=== PATIENT | male | born 1960 | race Caucasian/White ===

== ENCOUNTER 2020-09-28 06:06 | Outpatient (REF) | payer BC, SELFPAY ==
[2020-09-28 07:26] LABS: INTERNATIONAL NORM RATIO 2.1 (0.9-1.1); Prothrombin Time 25.7 SEC (10.8-13.0)
== END 2020-09-28 06:07 | disposition home or self-care (01) ==
LOC: HO.LAB 06:06
PROVIDERS: Visit Provider Internal Medicine
DX: I48.91 Unspecified atrial fibrillation (principal); Z79.01 Long term (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 of 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
CPT/HCPCS: 36415; 85610

== ENCOUNTER 2020-10-12 06:18 | Outpatient (REF) | payer BC, SELFPAY ==
[2020-10-12 07:25] LABS: INTERNATIONAL NORM RATIO 2.6 (0.9-1.1); Prothrombin Time 31.5 SEC (10.8-13.0)
== END 2020-10-12 06:19 | disposition home or self-care (01) ==
LOC: HO.LABR 06:18
PROVIDERS: Visit Provider Internal Medicine
DX: Z79.01 Long term (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 of 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 (principal); I48.91 Unspecified atrial fibrillation
CPT/HCPCS: 36415; 85610

== ENCOUNTER 2020-10-26 06:23 | Outpatient (REF) | payer BC, SELFPAY ==
[2020-10-26 07:25] LABS: INTERNATIONAL NORM RATIO 1.1 (0.9-1.1); Prothrombin Time 12.7 SEC (10.8-13.0)
== END 2020-10-26 06:24 | disposition home or self-care (01) ==
LOC: HO.LABR 06:23
PROVIDERS: Visit Provider Internal Medicine
DX: I48.91 Unspecified atrial fibrillation (principal); Z79.01 Long term (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 of 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
CPT/HCPCS: 36415; 85610

== ENCOUNTER 2020-11-09 06:22 | Outpatient (REF) | payer BC, SELFPAY ==
[2020-11-09 07:26] LABS: INTERNATIONAL NORM RATIO 1.7 (0.9-1.1); Prothrombin Time 20.7 SEC (10.8-13.0)
== END 2020-11-09 06:23 | disposition home or self-care (01) ==
LOC: HO.LABR 06:22
PROVIDERS: Visit Provider Internal Medicine
DX: I48.91 Unspecified atrial fibrillation (principal); Z79.01 Long term (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 of 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
CPT/HCPCS: 36415; 85610

== ENCOUNTER 2020-11-16 06:06 | Outpatient (REF) | payer BC, SELFPAY ==
[2020-11-16 07:27] LABS: MANUAL DIFF FLAG NO
[2020-11-16 07:34] LABS: Basophils Percent Auto 0.3 % (0-2); Eosinophils Absolute Auto 0.1 X10*3/uL (0.0-0.4); Eosinophils Percent Auto 1.5 % (0-4); Hematocrit 41.7 % (42-52); Imm Gran Abs Auto 0.01 X10*3/uL (0.00-0.03); Imm Gran Pct Auto 0.2 % (0.0-0.4); Lymphocytes Absolute Auto 1.5 X10*3/uL (1.2-4.9); Lymphocytes Percent Auto 24.6 % (20-40); Mean Corpuscular HGB Conc 33.6 g/dl (31.0-36.0); Mean Corpuscular Hemoglobin 29.8 pg (27.0-33.0); Mean Corpuscular Volume 88.7 fL (80-98); Mean Platelet Volume 9.7 fL (9.4-12.4); Monocytes Absolute Auto 0.5 X10*3/uL (0.1-1.2); Monocytes Percent Auto 7.7 % (2-11); Neutrophils Percent Auto 65.7 % (45-73); Platelet Count 235 X10*3/uL (160-400); Red Cell Distribution Width 13.5 % (11.0-16.0); White Blood Count 6.1 X10*3/uL (4.8-10.8)
[2020-11-16 07:46] LABS: Alanine Aminotransferase 25 U/L (0-40); Albumin Level 4.3 g/dL (3.5-5.0); Alkaline Phosphatase 75 U/L (39-117); Anion Gap 14 (12-20); Aspartate Amino Transferase 24 U/L (5-37); Bilirubin Total 1.5 mg/dL (0.0-1.0); Blood Urea Nitrogen 14 mg/dL (9-16); Calcium 8.8 mg/dL (8.4-10.2); Carbon Dioxide 27 mmol/L (22-29); Chloride 101 mmol/L (96-108); Cholesterol 149 mg/dL; Estimated Glomerular Filt Rate > 60; Glucose Fasting 134 mg/dL (60-99); HDL Cholesterol 47 mg/dL; LDL Cholesterol Calculated 70 mg/dl; Potassium 4.1 mmol/L (3.3-5.1); Sodium 138 mmol/L (135-145); Triglycerides 162 mg/dL
[2020-11-16 07:56] LABS: Glucose Urine UA NEG (NEG); Leukocyte Esterase Urine NEG (NEG); Nitrite Urine NEG (NEG); Specific Gravity - Urine 1.015 (1.005-1.025); Urine Blood NEG (NEG); Urine Ketones NEG (NEG); Urine Protein NEG (NEG-TRACE)
[2020-11-16 08:00] LABS: Appearance Urine CLEAR; Color Urine YELLOW
[2020-11-16 08:01] LABS: Creatinine Urine 103.39 mg/dL; Microalbum/Creatinine Ratio Ur 9.6 ug/mg cr
[2020-11-16 08:14] LABS: Reflex LDLD? No
[2020-11-16 09:11] LABS: Estimated Average Glucose 137 mg/dL; Hemoglobin A1c % 6.4 %
== END 2020-11-16 06:07 | disposition home or self-care (01) ==
LOC: HO.LAB 06:06
PROVIDERS: PCP Internal Medicine; Visit Provider Internal Medicine
DX: Z00.00 Encounter for general adult medical examination without abnormal findings (principal); E11.9 Type 2 diabetes mellitus without complications; E78.00 Pure hypercholesterolemia, unspecified; I10 Essential (primary) hypertension
CPT/HCPCS: 36415; 80053; 80061; 81003; 82043; 83036; 85025

== ENCOUNTER 2020-11-30 10:11 | Outpatient (REF) | payer BC, SELFPAY ==
[2020-11-30 10:52] LABS: INTERNATIONAL NORM RATIO 1.9 (0.9-1.1); Prothrombin Time 22.6 SEC (10.8-13.0)
[2020-11-30 11:30] LABS: Prostate Specific Antigen Scr 0.45 ng/mL (<0.05-4.0)
== END 2020-11-30 10:12 | disposition home or self-care (01) ==
LOC: HO.LNP 10:11
PROVIDERS: PCP Internal Medicine; Visit Provider Internal Medicine
DX: Z00.00 Encounter for general adult medical examination without abnormal findings (principal); Z12.5 Encounter for screening for malignant neoplasm of prostate; I48.91 Unspecified atrial fibrillation; Z79.01 Long term (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 of 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
CPT/HCPCS: 84153; 85610

== ENCOUNTER 2020-12-14 10:10 | Outpatient (REF) | payer BC, SELFPAY ==
[2020-12-14 10:36] LABS: INTERNATIONAL NORM RATIO 2.3 (0.9-1.1)
== END 2020-12-14 10:11 | disposition home or self-care (01) ==
LOC: HO.LNP 10:10
PROVIDERS: PCP Internal Medicine; Visit Provider Internal Medicine
DX: I48.91 Unspecified atrial fibrillation (principal); Z79.01 Long term (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 of 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
CPT/HCPCS: 85610

== ENCOUNTER 2020-12-28 10:26 | Outpatient (REF) | payer BC, SELFPAY ==
[2020-12-28 11:23] LABS: INTERNATIONAL NORM RATIO 2.2 (0.9-1.1); Prothrombin Time 25.8 SEC (10.8-13.0)
== END 2020-12-28 10:27 | disposition home or self-care (01) ==
LOC: HO.LNP 10:26
PROVIDERS: Visit Provider Internal Medicine
DX: I48.91 Unspecified atrial fibrillation (principal); Z79.01 Long term (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 of 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
CPT/HCPCS: 85610

== ENCOUNTER 2021-01-11 10:26 | Outpatient (REF) | payer BC, SELFPAY ==
[2021-01-11 10:42] LABS: INTERNATIONAL NORM RATIO 2.4 (0.9-1.1); Prothrombin Time 28.2 SEC (10.8-13.0)
== END 2021-01-11 10:27 | disposition home or self-care (01) ==
LOC: HO.LNP 10:26
PROVIDERS: Visit Provider Internal Medicine
DX: I48.91 Unspecified atrial fibrillation (principal); E11.9 Type 2 diabetes mellitus without complications; Z79.01 Long term (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 of 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
CPT/HCPCS: 85610

== ENCOUNTER 2021-01-25 11:09 | Outpatient (REF) | payer BC, SELFPAY ==
[2021-01-25 11:40] LABS: INTERNATIONAL NORM RATIO 2.8 (0.9-1.1); Prothrombin Time 33.5 SEC (10.8-13.0)
== END 2021-01-25 11:10 | disposition home or self-care (01) ==
LOC: HO.LNP 11:09
PROVIDERS: PCP Internal Medicine; Visit Provider Internal Medicine
DX: I48.91 Unspecified atrial fibrillation (principal); Z79.01 Long term (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 of 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
CPT/HCPCS: 85610

== ENCOUNTER 2021-02-08 11:08 | Outpatient (REF) | payer BC, SELFPAY ==
[2021-02-08 11:26] LABS: INTERNATIONAL NORM RATIO 2.7 (0.9-1.1); Prothrombin Time 32.4 SEC (10.8-13.0)
== END 2021-02-08 11:09 | disposition home or self-care (01) ==
LOC: HO.LNP 11:08
PROVIDERS: Visit Provider Internal Medicine
DX: Z79.01 Long term (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 of 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 (principal)
CPT/HCPCS: 85610

== ENCOUNTER 2021-02-22 10:23 | Outpatient (REF) | payer BC, SELFPAY ==
[2021-02-22 10:55] LABS: INTERNATIONAL NORM RATIO 3.5 (0.9-1.1); Prothrombin Time 42.7 SEC (10.8-13.0)
== END 2021-02-22 10:24 | disposition home or self-care (01) ==
LOC: HO.LNP 10:23
PROVIDERS: Visit Provider Internal Medicine
DX: I48.91 Unspecified atrial fibrillation (principal)
CPT/HCPCS: 85610

== ENCOUNTER 2021-02-25 10:11 | Outpatient (REF) | payer BC, SELFPAY ==
[2021-02-25 10:24] LABS: INTERNATIONAL NORM RATIO 1.3 (0.9-1.1); Prothrombin Time 15.8 SEC (10.8-13.0)
== END 2021-02-25 10:12 | disposition home or self-care (01) ==
LOC: HO.LNP 10:11
PROVIDERS: Visit Provider Internal Medicine
DX: I48.91 Unspecified atrial fibrillation (principal); Z79.01 Long term (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 of 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
CPT/HCPCS: 85610

== ENCOUNTER 2021-02-28 10:27 | Outpatient (REF) | payer BC, SELFPAY ==
[2021-02-28 10:45] LABS: INTERNATIONAL NORM RATIO 2.3 (0.9-1.1); Prothrombin Time 27.8 SEC (10.8-13.0)
== END 2021-02-28 10:28 | disposition home or self-care (01) ==
LOC: HO.LNP 10:27
PROVIDERS: Visit Provider Internal Medicine
DX: I48.91 Unspecified atrial fibrillation (principal); Z79.01 Long term (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 of 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
CPT/HCPCS: 85610

== ENCOUNTER 2021-03-08 10:26 | Outpatient (REF) | payer BC, SELFPAY ==
[2021-03-08 10:56] LABS: INTERNATIONAL NORM RATIO 3.5 (0.9-1.1); Prothrombin Time 42.3 SEC (10.8-13.0)
[2021-03-08 11:07] LABS: Estimated Average Glucose 131 mg/dL; Hemoglobin A1C 150.4593 umol/L; Hemoglobin A1c % 6.2 %
[2021-03-08 11:50] LABS: Glucose Fasting 154 mg/dL (60-99)
== END 2021-03-08 10:27 | disposition home or self-care (01) ==
LOC: HO.LNP 10:26
PROVIDERS: Visit Provider Internal Medicine
DX: E11.9 Type 2 diabetes mellitus without complications (principal); Z79.01 Long term (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 of 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
CPT/HCPCS: 82947; 83036; 85610

== ENCOUNTER 2021-03-15 10:16 | Outpatient (REF) | payer BC, SELFPAY ==
[2021-03-15 10:31] LABS: INTERNATIONAL NORM RATIO 2.4 (0.9-1.1); Prothrombin Time 28.6 SEC (10.8-13.0)
== END 2021-03-15 10:17 | disposition home or self-care (01) ==
LOC: HO.LNP 10:16
PROVIDERS: Visit Provider Internal Medicine
DX: I48.91 Unspecified atrial fibrillation (principal); Z79.01 Long term (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 of 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
CPT/HCPCS: 85610

== ENCOUNTER 2021-03-22 10:35 | Outpatient (REF) | payer BC, SELFPAY ==
[2021-03-22 11:08] LABS: Prothrombin Time 24.4 SEC (10.8-13.0)
== END 2021-03-22 10:36 | disposition home or self-care (01) ==
LOC: HO.LNP 10:35
PROVIDERS: Visit Provider Internal Medicine
DX: I48.91 Unspecified atrial fibrillation (principal); Z79.01 Long term (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 of 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
CPT/HCPCS: 85610

== ENCOUNTER 2021-04-05 10:01 | Outpatient (REF) | payer BC, SELFPAY ==
[2021-04-05 10:18] LABS: Prothrombin Time 23.7 SEC (10.8-13.0)
== END 2021-04-05 10:02 | disposition home or self-care (01) ==
LOC: HO.LNP 10:01
PROVIDERS: Visit Provider Internal Medicine
DX: I48.91 Unspecified atrial fibrillation (principal); Z79.01 Long term (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 of 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
CPT/HCPCS: 85610

== ENCOUNTER 2021-04-19 10:00 | Outpatient (REF) | payer BC, SELFPAY ==
[2021-04-19 10:53] LABS: Prothrombin Time 66.9 SEC (9.9-13.0)
[2021-04-19 10:58] LABS: INTERNATIONAL NORM RATIO 5.7 (0.9-1.1)
== END 2021-04-19 10:01 | disposition home or self-care (01) ==
LOC: HO.LNP 10:00
PROVIDERS: Visit Provider Internal Medicine
DX: I48.91 Unspecified atrial fibrillation (principal); Z79.01 Long term (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 of 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
CPT/HCPCS: 85610

== ENCOUNTER 2021-04-26 10:05 | Outpatient (REF) | payer BC, SELFPAY ==
[2021-04-26 10:29] LABS: INTERNATIONAL NORM RATIO 1.8 (0.9-1.1); Prothrombin Time 20.8 SEC (9.9-13.0)
== END 2021-04-26 10:06 | disposition home or self-care (01) ==
LOC: HO.LNP 10:05
PROVIDERS: Visit Provider Internal Medicine
DX: I48.91 Unspecified atrial fibrillation (principal); Z79.01 Long term (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 of 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
CPT/HCPCS: 85610

== ENCOUNTER 2021-04-29 10:08 | Outpatient (REF) | payer BC, SELFPAY ==
[2021-04-29 10:28] LABS: INTERNATIONAL NORM RATIO 2.3 (0.9-1.1); Prothrombin Time 26.3 SEC (9.9-13.0)
== END 2021-04-29 10:09 | disposition home or self-care (01) ==
LOC: HO.LNP 10:08
PROVIDERS: Visit Provider Internal Medicine
DX: I48.91 Unspecified atrial fibrillation (principal); Z79.01 Long term (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 of 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
CPT/HCPCS: 85610

== ENCOUNTER 2021-05-03 10:10 | Outpatient (REF) | payer BC, SELFPAY ==
[2021-05-03 11:22] LABS: INTERNATIONAL NORM RATIO 2.1 (0.9-1.1); Prothrombin Time 23.8 SEC (9.9-13.0)
== END 2021-05-03 10:11 | disposition home or self-care (01) ==
LOC: HO.LNP 10:10
PROVIDERS: Visit Provider Internal Medicine
DX: I48.91 Unspecified atrial fibrillation (principal); Z79.01 Long term (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 of 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
CPT/HCPCS: 85610

== ENCOUNTER 2021-05-10 10:27 | Outpatient (REF) | payer BC, SELFPAY ==
[2021-05-10 10:49] LABS: INTERNATIONAL NORM RATIO 2.8 (0.9-1.1); Prothrombin Time 32.4 SEC (9.9-13.0)
== END 2021-05-10 10:28 | disposition home or self-care (01) ==
LOC: HO.LNP 10:27
PROVIDERS: Visit Provider Internal Medicine
DX: I48.91 Unspecified atrial fibrillation (principal); Z79.01 Long term (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 of 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
CPT/HCPCS: 85610

== ENCOUNTER 2021-05-24 10:24 | Outpatient (REF) | payer BC, SELFPAY ==
[2021-05-24 10:36] LABS: INTERNATIONAL NORM RATIO 2.3 (0.9-1.1); Prothrombin Time 26.8 SEC (9.9-13.0)
[2021-05-24 10:42] LABS: Estimated Average Glucose 123 mg/dL; Hemoglobin A1c % 5.9 %
[2021-05-24 12:03] LABS: Alanine Aminotransferase 23 U/L (0-40); Albumin Level 4.2 g/dL (3.5-5.0); Alkaline Phosphatase 64 U/L (39-117); Aspartate Amino Transferase 21 U/L (5-37); Bilirubin Direct 0.5 mg/dL (0.0-0.5); Bilirubin Total 1.3 mg/dL (0.0-1.0); Cholesterol 139 mg/dL; Glucose Fasting 131 mg/dL (60-99); HDL Cholesterol 43 mg/dL; LDL Cholesterol Calculated 77 mg/dl; Total Protein 6.7 g/dL (6.5-8.0); Triglycerides 96 mg/dL
[2021-05-24 12:41] LABS: Reflex LDLD? No
== END 2021-05-24 10:25 | disposition home or self-care (01) ==
LOC: HO.LNP 10:24
PROVIDERS: Visit Provider Internal Medicine
DX: I48.91 Unspecified atrial fibrillation (principal); E11.9 Type 2 diabetes mellitus without complications; E78.00 Pure hypercholesterolemia, unspecified; Z79.01 Long term (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 of 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
CPT/HCPCS: 80061; 80076; 82947; 83036; 85610

== ENCOUNTER 2021-06-07 10:12 | Outpatient (REF) | payer BC, SELFPAY ==
[2021-06-07 10:33] LABS: INTERNATIONAL NORM RATIO 2.5 (0.9-1.1); Prothrombin Time 29.1 SEC (9.9-13.0)
== END 2021-06-07 10:13 | disposition home or self-care (01) ==
LOC: HO.LNP 10:12
PROVIDERS: Visit Provider Internal Medicine
DX: I48.91 Unspecified atrial fibrillation (principal); Z79.01 Long term (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 of 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
CPT/HCPCS: 85610

== ENCOUNTER 2021-06-21 10:10 | Outpatient (REF) | payer BC, SELFPAY ==
[2021-06-21 10:24] LABS: INTERNATIONAL NORM RATIO 3.1 (0.9-1.1); Prothrombin Time 36.5 SEC (9.9-13.0)
== END 2021-06-21 10:11 | disposition home or self-care (01) ==
LOC: HO.LNP 10:10
PROVIDERS: Visit Provider Internal Medicine
DX: I48.91 Unspecified atrial fibrillation (principal); Z79.01 Long term (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 of 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
CPT/HCPCS: 85610

== ENCOUNTER 2021-07-05 10:05 | Outpatient (REF) | payer BC, SELFPAY ==
[2021-07-05 10:17] LABS: INTERNATIONAL NORM RATIO 2.7 (0.9-1.1); Prothrombin Time 31.3 SEC (9.9-13.0)
== END 2021-07-05 10:06 | disposition home or self-care (01) ==
LOC: HO.LNP 10:05
PROVIDERS: Visit Provider Internal Medicine
DX: I48.91 Unspecified atrial fibrillation (principal); Z79.01 Long term (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 of 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
CPT/HCPCS: 85610

== ENCOUNTER 2021-07-19 10:09 | Outpatient (REF) | payer BC, SELFPAY ==
[2021-07-19 10:27] LABS: INTERNATIONAL NORM RATIO 2.6 (0.9-1.1); Prothrombin Time 30.4 SEC (9.9-13.0)
== END 2021-07-19 10:10 | disposition home or self-care (01) ==
LOC: HO.LNP 10:09
PROVIDERS: Visit Provider Internal Medicine
DX: I48.91 Unspecified atrial fibrillation (principal); Z79.01 Long term (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 of 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
CPT/HCPCS: 85610

== ENCOUNTER 2021-08-02 10:22 | Outpatient (REF) | payer BC, SELFPAY ==
[2021-08-02 10:41] LABS: INTERNATIONAL NORM RATIO 2.6 (0.9-1.1); Prothrombin Time 30.1 SEC (9.9-13.0)
== END 2021-08-02 10:23 | disposition home or self-care (01) ==
LOC: HO.LNP 10:22
PROVIDERS: Visit Provider Internal Medicine
DX: I48.91 Unspecified atrial fibrillation (principal); Z79.01 Long term (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 of 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
CPT/HCPCS: 85610

== ENCOUNTER 2021-08-16 10:16 | Outpatient (REF) | payer BC, SELFPAY ==
[2021-08-16 10:32] LABS: INTERNATIONAL NORM RATIO 2.9 (0.9-1.1); Prothrombin Time 33.7 SEC (9.9-13.0)
== END 2021-08-16 10:17 | disposition home or self-care (01) ==
LOC: HO.LNP 10:16
PROVIDERS: Visit Provider Internal Medicine
DX: I48.91 Unspecified atrial fibrillation (principal); Z79.01 Long term (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 of 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
CPT/HCPCS: 85610

== ENCOUNTER 2021-08-18 06:26 | Outpatient (REF) | payer BC, SELFPAY ==
[2021-08-18 06:35] LABS: MANUAL DIFF FLAG NO
[2021-08-18 07:20] LABS: Basophils Percent Auto 0.1 % (0-2); Eosinophils Absolute Auto 0.1 X10*3/uL (0.0-0.4); Eosinophils Percent Auto 2.1 % (0-4); Hematocrit 39.5 % (42.0-52.0); Hemoglobin 13.1 g/dl (14.0-18.0); Imm Gran Abs Auto 0.02 X10*3/uL (0.00-0.03); Imm Gran Pct Auto 0.3 % (0.0-0.4); Lymphocytes Absolute Auto 1.5 X10*3/uL (1.2-4.9); Mean Corpuscular HGB Conc 33.2 g/dl (31.0-36.0); Mean Corpuscular Hemoglobin 29.3 pg (27.0-33.0); Mean Corpuscular Volume 88.4 fL (80.0-98.0); Mean Platelet Volume 9.5 fL (9.4-12.4); Monocytes Absolute Auto 0.6 X10*3/uL (0.1-1.2); Monocytes Percent Auto 8.1 % (2-11); Neutrophils Absolute Auto 4.59 x10*3/uL (2.0-8.3); Neutrophils Percent Auto 67.4 % (45-73); Platelet Count 211 X10*3/uL (160-400); Red Blood Count 4.47 X10*6/uL (4.60-5.80); White Blood Count 6.8 X10*3/uL (4.8-10.8)
[2021-08-18 07:48] LABS: Alanine Aminotransferase 24 U/L (0-40); Albumin Level 4.1 g/dL (3.5-5.0); Alkaline Phosphatase 67 U/L (39-117); Anion Gap 11 (12-20); Aspartate Amino Transferase 24 U/L (5-37); Bilirubin Total 0.9 mg/dL (0.0-1.0); Blood Urea Nitrogen 15 mg/dL (9-16); Calcium 8.8 mg/dL (8.4-10.2); Carbon Dioxide 28 mmol/L (22-29); Chloride 104 mmol/L (96-108); Cholesterol 139 mg/dL; Estimated Glomerular Filt Rate > 60; Glucose Random 158 mg/dL (60-115); HDL Cholesterol 45 mg/dL; LDL Cholesterol Calculated 79 mg/dl; Magnesium 1.8 mg/dL (1.6-2.6); Potassium 4.2 mmol/L (3.3-5.1); Sodium 139 mmol/L (135-145); Total Protein 6.7 g/dL (6.5-8.0); Triglycerides 76 mg/dL
== END 2021-08-18 06:27 | disposition home or self-care (01) ==
LOC: HO.LAB 06:26
PROVIDERS: Physician Assistant Medical; PCP Internal Medicine; Visit Provider Nurse Practitioner
DX: E78.2 Mixed hyperlipidemia (principal); I48.0 Paroxysmal atrial fibrillation
CPT/HCPCS: 36415; 80053; 80061; 83735; 85025

== ENCOUNTER 2021-08-30 10:44 | Outpatient (REF) | payer BC, SELFPAY ==
[2021-08-30 10:57] LABS: Prothrombin Time 23.1 SEC (9.9-13.0)
== END 2021-08-30 10:45 | disposition home or self-care (01) ==
LOC: HO.LNP 10:44
PROVIDERS: PCP Internal Medicine; Visit Provider Internal Medicine
DX: I48.91 Unspecified atrial fibrillation (principal); Z79.01 Long term (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 of 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
CPT/HCPCS: 85610

== ENCOUNTER 2021-09-13 10:11 | Outpatient (REF) | payer BC, SELFPAY ==
[2021-09-13 10:49] LABS: INTERNATIONAL NORM RATIO 3.1 (0.9-1.1); Prothrombin Time 36.6 SEC (9.9-13.0)
== END 2021-09-13 10:12 | disposition home or self-care (01) ==
LOC: HO.LNP 10:11
PROVIDERS: PCP Internal Medicine; Visit Provider Internal Medicine
DX: I48.91 Unspecified atrial fibrillation (principal); Z79.01 Long term (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 of 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
CPT/HCPCS: 85610

== ENCOUNTER 2021-09-27 10:24 | Outpatient (REF) | payer BC, SELFPAY ==
[2021-09-27 10:51] LABS: INTERNATIONAL NORM RATIO 1.5 (0.9-1.1); Prothrombin Time 16.7 SEC (9.9-13.0)
== END 2021-09-27 10:25 | disposition home or self-care (01) ==
LOC: HO.LNP 10:24
PROVIDERS: Visit Provider Internal Medicine
DX: I48.91 Unspecified atrial fibrillation (principal); Z79.01 Long term (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 of 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
CPT/HCPCS: 85610

== ENCOUNTER 2021-10-04 10:07 | Outpatient (REF) | payer BC, SELFPAY ==
[2021-10-04 10:26] LABS: INTERNATIONAL NORM RATIO 2.1 (0.9-1.1); Prothrombin Time 23.9 SEC (9.9-13.0)
== END 2021-10-04 10:08 | disposition home or self-care (01) ==
LOC: HO.LNP 10:07
PROVIDERS: Visit Provider Internal Medicine
DX: I48.91 Unspecified atrial fibrillation (principal); Z79.01 Long term (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 of 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
CPT/HCPCS: 85610

== ENCOUNTER 2021-10-11 10:05 | Outpatient (REF) | payer BC, SELFPAY ==
[2021-10-11 10:16] LABS: Glucose Fasting 140 mg/dL (60-99)
[2021-10-11 10:18] LABS: INTERNATIONAL NORM RATIO 3.4 (0.9-1.1); Prothrombin Time 40.1 SEC (9.9-13.0)
== END 2021-10-11 10:06 | disposition home or self-care (01) ==
LOC: HO.LNP 10:05
PROVIDERS: Visit Provider Internal Medicine
DX: E11.9 Type 2 diabetes mellitus without complications (principal); Z79.01 Long term (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 of 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
CPT/HCPCS: 82947; 85610

== ENCOUNTER 2021-10-18 06:24 | Outpatient (REF) | payer BC, SELFPAY ==
[2021-10-18 06:38] LABS: MANUAL DIFF FLAG NO
[2021-10-18 07:37] LABS: Basophils Percent Auto 0.5 % (0-2); Eosinophils Absolute Auto 0.3 X10*3/uL (0.0-0.4); Eosinophils Percent Auto 4.6 % (0-4); Hematocrit 41.5 % (42.0-52.0); Hemoglobin 13.4 g/dl (14.0-18.0); Imm Gran Abs Auto 0.01 X10*3/uL (0.00-0.03); Imm Gran Pct Auto 0.2 % (0.0-0.4); Lymphocytes Absolute Auto 1.5 X10*3/uL (1.2-4.9); Lymphocytes Percent Auto 24.1 % (20-40); Mean Corpuscular HGB Conc 32.3 g/dl (31.0-36.0); Mean Corpuscular Hemoglobin 28.9 pg (27.0-33.0); Mean Corpuscular Volume 89.4 fL (80.0-98.0); Mean Platelet Volume 9.3 fL (9.4-12.4); Monocytes Absolute Auto 0.7 X10*3/uL (0.1-1.2); Monocytes Percent Auto 10.3 % (2-11); Neutrophils Absolute Auto 3.8 x10*3/uL (2.0-8.3); Neutrophils Percent Auto 60.3 % (45-73); Platelet Count 240 X10*3/uL (160-400); Red Blood Count 4.64 X10*6/uL (4.60-5.80); Red Cell Distribution Width 14.3 % (11.0-16.0); White Blood Count 6.3 X10*3/uL (4.8-10.8)
[2021-10-18 07:46] LABS: INTERNATIONAL NORM RATIO 2.8 (0.9-1.1)
[2021-10-18 08:00] LABS: Anion Gap 10 (12-20); Blood Urea Nitrogen 10 mg/dL (9-16); Calcium 9.2 mg/dL (8.4-10.2); Carbon Dioxide 30 mmol/L (22-29); Chloride 103 mmol/L (96-108); Estimated Glomerular Filt Rate > 60; Glucose Random 141 mg/dL (60-115); Sodium 139 mmol/L (135-145)
== END 2021-10-18 06:25 | disposition home or self-care (01) ==
LOC: HO.LAB 06:24
PROVIDERS: PCP Internal Medicine; Visit Provider Internal Medicine Cardiovascular Disease
DX: I48.91 Unspecified atrial fibrillation (principal)
CPT/HCPCS: 36415; 80048; 85025; 85610

== ENCOUNTER 2021-10-24 10:35 | Outpatient (REF) | payer BC, SELFPAY ==
[2021-10-24 10:47] LABS: INTERNATIONAL NORM RATIO 2.1 (0.9-1.1); Prothrombin Time 23.8 SEC (9.9-13.0)
== END 2021-10-24 10:36 | disposition home or self-care (01) ==
LOC: HO.LNP 10:35
PROVIDERS: Visit Provider Internal Medicine
DX: I48.91 Unspecified atrial fibrillation (principal); Z79.01 Long term (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 of 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
CPT/HCPCS: 85610

== ENCOUNTER 2021-11-01 10:05 | Outpatient (REF) | payer BC, SELFPAY ==
[2021-11-01 10:23] LABS: INTERNATIONAL NORM RATIO 1.8 (0.9-1.1); Prothrombin Time 20.2 SEC (9.9-13.0)
== END 2021-11-01 10:06 | disposition home or self-care (01) ==
LOC: HO.LNP 10:05
PROVIDERS: Visit Provider Internal Medicine
DX: I48.91 Unspecified atrial fibrillation (principal); Z79.01 Long term (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 of 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
CPT/HCPCS: 85610

== ENCOUNTER 2021-11-08 10:13 | Outpatient (REF) | payer BC, SELFPAY ==
[2021-11-08 10:37] LABS: INTERNATIONAL NORM RATIO 2.2 (0.9-1.1); Prothrombin Time 25.4 SEC (9.9-13.0)
== END 2021-11-08 10:14 | disposition home or self-care (01) ==
LOC: HO.LNP 10:13
PROVIDERS: Visit Provider Internal Medicine
DX: I48.91 Unspecified atrial fibrillation (principal); Z79.01 Long term (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 of 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
CPT/HCPCS: 85610

== ENCOUNTER 2021-11-15 10:23 | Outpatient (REF) | payer BC, SELFPAY ==
[2021-11-15 10:34] LABS: Prothrombin Time 35.1 SEC (9.9-13.0)
== END 2021-11-15 10:24 | disposition home or self-care (01) ==
LOC: HO.LNP 10:23
PROVIDERS: PCP Internal Medicine; Visit Provider Internal Medicine
DX: I48.91 Unspecified atrial fibrillation (principal); Z79.01 Long term (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 of 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
CPT/HCPCS: 85610

== ENCOUNTER 2021-11-29 10:54 | Outpatient (REF) | payer BC, SELFPAY ==
[2021-11-29 10:57] LABS: MANUAL DIFF FLAG NO
[2021-11-29 11:28] LABS: Appearance Urine CLEAR; Color Urine YELLOW; Glucose Urine UA NEG (NEG); Leukocyte Esterase Urine NEG (NEG); Nitrite Urine NEG (NEG); PH 6.5 (5.0-8.0); Urine Blood NEG (NEG); Urine Ketones NEG (NEG); Urine Protein NEG (NEG-TRACE)
[2021-11-29 11:30] LABS: Basophils Percent Auto 0.3 % (0-2); Eosinophils Absolute Auto 0.2 X10*3/uL (0.0-0.4); Eosinophils Percent Auto 2.4 % (0-4); Hematocrit 41.5 % (42.0-52.0); Hemoglobin 13.3 g/dl (14.0-18.0); Imm Gran Abs Auto 0.02 X10*3/uL (0.00-0.03); Imm Gran Pct Auto 0.3 % (0.0-0.4); Lymphocytes Percent Auto 25.4 % (20-40); Mean Corpuscular Hemoglobin 28.7 pg (27.0-33.0); Mean Corpuscular Volume 89.6 fL (80.0-98.0); Mean Platelet Volume 9.8 fL (9.4-12.4); Monocytes Absolute Auto 0.5 X10*3/uL (0.1-1.2); Monocytes Percent Auto 6.7 % (2-11); Neutrophils Absolute Auto 5.1 x10*3/uL (2.0-8.3); Neutrophils Percent Auto 64.9 % (45-73); Platelet Count 235 X10*3/uL (160-400); Red Blood Count 4.63 X10*6/uL (4.60-5.80); Red Cell Distribution Width 13.5 % (11.0-16.0); White Blood Count 7.9 X10*3/uL (4.8-10.8)
[2021-11-29 11:31] LABS: INTERNATIONAL NORM RATIO 2.5 (0.9-1.1); Prothrombin Time 28.6 SEC (9.9-13.0)
[2021-11-29 12:10] LABS: Alanine Aminotransferase 23 U/L (0-40); Alkaline Phosphatase 73 U/L (39-117); Anion Gap 14 (12-20); Aspartate Amino Transferase 20 U/L (5-37); Bilirubin Total 0.9 mg/dL (0.0-1.0); Blood Urea Nitrogen 12 mg/dL (9-16); Carbon Dioxide 26 mmol/L (22-29); Chloride 102 mmol/L (96-108); Cholesterol 163 mg/dL; Estimated Glomerular Filt Rate > 60; Glucose Fasting 148 mg/dL (60-99); HDL Cholesterol 44 mg/dL; LDL Cholesterol Calculated 95 mg/dl; Sodium 138 mmol/L (135-145); Total Protein 6.9 g/dL (6.5-8.0); Triglycerides 121 mg/dL
[2021-11-29 12:15] LABS: PSA,Total (Free>4and<10) 0.47 ng/mL (0.00-4.00)
[2021-11-29 12:28] LABS: Creatinine Urine 61.62 mg/dL; Microalbum/Creatinine Ratio Ur 11.3 ug/mg cr
[2021-11-29 12:36] LABS: Estimated Average Glucose 134 mg/dL; Hemoglobin A1c % 6.3 %
== END 2021-11-29 10:55 | disposition home or self-care (01) ==
LOC: HO.LNP 10:54
PROVIDERS: PCP Internal Medicine; Visit Provider Internal Medicine
DX: Z00.00 Encounter for general adult medical examination without abnormal findings (principal); Z12.5 Encounter for screening for malignant neoplasm of prostate; I10 Essential (primary) hypertension; E78.00 Pure hypercholesterolemia, unspecified; I48.91 Unspecified atrial fibrillation
CPT/HCPCS: 80053; 80061; 81003; 82043; 83036; 84153; 85025; 85610

== ENCOUNTER 2021-12-20 10:34 | Outpatient (REF) | payer BC, SELFPAY ==
[2021-12-20 11:06] LABS: INTERNATIONAL NORM RATIO 2.8 (0.9-1.1); Prothrombin Time 32.5 SEC (9.9-13.0)
== END 2021-12-20 10:35 | disposition home or self-care (01) ==
LOC: HO.LNP 10:34
PROVIDERS: Visit Provider Internal Medicine
DX: I48.91 Unspecified atrial fibrillation (principal); Z79.01 Long term (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 of 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
CPT/HCPCS: 85610

== ENCOUNTER 2022-01-03 10:28 | Outpatient (REF) | payer BC, SELFPAY ==
[2022-01-03 10:48] LABS: INTERNATIONAL NORM RATIO 2.3 (0.9-1.1); Prothrombin Time 26.1 SEC (9.9-13.0)
== END 2022-01-03 10:29 | disposition home or self-care (01) ==
LOC: HO.LNP 10:28
PROVIDERS: Visit Provider Internal Medicine
DX: I48.91 Unspecified atrial fibrillation (principal); Z79.01 Long term (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 of 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
CPT/HCPCS: 85610

== ENCOUNTER 2022-01-17 10:58 | Outpatient (REF) | payer BC, SELFPAY ==
[2022-01-17 11:33] LABS: INTERNATIONAL NORM RATIO 3.5 (0.9-1.1); Prothrombin Time 41.4 SEC (9.9-13.0)
== END 2022-01-17 10:59 | disposition home or self-care (01) ==
LOC: HO.LNP 10:58
PROVIDERS: Visit Provider Internal Medicine
DX: I48.91 Unspecified atrial fibrillation (principal); Z79.01 Long term (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 of 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
CPT/HCPCS: 85610

== ENCOUNTER 2022-01-24 10:47 | Outpatient (REF) | payer BC, SELFPAY ==
[2022-01-24 10:57] LABS: INTERNATIONAL NORM RATIO 2.7 (0.9-1.1)
== END 2022-01-24 10:48 | disposition home or self-care (01) ==
LOC: HO.LNP 10:47
PROVIDERS: Visit Provider Internal Medicine
DX: I48.91 Unspecified atrial fibrillation (principal); Z79.01 Long term (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 of 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
CPT/HCPCS: 85610

== ENCOUNTER 2022-01-31 10:28 | Outpatient (REF) | payer BC, SELFPAY ==
[2022-01-31 10:45] LABS: INTERNATIONAL NORM RATIO 2.9 (0.9-1.1); Prothrombin Time 33.3 SEC (9.9-13.0)
== END 2022-01-31 10:29 | disposition home or self-care (01) ==
LOC: HO.LNP 10:28
PROVIDERS: Visit Provider Internal Medicine
DX: I48.91 Unspecified atrial fibrillation (principal); Z79.01 Long term (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 of 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
CPT/HCPCS: 85610

== ENCOUNTER 2022-02-14 10:15 | Outpatient (REF) | payer BC, SELFPAY ==
[2022-02-14 10:43] LABS: INTERNATIONAL NORM RATIO 4.5 (0.9-1.1)
== END 2022-02-14 10:16 | disposition home or self-care (01) ==
LOC: HO.LNP 10:15
PROVIDERS: PCP Internal Medicine; Visit Provider Internal Medicine
DX: I48.91 Unspecified atrial fibrillation (principal); Z79.01 Long term (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 of 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
CPT/HCPCS: 85610

== ENCOUNTER 2022-02-16 10:55 | Outpatient (REF) | payer BC, SELFPAY ==
[2022-02-16 12:16] LABS: INTERNATIONAL NORM RATIO 2.2 (0.9-1.1)
== END 2022-02-16 10:56 | disposition home or self-care (01) ==
LOC: HO.LNP 10:55
PROVIDERS: PCP Internal Medicine; Visit Provider Internal Medicine
DX: I48.91 Unspecified atrial fibrillation (principal); Z79.01 Long term (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 of 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
CPT/HCPCS: 85610

== ENCOUNTER 2022-02-21 10:37 | Outpatient (REF) | payer BC, SELFPAY ==
[2022-02-21 11:03] LABS: INTERNATIONAL NORM RATIO 1.9 (0.9-1.1); Prothrombin Time 21.3 SEC (9.9-13.0)
== END 2022-02-21 10:38 | disposition home or self-care (01) ==
LOC: HO.LNP 10:37
PROVIDERS: Visit Provider Internal Medicine
DX: I48.91 Unspecified atrial fibrillation (principal); Z79.01 Long term (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 of 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
CPT/HCPCS: 85610

== ENCOUNTER 2022-02-28 11:02 | Outpatient (REF) | payer BC, SELFPAY ==
[2022-02-28 11:24] LABS: INTERNATIONAL NORM RATIO 2.3 (0.9-1.1); Prothrombin Time 27.2 SEC (9.9-13.0)
== END 2022-02-28 11:03 | disposition home or self-care (01) ==
LOC: HO.LNP 11:02
PROVIDERS: Visit Provider Internal Medicine
DX: I48.91 Unspecified atrial fibrillation (principal); Z79.01 Long term (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 of 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
CPT/HCPCS: 85610

== ENCOUNTER 2022-03-07 11:07 | Outpatient (REF) | payer BC, SELFPAY ==
[2022-03-07 11:43] LABS: INTERNATIONAL NORM RATIO 2.9 (0.9-1.1); Prothrombin Time 34.3 SEC (9.9-13.0)
== END 2022-03-07 11:08 | disposition home or self-care (01) ==
LOC: HO.LNP 11:07
PROVIDERS: Visit Provider Internal Medicine
DX: I48.91 Unspecified atrial fibrillation (principal); Z79.01 Long term (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 of 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
CPT/HCPCS: 85610

== ENCOUNTER 2022-03-21 10:46 | Outpatient (REF) | payer BC, SELFPAY ==
[2022-03-21 11:05] LABS: INTERNATIONAL NORM RATIO 4.1 (0.9-1.1); Prothrombin Time 48.1 SEC (9.9-13.0)
== END 2022-03-21 10:47 | disposition home or self-care (01) ==
LOC: HO.LNP 10:46
PROVIDERS: Visit Provider Internal Medicine
DX: I48.91 Unspecified atrial fibrillation (principal); Z79.01 Long term (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 of 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
CPT/HCPCS: 85610

== ENCOUNTER 2022-03-28 10:36 | Outpatient (REF) | payer BC, SELFPAY ==
[2022-03-28 10:48] LABS: INTERNATIONAL NORM RATIO 2.6 (0.9-1.1); Prothrombin Time 30.4 SEC (9.9-13.0)
== END 2022-03-28 10:37 | disposition home or self-care (01) ==
LOC: HO.LNP 10:36
PROVIDERS: Visit Provider Internal Medicine
DX: I48.91 Unspecified atrial fibrillation (principal); Z79.01 Long term (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 of 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
CPT/HCPCS: 85610

== ENCOUNTER 2022-04-11 11:07 | Outpatient (REF) | payer BC, SELFPAY ==
[2022-04-11 11:21] LABS: INTERNATIONAL NORM RATIO 2.8 (0.9-1.1); Prothrombin Time 32.5 SEC (9.9-13.0)
== END 2022-04-11 11:08 | disposition home or self-care (01) ==
LOC: HO.LNP 11:07
PROVIDERS: Visit Provider Internal Medicine
DX: I48.91 Unspecified atrial fibrillation (principal); Z79.01 Long term (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 of 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
CPT/HCPCS: 85610

== ENCOUNTER 2022-04-25 10:47 | Outpatient (REF) | payer BC, SELFPAY ==
[2022-04-25 11:19] LABS: INTERNATIONAL NORM RATIO 4.4 (0.9-1.1); Prothrombin Time 54.3 SEC (10.0-13.1)
== END 2022-04-25 10:48 | disposition home or self-care (01) ==
LOC: HO.LNP 10:47
PROVIDERS: Visit Provider Internal Medicine
DX: I48.91 Unspecified atrial fibrillation (principal); Z79.01 Long term (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 of 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
CPT/HCPCS: 85610

== ENCOUNTER 2022-05-02 10:47 | Outpatient (REF) | payer BC, SELFPAY ==
[2022-05-02 11:24] LABS: INTERNATIONAL NORM RATIO 2.2 (0.9-1.1); Prothrombin Time 25.9 SEC (10.0-13.1)
== END 2022-05-02 10:48 | disposition home or self-care (01) ==
LOC: HO.LNP 10:47
PROVIDERS: Visit Provider Internal Medicine
DX: I48.91 Unspecified atrial fibrillation (principal); Z79.01 Long term (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 of 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
CPT/HCPCS: 85610

== ENCOUNTER 2022-05-16 10:44 | Outpatient (REF) | payer BC, SELFPAY ==
[2022-05-16 11:11] LABS: INTERNATIONAL NORM RATIO 2.5 (0.9-1.1); Prothrombin Time 29.4 SEC (10.0-13.1)
== END 2022-05-16 10:45 | disposition home or self-care (01) ==
LOC: HO.LNP 10:44
PROVIDERS: Visit Provider Internal Medicine
DX: I48.91 Unspecified atrial fibrillation (principal); Z79.01 Long term (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 of 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
CPT/HCPCS: 85610

== ENCOUNTER 2022-05-30 10:33 | Outpatient (REF) | payer BC, SELFPAY ==
[2022-05-30 11:08] LABS: INTERNATIONAL NORM RATIO 2.5 (0.9-1.1); Prothrombin Time 30.2 SEC (10.0-13.1)
== END 2022-05-30 10:34 | disposition home or self-care (01) ==
LOC: HO.LNP 10:33
PROVIDERS: Visit Provider Internal Medicine
DX: I48.91 Unspecified atrial fibrillation (principal); Z79.01 Long term (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 of 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
CPT/HCPCS: 85610

== ENCOUNTER 2022-06-13 10:27 | Outpatient (REF) | payer BC, SELFPAY ==
[2022-06-13 10:52] LABS: INTERNATIONAL NORM RATIO 2.6 (0.9-1.1); Prothrombin Time 30.9 SEC (10.0-13.1)
== END 2022-06-13 10:28 | disposition home or self-care (01) ==
LOC: HO.LNP 10:27
PROVIDERS: Visit Provider Internal Medicine
DX: I48.91 Unspecified atrial fibrillation (principal); Z79.01 Long term (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 of 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
CPT/HCPCS: 85610

== ENCOUNTER 2022-06-27 10:36 | Outpatient (REF) | payer BC, SELFPAY ==
[2022-06-27 11:01] LABS: INTERNATIONAL NORM RATIO 2.4 (0.9-1.1); Prothrombin Time 28.7 SEC (10.0-13.1)
== END 2022-06-27 10:37 | disposition home or self-care (01) ==
LOC: HO.LNP 10:36
PROVIDERS: Visit Provider Internal Medicine
DX: I48.91 Unspecified atrial fibrillation (principal); Z79.01 Long term (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 of 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
CPT/HCPCS: 85610

== ENCOUNTER 2022-07-11 10:55 | Outpatient (REF) | payer BC, SELFPAY ==
[2022-07-11 11:08] LABS: INTERNATIONAL NORM RATIO 3.2 (0.9-1.1); Prothrombin Time 38.7 SEC (10.0-13.1)
== END 2022-07-11 10:56 | disposition home or self-care (01) ==
LOC: HO.LNP 10:55
PROVIDERS: Visit Provider Internal Medicine
DX: I48.91 Unspecified atrial fibrillation (principal); Z79.01 Long term (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 of 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
CPT/HCPCS: 85610

== ENCOUNTER 2022-07-25 10:32 | Outpatient (REF) | payer BC, SELFPAY ==
[2022-07-25 11:50] LABS: Prothrombin Time 36.5 SEC (10.0-13.1)
== END 2022-07-25 10:33 | disposition home or self-care (01) ==
LOC: HO.LNP 10:32
PROVIDERS: Visit Provider Internal Medicine
DX: Z79.01 Long term (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 of 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 (principal)
CPT/HCPCS: 85610

== ENCOUNTER 2022-08-08 10:32 | Outpatient (REF) | payer BC, SELFPAY ==
[2022-08-08 10:55] LABS: INTERNATIONAL NORM RATIO 3.2 (0.9-1.1); Prothrombin Time 38.8 SEC (10.0-13.1)
== END 2022-08-08 10:33 | disposition home or self-care (01) ==
LOC: HO.LNP 10:32
PROVIDERS: Visit Provider Internal Medicine
DX: I48.91 Unspecified atrial fibrillation (principal); Z79.01 Long term (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 of 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
CPT/HCPCS: 85610

== ENCOUNTER 2022-08-15 10:29 | Outpatient (REF) | payer BC, SELFPAY ==
[2022-08-15 11:02] LABS: INTERNATIONAL NORM RATIO 2.9 (0.9-1.1); Prothrombin Time 35.4 SEC (10.0-13.1)
== END 2022-08-15 10:30 | disposition home or self-care (01) ==
LOC: HO.LNP 10:29
PROVIDERS: Visit Provider Internal Medicine
DX: I48.91 Unspecified atrial fibrillation (principal); Z79.01 Long term (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 of 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
CPT/HCPCS: 85610

== ENCOUNTER 2022-08-29 10:48 | Outpatient (REF) | payer BC, SELFPAY ==
[2022-08-29 11:11] LABS: INTERNATIONAL NORM RATIO 3.5 (0.9-1.1); Prothrombin Time 42.5 SEC (10.0-13.1)
== END 2022-08-29 10:49 | disposition home or self-care (01) ==
LOC: HO.LNP 10:48
PROVIDERS: Visit Provider Internal Medicine
DX: I48.91 Unspecified atrial fibrillation (principal); Z79.01 Long term (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 of 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
CPT/HCPCS: 85610

== ENCOUNTER 2022-09-05 11:03 | Outpatient (REF) | payer BC, SELFPAY ==
[2022-09-05 11:23] LABS: INTERNATIONAL NORM RATIO 2.4 (0.9-1.1); Prothrombin Time 28.3 SEC (10.0-13.1)
== END 2022-09-05 11:04 | disposition home or self-care (01) ==
LOC: HO.LNP 11:03
PROVIDERS: Visit Provider Internal Medicine
DX: I48.91 Unspecified atrial fibrillation (principal); Z79.01 Long term (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 of 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
CPT/HCPCS: 85610

== ENCOUNTER 2022-09-12 10:54 | Outpatient (REF) | payer BC, SELFPAY ==
[2022-09-12 11:13] LABS: INTERNATIONAL NORM RATIO 2.5 (0.9-1.1); Prothrombin Time 29.6 SEC (10.0-13.1)
== END 2022-09-12 10:55 | disposition home or self-care (01) ==
LOC: HO.LNP 10:54
PROVIDERS: Visit Provider Internal Medicine
DX: I48.91 Unspecified atrial fibrillation (principal)
CPT/HCPCS: 85610

== ENCOUNTER 2022-09-26 10:51 | Outpatient (REF) | payer BC, SELFPAY ==
[2022-09-26 11:09] LABS: INTERNATIONAL NORM RATIO 2.5 (0.9-1.1); Prothrombin Time 29.2 SEC (10.0-13.1)
== END 2022-09-26 10:52 | disposition home or self-care (01) ==
LOC: HO.LNP 10:51
PROVIDERS: Visit Provider Internal Medicine
DX: I48.91 Unspecified atrial fibrillation (principal); Z79.01 Long term (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 of 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
CPT/HCPCS: 85610

== ENCOUNTER 2022-10-10 10:29 | Outpatient (REF) | payer BC, SELFPAY ==
[2022-10-10 10:49] LABS: Prothrombin Time 65.1 SEC (10.0-13.1)
[2022-10-10 10:54] LABS: INTERNATIONAL NORM RATIO 5.3 (0.9-1.1)
== END 2022-10-10 10:30 | disposition home or self-care (01) ==
LOC: HO.LNP 10:29
PROVIDERS: Visit Provider Internal Medicine
DX: I48.91 Unspecified atrial fibrillation (principal); Z79.01 Long term (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 of 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
CPT/HCPCS: 85610

== ENCOUNTER 2022-10-12 10:17 | Outpatient (REF) | payer BC, SELFPAY ==
[2022-10-12 10:34] LABS: INTERNATIONAL NORM RATIO 2.5 (0.9-1.1); Prothrombin Time 29.4 SEC (10.0-13.1)
== END 2022-10-12 10:18 | disposition home or self-care (01) ==
LOC: HO.LNP 10:17
PROVIDERS: Visit Provider Internal Medicine
DX: I48.91 Unspecified atrial fibrillation (principal); Z79.01 Long term (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 of 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
CPT/HCPCS: 85610

== ENCOUNTER 2022-10-17 10:34 | Outpatient (REF) | payer BC, SELFPAY ==
[2022-10-17 10:53] LABS: INTERNATIONAL NORM RATIO 1.4 (0.9-1.1); Prothrombin Time 16.8 SEC (10.0-13.1)
== END 2022-10-17 10:35 | disposition home or self-care (01) ==
LOC: HO.LNP 10:34
PROVIDERS: Visit Provider Internal Medicine
DX: I48.91 Unspecified atrial fibrillation (principal); Z79.01 Long term (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 of 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
CPT/HCPCS: 85610

== ENCOUNTER 2022-10-24 10:46 | Outpatient (REF) | payer BC, SELFPAY ==
[2022-10-24 11:05] LABS: INTERNATIONAL NORM RATIO 1.6 (0.9-1.1); Prothrombin Time 18.4 SEC (10.0-13.1)
== END 2022-10-24 10:47 | disposition home or self-care (01) ==
LOC: HO.LNP 10:46
PROVIDERS: Visit Provider Internal Medicine
DX: I48.91 Unspecified atrial fibrillation (principal); Z79.01 Long term (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 of 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
CPT/HCPCS: 85610

== ENCOUNTER 2022-10-31 10:31 | Outpatient (REF) | payer BC, SELFPAY ==
[2022-10-31 10:47] LABS: INTERNATIONAL NORM RATIO 2.9 (0.9-1.1); Prothrombin Time 34.7 SEC (10.0-13.1)
== END 2022-10-31 10:32 | disposition home or self-care (01) ==
LOC: HO.LNP 10:31
PROVIDERS: Visit Provider Internal Medicine
DX: I48.91 Unspecified atrial fibrillation (principal); Z79.01 Long term (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 of 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
CPT/HCPCS: 85610

== ENCOUNTER 2022-11-14 10:37 | Outpatient (REF) | payer BC, SELFPAY ==
[2022-11-14 11:02] LABS: INTERNATIONAL NORM RATIO 3.2 (0.9-1.1); Prothrombin Time 38.8 SEC (10.0-13.1)
== END 2022-11-14 10:38 | disposition home or self-care (01) ==
LOC: HO.LNP 10:37
PROVIDERS: Visit Provider Internal Medicine
DX: I48.91 Unspecified atrial fibrillation (principal); Z79.01 Long term (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 of 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
CPT/HCPCS: 85610

== ENCOUNTER 2022-11-28 10:56 | Outpatient (REF) | payer BC, SELFPAY ==
[2022-11-28 11:09] LABS: INTERNATIONAL NORM RATIO 2.5 (0.9-1.1); Prothrombin Time 29.8 SEC (10.0-13.1)
== END 2022-11-28 10:57 | disposition home or self-care (01) ==
LOC: HO.LNP 10:56
PROVIDERS: Visit Provider Internal Medicine
DX: I48.91 Unspecified atrial fibrillation (principal); Z79.01 Long term (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 of 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
CPT/HCPCS: 85610

== ENCOUNTER 2022-12-19 11:23 | Outpatient (REF) | payer BC, SELFPAY ==
[2022-12-19 11:59] LABS: INTERNATIONAL NORM RATIO 2.7 (0.9-1.1); Prothrombin Time 32.4 SEC (10.0-13.1)
== END 2022-12-19 11:24 | disposition home or self-care (01) ==
LOC: HO.LNP 11:23
PROVIDERS: Visit Provider Internal Medicine
DX: I48.91 Unspecified atrial fibrillation (principal); Z79.01 Long term (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 of 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
CPT/HCPCS: 85610

== ENCOUNTER 2023-01-02 11:09 | Outpatient (REF) | payer BC, SELFPAY ==
[2023-01-02 11:21] LABS: INTERNATIONAL NORM RATIO 2.6 (0.9-1.1); Prothrombin Time 30.5 SEC (10.0-13.1)
== END 2023-01-02 11:10 | disposition home or self-care (01) ==
LOC: HO.LNP 11:09
PROVIDERS: Visit Provider Internal Medicine
DX: I48.91 Unspecified atrial fibrillation (principal); Z79.01 Long term (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 of 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
CPT/HCPCS: 85610

== ENCOUNTER 2023-01-16 10:43 | Outpatient (REF) | payer BC, SELFPAY ==
[2023-01-16 11:09] LABS: Prothrombin Time 23.2 SEC (10.0-13.1)
== END 2023-01-16 10:44 | disposition home or self-care (01) ==
LOC: HO.LNP 10:43
PROVIDERS: Visit Provider Internal Medicine
DX: I48.91 Unspecified atrial fibrillation (principal); Z79.01 Long term (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 of 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
CPT/HCPCS: 85610

== ENCOUNTER 2023-01-30 11:45 | Outpatient (REF) | payer BC, SELFPAY ==
[2023-01-30 11:48] LABS: MANUAL DIFF FLAG NO
[2023-01-30 12:04] LABS: Prothrombin Time 23.3 SEC (10.0-13.1)
[2023-01-30 12:19] LABS: Appearance Urine Clear; Color Urine Yellow; Glucose Urine UA 500 mg/dL (Negative); Leukocyte Esterase Urine Negative (Negative); Nitrite Urine Negative (Negative); Urine Blood Negative (Negative); Urine Ketones Negative (Negative); Urine Protein Trace mg/dL (Neg-Trace)
[2023-01-30 12:25] LABS: Bacteria Urine None Seen (None Seen); Hyaline Casts Urine 0-2 /LPF (0-2); RBC Urine 0-2 /HPF (0-2); Squamous Epithelial Cell Urine 0-2 /HPF (0-2); WBC Urine 0-5 /HPF (0-5)
[2023-01-30 12:32] LABS: Basophils Percent Auto 0.5 % (0-2); Eosinophils Absolute Auto 0.1 X10*3/uL (0.0-0.4); Eosinophils Percent Auto 1.7 % (0-4); Hematocrit 42.8 % (42.0-52.0); Hemoglobin 13.6 g/dl (14.0-18.0); Imm Gran Abs Auto 0.02 X10*3/uL (0.00-0.03); Imm Gran Pct Auto 0.3 % (0.0-0.4); Lymphocytes Absolute Auto 1.6 X10*3/uL (1.2-4.9); Lymphocytes Percent Auto 25.5 % (20-40); Mean Corpuscular HGB Conc 31.8 g/dl (31.0-36.0); Mean Corpuscular Hemoglobin 28.5 pg (27.0-33.0); Mean Corpuscular Volume 89.7 fL (80.0-98.0); Mean Platelet Volume 9.7 fL (9.4-12.4); Monocytes Absolute Auto 0.5 X10*3/uL (0.1-1.2); Monocytes Percent Auto 7.5 % (2-11); Neutrophils Absolute Auto 4.2 x10*3/uL (2.0-8.3); Neutrophils Percent Auto 64.5 % (45-73); Platelet Count 228 X10*3/uL (160-400); Red Blood Count 4.77 X10*6/uL (4.60-5.80); Red Cell Distribution Width 13.9 % (11.0-16.0); White Blood Count 6.4 X10*3/uL (4.8-10.8)
[2023-01-30 13:24] LABS: Estimated Average Glucose 166 mg/dL; Hemoglobin A1c % 7.4 %
[2023-01-30 13:47] LABS: Creatinine Urine 152.04 mg/dL; Microalbum/Creatinine Ratio Ur 19.7 ug/mg cr
[2023-01-30 13:51] LABS: Alanine Aminotransferase 31 U/L (0-40); Alkaline Phosphatase 72 U/L (39-117); Anion Gap 13 (12-20); Aspartate Amino Transferase 20 U/L (5-37); Bilirubin Total 1.8 mg/dL (0.0-1.0); Blood Urea Nitrogen 14 mg/dL (9-16); Calcium 8.6 mg/dL (8.4-10.2); Carbon Dioxide 27 mmol/L (22-29); Chloride 103 mmol/L (96-108); Cholesterol 155 mg/dL; Estimated Glomerular Filt Rate > 60; Glucose Fasting 172 mg/dL (60-99); HDL Cholesterol 40 mg/dL; LDL Cholesterol Calculated 89 mg/dl; Potassium 4.4 mmol/L (3.3-5.1); Sodium 139 mmol/L (135-145); Total Protein 6.5 g/dL (6.5-8.0); Triglycerides 134 mg/dL
[2023-01-30 14:07] LABS: PSA,Total (Free>4and<10) 0.49 ng/mL (0.00-4.00)
== END 2023-01-30 11:46 | disposition home or self-care (01) ==
LOC: HO.LNP 11:45
PROVIDERS: Visit Provider Internal Medicine
DX: Z00.00 Encounter for general adult medical examination without abnormal findings (principal); Z12.5 Encounter for screening for malignant neoplasm of prostate; I10 Essential (primary) hypertension; E11.9 Type 2 diabetes mellitus without complications; E78.00 Pure hypercholesterolemia, unspecified; I48.91 Unspecified atrial fibrillation; Z79.01 Long term (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 of 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
CPT/HCPCS: 80053; 80061; 81001; 82043; 83036; 84153; 85025; 85610

== ENCOUNTER 2023-02-06 10:43 | Outpatient (REF) | payer BC, SELFPAY ==
[2023-02-06 11:05] LABS: INTERNATIONAL NORM RATIO 2.4 (0.9-1.1)
== END 2023-02-06 10:44 | disposition home or self-care (01) ==
LOC: HO.LNP 10:43
PROVIDERS: Visit Provider Internal Medicine
DX: I48.91 Unspecified atrial fibrillation (principal); Z79.01 Long term (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 of 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
CPT/HCPCS: 85610

== ENCOUNTER 2023-02-20 10:36 | Outpatient (REF) | payer BC, SELFPAY ==
[2023-02-20 10:57] LABS: INTERNATIONAL NORM RATIO 1.8 (0.9-1.1); Prothrombin Time 21.2 SEC (10.0-13.1)
== END 2023-02-20 10:37 | disposition home or self-care (01) ==
LOC: HO.LNP 10:36
PROVIDERS: Visit Provider Internal Medicine
DX: I48.91 Unspecified atrial fibrillation (principal); Z79.01 Long term (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 of 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
CPT/HCPCS: 85610

== ENCOUNTER 2023-02-27 10:34 | Outpatient (REF) | payer BC, SELFPAY ==
[2023-02-27 11:06] LABS: INTERNATIONAL NORM RATIO 2.7 (0.9-1.1); Prothrombin Time 32.6 SEC (10.0-13.1)
== END 2023-02-27 10:35 | disposition home or self-care (01) ==
LOC: HO.LNP 10:34
PROVIDERS: PCP Internal Medicine; Visit Provider Internal Medicine
DX: I48.91 Unspecified atrial fibrillation (principal); Z79.01 Long term (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 of 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
CPT/HCPCS: 85610

== ENCOUNTER 2023-03-13 10:40 | Outpatient (REF) | payer BC, SELFPAY ==
[2023-03-13 10:56] LABS: INTERNATIONAL NORM RATIO 2.1 (0.9-1.1); Prothrombin Time 24.5 SEC (10.0-13.1)
== END 2023-03-13 10:41 | disposition home or self-care (01) ==
LOC: HO.LNP 10:40
PROVIDERS: Visit Provider Internal Medicine
DX: I48.91 Unspecified atrial fibrillation (principal); Z79.01 Long term (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 of 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
CPT/HCPCS: 85610

== ENCOUNTER 2023-03-27 11:10 | Outpatient (REF) | payer BC, SELFPAY ==
[2023-03-27 11:25] LABS: INTERNATIONAL NORM RATIO 1.9 (0.9-1.1)
== END 2023-03-27 11:11 | disposition home or self-care (01) ==
LOC: HO.LNP 11:10
PROVIDERS: Visit Provider Internal Medicine
DX: I48.91 Unspecified atrial fibrillation (principal); Z79.01 Long term (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 of 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
CPT/HCPCS: 85610

== ENCOUNTER 2023-04-10 10:29 | Outpatient (REF) | payer BC, SELFPAY ==
[2023-04-10 11:18] LABS: INTERNATIONAL NORM RATIO 3.2 (0.9-1.1)
== END 2023-04-10 10:30 | disposition home or self-care (01) ==
LOC: HO.LNP 10:29
PROVIDERS: PCP Internal Medicine; Visit Provider Internal Medicine
DX: I48.91 Unspecified atrial fibrillation (principal); Z79.01 Long term (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 of 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
CPT/HCPCS: 85610

== ENCOUNTER 2023-04-24 10:17 | Outpatient (REF) | payer BC, SELFPAY ==
[2023-04-24 10:35] LABS: INTERNATIONAL NORM RATIO 2.6 (0.9-1.1); Prothrombin Time 31.3 SEC (10.0-13.1)
== END 2023-04-24 10:18 | disposition home or self-care (01) ==
LOC: HO.LNP 10:17
PROVIDERS: PCP Internal Medicine; Visit Provider Internal Medicine
DX: I48.91 Unspecified atrial fibrillation (principal); Z79.01 Long term (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 of 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
CPT/HCPCS: 85610

== ENCOUNTER 2023-05-08 10:33 | Outpatient (REF) | payer BC, SELFPAY ==
[2023-05-08 10:50] LABS: INTERNATIONAL NORM RATIO 2.9 (0.9-1.1); Prothrombin Time 33.2 SEC (11.1-13.3)
== END 2023-05-08 10:34 | disposition home or self-care (01) ==
LOC: HO.LNP 10:33
PROVIDERS: Visit Provider Internal Medicine
DX: I48.91 Unspecified atrial fibrillation (principal); Z79.01 Long term (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 of 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
CPT/HCPCS: 85610

== ENCOUNTER 2023-05-22 10:49 | Outpatient (REF) | payer BC, SELFPAY ==
[2023-05-22 11:06] LABS: INTERNATIONAL NORM RATIO 2.4 (0.9-1.1); Prothrombin Time 29.8 SEC (11.1-13.3)
== END 2023-05-22 10:50 | disposition home or self-care (01) ==
LOC: HO.LNP 10:49
PROVIDERS: Visit Provider Internal Medicine
DX: I48.91 Unspecified atrial fibrillation (principal); Z79.01 Long term (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 of 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
CPT/HCPCS: 85610

== ENCOUNTER 2023-06-05 10:52 | Outpatient (REF) | payer BC, SELFPAY ==
[2023-06-05 11:07] LABS: INTERNATIONAL NORM RATIO 2.6 (0.9-1.1); Prothrombin Time 32.2 SEC (11.1-13.3)
== END 2023-06-05 10:53 | disposition home or self-care (01) ==
LOC: HO.LNP 10:52
PROVIDERS: Visit Provider Internal Medicine
DX: I48.91 Unspecified atrial fibrillation (principal); Z79.01 Long term (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 of 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
CPT/HCPCS: 85610

== ENCOUNTER 2023-06-19 11:00 | Outpatient (REF) | payer BC, SELFPAY ==
[2023-06-19 11:15] LABS: INTERNATIONAL NORM RATIO 2.6 (0.9-1.1); Prothrombin Time 31.6 SEC (11.1-13.3)
== END 2023-06-19 11:01 | disposition home or self-care (01) ==
LOC: HO.LNP 11:00
PROVIDERS: Visit Provider Internal Medicine
DX: I48.91 Unspecified atrial fibrillation (principal); Z79.01 Long term (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 of 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
CPT/HCPCS: 85610

== ENCOUNTER 2023-07-03 10:53 | Outpatient (REF) | payer BC, SELFPAY ==
[2023-07-03 11:13] LABS: INTERNATIONAL NORM RATIO 2.8 (0.9-1.1); Prothrombin Time 34.6 SEC (11.1-13.3)
== END 2023-07-03 10:54 | disposition home or self-care (01) ==
LOC: HO.LNP 10:53
PROVIDERS: Visit Provider Internal Medicine
DX: I48.91 Unspecified atrial fibrillation (principal); Z79.01 Long term (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 of 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
CPT/HCPCS: 85610

== ENCOUNTER 2023-07-17 10:47 | Outpatient (REF) | payer BC, SELFPAY ==
[2023-07-17 11:10] LABS: INTERNATIONAL NORM RATIO 2.8 (0.9-1.1); Prothrombin Time 34.1 SEC (11.1-13.3)
== END 2023-07-17 10:48 | disposition home or self-care (01) ==
LOC: HO.LNP 10:47
PROVIDERS: Visit Provider Internal Medicine
DX: I48.91 Unspecified atrial fibrillation (principal); Z79.01 Long term (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 of 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
CPT/HCPCS: 85610

== ENCOUNTER 2023-07-31 10:59 | Outpatient (REF) | payer BC, SELFPAY ==
[2023-07-31 11:12] LABS: Estimated Average Glucose 151 mg/dL; Hemoglobin A1c % 6.9 % (<6.0)
[2023-07-31 11:14] LABS: Cholesterol 158 mg/dL (<200); HDL Cholesterol 43 mg/dL (>40); LDL Cholesterol Calculated 89 mg/dL (<100); Triglycerides 130 mg/dL (<150)
[2023-07-31 11:15] LABS: INTERNATIONAL NORM RATIO 2.7 (0.9-1.1); Prothrombin Time 33.3 SEC (11.1-13.3)
[2023-07-31 11:16] LABS: Alanine Aminotransferase 39 U/L (0-40); Alkaline Phosphatase 71 U/L (39-117); Aspartate Amino Transferase 28 U/L (5-37); Bilirubin Direct 0.4 mg/dL (0.0-0.5); Glucose Fasting 165 mg/dL (60-99); Total Protein 7.3 g/dL (6.5-8.0)
[2023-07-31 11:19] LABS: Reflex LDLD? No
== END 2023-07-31 11:00 | disposition home or self-care (01) ==
LOC: HO.LNP 10:59
PROVIDERS: Visit Provider Internal Medicine
DX: I48.91 Unspecified atrial fibrillation (principal); E78.00 Pure hypercholesterolemia, unspecified; E11.9 Type 2 diabetes mellitus without complications; Z79.01 Long term (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 of 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
CPT/HCPCS: 80061; 80076; 82947; 83036; 85610

== ENCOUNTER 2023-08-14 15:28 | Outpatient (REF) | payer BC, SELFPAY ==
[2023-08-14 15:40] LABS: INTERNATIONAL NORM RATIO 2.8 (0.9-1.1); Prothrombin Time 34.6 SEC (11.1-13.3)
== END 2023-08-14 15:29 | disposition home or self-care (01) ==
LOC: HO.LNP 15:28
PROVIDERS: Visit Provider Internal Medicine
DX: I48.91 Unspecified atrial fibrillation (principal); Z79.01 Long term (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 of 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
CPT/HCPCS: 85610

== ENCOUNTER 2023-08-28 10:19 | Outpatient (REF) | payer BC, SELFPAY ==
[2023-08-28 10:39] LABS: INTERNATIONAL NORM RATIO 2.7 (0.9-1.1); Prothrombin Time 32.8 SEC (11.1-13.3)
== END 2023-08-28 10:20 | disposition home or self-care (01) ==
LOC: HO.LNP 10:19
PROVIDERS: Visit Provider Internal Medicine
DX: I48.91 Unspecified atrial fibrillation (principal); Z79.01 Long term (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 of 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
CPT/HCPCS: 85610

== ENCOUNTER 2023-09-11 10:23 | Outpatient (REF) | payer BC, SELFPAY ==
[2023-09-11 10:59] LABS: INTERNATIONAL NORM RATIO 3.7 (0.9-1.1); Prothrombin Time 45.3 SEC (11.1-13.3)
== END 2023-09-11 10:24 | disposition home or self-care (01) ==
LOC: HO.LNP 10:23
PROVIDERS: Visit Provider Internal Medicine
DX: I48.91 Unspecified atrial fibrillation (principal); Z79.01 Long term (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 of 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
CPT/HCPCS: 85610

== ENCOUNTER 2023-09-18 10:41 | Outpatient (REF) | payer BC, SELFPAY ==
[2023-09-18 11:47] LABS: INTERNATIONAL NORM RATIO 1.7 (0.9-1.1); Prothrombin Time 20.6 SEC (11.1-13.3)
== END 2023-09-18 10:42 | disposition home or self-care (01) ==
LOC: HO.LNP 10:41
PROVIDERS: Visit Provider Internal Medicine
DX: I48.91 Unspecified atrial fibrillation (principal); Z79.01 Long term (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 of 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
CPT/HCPCS: 85610

== ENCOUNTER 2023-10-02 10:43 | Outpatient (REF) | payer BC, SELFPAY ==
[2023-10-02 11:06] LABS: Prothrombin Time 24.4 SEC (11.1-13.3)
== END 2023-10-02 10:44 | disposition home or self-care (01) ==
LOC: HO.LNP 10:43
PROVIDERS: Visit Provider Internal Medicine
DX: I48.91 Unspecified atrial fibrillation (principal); Z79.01 Long term (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 of 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
CPT/HCPCS: 85610

== ENCOUNTER 2023-10-16 11:25 | Outpatient (REF) | payer BC, SELFPAY ==
[2023-10-16 11:36] LABS: INTERNATIONAL NORM RATIO 3.3 (0.9-1.1); Prothrombin Time 40.3 SEC (11.1-13.3)
== END 2023-10-16 11:26 | disposition home or self-care (01) ==
LOC: HO.LNP 11:25
PROVIDERS: Visit Provider Internal Medicine
DX: I48.91 Unspecified atrial fibrillation (principal); Z79.01 Long term (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 of 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
CPT/HCPCS: 85610

== ENCOUNTER 2023-10-23 10:27 | Outpatient (REF) | payer BC, SELFPAY ==
[2023-10-23 10:40] LABS: Prothrombin Time 23.8 SEC (11.1-13.3)
== END 2023-10-23 10:28 | disposition home or self-care (01) ==
LOC: HO.LNP 10:27
PROVIDERS: Visit Provider Internal Medicine
DX: I48.91 Unspecified atrial fibrillation (principal); Z79.01 Long term (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 of 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
CPT/HCPCS: 85610

== ENCOUNTER 2023-11-06 11:11 | Outpatient (REF) | payer BC, SELFPAY ==
[2023-11-06 11:25] LABS: INTERNATIONAL NORM RATIO 2.2 (0.9-1.1); Prothrombin Time 26.5 SEC (11.1-13.3)
== END 2023-11-06 11:12 | disposition home or self-care (01) ==
LOC: HO.LNP 11:11
PROVIDERS: Visit Provider Internal Medicine
DX: I48.91 Unspecified atrial fibrillation (principal); Z79.01 Long term (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 of 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
CPT/HCPCS: 85610

== ENCOUNTER 2023-11-20 10:47 | Outpatient (REF) | payer BC, SELFPAY ==
[2023-11-20 11:01] LABS: INTERNATIONAL NORM RATIO 1.8 (0.9-1.1); Prothrombin Time 22.1 SEC (11.1-13.3)
== END 2023-11-20 10:48 | disposition home or self-care (01) ==
LOC: HO.LNP 10:47
PROVIDERS: Visit Provider Internal Medicine
DX: I48.91 Unspecified atrial fibrillation (principal); Z79.01 Long term (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 of 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
CPT/HCPCS: 85610

== ENCOUNTER 2023-12-11 10:15 | Outpatient (REF) | payer BC, SELFPAY ==
[2023-12-11 11:03] LABS: INTERNATIONAL NORM RATIO 3.4 (0.9-1.1)
== END 2023-12-11 10:16 | disposition home or self-care (01) ==
LOC: HO.LNP 10:15
PROVIDERS: Visit Provider Internal Medicine
DX: I48.91 Unspecified atrial fibrillation (principal); Z79.01 Long term (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 of 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
CPT/HCPCS: 85610

== ENCOUNTER 2023-12-18 10:55 | Outpatient (REF) | payer BC, SELFPAY ==
[2023-12-18 12:01] LABS: INTERNATIONAL NORM RATIO 2.4 (0.9-1.1); Prothrombin Time 29.2 SEC (11.1-13.3)
== END 2023-12-18 10:56 | disposition home or self-care (01) ==
LOC: HO.LNP 10:55
PROVIDERS: Visit Provider Internal Medicine
DX: I48.91 Unspecified atrial fibrillation (principal); Z79.01 Long term (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 of 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
CPT/HCPCS: 85610

== ENCOUNTER 2024-01-01 10:50 | Outpatient (REF) | payer BC, SELFPAY ==
[2024-01-01 11:24] LABS: INTERNATIONAL NORM RATIO 3.1 (0.9-1.1); Prothrombin Time 37.9 SEC (11.1-13.3)
== END 2024-01-01 10:51 | disposition home or self-care (01) ==
LOC: HO.LNP 10:50
PROVIDERS: Visit Provider Internal Medicine
DX: I48.91 Unspecified atrial fibrillation (principal); Z79.01 Long term (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 of 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
CPT/HCPCS: 85610

== ENCOUNTER 2024-01-15 10:46 | Outpatient (REF) | payer BC, SELFPAY ==
[2024-01-15 11:11] LABS: INTERNATIONAL NORM RATIO 2.6 (0.9-1.1); Prothrombin Time 31.6 SEC (11.1-13.3)
== END 2024-01-15 10:47 | disposition home or self-care (01) ==
LOC: HO.LNP 10:46
PROVIDERS: Visit Provider Internal Medicine
DX: I48.91 Unspecified atrial fibrillation (principal); Z79.01 Long term (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 of 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
CPT/HCPCS: 85610

== ENCOUNTER 2024-01-29 11:08 | Outpatient (REF) | payer BC, SELFPAY ==
[2024-01-29 11:13] LABS: MANUAL DIFF FLAG NO
[2024-01-29 11:56] LABS: Basophils Percent Auto 0.3 % (0-2); Eosinophils Absolute Auto 0.1 X10*3/uL (0.0-0.4); Eosinophils Percent Auto 1.4 % (0-4); Hematocrit 40.8 % (42.0-52.0); Hemoglobin 13.3 g/dl (14.0-18.0); Imm Gran Abs Auto 0.03 X10*3/uL (0.00-0.03); Imm Gran Pct Auto 0.4 % (0.0-0.4); Lymphocytes Absolute Auto 1.9 X10*3/uL (1.2-4.9); Mean Corpuscular HGB Conc 32.6 g/dl (31.0-36.0); Mean Corpuscular Hemoglobin 29.1 pg (27.0-33.0); Mean Corpuscular Volume 89.3 fL (80.0-98.0); Monocytes Absolute Auto 0.6 X10*3/uL (0.1-1.2); Monocytes Percent Auto 7.9 % (2-11); Neutrophils Absolute Auto 4.5 x10*3/uL (2.0-8.3); Platelet Count 249 X10*3/uL (160-400); Red Blood Count 4.57 X10*6/uL (4.60-5.80); Red Cell Distribution Width 13.9 % (11.0-16.0); White Blood Count 7.1 X10*3/uL (4.8-10.8)
[2024-01-29 11:57] LABS: Appearance Urine Clear; Color Urine Yellow; Glucose Urine UA 250 mg/dL (Negative); Leukocyte Esterase Urine Negative (Negative); Nitrite Urine Negative (Negative); Urine Blood Negative (Negative); Urine Ketones Negative (Negative); Urine Protein Negative (Neg-Trace)
[2024-01-29 12:00] LABS: INTERNATIONAL NORM RATIO 1.8 (0.9-1.1); Prothrombin Time 21.9 SEC (11.1-13.3)
[2024-01-29 12:04] LABS: Bacteria Urine None Seen (None Seen); Hyaline Casts Urine 0-2 /LPF (0-2); RBC Urine 0-2 /HPF (0-2); Squamous Epithelial Cell Urine 0-2 /HPF (0-2); WBC Urine 0-5 /HPF (0-5)
[2024-01-29 12:46] LABS: Microalbum/Creatinine Ratio Ur 22.5 ug/mg cr (<30)
[2024-01-29 13:05] LABS: PSA,Total (Free>4and<10) 0.43 ng/mL (0.00-4.00)
[2024-01-29 13:27] LABS: Estimated Average Glucose 186 mg/dL; Hemoglobin A1c % 8.1 % (<6.0)
[2024-01-29 14:19] LABS: Alanine Aminotransferase 32 U/L (0-40); Albumin Level 3.8 g/dL (3.5-5.0); Alkaline Phosphatase 63 U/L (39-117); Anion Gap 12 (12-20); Aspartate Amino Transferase 24 U/L (5-37); Bilirubin Direct 0.5 mg/dL (0.0-0.5); Bilirubin Total 1.4 mg/dL (0.0-1.0); Blood Urea Nitrogen 17 mg/dL (9-16); Calcium 8.9 mg/dL (8.4-10.2); Carbon Dioxide 28 mmol/L (22-29); Chloride 101 mmol/L (96-108); Cholesterol 143 mg/dL (<200); Estimated Glomerular Filt Rate > 60; Glucose Fasting 185 mg/dL (60-99); HDL Cholesterol 45 mg/dL (>40); LDL Cholesterol Calculated 70 mg/dL (<100); Potassium 3.8 mmol/L (3.3-5.1); Sodium 137 mmol/L (135-145); Total Protein 6.8 g/dL (6.5-8.0); Triglycerides 140 mg/dL (<150)
[2024-01-29 16:32] LABS: Reflex LDLD? No
== END 2024-01-29 11:09 | disposition home or self-care (01) ==
LOC: HO.LNP 11:08
PROVIDERS: Visit Provider Internal Medicine
DX: Z00.00 Encounter for general adult medical examination without abnormal findings (principal); Z12.5 Encounter for screening for malignant neoplasm of prostate; I48.91 Unspecified atrial fibrillation; E78.00 Pure hypercholesterolemia, unspecified; E11.9 Type 2 diabetes mellitus without complications; I10 Essential (primary) hypertension; Z79.01 Long term (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 of 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
CPT/HCPCS: 80053; 80061; 80076; 81001; 82043; 82248; 82570; 83036; 84153; 85025; 85610

== ENCOUNTER 2024-02-12 10:47 | Outpatient (REF) | payer BC, SELFPAY ==
[2024-02-12 11:01] LABS: INTERNATIONAL NORM RATIO 2.4 (0.9-1.1); Prothrombin Time 28.7 SEC (11.1-13.3)
== END 2024-02-12 10:48 | disposition home or self-care (01) ==
LOC: HO.LNP 10:47
PROVIDERS: Visit Provider Internal Medicine
DX: I48.91 Unspecified atrial fibrillation (principal); Z79.01 Long term (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 of 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
CPT/HCPCS: 85610

== ENCOUNTER 2024-02-26 11:10 | Outpatient (REF) | payer BC, SELFPAY ==
[2024-02-26 11:52] LABS: INTERNATIONAL NORM RATIO 1.8 (0.9-1.1); Prothrombin Time 21.3 SEC (11.1-13.3)
== END 2024-02-26 11:11 | disposition home or self-care (01) ==
LOC: HO.LNP 11:10
PROVIDERS: Visit Provider Internal Medicine
DX: Z79.01 Long term (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 of 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 (principal)
CPT/HCPCS: 85610

== ENCOUNTER 2024-03-11 10:31 | Outpatient (REF) | payer BC, SELFPAY ==
[2024-03-11 11:35] LABS: INTERNATIONAL NORM RATIO 2.9 (0.9-1.1); Prothrombin Time 35.6 SEC (11.1-13.3)
== END 2024-03-11 10:32 | disposition home or self-care (01) ==
LOC: HO.LNP 10:31
PROVIDERS: Visit Provider Internal Medicine
DX: I48.91 Unspecified atrial fibrillation (principal); Z79.01 Long term (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 of 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
CPT/HCPCS: 85610

== ENCOUNTER 2024-03-25 11:02 | Outpatient (REF) | payer BC, SELFPAY ==
[2024-03-25 11:15] LABS: INTERNATIONAL NORM RATIO 1.8 (0.9-1.1); Prothrombin Time 21.3 SEC (11.1-13.3)
== END 2024-03-25 11:03 | disposition home or self-care (01) ==
LOC: HO.LNP 11:02
PROVIDERS: Visit Provider Internal Medicine
DX: I48.91 Unspecified atrial fibrillation (principal); Z79.01 Long term (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 of 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
CPT/HCPCS: 85610

== ENCOUNTER 2024-04-08 10:52 | Outpatient (REF) | payer BC, SELFPAY ==
[2024-04-08 11:07] LABS: INTERNATIONAL NORM RATIO 2.3 (0.9-1.1); Prothrombin Time 27.5 SEC (11.1-13.3)
== END 2024-04-08 10:53 | disposition home or self-care (01) ==
LOC: HO.LNP 10:52
PROVIDERS: Visit Provider Internal Medicine
DX: Z79.01 Long term (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 of 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 (principal); I48.91 Unspecified atrial fibrillation
CPT/HCPCS: 85610

== ENCOUNTER 2024-04-22 10:48 | Outpatient (REF) | payer BC, SELFPAY ==
[2024-04-22 11:35] LABS: INTERNATIONAL NORM RATIO 1.3 (0.9-1.1); Prothrombin Time 15.7 SEC (11.1-13.3)
== END 2024-04-22 10:49 | disposition home or self-care (01) ==
LOC: HO.LNP 10:48
PROVIDERS: Visit Provider Internal Medicine
DX: I48.91 Unspecified atrial fibrillation (principal)
CPT/HCPCS: 85610

== ENCOUNTER 2024-05-06 10:30 | Outpatient (REF) | payer BC, SELFPAY ==
[2024-05-06 10:55] LABS: Prothrombin Time 24.1 SEC (11.1-13.3)
== END 2024-05-06 10:31 | disposition home or self-care (01) ==
LOC: HO.LNP 10:30
PROVIDERS: Visit Provider Internal Medicine
DX: Z79.01 Long term (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 of 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 (principal)
CPT/HCPCS: 85610

== ENCOUNTER 2024-05-20 11:19 | Outpatient (REF) | payer BC, SELFPAY ==
[2024-05-20 12:09] LABS: INTERNATIONAL NORM RATIO 3.2 (0.9-1.1); Prothrombin Time 39.2 SEC (11.1-13.3)
== END 2024-05-20 11:20 | disposition home or self-care (01) ==
LOC: HO.LNP 11:19
PROVIDERS: Visit Provider Internal Medicine
DX: Z79.01 Long term (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 of 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 (principal); I48.91 Unspecified atrial fibrillation
CPT/HCPCS: 85610

== ENCOUNTER 2024-05-27 10:57 | Outpatient (REF) | payer BC, SELFPAY ==
[2024-05-27 11:16] LABS: INTERNATIONAL NORM RATIO 1.7 (0.9-1.1); Prothrombin Time 20.7 SEC (11.1-13.3)
== END 2024-05-27 10:58 | disposition home or self-care (01) ==
LOC: HO.LNP 10:57
PROVIDERS: Visit Provider Internal Medicine
DX: I48.91 Unspecified atrial fibrillation (principal); Z79.01 Long term (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 of 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
CPT/HCPCS: 85610

== ENCOUNTER 2024-06-03 10:23 | Outpatient (REF) | payer BC, SELFPAY ==
[2024-06-03 10:42] LABS: Prothrombin Time 24.1 SEC (11.1-13.3)
== END 2024-06-03 10:24 | disposition home or self-care (01) ==
LOC: HO.LNP 10:23
PROVIDERS: Visit Provider Internal Medicine
DX: I48.91 Unspecified atrial fibrillation (principal); Z79.01 Long term (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 of 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
CPT/HCPCS: 85610

== ENCOUNTER 2024-06-17 11:17 | Outpatient (REF) | payer BC, SELFPAY ==
[2024-06-17 11:34] LABS: INTERNATIONAL NORM RATIO 2.8 (0.9-1.1); Prothrombin Time 34.4 SEC (11.1-13.3)
== END 2024-06-17 11:18 | disposition home or self-care (01) ==
LOC: HO.LNP 11:17
PROVIDERS: Visit Provider Internal Medicine
DX: I48.91 Unspecified atrial fibrillation (principal); Z79.01 Long term (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 of 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
CPT/HCPCS: 85610

== ENCOUNTER 2024-07-01 11:00 | Outpatient (REF) | payer BC, SELFPAY ==
[2024-07-01 11:30] LABS: INTERNATIONAL NORM RATIO 2.5 (0.9-1.1); Prothrombin Time 30.4 SEC (11.1-13.3)
== END 2024-07-01 11:01 | disposition home or self-care (01) ==
LOC: HO.LNP 11:00
PROVIDERS: Visit Provider Internal Medicine
DX: Z79.01 Long term (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 of 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 (principal); I48.91 Unspecified atrial fibrillation
CPT/HCPCS: 85610

== ENCOUNTER 2024-07-15 11:09 | Outpatient (REF) | payer BC, SELFPAY ==
[2024-07-15 11:30] LABS: INTERNATIONAL NORM RATIO 1.6 (0.9-1.1); Prothrombin Time 18.4 SEC (10.9-12.4)
== END 2024-07-15 11:10 | disposition home or self-care (01) ==
LOC: HO.LNP 11:09
PROVIDERS: Visit Provider Internal Medicine
DX: Z51.81 Encounter for therapeutic drug level monitoring (principal); Z79.01 Long term (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 of 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
CPT/HCPCS: 85610

== ENCOUNTER 2024-07-29 10:50 | Outpatient (REF) | payer BC, SELFPAY ==
[2024-07-29 11:15] LABS: INTERNATIONAL NORM RATIO 2.7 (0.9-1.1); Prothrombin Time 31.5 SEC (10.9-12.4)
== END 2024-07-29 10:51 | disposition home or self-care (01) ==
LOC: HO.LNP 10:50
PROVIDERS: Visit Provider Internal Medicine
DX: I48.91 Unspecified atrial fibrillation (principal); Z79.01 Long term (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 of 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
CPT/HCPCS: 85610

== ENCOUNTER 2024-08-05 12:29 | Outpatient (REF) | payer BC, SELFPAY ==
[2024-08-05 12:48] LABS: Estimated Average Glucose 157 mg/dL; Hemoglobin A1C 178.3842 umol/L; Hemoglobin A1c % 7.1 % (<6.0); INTERNATIONAL NORM RATIO 2.3 (0.9-1.1); Prothrombin Time 26.4 SEC (10.9-12.4); Total Hemoglobin (HGBA1C) 3327.0849 umol/L
[2024-08-05 13:07] LABS: Alanine Aminotransferase 39 U/L (0-40); Albumin Level 4.3 g/dL (3.5-5.0); Alkaline Phosphatase 62 U/L (39-117); Aspartate Amino Transferase 31 U/L (5-37); Bilirubin Direct 0.4 mg/dL (0.0-0.5); Bilirubin Total 1.3 mg/dL (0.0-1.0); Glucose Fasting 166 mg/dL (60-99); Lipase 46 U/L (8-78); Total Protein 7.4 g/dL (6.5-8.0)
== END 2024-08-05 12:30 | disposition home or self-care (01) ==
LOC: HO.LNP 12:29
PROVIDERS: Visit Provider Internal Medicine
DX: I48.91 Unspecified atrial fibrillation (principal); E11.9 Type 2 diabetes mellitus without complications; E78.00 Pure hypercholesterolemia, unspecified; Z79.01 Long term (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 of 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
CPT/HCPCS: 80076; 82947; 83036; 83690; 85610

== ENCOUNTER 2024-08-12 11:06 | Outpatient (REF) | payer BC, SELFPAY ==
[2024-08-12 11:59] LABS: INTERNATIONAL NORM RATIO 2.2 (0.9-1.1); Prothrombin Time 26.1 SEC (10.9-12.4)
== END 2024-08-12 11:07 | disposition home or self-care (01) ==
LOC: HO.LNP 11:06
PROVIDERS: Visit Provider Internal Medicine
DX: Z79.01 Long term (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 of 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 (principal)
CPT/HCPCS: 85610

== ENCOUNTER 2024-08-26 10:54 | Outpatient (REF) | payer BC, SELFPAY ==
[2024-08-26 12:39] LABS: Prothrombin Time 35.5 SEC (10.9-12.4)
[2024-08-26 12:55] LABS: Triglycerides 177 mg/dL (<150)
[2024-08-26 12:56] LABS: Cholesterol 143 mg/dL (<200); HDL Cholesterol 44 mg/dL (>40); LDL Cholesterol Calculated 64 mg/dL (<100)
== END 2024-08-26 10:55 | disposition home or self-care (01) ==
LOC: HO.LNP 10:54
PROVIDERS: Visit Provider Internal Medicine
DX: E78.00 Pure hypercholesterolemia, unspecified (principal); I48.91 Unspecified atrial fibrillation
CPT/HCPCS: 80061; 85610

== ENCOUNTER 2024-09-16 11:54 | Outpatient (REF) | payer BC, SELFPAY ==
[2024-09-16 12:06] LABS: INTERNATIONAL NORM RATIO 2.6 (0.9-1.1); Prothrombin Time 30.5 SEC (10.9-12.4)
== END 2024-09-16 11:55 | disposition home or self-care (01) ==
LOC: HO.LNP 11:54
PROVIDERS: Visit Provider Internal Medicine
DX: Z79.01 Long term (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 of 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 (principal); I48.91 Unspecified atrial fibrillation
CPT/HCPCS: 85610

== ENCOUNTER 2024-09-19 14:57 | Outpatient (REF) | payer BC, SELFPAY ==
[2024-09-19 15:19] LABS: Blood Urea Nitrogen 15 mg/dL (9-16); Estimated Glomerular Filt Rate > 60
[2024-09-19 15:36] LABS: TSH reflex Free T4 0.38 uIU/mL (0.32-4.0)
[2024-09-19 15:50] LABS: Folate 16.6 ng/mL (> or = 4.0); Vitamin B12 377 pg/mL (200-900)
== END 2024-09-19 14:58 | disposition home or self-care (01) ==
LOC: HO.LNP 14:57
PROVIDERS: Visit Provider Internal Medicine
DX: Z01.812 Encounter for preprocedural laboratory examination (principal); Z85.820 Personal history of malignant melanoma of skin
CPT/HCPCS: 82565; 82607; 82746; 84443; 84520

== ENCOUNTER 2024-09-30 11:12 | Outpatient (REF) | payer BC, SELFPAY ==
[2024-09-30 11:40] LABS: INTERNATIONAL NORM RATIO 2.5 (0.9-1.1); Prothrombin Time 28.9 SEC (10.9-12.4)
== END 2024-09-30 11:13 | disposition home or self-care (01) ==
LOC: HO.LNP 11:12
PROVIDERS: Visit Provider Internal Medicine
DX: I48.91 Unspecified atrial fibrillation (principal); Z79.01 Long term (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 of 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
CPT/HCPCS: 85610

== ENCOUNTER 2024-10-16 15:38 | Outpatient (REF) | payer BC, SELFPAY ==
[2024-10-16 15:50] LABS: INTERNATIONAL NORM RATIO 2.4 (0.9-1.1); Prothrombin Time 28.4 SEC (10.9-12.4)
== END 2024-10-16 15:39 | disposition home or self-care (01) ==
LOC: HO.LNP 15:38
PROVIDERS: Visit Provider Internal Medicine
DX: Z79.01 Long term (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 of 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 (principal); I48.91 Unspecified atrial fibrillation
CPT/HCPCS: 85610

== ENCOUNTER 2024-10-28 10:45 | Outpatient (REF) | payer BC, SELFPAY ==
[2024-10-28 11:00] LABS: INTERNATIONAL NORM RATIO 2.3 (0.9-1.1); Prothrombin Time 27.4 SEC (10.9-12.4)
== END 2024-10-28 10:46 | disposition home or self-care (01) ==
LOC: HO.LNP 10:45
PROVIDERS: Visit Provider Internal Medicine
DX: I48.91 Unspecified atrial fibrillation (principal); Z79.01 Long term (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 of 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
CPT/HCPCS: 85610

== ENCOUNTER 2024-11-11 10:17 | Outpatient (REF) | payer BC, SELFPAY ==
[2024-11-11 10:35] LABS: INTERNATIONAL NORM RATIO 2.7 (0.9-1.1); Prothrombin Time 31.9 SEC (10.9-12.4)
--- OUTSIDE RECORDS SUMMARY | 2024-11-11 11:11 | XMS_ITS ---
Author Organization Liu Harris MD Address [address] [place] [phone] Care Team Providers Care Hydraulic Rockbreaker Operator Name Role Phone Liu Harris Primary Care Provider Results Component Value Reference Range Notes Prothrombin Time INR Reviewed date:10/28/2024 05:01:12 PM Interpretation: Performing Lab:[facility], [address] [place] [phone] Notes/Report: Prothrombin Time 27.4 10.9-12.4 SEC INTERNATIONAL NORM RATIO 2.3 0.9-1.1 INTERNATIONAL NORMALIZED RATIO (INR) REFERENCE RANGES Reference Range For patients not on anticoagulant therapy: 0.9 - 1.1 INR ranges for oral anticoagulant therapy: For prevention and treatment of venous thrombosis and pulmonary embolism: 2.0 - 3.0 For acute myocardial infarction with aspirin therapy: 2.0 - 3.0 For acute myocardial infarction without aspirin therapy: 3.0 - 4.0 For patients with mechanical prosthetic heart valves: 2.5 - 3.5 REASON FOR VISIT INR Encounters Encounter Location Date Provider Diagnosis Liu Harris MD [address] [place] [address] [place] [phone] 10/28/2024 Liu Harris shelter (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 of 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 Z79.01 and Atrial fibrillation I48.91 Assessments Encounter Date Diagnosis (ICD Code) Assessment Notes Treatment Notes Treatment Clinical Notes Section Notes 10/28/2024 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 (ICD-10 - Z79.01) 10/28/2024 Atrial fibrillation (ICD-10 - I48.91) Plan Of Treatment Next Appt Details Provider Name:Liu hyde, 02/05/2025 07:45:00 AM, [address] [place] [address], [address] [place] [address], [phone], Provider Name:Liu hyde, 02/12/2025 08:00:00 AM, [address] [place] [address], Suite [facility], [place], [place], [phone], Progress Notes * Remington ERIC RDOB:1960 (64 yo M)Acc No.[id number]:10/28/2024 Progress Note Patient:?Carlitos ERICy R Provider:?Liu Harris MD :1960???Age:64 Y???Sex:Male Manohar e:10/28/2024 Address:[address] [place], [place] [phone] Subjective: * Chief Complaints: * ???1. INR. * Medical History:? Objective: * Vitals:? Assessment: * Assessment: 1.?shelter (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 o f 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 - Z79.01 (Primary)???2.?Atrial fibrillation - I48.91??? Plan: * Treatment: 2.?Atrial fibrillation?LAB: Prothrombin Time INR (Collection Date & Time - 10/28/2024 08:30 AM) * Procedure Codes:?15632 VENIP UNCT, ROUTINE* * * The named appointment provid er may or may not be the originator of this progress note, and it is not deemed complete until electronically signed by the appointment provider. Sign off status: Pending * Provider:?Liu Harris MD Date:?0 10/28/2024 Generated for Josue mejia/Oxana/Bintaitting on:?11/11/2024 11:11 AM EST
--- OUTSIDE RECORDS SUMMARY | 2024-11-11 11:11 | XMS_ITS ---
Author Organization Liu Harris MD Address [address] [place] [phone] Care Team Providers Care Turbine Subassembler Name Role Phone Liu Harris Primary Care Provider Allergies No Known Allergies Results Component Value Reference Range Notes Prothrombin Time INR Reviewed date:10/16/2024 06:51:10 PM Interpretation: Performing Lab:[facility], [address] [place] [phone] Notes/Report: Prothrombin Time 28.4 10.9-12.4 SEC INTERNATIONAL NORM RATIO 2.4 0.9-1.1 INTERNATIONAL NORMALIZED RATIO (INR) REFERENCE RANGES [...] valves: 2.5 - 3.5 REASON FOR VISIT F/U MRI from 10-10-24, INR Medications Medication SIG (Take, Route, Frequency, Duration) Notes Start Date End Date Status hydroCHLOROthiazide 12.5 MG TAKE 1 CAPSU LE DAILY for Active Aspirin 81 MG 1 tablet Orally Once a day Active Metamucil Smooth Texture 58. 6 % as directed Orally Active Magnesium 500 MG 1 tablet with a meal Orally twice a day Active metFORMIN HCl 500 MG TAKE 2 TABLETS TWICE A DAY for 90 Active ProAir RespiClick 108 (90 Base) MCG/ACT 2 puffs as needed Inhalation every 6 hrs for 30 days 02/25/2019 Not-Taking Minocycline HCl 100 MG 1 tablet Orally Twice a day Not-Taking Propafenone HCl 300 MG 1 tablet if Afib Orally Not-Taking KlonoPIN 0.5 MG 1 tablet Orally Twice a day Not-Taking Pravastatin Sodium 10 MG TAKE 1 TABLET O NCE DAILY for 90 Active Metoprolol Succinate ER 25 MG 1 tablet O rally Once a day 08/24/2015 Active amLODIPine Besylate 5 MG 1 tablet Orally Once a day Active Isosorbide Mononitrate 10 MG 1 tablet Or ally Once a day Active Azelaic Acid 15 % APPLY TO AFFECTED AREA OF SKIN EVERY DAY for 30 Active Jantoven 5 MG TAKE 2 TABLETS ONCE DAILY for 90 Not-Taking Vital Signs Blood pressure systolic 158 mm Hg 10/16/19 25 Blood pressure diastolic 60 mm Hg 025 Height 72 in 10/16/2024 Weight 262 lbs 10/16/2024 BMI 35.53 kg/m2 10/16/2024 weight is up 2 pounds since 09-19-24 Encounters Encounter Location Date Provider Diagnosis Liu Harris MD [address] [place] [address] [address] [place], [place] [phone] 10/16/2024 Liu Harris detention (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 of 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 Z79.01 ; Atrial fibrillation I48.91 and Unsteady gait R26.81 Assessments Encounter Date Diagnosis (ICD Code) Assessment Notes Treatment Notes Treatment Clinical Notes Section Notes 10/16/2024 detention (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 of 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 (ICD-10 - Z79.01) is doing well with no problems 10/16/2024 Atrial fibrillation (ICD-10 - I48.91) when he gets into afib gets a diureses which is related to a naturtic hormone. 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 has been doing well now Unsteady gait discussed findings o f MRI with patient, is going to see seafood fisherman for cataract surgery/ feels as though it is related to his vision as a problem Next Appt Details Provider Name:Liu Shafer ier, 02/05/2025 07:45:00 AM, [address] [place] [address], [address], [place], [phone], Provider Name:Liu Shafer ier, 02/12/2025 08:00:00 AM, [address] [place] [address], [address], [place], [place], [phone], Progress Notes * Remington ERIC RDOB:1960 (64 yo M)Acc No.[id number]:10/16/2024 Progress Notes Patient:?Remington ERIC R Provider:?Liu Harris MD :1960???Age:64 Y???Sex:Male Manohar e:10/16/2024 Address:[address] [place], [place] [phone] Subjective: * Chief Complaints: * ???1. F/U MRI from 10-10-24. 2. INR. * HPI: ???Symptom(s):? patient is a 64 yo male is here for follow up recent MRI, is better than one month ago. is good for a couple hours in the morning.still with trouble with vision. went into afib again. sep 17. he still feels that his cataracts are the problem. bowels have been different since almost a year ago. called to get a colonoscopy and they said he didn't need it. * ROS:?General/Constitutional:?Denies?Chills.?Denies?Fatigue.?Denies?Fever.?Denies?Headache.?ENT:?Patient denies?decreased sense of smell , any loss of taste , sore throat.?Denies?Sore throat.?Respiratory:?Denies?Cough.?Denies?Shortness of breath at rest.?Denies?Shortness of breath with exertion.?Cardiovascular:?Denies?Chest pain at rest.?Denies?Chest pain with exertion.?Admits?Dizziness.?Admits?Palpitations.?Denies?Shortness of breath.?Gastrointestinal:?Denies?Diarrhea.?Denies?Nausea.?Musculoskeletal:?Patient denies?muscle aches.?Peripheral Vascular:?Patient denies?red and blue toes.? * Medical History:?Atrial fibr illation, Diabetes mellitus, colonoscopy - 02/26/2013; colonoscopy 03/18/[address] Gifford - repeat 5 years. * Medications:?Taking Metamuci l Smooth Texture 58.6 % Powder as directed Orally , Taking Aspirin 81 MG Tablet Chewable 1 tablet Orally Once a day , Taking Magnesium 500 MG Tablet 1 tablet with a meal Orally twice a day , Taking Azelaic Acid 15 % Gel APPLY TO AFFECTED AREA OF SKIN EVERY DAY , Taking Isosorbide Mononitrate 10 MG Tablet 1 tablet Orally Once a day , Taking amLODIPine Besylate 5 MG Tablet 1 tablet Orally Once a day , Taking Metoprolol Succinate ER 25 MG Tablet Extended Release 24 Hour 1 tablet Orally Once a day , Taking Pravastatin Sodium 10 MG Tablet TAKE 1 TABLET ONCE DAILY , Taking metFORMIN HCl 500 MG Tablet TAKE 2 TABLETS TWICE A DAY , Taking hydroCHLOROthiazide 12.5 MG Capsule TAKE 1 CAPSULE DAILY , Not-Taking/PRN Jantoven 5 MG Tablet TAKE 2 TABLETS ONCE DAILY , Not-Taking/PRN Propafenone HCl 300 MG Tablet 1 tablet if Afib Orally , Not-Taking/PRN Minocycline HCl 100 MG Tablet 1 tablet Orally Twice a day , Not-Taking/PRN ProAir RespiClick 108 (90 Base) MCG/ACT Aerosol Powder Breath Activated 2 puffs as needed Inhalation every 6 hrs , Not-Taking/PRN KlonoPIN 0.5 MG Tablet 1 tablet Orally Twice a day * Allergies:?N.K.D.A. Objective: * Vitals:?Ht: 72, Wt:262, BMI: 35.53, BP:158/60, Repeat BP:120/70. weight is up 2 pounds since 09-19-24. * Examination: ???General Examination: ?GENERAL APPEARANCE:?alert, well hydrated, in no distress.?HEAD:?normocephalic.?SKIN:?good turgor.?HEART:?regular rate and rhythm , no murmurs, rubs, gallops.?LUNGS:?good air movement , no wheezes, rales, rhonchi , clear to auscultation bilaterally.? Assessment: * Assessment: 1.?detention (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 o f 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 - Z79.01 (Primary)???2.?Atrial fibrillation - I48.91???3.?Unsteady gait - R26.81??? Plan: * Treatment: 2.?Atrial fibrillation?LAB: Prothrombin Time INR (Collection Date & Time - 10/16/2024 10:30 AM) Notes: when he gets into afib gets a diureses which is related to a naturtic hormone. has been doing well now?? 3.?Unsteady gait? Notes: discussed findings of MRI with patient, is going to see seafood fisherman for cataract surgery/ feels as though it is related to his vision as a problem?? * Procedure Codes:?46425 VENIP UNCT, ROUTINE* * * The named appointment provid er may or may not be the originator of this progress note, and it is not deemed complete until electronically signed by the appointment provider. Sign off status: Pending * Provider:?Liu Harris MD Date:?0 10/16/2024 Generated for Josue mejia/Oxana/Bintaitting on:?11/11/2024 11:11 AM EST History and Physical Notes * HPI (History of Present Illness) Category Sub-Category Detail Notes Category Not es Symptom(s) patient is a 64 yo male is here for follow up recent MRI, is better than one month ago. is good for a couple hours in the morning.still with trouble with vision. went into afib again. sep 17. he still feels that his cataracts are the problem. bowels have been different since almost a year ago. called to get a colonoscopy and they said he didn't need it. Examination Category Sub-Category Detail Notes Category Not es General Examination GENERAL APPEARANCE: alert, w ell hydrated, in no distress HEAD: normocephalic HEART: regular rate and rhy thm , no murmurs, rubs, gallops LUNGS: good air movement , no wheezes, rales, rhonchi , clear to auscultation bilaterally SKIN: good turgor
--- OUTSIDE RECORDS SUMMARY | 2024-11-11 11:12 | XMS_ITS ---
Author Organization Liu Harris MD Address [address] [place] [phone] Care Team Providers Care Developer Prover Upholstering Name Role Phone Liu Harris Primary Care Provider Results Component Value Reference Range Notes Prothrombin Time INR (Not ye t reviewed by provider) Interpretation: Performing Lab:[facility], [address] [place] [phone] Notes/Report: Prothrombin Time 31.9 10.9-12.4 SEC INTERNATIONAL NORM RATIO 2.7 0.9-1.1 INTERNATIONAL NORMALIZED RATIO (INR) REFERENCE RANGES [...] Location Date Provider Diagnosis Liu Harris MD [address] [place] [address] [place] [phone] 11/11/2024 Liu Harris halfway (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 of 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 Z79.01 and Atrial fibrillation I48.91 Assessments Encounter Date Diagnosis (ICD Code) Assessment Notes Treatment Notes Treatment Clinical Notes Section Notes 11/11/2024 halfway (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 of 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 (ICD-10 - Z79.01) 11/11/2024 Atrial fibrillation (ICD-10 - I48.91) Plan Of Treatment Pending Test Test Name Order Date Prothrombin Time INR 11/11/2024 Next Appt Details Provider Name:Liu hyde, 02/05/2025 07:45:00 AM, [address] [place] [address], [address], [phone], Provider Name:Liu hyde, 02/12/2025 08:00:00 AM, [address] [place] [address], [place] [address], [place], [place], [phone], Progress Notes * Remington ERIC RDOB:1960 (64 yo M)Acc No.[id number]:11/11/2024 Progress Note Patient:Remington CORNEJO R Provider:?Liu Harris MD :1960???Age:64 Y???Sex:Male Manohar e:11/11/2024 Address:[address] [place], [place] [phone] Subjective: * Chief Complaints: * ???1. INR. * Medical History:? Objective: * Vitals:? 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 Plan: * Treatment: 2.?Atrial fibrillation?LAB: Prothrombin Time INR (Collection Date & Time - 11/11/2024 08:45 AM) * Procedure Codes:?38181 VENIP UNCT, ROUTINE* * * The named appointment provid er may or may not be the originator of this progress note, and it is not deemed complete until electronically signed by the appointment provider. Sign off status: Pending * Provider:?Liu Harris MD Date:?0 11/11/2024 Generated for Josue mejia/Oxana/Bintaitting on:?11/11/2024 11:11 AM EST
== END 2024-11-11 10:18 | disposition home or self-care (01) ==
LOC: HO.LNP 10:17
PROVIDERS: Visit Provider Internal Medicine
DX: Z79.01 Long term (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 of 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 (principal); I48.91 Unspecified atrial fibrillation
CPT/HCPCS: 85610

== ENCOUNTER 2024-11-25 10:42 | Outpatient (REF) | payer BC, SELFPAY ==
--- OUTSIDE RECORDS SUMMARY | 2024-11-25 11:56 | XMS_ITS ---
Author Organization Liu Harris MD Address [address] [place] [phone] Care Team Providers Care Nibbler Operator Name Role Phone Liu Harris Primary Care Provider Results Component Value Reference Range Notes Prothrombin Time INR Reviewed date:10/28/2024 05:01:12 PM Interpretation: Performing Lab:[facility], [address] [place] [phone] Notes/Report: Prothrombin Time 27.4 10.9-12.4 SEC INTERNATIONAL [...] Location Date Provider Diagnosis Liu Harris MD [address] [place] [address] [place] [phone] 10/28/2024 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 Z79.01 and Atrial fibrillation I48.91 Assessments Encounter Date Diagnosis (ICD Code) Assessment Notes Treatment Notes Treatment Clinical Notes Section Notes 10/28/2024 [facility] (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 of 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 (ICD-10 - Z79.01) 10/28/2024 Atrial fibrillation (ICD-10 - I48.91) Plan Of Treatment Next Appt Details Provider Name:Liu hyde, 02/05/2025 07:45:00 AM, [address] [place] [address], [address] [place] [address], [phone], Provider Name:Liu hyde, 02/12/2025 08:00:00 AM, [address] [place] [address], Suite [facility], [place], [place], [phone], Progress Notes * Remington ERIC RDOB:1960 (64 yo M)Acc No.[id number]:10/28/2024 Progress Note Patient:?Carlitos ERICy R Provider:?Liu Harris MD :1960???Age:64 Y???Sex:Male Manohar e:10/28/2024 Address:[address] [place], [place] [phone] Subjective: * Chief Complaints: * ???1. INR. * Medical History:? Objective: * Vitals:? 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 Plan: * Treatment: 2.?Atrial fibrillation?LAB: Prothrombin Time INR (Collection Date & Time - 10/28/2024 08:30 AM) * Procedure Codes:?55493 VENIP UNCT, ROUTINE* * * The named appointment provid er may or may not be the originator of this progress note, and it is not deemed complete until electronically signed by the appointment provider. Sign off status: Pending * Provider:?Liu Harris MD Date:?0 10/28/2024 Generated for Josue mejia/Oxana/Bintaitting on:?11/25/2024 11:55 AM EST
--- OUTSIDE RECORDS SUMMARY | 2024-11-25 11:56 | XMS_ITS ---
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 (ICD-10 - Z79.01) 11/25/2024 Atrial fibrillation (ICD-10 - I48.91) Plan Of Treatment Pending Test Test Name Order Date Prothrombin Time INR 11/25/2024 Next Appt Details Provider Name:Liu Shafer ier, 02/05/2025 07:45:00 AM, [address], [address], [place], [phone], Provider Name:Liu Shafer ier, 02/12/2025 08:00:00 AM, [address], [address], [place], [place], [phone], Progress Notes * YOHANARemington FOWLER RDOB:1960 (64 yo M)Acc No.[id number]:11/25/2024 Progress Note Patient:?Remington ERIC Provider:?Liu Harris MD :1960???Age:64 Y???Sex:Male Manohar e:11/25/2024 Address:[address] [place], [place] [phone] Subjective: * Chief Complaints: * ???1. PT/INR. * Medical History:? Objective: * Vitals:? 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 Plan: * Treatment: 2.?Atrial fibrillation?LAB: Prothrombin Time INR * Procedure Codes:?34756 VENIP UNCT, ROUTINE* * * The named appointment provid er may or may not be the originator of this progress note, and it is not deemed complete until electronically signed by the appointment provider. Sign off status: Pending * Provider:?Liu Harris MD Date:?0 11/25/2024 Generated for Josue mejia/Oxana/Annitasmitting on:?11/25/2024 11:56 AM EST
--- OUTSIDE RECORDS SUMMARY | 2024-11-25 11:56 | XMS_ITS ---
Author Organization Liu Harris MD Address [address] [place] [phone] Care Team Providers Care Roll Off Driver Name Role Phone Liu Harris Primary Care Provider Results Component Value Reference Range Notes Prothrombin Time INR Reviewed date:11/11/2024 11:57:26 AM Interpretation: Performing Lab:[facility], [address] [place] [phone] Notes/Report: Prothrombin Time 31.9 10.9-12.4 SEC INTERNATIONAL [...] Location Date Provider Diagnosis Liu Harris MD [address] [place] [address] [place] [phone] 11/11/2024 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 Harris 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 Z79.01 and Atrial fibrillation I48.91 Assessments Encounter Date Diagnosis (ICD Code) Assessment Notes Treatment Notes Treatment Clinical Notes Section Notes 11/11/2024 detention (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 of 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 (ICD-10 - Z79.01) 11/11/2024 Atrial fibrillation (ICD-10 - I48.91) Plan Of Treatment Next Appt Details Provider Name:Liu hyde, 02/05/2025 07:45:00 AM, [address] [place] [address], [address] [place] [address], [phone], Provider Name:Liu hyde, 02/12/2025 08:00:00 AM, [address] [place] [address], Suite [facility], [place], [place], [phone], Progress Notes * Remington ERIC RDOB:1960 (64 yo M)Acc No.[id number]:11/11/2024 Progress Note Patient:?Carlitos ERICy R Provider:?Liu Harris MD :1960???Age:64 Y???Sex:Male Manohar e:11/11/2024 Address:[address] [place], [place] [phone] Subjective: * Chief Complaints: * ???1. INR. * Medical History:? Objective: * Vitals:? 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 Plan: * Treatment: 2.?Atrial fibrillation?LAB: Prothrombin Time INR (Collection Date & Time - 11/11/2024 08:45 AM) * Procedure Codes:?01950 VENIP UNCT, ROUTINE* * * The named appointment provid er may or may not be the originator of this progress note, and it is not deemed complete until electronically signed by the appointment provider. Sign off status: Pending * Provider:?Liu Harris MD Date:?0 11/11/2024 Generated for Josue mejia/Oxana/Bintaitting on:?11/25/2024 11:56 AM EST
[2024-11-25 12:14] LABS: INTERNATIONAL NORM RATIO 2.4 (0.9-1.1); Prothrombin Time 28.5 SEC (10.9-12.4)
== END 2024-11-25 10:43 | disposition home or self-care (01) ==
LOC: HO.LNP 10:42
PROVIDERS: Visit Provider Internal Medicine
DX: I48.91 Unspecified atrial fibrillation (principal); Z79.01 Long term (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 of 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
CPT/HCPCS: 85610

== ENCOUNTER 2024-12-09 10:48 | Outpatient (REF) | payer BC, SELFPAY ==
[2024-12-09 11:05] LABS: INTERNATIONAL NORM RATIO 2.8 (0.9-1.1); Prothrombin Time 32.4 SEC (10.9-12.4)
--- OUTSIDE RECORDS SUMMARY | 2024-12-09 13:02 | XMS_ITS ---
Author Organization Liu Harris MD Address [address] [place] [phone] Care Team Providers Care Radiologist Physician Name Role Phone Liu Harris Primary Care Provider [phone] Results Component Value Reference Range Notes Prothrombin Time INR Reviewed date:11/11/2024 11:57:26 AM Interpretation: Performing Lab:[facility], [address] [place] [phone] Notes/Report: Prothrombin Time 31.9 10.9-12.4 SEC INTERNATIONAL [...] Location Date Provider Diagnosis Liu Harris MD [address] [place] [address] [place] [phone] 11/11/2024 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 Z79.01 and Atrial fibrillation I48.91 Assessments Encounter Date Diagnosis (ICD Code) Assessment Notes Treatment Notes Treatment Clinical Notes Section Notes 11/11/2024 residential (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 of 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 (ICD-10 - Z79.01) 11/11/2024 Atrial fibrillation (ICD-10 - I48.91) Plan Of Treatment Next Appt Details Provider Name:Liu hyde, 01/13/2025 08:30:00 AM, [address] [place] [address], [address] [place] [address], [phone], Provider Name:Liu hyde, 02/05/2025 07:45:00 AM, [address] [place] [address], [place] [address], [place], [place], [phone], Provider Name:Liu hyde, 02/12/2025 08:00:00 AM, [address] [place] [address], [address], [phone], Progress Notes * Remington ERIC RDOB:1960 (64 yo M)Acc No.[id number]:11/11/2024 Progress Note Patient:?Carlitos ERICmarcus Howell Provider:?Liu Harris MD :1960???Age:64 Y???Sex:Male Manohar e:11/11/2024 Address:[address] [place], [place] [phone] Subjective: * Chief Complaints: * ???1. INR. * Medical History:? Objective: * Vitals:? Assessment: * Assessment: 1.?residential (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 o f 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 - Z79.01 (Primary)???2.?Atrial fibrillation - I48.91??? Plan: * Treatment: 2.?Atrial fibrillation?LAB: Prothrombin Time INR (Collection Date & Time - 11/11/2024 08:45 AM) * Procedure Codes:?85317 VENIP UNCT, ROUTINE* * * The named appointment provid er may or may not be the originator of this progress note, and it is not deemed complete until electronically signed by the appointment provider. Sign off status: Pending * Provider:?Liu Harris MD Date:?0 11/11/2024 Generated for Josue mejia/Oxana/Bintaitting on:?12/09/2024 01:02 PM EST
--- OUTSIDE RECORDS SUMMARY | 2024-12-09 13:03 | XMS_ITS ---
Author Organization Liu Harris MD Address [address] [place] [phone] Care Team Providers Care Water Manager Name Role Phone Liu Harris Primary Care Provider Results Component Value Reference Range Notes Prothrombin Time INR Reviewed date:12/09/2024 12:27:16 PM Interpretation: Performing Lab:[facility], [address] [place] [phone] Notes/Report: Prothrombin Time 32.4 10.9-12.4 SEC INTERNATIONAL NORM RATIO 2.8 0.9-1.1 INTERNATIONAL NORMALIZED RATIO (INR) REFERENCE RANGES [...] Location Date Provider Diagnosis Liu Harris MD [address] [place] [address] [place] [phone] 12/09/2024 Liu Harris Atrial fibrillation I48.91 and alf (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 of 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 Z79.01 Assessments Encounter Date Diagnosis (ICD Code) Assessment Notes Treatment Notes Treatment Clinical Notes Section Notes 12/09/2024 Atrial fibrillation (ICD-10 - I48.91) 12/09/2024 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 (ICD-10 - Z79.01) Plan Of Treatment Next Appt Details Provider Name:Liu hyde, 01/13/2025 08:30:00 AM, [address] [place] [address], [address] [place] [address], [phone], Provider Name:Liu hyde, 02/05/2025 07:45:00 AM, [address] [place] [address], [place] [address], [place], [place], [phone], Provider Name:Liu hyde, 02/12/2025 08:00:00 AM, [address] [place] [address], [address], [phone], Progress Notes * Remington ERIC RDOB:1960 (64 yo M)Acc No.[id number]:12/09/2024 Progress Note Patient:?Carlitos ERICmarcus Howell Provider:?Liu Harris MD :1960???Age:64 Y???Sex:Male Manohar e:12/09/2024 Address:[address] [place], [place] [phone] Subjective: * Chief Complaints: * ???1. INR. * Medical History:? Objective: * Vitals:? Assessment: * Assessment: 1.?Atrial fibrillation - I48 .91 (Primary)???2.?alf (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 of 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 - Z79.01??? 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 Sign off status: Pending * Provider:?Liu Harris MD Date:?0 12/09/2024 Generated for Josue mejia/Oxana/Bintaitting on:?12/09/2024 01:02 PM EST
--- OUTSIDE RECORDS SUMMARY | 2024-12-09 13:03 | XMS_ITS ---
Author Organization Liu Harris MD Address [address] [place] [phone] Care Team Providers Care Programs Assistant Name Role Phone Liu Harris Primary Care Provider Results Component Value Reference Range Notes Prothrombin Time INR Reviewed date:11/25/2024 12:38:44 PM Interpretation: Performing Lab:[facility], [address] [place] [phone] Notes/Report: Prothrombin Time 28.5 10.9-12.4 SEC INTERNATIONAL NORM RATIO 2.4 0.9-1.1 [...] valves: 2.5 - 3.5 REASON FOR VISIT PT/INR Encounters Encounter Location Date Provider Diagnosis Liu Harris MD [address] [place] [address] [place] [phone] 11/25/2024 Liu Harris 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 Z79.01 and Atrial fibrillation I48.91 Assessments Encounter Date Diagnosis (ICD Code) Assessment Notes Treatment Notes Treatment Clinical Notes Section Notes 11/25/2024 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 (ICD-10 - Z79.01) 11/25/2024 Atrial fibrillation (ICD-10 - I48.91) Plan Of Treatment Next Appt Details Provider Name:Liu hyde, 01/13/2025 08:30:00 AM, [address] [place] [address], [address], [phone], Provider Name:Liu hyde, 02/05/2025 07:45:00 AM, [address] [place] [address], [address], [phone], Provider Name:Liu hyde, 02/12/2025 08:00:00 AM, [address] [place] [address], [address], [phone], Progress Notes * Remington ERIC RDOB:1960 (64 yo M)Acc No.[id number]:11/25/2024 Progress Note Patient:?Carlitos ERICy R Provider:?Liu Harris MD :1960???Age:64 Y???Sex:Male Manohar e:11/25/2024 Address:[address] [place], [place] [phone] Subjective: * Chief Complaints: * ???1. PT/INR. * Medical History:? Objective: * Vitals:? 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 Plan: * Treatment: 2.?Atrial fibrillation?LAB: Prothrombin Time INR (Collection Date & Time - 11/25/2024 10:18 AM) * Procedure Codes:?76206 VENIP UNCT, ROUTINE* * * The named appointment provid er may or may not be the originator of this progress note, and it is not deemed complete until electronically signed by the appointment provider. Sign off status: Pending * Provider:?Liu Harris MD Date:?0 11/25/2024 Generated for Josue mejia/Oxana/Bintaitting on:?12/09/2024 01:02 PM EST
--- OUTSIDE RECORDS SUMMARY | 2024-12-09 13:03 | XMS_ITS | Clinical Summary ---
Author Organization [facility] ity Address [address] [place] [address] Care Team Providers Care Rn Clinical Quality Name Role Phone Liu Harris MD Primary Care Provider Allergies Active Allergy Reactions Criticality Noted Date Comments Other 05/25/2022 Other (no Interaction Warnings) Medications amLODIPine (NORVASC) 10 mg tabletIndications :Paroxysmal atrial fibrillation (CMS/HCC) TAKE 1 TABLET BY MOUTH EVERY DAY 90 tablet 3 11/06/2024 Active magnesium oxide 500 mg magnesium tablet Take by mouth 2 times daily. Active aspirin 81 mg EC tablet Take 81 mg by mouth daily. Active clonazePAM (KlonoPIN) 0.5 mg tablet Take 0.5 mg by mouth 2 times daily as needed. Active hydroCHLOROthiazi de 12.5 mg tablet Take 12.5 mg by mouth every other day. Active isosorbide mononitrate (IMDUR) 30 mg 24 hr tablet Take 1 Tablet by mouth daily. 01/17/2024 Active metFORMIN (GLUCOPHAGE) 500 mg tablet Take 500 mg by mouth 4 times daily. Active metoprolol succinate (TOPROL-XL) 25 mg 24 hr tablet Take 1 Tablet by mouth daily. 01/17/2024 Active pravastatin (PRAVACHOL) 10 mg tablet Take 10 mg by mouth daily. Active warfarin (COUMADIN) 7.5 mg tablet Take 7.5 mg by mouth daily. Active Active Problems Problem Noted Date Diagnosed Date Atrial fibrillation 08/11/2021 Overview (12/03/2024): Last Assessment & Plan: Patient remained in sinus rhythm with left anticoagulated due to very high CHADS2 score due to history of CVA. Since his second ablation he is only had 1 episode of persistent A-fib occasional episode of palpitations. No other complaints. Patient remains in sinus rhythm following last ablation procedure. Remains anticoagulated due to very high risk of stroke should he have silent or unrecognized periods of A-fib. No change medical management at this time. Mild lower extremity edema most likely secondary to amlodipine patient has been told to call us if he develops issues we can switch him off the amlodipine. Diabetes 08/11/2021 Hyperlipidemia 08/11/2021 Overview (12/03/2024): Last Assessment & Plan: Patient's last LDL cholesterol was 79. Given his history of diabetes his LDL cholesterol goal is less than 100. He should continue with pravastatin 10 mg once a day. Patient encouraged to follow a low-fat diet. Hypertension 08/11/2021 Overview (12/03/2024): Last Assessment & Plan: Blood pressure is fairly well-controlled amlodipine may be causing some localized swelling we can switch this to other therapy if the edema becomes more of an issue Medical History Medical History Date Comments Diabetes mellitus type 2, co ntrolled, with complications (CMS/HCC) DX:Diabetes mellitus type 2, controlled, with complications (HCC) Hyperlipidemia DX:Hyperlipidemi a Essential hypertension DX:Essent ial hypertension Family History Medical History Relation Name Comments Angioplasty Brother 1 Coronary artery disease Brother 1 Coronary artery disease Brother 2 CABG Father Coronary artery disease Father Other: cardiac arrhythmia Father Alzheimer's disease Mother Angioplasty Mother Coronary artery disease Mother Relation Name Status Comments Brother 1 Alive Brother 2 Alive Father Mother Social History Tobacco Use Types Packs/Day Years Used Date Smoking Tobacco: Never Smokeless Tobacco: Never Alcohol Use Standard Drinks/Week Comments Not Currently 0 (1 standard drink = 0.6 oz pur e alcohol) Sex and Gender Information Value Date Recorded Sex Assigned at Not on file Legal Sex Male 9:49 PM EST Gender Identity Not on file Sexual Orientation Not on file Obstetrics History Last Filed Vital Signs Vital Sign Reading Time Taken Comments Blood Pressure 122/62 05/25/2022 8:20 AM EDT Sitting L Arm Pulse 64 01/17/2024 7:56 AM EDT Temperature - - Respiratory Rate - - Oxygen Saturation - - Inhaled Oxygen Concentration - - Weight 122 kg (268 lb 1.6 oz) 7:56 AM EDT Height 182.9 cm (6') 01/17/2024 7:56 AM EDT Body Mass Index 36.36 01/17/2024 7:56 AM EDT Plan of Treatment Upcoming Encounters Date Type Department Care Team (Late st Contact Info) Description 01/19/2025 2:40 PM EDT Office Visit [facility] [address] [place] [phone] Jody Askew NP [address] [place] [address] [address] [place] [address] Health Maintenance Due Date Last Done Comments Diabetes: Annual GFR (Glomer ular Filtration Rate) 1959 Diabetes: Annual Foot Exam 1969 Diabetes: Annual Retina Eye Exam 1969 DTaP,Tdap,and Td Vaccines (1 - Tdap) 1978 Pneumococcal Vaccine: 50+ Ye ars (1 of 2 - PCV) 1978 Pneumococcal Vaccine: Pediat rics (0 to 5 Years) and At-Risk Patients (6 to 64 Years) (1 of 2 - PCV) 1978 Zoster Vaccines (1 of 2) 2009 RSV Immunization Patients 60 + Years Old (1 - Risk 60-74 years 1-dose series) 2019 Cholesterol Screening (Lipid Panel) 09/16/2022 Colorectal Cancer Screening: Colonoscopy 09/16/2022 Depression Screening 09/16/2022 Hepatitis C Screening 09/16/2022 Social Influencers of Health Screening 09/16/2022 Hypertension/CHF/CAD Annual BMP Blood Test 09/24/2022 Diabetes: Annual Urine Albumin-Creatinine Ratio (uACR) 09/30/2022 Diabetes: Blood Sugar Contro l Test (HGBA1C) 09/30/2022 Falls Risk Assessment 2024 COVID-19 Vaccine ( - 2023-2 5 season) 2024 Influenza Vaccine (#1) 2024 HIB Vaccines Aged Out No longer eligi ble based on patient's age to complete this topic HPV Vaccines Aged Out No longer eligi ble based on patient's age to complete this topic Hepatitis A Vaccines Aged Out No long er eligible based on patient's age to complete this topic Hepatitis B Vaccines Aged Out No long er eligible based on patient's age to complete this topic IPV Vaccines Aged Out No longer eligi ble based on patient's age to complete this topic MMR Vaccines Aged Out No longer eligi ble based on patient's age to complete this topic Meningococcal ACWY Vaccine Aged Out N o longer eligible based on patient's age to complete this topic Meningococcal B Vacine Aged Out No lo nger eligible based on patient's age to complete this topic RSV Immunization Patients Un jakob 20 months Aged Out No longer eligible b ased on patient's age to complete this topic Varicella Vaccines Aged Out No longer eligible based on patient's age to complete this topic Insurance MEDICARE Care Teams Rn Clinical Quality Relationship Specialty Start Date End Date Liu Harris MD PCP - General 07/30/12
== END 2024-12-09 10:49 | disposition home or self-care (01) ==
LOC: HO.LNP 10:48
PROVIDERS: Visit Provider Internal Medicine
DX: I48.91 Unspecified atrial fibrillation (principal); Z79.01 Long term (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 of 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
CPT/HCPCS: 85610

== ENCOUNTER 2024-12-23 10:03 | Outpatient (REF) | payer BC, SELFPAY ==
[2024-12-23 11:09] LABS: INTERNATIONAL NORM RATIO 2.6 (0.9-1.1); Prothrombin Time 30.2 SEC (10.9-12.4)
--- OUTSIDE RECORDS SUMMARY | 2024-12-23 11:47 | XMS_ITS ---
Author Organization Liu Harris MD Address [address] [place] [phone] Care Team Providers Care Ticket Collector Name Role Phone Liu Harris Primary Care Provider Results Component Value Reference Range Notes Prothrombin Time INR (Not ye t reviewed by provider) Interpretation: Performing Lab:[facility], [address] [place] [phone] Notes/Report: Prothrombin Time 30.2 10.9-12.4 SEC INTERNATIONAL NORM RATIO 2.6 0.9-1.1 INTERNATIONAL NORMALIZED RATIO (INR) REFERENCE RANGES [...] Location Date Provider Diagnosis Liu Harris MD [address] [place] [phone] 12/23/2024 Liu Harris 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 Z79.01 and Atrial fibrillation I48.91 Assessments Encounter Date Diagnosis (ICD Code) Assessment Notes Treatment Notes Treatment Clinical Notes Section Notes 12/23/2024 alf (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 of 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 (ICD-10 - Z79.01) 12/23/2024 Atrial fibrillation (ICD-10 - I48.91) Plan Of Treatment Pending Test Test Name Order Date Prothrombin Time INR 12/23/2024 Next Appt Details Provider Name:Liu hyde, 01/13/2025 08:30:00 AM, [address] [place] [address], [address], [phone], Provider Name:Liu hyde, 02/05/2025 07:45:00 AM, [address] [place] [address], [place] [address], [place], [place], [phone], Provider Name:Liu hyde, 02/12/2025 08:00:00 AM, [address] [place] [address], [address], [phone], Progress Notes * Remington ERIC RDOB:1960 (64 yo M)Acc No.[id number]:12/23/2024 Progress Note Patient:?Remington ERIC R Provider:?Liu Harris MD :1960???Age:64 Y???Sex:Male Manohar e:12/23/2024 Address:[address] [place], [place] [phone] Subjective: * Chief Complaints: * ???1. INR. * Medical History:? Objective: * Vitals:? 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 Plan: * Treatment: 2.?Atrial fibrillation?LAB: Prothrombin Time INR (Collection Date & Time - 12/23/2024 08:30 AM) * Procedure Codes:?25202 VENIP UNCT, ROUTINE* * * The named appointment provid er may or may not be the originator of this progress note, and it is not deemed complete until electronically signed by the appointment provider. Sign off status: Pending * Provider:?Liu Harris MD Date:?0 12/23/2024 Generated for Josue mejia/Oxana/Annitasmitting on:?12/23/2024 11:47 AM EDT
--- OUTSIDE RECORDS SUMMARY | 2024-12-23 11:48 | XMS_ITS ---
Author Organization Liu Harris MD Address [address] [place] [phone] Care Team Providers Care Life Insurance Sales Agent Name Role Phone Liu Harris Primary Care Provider Results Component Value Reference Range Notes Prothrombin Time INR Reviewed date:11/25/2024 12:38:44 PM Interpretation: Performing Lab:[facility], [address] [place] [phone] Notes/Report: Prothrombin Time 28.5 10.9-12.4 SEC INTERNATIONAL [...] Location Date Provider Diagnosis Liu Harris MD [address] [place] [address] [place] [phone] 11/25/2024 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 and Atrial fibrillation I48.91 Assessments Encounter Date Diagnosis (ICD Code) Assessment Notes Treatment Notes Treatment Clinical Notes Section Notes 11/25/2024 [facility] (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 of 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 (ICD-10 - Z79.01) 11/25/2024 Atrial fibrillation (ICD-10 - I48.91) Plan Of Treatment Next Appt Details Provider Name:Liu hyde, 01/13/2025 08:30:00 AM, [address] [place] [address], [address], [phone], Provider Name:Liu hyde, 02/05/2025 07:45:00 AM, [address] [place] [address], [address], [phone], Provider Name:Liu hyde, 02/12/2025 08:00:00 AM, [address] [place] [address], [address], [phone], Progress Notes * Remington ERIC RDOB:1960 (64 yo M)Acc No.[id number]:11/25/2024 Progress Note Patient:?Carlitos ERICy R Provider:?Liu Harris MD :1960???Age:64 Y???Sex:Male Manohar e:11/25/2024 Address:[address] [place], [place] [phone] Subjective: * Chief Complaints: * ???1. PT/INR. * Medical History:? Objective: * Vitals:? Assessment: * Assessment: 1.?[facility] (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 o f 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 - Z79.01 (Primary)???2.?Atrial fibrillation - I48.91??? Plan: * Treatment: 2.?Atrial fibrillation?LAB: Prothrombin Time INR (Collection Date & Time - 11/25/2024 10:18 AM) * Procedure Codes:?95122 VENIP UNCT, ROUTINE* * * The named appointment provid er may or may not be the originator of this progress note, and it is not deemed complete until electronically signed by the appointment provider. Sign off status: Pending * Provider:?Liu Harris MD Date:?0 11/25/2024 Generated for Josue mejia/Oxana/Bintaitting on:?12/23/2024 11:48 AM EDT
--- OUTSIDE RECORDS SUMMARY | 2024-12-23 11:48 | XMS_ITS ---
Author Organization Liu Harris MD Address [address] [place] [phone] Care Team Providers Care Complaint Manager Name Role Phone Liu Harris Primary Care Provider Results Component Value Reference Range Notes Prothrombin Time INR Reviewed date:12/09/2024 12:27:16 PM Interpretation: Performing Lab:[facility], [address] [place] [phone] Notes/Report: Prothrombin Time 32.4 10.9-12.4 SEC INTERNATIONAL [...] Location Date Provider Diagnosis Liu Harris MD [address] [place] [address] [place] [phone] 12/09/2024 Liu Harris Atrial fibrillation I48.91 and prison (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 of 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 Z79.01 Assessments Encounter Date Diagnosis (ICD Code) Assessment Notes Treatment Notes Treatment Clinical Notes Section Notes 12/09/2024 Atrial fibrillation (ICD-10 - I48.91) 12/09/2024 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 (ICD-10 - Z79.01) Plan Of Treatment Next Appt Details Provider Name:Liu hyde, 01/13/2025 08:30:00 AM, [address] [place] [address], [address] [place] [address], [phone], Provider Name:Liu hyde, 02/05/2025 07:45:00 AM, [address] [place] [address], [place] [address], [place], [place], [phone], Provider Name:Liu hyde, 02/12/2025 08:00:00 AM, [address] [place] [address], [address], [phone], Progress Notes * Remington ERIC RDOB:1960 (64 yo M)Acc No.[id number]:12/09/2024 Progress Note Patient:?Carlitos ERICmarcus Howell Provider:?Liu Harris MD :1960???Age:64 Y???Sex:Male Manohar e:12/09/2024 Address:[address] [place], [place] [phone] Subjective: * Chief Complaints: * ???1. INR. * Medical History:? Objective: * Vitals:? 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 Plan: * Treatment: 2.?prison (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 o f 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?LAB: Prothrombin Time INR (Collection Date & Time - 12/09/2024 09:00 AM) * Procedure Codes:?35374 VENIP UNCT, ROUTINE* * * The named appointment provid er may or may not be the originator of this progress note, and it is not deemed complete until electronically signed by the appointment provider. Sign off status: Pending * Provider:?Liu Harris MD Date:?0 12/09/2024 Generated for Josue mejia/Oxana/Annitasmitting on:?12/23/2024 11:48 AM EDT
--- OUTSIDE RECORDS SUMMARY | 2024-12-23 11:48 | XMS_ITS | Clinical Summary ---
Author Organization [facility] ity Address [address] [place] [address] Care Team Providers Care Undercollar Maker Name Role Phone Liu Harris MD Primary Care Provider [phone] Allergies Active Allergy Reactions Criticality Noted Date [...] Description 01/19/2025 2:40 PM EDT Office Visit [facility] [address] [place] [phone] Jody Askew NP [address] [place] [address] [address] [place] [address] Health Maintenance Due Date Last Done Comments [...] complete this topic Insurance MEDICARE Care Teams Undercollar Maker Relationship Specialty Start Date End Date Liu Harris MD PCP - General 07/30/12
== END 2024-12-23 10:04 | disposition home or self-care (01) ==
LOC: HO.LNP 10:03
PROVIDERS: Visit Provider Internal Medicine
DX: I48.91 Unspecified atrial fibrillation (principal); Z79.01 Long term (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 of 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
CPT/HCPCS: 85610

== ENCOUNTER 2025-01-06 09:53 | Outpatient (REF) | payer BC, SELFPAY ==
[2025-01-06 10:13] LABS: INTERNATIONAL NORM RATIO 2.9 (0.9-1.1); Prothrombin Time 33.3 SEC (10.9-12.4)
== END 2025-01-06 09:54 | disposition home or self-care (01) ==
LOC: HO.LNP 09:53
PROVIDERS: Visit Provider Internal Medicine
DX: I48.91 Unspecified atrial fibrillation (principal); Z79.01 Long term (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 of 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
CPT/HCPCS: 85610

== ENCOUNTER 2025-01-13 09:47 | Outpatient (REF) | payer BC, SELFPAY ==
[2025-01-13 10:10] LABS: INTERNATIONAL NORM RATIO 2.4 (0.9-1.1); Prothrombin Time 28.3 SEC (10.9-12.4)
--- OUTSIDE RECORDS SUMMARY | 2025-01-13 11:26 | XMS_ITS ---
Author Organization Liu Harris MD Address [address] [place] [phone] Care Team Providers Care Senior Courtroom Clerk Name Role Phone Liu Harris Primary Care Provider [phone] Results Component Value Reference Range Notes Prothrombin Time INR Reviewed date:01/06/2025 10:32:13 AM Interpretation: Performing Lab:[facility], [address] [place] [phone] Notes/Report: Prothrombin Time 33.3 10.9-12.4 SEC INTERNATIONAL NORM RATIO 2.9 0.9-1.1 INTERNATIONAL NORMALIZED RATIO (INR) REFERENCE RANGES [...] Date Provider Diagnosis Liu Harris MD [address] [place] [address] [place] [phone] 01/06/2025 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, [place], [place], [phone], Progress Notes * Remington ERIC RDOB:1960 (64 yo M)Acc No.[id number]:01/06/2025 Progress Note Patient:?Carlitos ERICy R Provider:?Liu Harris MD :1960???Age:64 Y???Sex:Male Manohar e:01/06/2025 Address:[address] [place], [place] [phone] Subjective: * Chief Complaints: * ???1. INR. * Medical History:? Objective: * Vitals:? Assessment: * Assessment: 1.?intermediate (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 o f 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 - Z79.01 (Primary)???2.?Atrial fibrillation - I48.91??? Plan: * Treatment: 2.?Atrial fibrillation?LAB: Prothrombin Time INR (Collection Date & Time - 01/06/2025 07:30 AM) * Procedure Codes:?84534 VENIP UNCT, ROUTINE* * * The named appointment provid er may or may not be the originator of this progress note, and it is not deemed complete until electronically signed by the appointment provider. Sign off status: Pending * Provider:?Liu Harris MD Date:?0 01/06/2025 Generated for Josue mejia/Oxana/Bintaitting on:?01/13/2025 11:26 AM EDT
--- OUTSIDE RECORDS SUMMARY | 2025-01-13 11:27 | XMS_ITS | Clinical Summary ---
Author Organization [facility] ity Address [address] [place] [address] Care Team Providers Care Production Trainer Name Role Phone Liu Harris MD Primary [...] Description 01/19/2025 2:40 PM EDT Office Visit [facility] [address] [place] [phone] Jody Askew NP [address] [place] [address] [address] [place] [address] Health Maintenance Due Date Last Done Comments [...] age to complete this topic Insurance MEDICARE [facility] Care Teams Production Trainer Relationship Specialty Start Date End Date Liu Harris MD PCP - General 07/30/12
== END 2025-01-13 09:48 | disposition home or self-care (01) ==
LOC: HO.LNP 09:47
PROVIDERS: Visit Provider Internal Medicine
DX: I48.91 Unspecified atrial fibrillation (principal); Z79.01 Long term (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 of 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
CPT/HCPCS: 85610

== ENCOUNTER 2025-01-27 10:34 | Outpatient (REF) | payer BC, SELFPAY ==
[2025-01-27 10:49] LABS: INTERNATIONAL NORM RATIO 2.4 (0.9-1.1); Prothrombin Time 28.1 SEC (10.9-12.4)
--- OUTSIDE RECORDS SUMMARY | 2025-01-27 12:41 | XMS_ITS ---
Author Organization Liu Harris MD Address [address] [place] [phone] Care Team Providers Care Building Rental Manager Name Role Phone Liu Harris Primary Care Provider Results Component Value Reference Range Notes Prothrombin Time INR Reviewed date:01/06/2025 10:32:13 AM Interpretation: Performing Lab:[facility], [address] [place] [phone] Notes/Report: Prothrombin Time 33.3 10.9-12.4 SEC INTERNATIONAL [...] Location Date Provider Diagnosis Liu Harris MD [address] [place] [address] [place] [phone] 01/06/2025 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 Z79.01 and Atrial fibrillation I48.91 Assessments Encounter Date Diagnosis (ICD Code) Assessment Notes Treatment Notes Treatment Clinical Notes Section Notes 01/06/2025 shelter (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 of 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 (ICD-10 - Z79.01) 01/06/2025 Atrial fibrillation (ICD-10 - I48.91) Plan Of Treatment Next Appt Details Provider Name:Liu hyde, 04/09/2025 07:45:00 AM, [address] [place] [address], [address] [place] [address], [phone], Provider Name:Liu hyde, 04/16/2025 08:00:00 AM, [address] [place] [address], Suite [facility], [place], [place], [phone], Progress Notes * Remington ERIC RDOB:1960 (64 yo M)Acc No.[id number]:01/06/2025 Progress Note Patient:?Carlitos ERICy R Provider:?Liu Harris MD :1960???Age:64 Y???Sex:Male Manohar e:01/06/2025 Address:[address] [place], [place] [phone] Subjective: * Chief Complaints: * ???1. INR. * Medical History:? Objective: * Vitals:? 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 Plan: * Treatment: 2.?Atrial fibrillation?LAB: Prothrombin Time INR (Collection Date & Time - 01/06/2025 07:30 AM) * Procedure Codes:?89565 VENIP UNCT, ROUTINE* * * The named appointment provid er may or may not be the originator of this progress note, and it is not deemed complete until electronically signed by the appointment provider. Sign off status: Pending * Provider:?Liu Harris MD Date:?0 01/06/2025 Generated for Josue mejia/Oxana/Bintaitting on:?01/27/2025 12:41 PM EDT
--- OUTSIDE RECORDS SUMMARY | 2025-01-27 12:42 | XMS_ITS ---
Author Organization Liu Harris MD Address [address] [place] [phone] Care Team Providers Care Driver Engineer Name Role Phone Liu Harris Primary Care Provider [phone] Results Component Value Reference Range Notes Prothrombin Time INR Reviewed date:01/27/2025 11:31:40 AM Interpretation: Performing Lab:[facility], [address] [place] [phone] Notes/Report: Prothrombin Time 28.1 10.9-12.4 SEC INTERNATIONAL NORM RATIO 2.4 0.9-1.1 [...] Location Date Provider Diagnosis Liu Harris MD [address] [place] [address] [place] [phone] 01/27/2025 Liu Harris 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 Z79.01 and Atrial fibrillation I48.91 Assessments Encounter Date Diagnosis (ICD Code) Assessment Notes Treatment Notes Treatment Clinical Notes Section Notes 01/27/2025 [facility] (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 of 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 (ICD-10 - Z79.01) 01/27/2025 Atrial fibrillation (ICD-10 - I48.91) Plan Of Treatment Next Appt Details Provider Name:Liu hyde, 04/09/2025 07:45:00 AM, [address] [place] [address], [address] [place] [address], [phone], Provider Name:Liu hyde, 04/16/2025 08:00:00 AM, [address] [place] [address], Suite [facility], [place], [place], [phone], Progress Notes * Remington ERIC RDOB:1960 (64 yo M)Acc No.[id number]:01/27/2025 Progress Note Patient:?Carlitos ERICy R Provider:?Liu Harris MD :1960???Age:64 Y???Sex:Male Manohar e:01/27/2025 Address:[address] [place], [place] [phone] Subjective: * Chief Complaints: * ???1. INR. * Medical History:? Objective: * Vitals:? 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 Plan: * Treatment: 2.?Atrial fibrillation?LAB: Prothrombin Time INR (Collection Date & Time - 01/27/2025 08:45 AM) * Procedure Codes:?97339 VENIP UNCT, ROUTINE* * * The named appointment provid er may or may not be the originator of this progress note, and it is not deemed complete until electronically signed by the appointment provider. Sign off status: Pending * Provider:?Liu Harris MD Date:?0 01/27/2025 Generated for Josue mejia/Oxana/Bintaitting on:?01/27/2025 12:42 PM EDT
--- OUTSIDE RECORDS SUMMARY | 2025-01-27 12:42 | XMS_ITS | Patient Health Record ---
Author Organization Liu Harris MD Address [address] [place] [phone] Care Team Providers Care Order Picker/Assembler Name Role Phone Liu Harris Primary Care Provider [phone] Allergies No Known Allergies Results Component Value Reference Range Notes Hemoglobin A1c Reviewed date:01/13/2025 08:26:35 AM Interpretation: Performing Lab: Notes/Report: Hemoglobin A1c 8.1 Complete Blood Count Auto Di ff Reviewed date:01/29/2024 12:20:28 PM Interpretation: Performing Lab:[facility], [address] [place] [phone] Notes/Report: White Blood Count 7.1 4.8-10.8 X10*3/uL Red Blood Count 4.57 4.60-5.80 X10*6/uL Hemoglobin 13.3 14.0-18.0 g/dl Hematocrit 40.8 42.0-52.0 % Mean Corpuscular Volume 89.3 80.0-98.0 fL Mean Corpuscular Hemoglobin 29.1 27.0-33.0 pg Mean Corpuscular HGB Conc 32.6 31.0-36.0 g/dl Red Cell Distribution Width 13.9 11.0-16.0 % Platelet Count 249 160-400 X10*3/uL Mean Platelet Volume 10.0 9.4-12.4 fL Neutrophils Percent Auto 63.0 45-73 % Imm Gran Pct Auto 0.4 0.0-0.4 % Lymphocytes Percent Auto 27.0 20-40 % Monocytes Percent Auto 7.9 2-11 % Eosinophils Percent Auto 1.4 0-4 % Basophils Percent Auto 0.3 0-2 % NRBC Pct Auto 0.0 0.0-0.2 /100WBC Neutrophils Absolute Auto 4.5 2.0-8.3 x10*3/u L Imm Gran Abs Auto 0.03 0.00-0.03 X10*3/uL Lymphocytes Absolute Auto 1.9 1.2-4.9 X10*3/u L Monocytes Absolute Auto 0.6 0.1-1.2 X10*3/uL Eosinophils Absolute Auto 0.1 0.0-0.4 X10*3/u L Basophils Absolute Auto 0.0 0.0-0.2 X10*3/uL NRBC Abs Auto 0.000 0.0-0.012 X10*3/uL Prothrombin Time INR Reviewed date:01/29/2024 12:23:19 PM Interpretation: Performing Lab:[facility], [address] [place] [phone] Notes/Report: Prothrombin Time 21.9 11.1-13.3 SEC INTERNATIONAL NORM RATIO 1.8 0.9-1.1 INTERNATIONAL NORMALIZED RATIO (INR) REFERENCE RANGES [...] mechanical prosthetic heart valves: 2.5 - 3.5 Comprehensive [place]. Panel Fa st Reviewed date:01/29/2024 07:03:17 PM Interpretation: Performing Lab:[facility], [address] [place] [phone] Notes/Report: Sodium 137 135-145 mmol/L Potassium 3.8 3.3-5.1 mmol/L Chloride 101 96-108 mmol/L Carbon Dioxide 28 22-29 mmol/L Anion Gap 12 12-20 Blood Urea Nitrogen 17 9-16 mg/dL Creatinine 0.85 0.5-1.4 mg/dL Estimated Glomerular Filt Rate > 60 NOTE: For -[place] individuals, multiply the result by 1.210. Chronic Kidney Disease: Estimated GFR < 60 mL/min/1.73m2 Severe Kidney Disease: Estimated GFR < 15 mL/min/1.73m2 Glucose Fasting 185 60-99 mg/dL A fasting glucose of 126 mg/dl or greater on more than one occasion is considered diagnostic of diabetes. Calcium 8.9 8.4-10.2 mg/dL Bilirubin Total 1.4 0.0-1.0 mg/dL Aspartate Amino Transferase 24 5-37 U/L Alanine Aminotransferase 32 0-40 U/L Total Protein 6.8 6.5-8.0 g/dL Albumin Level 3.8 3.5-5.0 g/dL Alkaline Phosphatase 63 39-117 U/L Liver Panel Reviewed date:01/29/2024 06:48:32 PM Interpretation: Performing Lab:[facility], [address] [place] [phone] Notes/Report: Bilirubin Direct 0.5 0.0-0.5 mg/dL Lipid Panel with Reflex Reviewed date:01/29/2024 06:49:45 PM Interpretation: Performing Lab:[facility], [address] [place] [phone] Notes/Report: Triglycerides 140 <150 mg/dL Desirable Triglyceride: less than 150 mg/dL Borderline High Triglyceride 150-199 mg/dL High Triglyceride: 200-499 mg/dL Very High Triglyceride: greater than or equal to 5OO mg/dL Cholesterol 143 <200 mg/dL Desirable Cholesterol: less than 200 mg/dL Borderline High Cholesterol: 200-239 mg/dL High Cholesterol: greater than 239 mg/dL LDL Cholesterol Calculated 70 <100 mg/dL Desirable LDL: less than 100 mg/dL Near Optimal/Above Optimal LDL: 110-129 mg/dL Borderline High LDL: 130-159 mg/dL High LDL: 160-189 mg/dL Very High LDL: greater than or equal to 190 mg/dL HDL Cholesterol 45 >40 mg/dL Desirable HDL: greater than 40 mg/dL Note: This HDL assay may give artificially low results in patients with liver disease. PSA,Total (Free>4and<10) Reviewed date:01/29/2024 01:50:17 PM Interpretation: Performing Lab:[address] [phone] Notes/Report: PSA,Total (Free>4and<10) 0.43 0.00-4.00 ng/mL A Free PSA was not performed: The percentage of Free PSA can be used to enhance the differentiation of prostate cancer from benign prostatic disease in subjects whose PSA levels are between 4.0 and 10.0 ng/mL. For subjects whose PSA levels are below 4.0 or above 10.0 ng/mL, the risk of prostate cancer is determined on the basis of the PSA alone. Therefore the % Free PSA is recommended only for those subjects whose PSA levels are between 4.0 and 10.0 ng/mL. PSA methodology: Hilton Alinity i Chemiluminescent Microparticle Immunoassay (CMIA) Microalbumin, Random Reviewed date:01/29/2024 06:48:40 PM Interpretation: Performing Lab:[address] [phone] Notes/Report: Creatinine Urine 124.40 Microalbumin Urine 28.0 Microalbum/Creatinine Ratio Ur 22.5 <30 ug/mg cr Albumin/Creatinine Ratio Reference Ranges: Normal: < 30 ug/mg creatinine Microalbuminuria: 30 - 300 ug/mg creatinine Clinical Albuminuria: > 300 ug/mg creatinine Hemoglobin A1c Reviewed date:01/29/2024 06:49:27 PM Interpretation: Performing Lab:[address] [phone] Notes/Report: Hemoglobin A1c % 8.1 <6.0 % Hemoglobin A1C Reference Range Adults: 4.8 - 6.0 % Non diabetic: < 6.0 % Goal: < 7.0 % Additional Action Suggested: > 8.0 % Note: Hemoglobin A1c results are invalid for patients with abnormal amounts of HbF. Blood transfusions may impact the HbA1c concentration in the patient sample. Estimated Average Glucose 186 eAG = Estimated average glucose which is %A1C expressed as average glucose, using the formula of the [id number] Average Glucose study (ADAG), Diabetes Care, Vol.31,#8, 2007 UA ClnCatch+Micro w/rflx Cul t Reviewed date:01/29/2024 12:28:00 PM Interpretation: Performing Lab:[facility], [address] [place] [phone] Notes/Report: Urine, Clean Catch Color Urine Yellow Appearance Urine Clear PH 6.0 5.0-9.0 Glucose Urine UA 250 Negative mg/dL Urine Blood Negative Negative Specific [address] - Urine 1.020 1.005-1.025 Urine Protein Negative Neg-Trace mg/dL Urine Ketones Negative Negative mg/dL Nitrite Urine Negative Negative Leukocyte Esterase Urine Negative Negative RBC Urine 0-2 0-2 /HPF WBC Urine 0-5 0-5 /HPF Squamous Epithelial Cell Urine 0-2 0-2 /HPF Bacteria Urine None Seen None Seen Hyaline Casts Urine 0-2 0-2 /LPF Prothrombin Time INR Reviewed date:02/12/2024 11:18:57 AM Interpretation: Performing Lab:[facility], [address] [place] [phone] Notes/Report: Prothrombin Time 28.7 11.1-13.3 SEC INTERNATIONAL NORM RATIO 2.4 0.9-1.1 INTERNATIONAL [...] mechanical prosthetic heart valves: 2.5 - 3.5 Prothrombin Time INR Reviewed date:02/26/2024 12:42:38 PM Interpretation: Performing Lab:[facility], [address] [place] [phone] Notes/Report: Prothrombin Time 21.3 11.1-13.3 SEC INTERNATIONAL NORM RATIO 1.8 0.9-1.1 INTERNATIONAL NORMALIZED RATIO (INR) REFERENCE RANGES [...] mechanical prosthetic heart valves: 2.5 - 3.5 Prothrombin Time INR Reviewed date:03/11/2024 11:47:01 AM Interpretation: Performing Lab:[facility], [address] [place] [phone] Notes/Report: Prothrombin Time 35.6 11.1-13.3 SEC INTERNATIONAL NORM RATIO 2.9 0.9-1.1 INTERNATIONAL [...] mechanical prosthetic heart valves: 2.5 - 3.5 Prothrombin Time INR Reviewed date:03/25/2024 12:28:14 PM Interpretation: Performing Lab:[facility], [address] [place] [phone] Notes/Report: Prothrombin Time 21.3 11.1-13.3 SEC INTERNATIONAL NORM RATIO 1.8 0.9-1.1 INTERNATIONAL NORMALIZED RATIO (INR) REFERENCE RANGES [...] mechanical prosthetic heart valves: 2.5 - 3.5 Prothrombin Time INR Reviewed date:04/08/2024 12:37:48 PM Interpretation: Performing Lab:[facility], [address] [place] [phone] Notes/Report: Prothrombin Time 27.5 11.1-13.3 SEC INTERNATIONAL NORM RATIO 2.3 0.9-1.1 INTERNATIONAL [...] mechanical prosthetic heart valves: 2.5 - 3.5 Prothrombin Time INR Reviewed date:04/22/2024 12:55:57 PM Interpretation: Performing Lab:[facility], [address] [place] [phone] Notes/Report: Prothrombin Time 15.7 11.1-13.3 SEC INTERNATIONAL NORM RATIO 1.3 0.9-1.1 INTERNATIONAL NORMALIZED RATIO (INR) REFERENCE RANGES [...] mechanical prosthetic heart valves: 2.5 - 3.5 Prothrombin Time INR Reviewed date:05/06/2024 11:11:11 AM Interpretation: Performing Lab:[facility], [address] [place] [phone] Notes/Report: Prothrombin Time 24.1 11.1-13.3 SEC INTERNATIONAL NORM RATIO 2.0 0.9-1.1 INTERNATIONAL NORMALIZED RATIO (INR) REFERENCE RANGES [...] mechanical prosthetic heart valves: 2.5 - 3.5 Prothrombin Time INR Reviewed date:05/20/2024 04:01:59 PM Interpretation: Performing Lab:[facility], [address] [place] [phone] Notes/Report: Prothrombin Time 39.2 11.1-13.3 SEC INTERNATIONAL NORM RATIO 3.2 0.9-1.1 INTERNATIONAL NORMALIZED RATIO (INR) REFERENCE RANGES [...] mechanical prosthetic heart valves: 2.5 - 3.5 Prothrombin Time INR Reviewed date:05/27/2024 12:33:07 PM Interpretation: Performing Lab:[facility], [address] [place] [phone] Notes/Report: Prothrombin Time 20.7 11.1-13.3 SEC INTERNATIONAL NORM RATIO 1.7 0.9-1.1 INTERNATIONAL NORMALIZED RATIO (INR) REFERENCE RANGES [...] mechanical prosthetic heart valves: 2.5 - 3.5 Prothrombin Time INR Reviewed date:06/03/2024 11:01:16 AM Interpretation: Performing Lab:[facility], [address] [place] [phone] Notes/Report: Prothrombin Time 24.1 11.1-13.3 SEC INTERNATIONAL NORM RATIO 2.0 0.9-1.1 INTERNATIONAL NORMALIZED RATIO (INR) REFERENCE RANGES [...] mechanical prosthetic heart valves: 2.5 - 3.5 Prothrombin Time INR Reviewed date:06/17/2024 12:00:03 PM Interpretation: Performing Lab:[facility], [address] [place] [phone] Notes/Report: Prothrombin Time 34.4 11.1-13.3 SEC INTERNATIONAL NORM RATIO 2.8 0.9-1.1 INTERNATIONAL [...] mechanical prosthetic heart valves: 2.5 - 3.5 Prothrombin Time INR Reviewed date:07/01/2024 12:37:48 PM Interpretation: Performing Lab:[facility], [address] [place] [phone] Notes/Report: Prothrombin Time 30.4 11.1-13.3 SEC INTERNATIONAL NORM RATIO 2.5 0.9-1.1 INTERNATIONAL NORMALIZED RATIO (INR) REFERENCE RANGES [...] mechanical prosthetic heart valves: 2.5 - 3.5 Prothrombin Time INR Reviewed date:07/15/2024 12:50:32 PM Interpretation: Performing Lab:[facility], [address] [place] [phone] Notes/Report: Prothrombin Time 18.4 10.9-12.4 SEC INTERNATIONAL NORM RATIO 1.6 0.9-1.1 INTERNATIONAL NORMALIZED RATIO (INR) REFERENCE RANGES [...] mechanical prosthetic heart valves: 2.5 - 3.5 Prothrombin Time INR Reviewed date:08/12/2024 12:09:44 PM Interpretation: Performing Lab:[facility], [address] [place] [phone] Notes/Report: Prothrombin Time 26.1 10.9-12.4 SEC INTERNATIONAL NORM RATIO 2.2 0.9-1.1 INTERNATIONAL NORMALIZED RATIO (INR) REFERENCE RANGES [...] mechanical prosthetic heart valves: 2.5 - 3.5 Prothrombin Time INR Reviewed date:08/26/2024 12:46:34 PM Interpretation: Performing Lab:[facility], [address] [place] [phone] Notes/Report: Prothrombin Time 35.5 10.9-12.4 SEC INTERNATIONAL NORM RATIO 3.0 0.9-1.1 INTERNATIONAL NORMALIZED RATIO (INR) REFERENCE RANGES [...] mechanical prosthetic heart valves: 2.5 - 3.5 Prothrombin Time INR Reviewed date:09/16/2024 12:42:50 PM Interpretation: Performing Lab:[facility], [address] [place] [phone] Notes/Report: Prothrombin Time 30.5 10.9-12.4 SEC INTERNATIONAL NORM RATIO 2.6 0.9-1.1 [...] mechanical prosthetic heart valves: 2.5 - 3.5 Prothrombin Time INR Reviewed date:09/30/2024 12:23:25 PM Interpretation: Performing Lab:[facility], [address] [place] [phone] Notes/Report: Prothrombin Time 28.9 10.9-12.4 SEC INTERNATIONAL NORM RATIO 2.5 0.9-1.1 INTERNATIONAL NORMALIZED RATIO (INR) REFERENCE RANGES [...] mechanical prosthetic heart valves: 2.5 - 3.5 Prothrombin Time INR Reviewed date:10/16/2024 06:51:10 PM Interpretation: Performing Lab:[facility], [address] [place] [phone] Notes/Report: Prothrombin Time 28.4 10.9-12.4 SEC INTERNATIONAL [...] mechanical prosthetic heart valves: 2.5 - 3.5 Prothrombin Time INR Reviewed date:10/28/2024 05:01:12 PM Interpretation: Performing Lab:[facility], [address] [place] [phone] Notes/Report: Prothrombin Time 27.4 10.9-12.4 SEC INTERNATIONAL [...] mechanical prosthetic heart valves: 2.5 - 3.5 Prothrombin Time INR Reviewed date:11/11/2024 11:57:26 AM Interpretation: Performing Lab:[facility], [address] [place] [phone] Notes/Report: Prothrombin Time 31.9 10.9-12.4 SEC INTERNATIONAL [...] mechanical prosthetic heart valves: 2.5 - 3.5 Prothrombin Time INR Reviewed date:11/25/2024 12:38:44 PM Interpretation: Performing Lab:[address] [phone] Notes/Report: Prothrombin Time 28.5 10.9-12.4 SEC INTERNATIONAL [...] mechanical prosthetic heart valves: 2.5 - 3.5 Prothrombin Time INR Reviewed date:12/09/2024 12:27:16 PM Interpretation: Performing Lab:[address] [phone] Notes/Report: Prothrombin Time 32.4 10.9-12.4 SEC INTERNATIONAL [...] mechanical prosthetic heart valves: 2.5 - 3.5 Prothrombin Time INR Reviewed date:12/23/2024 12:10:07 PM Interpretation: Performing Lab:[facility], [address] [place] [phone] Notes/Report: Prothrombin Time 30.2 10.9-12.4 SEC INTERNATIONAL [...] mechanical prosthetic heart valves: 2.5 - 3.5 Prothrombin Time INR Reviewed date:01/06/2025 10:32:13 AM Interpretation: Performing Lab:[facility], [address] [place] [phone] Notes/Report: Prothrombin Time 33.3 10.9-12.4 SEC INTERNATIONAL [...] mechanical prosthetic heart valves: 2.5 - 3.5 Prothrombin Time INR Reviewed date:01/27/2025 11:31:40 AM Interpretation: Performing Lab:[facility], [address] [place] [phone] Notes/Report: Prothrombin Time 28.1 10.9-12.4 SEC INTERNATIONAL [...] mechanical prosthetic heart valves: 2.5 - 3.5 Occult Blood, Stool, Guaiac Reviewed date:02/08/2024 11:36:54 AM Interpretation:Negative Performing Lab: Notes/Report: Negative Occult Blood, Stool, Guaiac Neg Prothrombin Time INR Reviewed date:07/29/2024 01:46:50 PM Interpretation: Performing Lab:[facility], [address] [place] [phone] Notes/Report: Prothrombin Time 31.5 10.9-12.4 SEC INTERNATIONAL NORM RATIO 2.7 0.9-1.1 [...] mechanical prosthetic heart valves: 2.5 - 3.5 Prothrombin Time INR Reviewed date:08/05/2024 12:55:18 PM Interpretation: Performing Lab:[facility], [address] [place] [phone] Notes/Report: Prothrombin Time 26.4 10.9-12.4 SEC INTERNATIONAL NORM RATIO 2.3 0.9-1.1 [...] mechanical prosthetic heart valves: 2.5 - 3.5 Liver Panel Reviewed date:08/05/2024 05:41:41 PM Interpretation: Performing Lab:[facility], [address] [place] [phone] Notes/Report: Bilirubin Total 1.3 0.0-1.0 mg/dL Bilirubin Direct 0.4 0.0-0.5 mg/dL Aspartate Amino Transferase 31 5-37 U/L Alanine Aminotransferase 39 0-40 U/L Total Protein 7.4 6.5-8.0 g/dL Albumin Level 4.3 3.5-5.0 g/dL Alkaline Phosphatase 62 39-117 U/L Glucose Fasting Reviewed date:08/05/2024 05:42:35 PM Interpretation: Performing Lab:[address] [phone] Notes/Report: Glucose Fasting 166 60-99 mg/dL A fasting glucose of 126 mg/dl or greater on more than one occasion is considered diagnostic of diabetes. Hemoglobin A1c Reviewed date:08/05/2024 08:40:07 PM Interpretation: Performing Lab:[address] [phone] Notes/Report: Hemoglobin A1c % 7.1 <6.0 % Hemoglobin A1C Reference Range Adults: 4.8 - 6.0 % Non diabetic: < 6.0 % Goal: < 7.0 % Additional Action Suggested: > 8.0 % Note: Hemoglobin A1c results are invalid for patients with abnormal amounts of HbF. Blood transfusions may impact the HbA1c concentration in the patient sample. Estimated Average Glucose 157 eAG = Estimated average glucose which is %A1C expressed as average glucose, using the formula of the [id number] Average Glucose study (ADAG), Diabetes Care, Vol.31,#8, May. 2007 Blood Urea Nitrogen Reviewed date:09/21/2024 12:00:49 PM Interpretation: Performing Lab:[address] [phone] Notes/Report: Blood Urea Nitrogen 15 9-16 mg/dL Creatinine Reviewed date:09/21/2024 12:04:27 PM Interpretation: Performing Lab:[address] [phone] Notes/Report: Creatinine 0.86 0.5-1.4 mg/dL Estimated Glomerular Filt Rate > 60 Chronic Kidney Disease: Estimated GFR < 60 mL/min/1.73m2 Severe Kidney Disease: Estimated GFR < 15 mL/min/1.73m2 TSH reflex Free T4 Reviewed date:09/21/2024 12:01:45 PM Interpretation: Performing Lab:[facility], [address] [place] [phone] Notes/Report: TSH reflex Free T4 0.38 0.32-4.0 uIU/mL Glucose, finger stick Reviewed date:01/13/2025 08:20:13 AM Interpretation: Performing Lab: Notes/Report: Value 175 Prothrombin Time INR Reviewed date:01/13/2025 10:36:58 AM Interpretation: Performing Lab:[facility], [address] [place] [phone] Notes/Report: Prothrombin Time 28.3 10.9-12.4 SEC INTERNATIONAL NORM RATIO 2.4 0.9-1.1 [...] mechanical prosthetic heart valves: 2.5 - 3.5 Lipase Reviewed date:08/05/2024 05:42:05 PM Interpretation: Performing Lab:[facility], [address] [place] [phone] Notes/Report: Lipase 46 8-78 U/L Abigail Young Reviewed date:08/05/2024 05:43:12 PM Interpretation: Performing Lab:[facility], [address] [place] [phone] Notes/Report: Abigail Young See Note Specimen held untested for 24 hours; Call to request Chemistry testing. Lipid Panel Reviewed date:08/26/2024 03:08:03 PM Interpretation: Performing Lab:[facility], [address] [place] [phone] Notes/Report: Triglycerides 177 <150 mg/dL Desirable Triglyceride: less than 150 mg/dL Borderline High Triglyceride 150-199 mg/dL High Triglyceride: 200-499 mg/dL Very High Triglyceride: greater than or equal to 5OO mg/dL Cholesterol 143 <200 mg/dL Desirable Cholesterol: less than 200 mg/dL Borderline High Cholesterol: 200-239 mg/dL High Cholesterol: greater than 239 mg/dL LDL Cholesterol Calculated 64 <100 mg/dL Desirable LDL: less than 100 mg/dL Near Optimal/Above Optimal LDL: 110-129 mg/dL Borderline High LDL: 130-159 mg/dL High LDL: 160-189 mg/dL Very High LDL: greater than or equal to 190 mg/dL HDL Cholesterol 44 >40 mg/dL Desirable HDL: greater than 40 mg/dL Note: This HDL assay may give artificially low results in patients with liver disease. Abigail Young Reviewed date:08/26/2024 12:53:02 PM Interpretation: Performing Lab:[facility], [address] [place] [phone] Notes/Report: Abigail Young See Note Specimen held untested for 24 hours; Call to request Chemistry testing. Vitamin B12 Reviewed date:09/21/2024 12:02:00 PM Interpretation: Performing Lab:[facility], [address] [place] [phone] Notes/Report: Vitamin B12 377 200-900 pg/mL NORMAL 200-900 PG/ML INDETERMINATE 160-199 PG/ML DEFICIENT < 160 PG/ML Folate Reviewed date:09/21/2024 12:01:53 PM Interpretation: Performing Lab:[facility], [address] [place] [phone] Notes/Report: Folate 16.6 > or = 4.0 ng/mL Reference Values: > or = 4.0 ng/mL < 4.0 ng/mL suggests folate deficiency Methotrexate, aminopterin and folinic acid (leucovorin) are chemotherapeutic agents whose molecular structures are similar to folate; therefore, the Vamp Marker folate assay cannot be used for patients using these drugs. Abigail Hardy Reviewed date:09/21/2024 12:02:06 PM Interpretation: Performing Lab:[facility], [address] [place] [phone] Notes/Report: Abigail Hardy See Note Specimen held untested for 24 hours; Call to request Chemistry testing. Reason For Referral No Information Medications Medication SIG (Take, Route, Frequency, Duration) Notes Start Date End Date Status Magnesium 500 MG 1 tablet with a meal Orally twice a day Active Metamucil Smooth Texture 58. 6 % as directed Orally Active Propafenone HCl 300 MG 1 tablet if Afib Orally Not-Taking Aspirin 81 MG 1 tablet Orally Once a day Active Minocycline HCl 100 MG 1 tablet Orally Twice a day Not-Taking hydroCHLOROthiazide 12.5 MG TAKE 1 CAPSU LE DAILY for 90 Active Jantoven 5 MG TAKE 2 TABLETS ONCE DAILY Active Pravastatin Sodium 10 MG TAKE 1 TABLET O NCE DAILY for 90 Active metFORMIN HCl 500 MG TAKE 2 TABLETS TWICE A DAY Active Azelaic Acid 15 % APPLY TO AFFECTED AREA OF SKIN EVERY DAY for 30 Active KlonoPIN 0.5 MG 1 tablet Orally Twice a day Not-Taking ProAir RespiClick 108 (90 Base) MCG/ACT 2 puffs as needed Inhalation every 6 hrs for 30 days 02/25/2019 Not-Taking Metoprolol Succinate ER 25 MG 1 tablet O rally Once a day 08/24/2015 Active amLODIPine Besylate 5 MG 1 tablet Orally Once a day Active Isosorbide Mononitrate 10 MG 1 tablet Or ally Once a day Active Immunizations Vaccine Route Administration Date Status Comme nts Flu Vaccine IM Intramuscular 07/04/2011 Administered Flu Vaccine IM Intramuscular 06/11/2012 Administered Flu Vaccine IM Intramuscular 06/17/2013 Administered TDaP IM Intramuscular 08/18/2013 Administered PPSV23 (Pnemovax) IM Intramuscular 06/09/2014 Administered Fluarix Quadrivalent IM Intramuscular 06/16/2014 Administe red Fluarix Quadrivalent IM Intramuscular 07/13/2015 Administe red Fluarix Quadrivalent IM Intramuscular 06/20/2016 Administe red Prevnar 13 IM Intramuscular 09/12/2016 Administered Fluarix Quadrivalent IM Intramuscular 06/19/2017 Administe red Shingrix IM Intramuscular 05/14/2018 Administered Fluarix Quadrivalent IM Intramuscular 06/25/2018 Administe red Shingrix IM Intramuscular 08/27/2018 Administered Fluarix Quadrivalent IM Intramuscular 06/24/2019 Administe red PPSV23 (Pnemovax) IM Intramuscular 07/08/2019 Administered Tetanus Unknown 08/18/2013 Administered Fluarix Quadrivalent IM Intramuscular 06/30/2020 Administe red Covid Vaccine Unknown 01/07/2021 Administered Pfizer Covid Vaccine Unknown 01/29/2021 Administered Pfizer Fluarix Quadrivalent IM Intramuscular 07/05/2021 Administe red SARS-COV-2 Pfizer Unknown 09/01/2021 Administered SARS-COV-2 Pfizer Unknown 09/01/2021 Administered Fluarix Quadrivalent IM Intramuscular 07/11/2022 Administe red Fluarix Quadrivalent IM Intramuscular 07/03/2023 Administe red SARS-COV-2 Pfizer Unknown 07/11/2023 Administered Fluarix Quadrivalent - 150 IM Intramuscular 07/01/2024 Adm inistered Flu Vaccine Unknown 06/16/2014 Pending Social History Tobacco Use: Social History Observation Description Date Details (start date - stop date) Never Smoker NA - NA Tobacco Use/Smoking Question Answer Notes Patient is a nonsmoker Additional Findings: Tobacco Non-User Cu rrent non-smoker, currently using no form of tobacco Alcohol Screen Question Answer Notes Did you have a drink contain ing alcohol in the past year? Yes How often did you have a dri nk containing alcohol in the past year? Monthly or less (1 point) How many drinks did you have on a typical day when you were drinking in the past year? 1 or 2 drinks (0 point) How often did you have 6 or more drinks on one occasion in the past year? 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) Active confirmed Problem 214083749 Body mass index (BMI) 35.0-35.9, adult (Z68.35) Active confirmed Problem 65299907 Essential hypert ension (I10) Active confirmed Problem Rosacea (497755642) Rosacea (L71.9) Active confirmed Problem 12654633 Type 2 diabetes mellitus without complication (E11.9) Active confirmed Problem Polyneuropathy due to type 2 diabetes mellitus (744069366) Diabetic polyneuropathy associated with type 2 diabetes mellitus (E11.42) Active confirmed Problem 266297281 Cervical disc di sease (M50.90) Active confirmed Problem 323796749 Doxycycline adve rse reaction, initial encounter (T36.4X5A) Active confirmed Problem Diabetic autonomic neuropathy due to type 2 diabetes mellitus (211259950) Diabetic autonomic neuropathy associated with type 2 diabetes mellitus (E11.43) Active confirmed Problem 89078215 Unsteady gait (R26.81) Active confirme d Problem 240218164 Pure hypercholesterolemia (E78.00) Active confirmed Problem 886921313 Body mass index (BMI) of 39.0-39.9 in adult (Z68.39) Active confirmed Problem 921448347 Confusion state (F44.89) Active confirmed Vital Signs Blood pressure diastolic 60 mm Hg 01/13/2025 gentry ght is down 3 pounds since 10-16-24 Height 72 in 01/13/2025 weight is down 3 pounds since 10-16-24 Blood pressure systolic 124 mm Hg 01/13/2025 weig ht is down 3 pounds since 10-16-24 Weight 259 lbs 01/13/2025 weight is down 3 pounds since 10-16-24 BMI 35.12 kg/m2 01/13/2025 weight is down 3 pounds since 10-16-24 Encounters Encounter Location Date Provider Diagnosis Liu Harris MD [address] [place] [address] [id number] 01/29/2024 Liu Harris watermelon inspector (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 of 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 Z79.01 ; Atrial fibrillation I48.91 ; Type 2 diabetes mellitus without complication E11.9 ; Essential hypertension I10 ; Pure hypercholesterolemia E78.00 and Annual physical exam Z00.00 Liu Harris MD [address] [id number] 02/12/2024 Liu Harris watermelon inspector (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 of 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 Z79.01 and Atrial fibrillation I48.91 Liu Harris MD [address] [id number] 02/26/2024 Liu Lundbergardier watermelon inspector (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 of 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 Z79.01 and Atrial fibrillation I48.91 Liu Harris MD [address] [facility] [address] [id number] 03/11/2024 Liu Lundbergardier care home (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 of 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 Z79.01 and Atrial fibrillation I48.91 Liu Hraris MD [address] [id number] 03/25/2024 Liu Horneer watermelon inspector (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 of 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 Z79.01 and Atrial fibrillation I48.91 Liu Harris MD [address] [facility] [address] [id number] 04/08/2024 Liu Bombardier care home (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 of 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 Z79.01 and Atrial fibrillation I48.91 Liu Harris MD [address] [facility] [address] [id number] 04/22/2024 Liu Bombardier care home (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 of 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 Z79.01 and Atrial fibrillation I48.91 Liu Harris MD [address] [place] [address] [id number] 05/06/2024 Liu Bombardier care home (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 of 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 Z79.01 and Atrial fibrillation I48.91 Liu Harris MD [address] [place] [address] [id number] 05/20/2024 Liu Bombardier care home (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 of 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 Z79.01 and Atrial fibrillation I48.91 Liu Harris MD [address] [place] [address] [id number] 05/27/2024 Liu Bombardier watermelon inspector (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 of 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 Z79.01 and Atrial fibrillation I48.91 Liu Harris MD [address] [id number] 06/03/2024 Liu Bombardier care home (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 of 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 Z79.01 and Atrial fibrillation I48.91 Liu Harris MD [address] [place] [address] [id number] 06/17/2024 Liu Bombardier watermelon inspector (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 of 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 Z79.01 and Atrial fibrillation I48.91 Liu Harris MD [address] [place] [address] [id number] 07/01/2024 Liu Bombardier care home (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 of 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 Z79.01 ; Encounter for immunization Z23 and Atrial fibrillation I48.91 Liu Harris MD [address] [place] [address] [id number] 07/15/2024 Liu Bombardier care home (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 of 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 Z79.01 and Atrial fibrillation I48.91 Liu Harris MD [address] [place] [address] [id number] 08/12/2024 Liu Bombardier watermelon inspector (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 of 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 Z79.01 ; Atrial fibrillation I48.91 ; Type 2 diabetes mellitus without complication E11.9 and Essential hypertension I10 Liu Harris MD [address] [place] [address] [id number] 08/26/2024 Liu Harris Pure hypercholestero lemia E78.00 and Atrial fibrillation I48.91 Liu Harris MD [address] [place] [address] [id number] 09/16/2024 Liu Bombardier watermelon inspector (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 of 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 Z79.01 and Atrial fibrillation I48.91 Liu Harris MD [address] [id number] 09/30/2024 Liu Bombardier care home (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 of 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 Z79.01 and Atrial fibrillation I48.91 Liu Harris MD [address] [place] [address] [id number] 10/16/2024 Liu Bombardier watermelon inspector (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 of 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 Z79.01 ; Atrial fibrillation I48.91 and Unsteady gait R26.81 Liu Harris MD [address] [id number] 10/28/2024 Liu Bombardier watermelon inspector (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 of 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 Z79.01 and Atrial fibrillation I48.91 Liu Harris MD [address] [id number] 11/11/2024 Liu Bombardier watermelon inspector (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 of 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 Z79.01 and Atrial fibrillation I48.91 Liu Harris MD [address] [id number] 11/25/2024 Liu Bombardier watermelon inspector (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 of 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 Z79.01 and Atrial fibrillation I48.91 Liu Harris MD [address] [id number] 12/09/2024 Liu Bombardier Atrial fibrillation I48.91 and care home (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 of 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 Z79.01 Liu Harris MD [address] [place] [address] [id number] 12/23/2024 Liu Bombardier watermelon inspector (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 of 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 Z79.01 and Atrial fibrillation I48.91 Liu Harris MD [address] [id number] 01/06/2025 Liu Bombardier watermelon inspector (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 of 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 Z79.01 and Atrial fibrillation I48.91 Liu Harris MD [address] [id number] 01/27/2025 Liu Bombardier watermelon inspector (current) use of anticoagulants Z79.01 and Atrial fibrillation I48.91 Liu Harris MD [address] [place] [address] [id number] 02/08/2024 Liu Harris Bowel habit changes R19.4 ; Annual physical exam Z00.00 ; Essential hypertension I10 ; Type 2 diabetes mellitus without complication E11.9 ; Atrial fibrillation I48.91 ; Body mass index (BMI) 35.0-35.9, adult Z68.35 ; Pure hypercholesterolemia E78.00 ; Colon cancer screening Z12.11 and Depression screening Z13.31 Liu Harris MD [address] [facility] [address] [place] [address] [id number] 07/29/2024 Liu Harris watermelon inspector (current) use of anticoagulants Z79.01 and Atrial fibrillation I48.91 Liu Harris MD [address] [facility] [address] [id number] 08/05/2024 Liu Harris Type 2 diabetes opal itus without complication E11.9 ; Pure hypercholesterolemia E78.00 ; care home (current) use of anticoagulants Z79.01 and Atrial fibrillation I48.91 Liu Harris MD [address] [place] [address] [id number] 09/19/2024 Liu Harris Hx of melanoma of sk in Z85.820 ; Unsteady gait R26.81 ; Confusion state F44.89 and Blood tests prior to treatment or procedure Z01.812 Liu Harris MD [address] [facility] [address] [id number] 01/13/2025 Liu Harris Type 2 diabetes opal itus without complication E11.9 ; Preop examination Z01.818 ; watermelon inspector (current) use of anticoagulants Z79.01 ; Atrial fibrillation I48.91 and Essential hypertension I10 Liu Harris MD [address] [place] [address] [id number] 09/15/2024 Liu Harris MD [address] [place] [address] [id number] 09/18/2024 Liu Harris MD [address] [facility] [address] [id number] 09/22/2024 Liu Harris Foreign body in eye, right, initial encounter T15.91XA Liu Harris MD [address] [place] [address] [place] [address] [id number] 10/09/2024 Liu Harris Assessments Encounter Date Diagnosis (ICD Code) Assessment Notes Treatment Notes Treatment Clinical Notes Section Notes 01/29/2024 watermelon inspector (current) use of anticoagulants (ICD-10 - Z79.01) 01/29/2024 Atrial fibrillation (ICD-10 - I48.91) 02/12/2024 care home (current) use of anticoagulants (ICD-10 - Z79.01) 02/12/2024 Atrial fibrillation (ICD-10 - I48.91) 02/26/2024 care home (current) use of anticoagulants (ICD-10 - Z79.01) 02/26/2024 Atrial fibrillation (ICD-10 - I48.91) 03/11/2024 watermelon inspector (current) use of anticoagulants (ICD-10 - Z79.01) 03/11/2024 Atrial fibrillation (ICD-10 - I48.91) 03/25/2024 care home (current) use of anticoagulants (ICD-10 - Z79.01) 04/08/2024 watermelon inspector (current) use of anticoagulants (ICD-10 - Z79.01) 04/08/2024 Atrial fibrillation (ICD-10 - I48.91) 04/22/2024 care home (current) use of anticoagulants (ICD-10 - Z79.01) 04/22/2024 Atrial fibrillation (ICD-10 - I48.91) 05/06/2024 watermelon inspector (current) use of anticoagulants (ICD-10 - Z79.01) 05/06/2024 Atrial fibrillation (ICD-10 - I48.91) 05/20/2024 care home (current) use of anticoagulants (ICD-10 - Z79.01) 05/20/2024 Atrial fibrillation (ICD-10 - I48.91) 05/27/2024 watermelon inspector (current) use of anticoagulants (ICD-10 - Z79.01) 05/27/2024 Atrial fibrillation (ICD-10 - I48.91) 06/03/2024 care home (current) use of anticoagulants (ICD-10 - Z79.01) 06/03/2024 Atrial fibrillation (ICD-10 - I48.91) 06/17/2024 care home (current) use of anticoagulants (ICD-10 - Z79.01) 06/17/2024 Atrial fibrillation (ICD-10 - I48.91) 07/01/2024 watermelon inspector (current) use of anticoagulants (ICD-10 - Z79.01) 07/01/2024 Encounter for immunization (ICD-10 - Z23) 07/15/2024 care home (current) use of anticoagulants (ICD-10 - Z79.01) 07/15/2024 Atrial fibrillation (ICD-10 - I48.91) 08/12/2024 care home (current) use of anticoagulants (ICD-10 - Z79.01) not having any problems Will do Lipids at his 08-26-24 INR Visit 08/12/2024 Atrial fibrillation (ICD-10 - I48.91) need lipids i think the lab did lipase instead of lipids 08/26/2024 Pure hypercholesterolemia (ICD-10 - E78.00) 08/26/2024 Atrial fibrillation (ICD-10 - I48.91) 09/16/2024 watermelon inspector (current) use of anticoagulants (ICD-10 - Z79.01) 09/16/2024 Atrial fibrillation (ICD-10 - I48.91) 09/30/2024 watermelon inspector (current) use of anticoagulants (ICD-10 - Z79.01) 09/30/2024 Atrial fibrillation (ICD-10 - I48.91) 10/16/2024 care home (current) use of anticoagulants (ICD-10 - Z79.01) is doing well with no problems 10/16/2024 Atrial fibrillation (ICD-10 - I48.91) when he gets into afib gets a diureses which is related to a naturtic hormone. has been doing well now 10/28/2024 care home (current) use of anticoagulants (ICD-10 - Z79.01) 10/28/2024 Atrial fibrillation (ICD-10 - I48.91) 11/11/2024 watermelon inspector (current) use of anticoagulants (ICD-10 - Z79.01) 11/25/2024 care home (current) use of anticoagulants (ICD-10 - Z79.01) 12/09/2024 Atrial fibrillation (ICD-10 - I48.91) 12/23/2024 watermelon inspector (current) use of anticoagulants (ICD-10 - Z79.01) 01/06/2025 watermelon inspector (current) use of anticoagulants (ICD-10 - Z79.01) 01/27/2025 watermelon inspector (current) use of anticoagulants (ICD-10 - Z79.01) 02/08/2024 Bowel habit changes (ICD-10 - R19.4) need appt with dr gifford/ patient will be calling to make his own appt. 02/08/2024 Annual physical exam (ICD-10 - Z00.00) labs reviewed and discussed with patient 07/29/2024 watermelon inspector (current) use of anticoagulants (ICD-10 - Z79.01) 07/29/2024 Atrial fibrillation (ICD-10 - I48.91) 08/05/2024 Type 2 diabetes mellitus without complication (ICD-10 - E11.9) 08/05/2024 Pure hypercholesterolemia (ICD-10 - E78.00) 09/19/2024 Hx of melanoma of sk in (ICD-10 - Z85.820) followed by derm/ MRI order faxed to [facility], pending diagnostic testing 09/19/2024 Unsteady gait (ICD-1 0 - R26.81) pending diagnostic testing 01/13/2025 Type 2 diabetes mellitus without complication (ICD-10 - E11.9) running a little high, will continue current regiment and will continue to monitor 01/13/2025 Preop examination (ICD-10 - Z01.818) patient cleared for cataract surgery 01/29/2024 Type 2 diabetes mellitus without complication (ICD-10 - E11.9) 03/25/2024 Atrial fibrillation (ICD-10 - I48.91) 07/01/2024 Atrial fibrillation (ICD-10 - I48.91) 08/12/2024 Type 2 diabetes mellitus without complication (ICD-10 - E11.9) doing a little better. is cutting back on candy 10/16/2024 Unsteady gait (ICD-1 0 - R26.81) discussed findings of MRI with patient, is going to see enterprise security architect for cataract surgery/ feels as though it is related to his vision as a problem 11/11/2024 Atrial fibrillation (ICD-10 - I48.91) 11/25/2024 Atrial fibrillation (ICD-10 - I48.91) 12/09/2024 watermelon inspector (current) use of anticoagulants (ICD-10 - Z79.01) 12/23/2024 Atrial fibrillation (ICD-10 - I48.91) 01/06/2025 Atrial fibrillation (ICD-10 - I48.91) 01/27/2025 Atrial fibrillation (ICD-10 - I48.91) 02/08/2024 Essential hypertensi on (ICD-10 - I10) doing well on meds, will continue current regiment 08/05/2024 watermelon inspector (current) use of anticoagulants (ICD-10 - Z79.01) 09/19/2024 Confusion state (ICD -10 - F44.89) pending diagnostic testing 01/13/2025 watermelon inspector (current) use of anticoagulants (ICD-10 - Z79.01) will hold for 3 days prior to the upcoming surgery, patient verbalized understanding of instruction to d'c medication 3 days prior to surgery 09/22/2024 Foreign body in eye, right, initial encounter (ICD-10 - T15.91XA) Order faxed to [facility] [phone] 01/29/2024 Essential hypertensi on (ICD-10 - I10) 08/12/2024 Essential hypertensi on (ICD-10 - I10) stable, is at goal, will continue current regiment 02/08/2024 Type 2 diabetes mellitus without complication (ICD-10 - E11.9) needs to diet, will continue current regiment 08/05/2024 Atrial fibrillation (ICD-10 - I48.91) 09/19/2024 Blood tests prior to treatment or procedure (ICD-10 - Z01.812) 01/13/2025 Atrial fibrillation (ICD-10 - I48.91) doing well 01/29/2024 Pure hypercholesterolemia (ICD-10 - E78.00) 02/08/2024 Atrial fibrillation (ICD-10 - I48.91) not being bothered, will continue current regiment 01/13/2025 Essential hypertensi on (ICD-10 - I10) stable, will continue current regiment 01/29/2024 Annual physical exam (ICD-10 - Z00.00) 02/08/2024 Body mass index (BMI ) 35.0-35.9, adult (ICD-10 - Z68.35) hopefully will get on diet 02/08/2024 Pure hypercholesterolemia (ICD-10 - E78.00) stable, will contnue current regiment 02/08/2024 Colon cancer screeni ng (ICD-10 - Z12.11) guaiac negative 02/08/2024 Depression screening (ICD-10 - Z13.31) negative screen Plan Of Treatment Pending Test Test Name Order Date Electrocardiogram (EKG) 11/07/2018 Electrocardiogram (EKG) 11/20/2019 VITAMIN B12 AND FOLATE 09/19/2024 MRI BRAIN W&WO CONTRAST 09/19/2024 Lipid Panel with Reflex 08/05/2024 Lipid Panel with Reflex 08/26/2024 XR orbit min 4V 09/22/2024 Next Appt Details Provider Name:Liu Shafer ier, 04/09/2025 07:45:00 AM, [address] [place] [address], [address], [phone], Provider Name:Liu Shafer ier, 04/16/2025 08:00:00 AM, [address] [place] [address], [address], [place], [place], [phone], Insurance Providers Payer Name Payer Address Payer Phone Subscriber Number Group Number Insured Name Patient Relationship to Insured Coverage Start Date Coverage End Date [facility] [address] [place], [place] [id number] [phone] [id number] Remington Eirc Self - patient is the insured Medical (General) History Medical History History ICD Code Atrial fibrillation diabetes mellitus colonoscopy - 02/26/2013; colonoscopy 03/[address] Gifford - repeat 5 years Surgical History Surgery Date(Month/Year) pulmonarry artery ablation Partial Medial Menisectomy, rt knee (Dr. Perez) 10/2016
--- OUTSIDE RECORDS SUMMARY | 2025-01-27 12:43 | XMS_ITS | Clinical Summary ---
Author Organization [facility] Address [address] [place] [address] Phone Care Team Providers Care Scientific Software Engineer Name Role Phone Liu Harris MD Primary Care Provider Allergies No known active allergies Medications amLODIPine (NORVASC) 10 mg tabletIndications :Paroxysmal atrial fibrillation (CMS/HCC V24, CMS/HCC V28) TAKE 1 TABLET BY MOUTH EVERY DAY 90 tablet 3 5 Active magnesium oxide 500 mg magnesium tablet [...] tablet Take 1 Tablet by mouth daily. 4 Active metFORMIN (GLUCOPHAGE) 500 mg tablet Take 500 mg by mouth 4 times daily. Active metoprolol succinate (TOPROL-XL) 25 mg 24 hr tablet Take 1 Tablet by mouth daily. 4 Active pravastatin (PRAVACHOL) 10 mg tablet Take 10 mg by mouth daily. Active warfarin (COUMADIN) 7.5 mg tablet As directed by PCP Active propafenone (RYTHMOL) 300 mg tablet Take 1 tablet (300 mg total) by mouth if needed (atrial fibrillation) . 10 tablet 1 Active Active Problems Problem Noted Date Diagnosed Date Dizziness 01/19/2025 Assessment & Plan (01/19/2025 3:10 PM EDT): Patient has been having difficulties with dizziness which he attributes to vision changes secondary to cataract. He has undergone evaluation for vertigo and even completed a brain MRI. He is hopeful that his symptoms will improve with upcoming cataract surgery. Atrial fibrillation ([facility] V24, [facility] V28) 1 Overview (12/03/2024): Last Assessment & Plan: Patient [...] we can switch him off the amlodipine. Assessment & Plan (01/19/2025 3:10 PM EDT): Patient is history of paroxysmal atrial fibrillation status post 2 ablation procedures in the past as outlined detailed above. He was previously prescribed propafenone to be taken as needed in the event that he had an episode of atrial fibrillation. He has not used this in some time but understands the appropriate use. I have represcribed this for him. We will update an echocardiogram. Diabetes ([facility] V24, [facility] V28) 08/11/2021 Hyperlipidemia 08/11/2021 Overview (12/03/2024): Last Assessment & Plan: Patient's last LDL cholesterol was 79. Given his history of diabetes his LDL cholesterol goal is less than 100. He should continue with pravastatin 10 mg once a day. Patient encouraged to follow a low-fat diet. Assessment & Plan (01/19/2025 2:46 PM EDT): Continues on pravastatin. Hypertension 08/11/2021 Overview (12/03/2024): Last Assessment & Plan: Blood pressure is fairly well-controlled amlodipine may be causing some localized swelling we can switch this to other therapy if the edema becomes more of an issue Assessment & Plan (01/19/2025 3:10 PM EDT): BP is borderline today. He will monitor at home. He is not orthostatic on examination. Continue with amlodipine, hydrochlorothiazide and metoprolol. Encounters Date Type Department Care Team Description 01/19/2025 2:40 PM EDT Office Visit [facility] [address] [place] [address] Jody Askew NP Paroxysmal atrial fibrillation (CMS/HCC V24, CMS/HCC V28) (Primary Dx); Primary hypertension; Mixed hyperlipidemia; Dizziness from Last 3 Months Medical History Medical History Date Comments Diabetes mellitus type 2, co ntrolled, with complications (CMS/HCC V24, CMS/HCC V28) DX:Diabetes mellitus type 2, controlled, with complications [...] Sign Reading Time Taken Comments Blood Pressure 150/60 01/19/2025 2:31 PM EDT Pulse 70 01/19/2025 2:31 PM EDT Temperature - - Respiratory Rate - - Oxygen Saturation 99% 01/19/2025 2:31 PM EDT Inhaled Oxygen Concentration - - Weight 117 kg (258 lb) 01/19/2025 2:31 PM EDT Height 182.9 cm (6') 01/19/2025 2:31 PM EDT Body Mass Index 34.99 01/19/2025 2:31 PM EDT Plan of Treatment Upcoming Encounters Date Type Department Care Team (Late st Contact Info) Description 04/07/2025 8:00 AM EDT Ancillary Procedure [facility] [address] [place] [phone] 07/24/2025 8:50 AM EDT Office Visit [address] [place] [phone] Ed Cadena MD [address] [place] [address] [address]IVE [address] [place] [address] Health Maintenance Due Date Last Done Comments Diabetes: Annual GFR (Glomerular Filtration Rate) 1959 Diabetes: Annual Foot Exam 1969 Diabetes: Annual Retina Eye Exam 1969 RSV Immunization Adult Patients (1 - Risk 60-74 years 1-dose series) 2019 Cholesterol Screening (Lipid Panel) 09/16/2022 Colorectal Cancer Screening: Colonoscopy 09/16/2022 Depression Screening 09/16/2022 Hepatitis C Screening 09/16/2022 Social Influencers of Health Screening 09/16/2022 Hypertension/CHF/CAD Annual BMP Blood Test 09/24/2022 Diabetes: Annual Urine Albumin-Creatinine Ratio (uACR) 09/30/2022 Diabetes: Blood Sugar Control Test (HGBA1C) 09/30/2022 Falls Risk Assessment 2024 Pneumococcal Vaccine: 50+ Years (3 of 3 - PCV20 or PCV21) 07/08/2024 07/08/2019, 09/12/2016, 02/17/2014 Pneumococcal Vaccine: Pediatrics (0 to 5 Years) and At-Risk Patients (6 to 64 Years) (3 of 3 - PCV20 or PCV21) 07/08/2024 07/08/2019, 09/12/2016, 02/17/2014 DTaP,Tdap,and Td Vaccines (3 - Td or Tdap) 06/12/2033 06/12/2023, 08/18/2013 Zoster Vaccines Completed 08/27/2018, 05/14/2018 Influenza Vaccine Completed 07/01/2024, , 07/11/2022, Additional history exists COVID-19 Vaccine Completed 07/23/2024, , 07/20/2022, Additional history exists HIB Vaccines Aged Out No longer eligi [...] age to complete this topic Meningococcal B Vaccine Aged Out No l onger eligible based on patient's age to complete this topic RSV Immunization Patients Under 20 months Aged Out No longer eligible based on patient's age to complete this topic Varicella Vaccines Aged Out No longer eligible based on patient's age to complete this topic Insurance MEDICARE [facility] Care Teams Scientific Software Engineer Relationship Specialty Start Date End Date Liu Harris MD [address] [place] [address] [address] [place] [address] PCP - General 07/30/12
--- OUTSIDE RECORDS SUMMARY | 2025-01-27 12:43 | XMS_ITS ---
Author Organization Liu Harris MD Address [address] [place] [phone] Care Team Providers Care Seam Taper Machine Name Role Phone Liu Harris Primary Care Provider Allergies No Known Allergies Results Component Value Reference Range Notes Hemoglobin A1c Reviewed date:01/13/2025 08:26:35 AM Interpretation: Performing Lab: Notes/Report: Hemoglobin A1c 8.1 Glucose, finger stick Reviewed date:01/13/2025 08:20:13 AM Interpretation: Performing Lab: Notes/Report: Value 175 Prothrombin Time INR Reviewed date:01/13/2025 10:36:58 AM Interpretation: Performing Lab:[facility], [address] [place] [id number] Notes/Report: Prothrombin Time 28.3 10.9-12.4 SEC INTERNATIONAL [...] valves: 2.5 - 3.5 REASON FOR VISIT Pre op Cataract 01-28 Dr Reyes no labs or EKG Medications Medication SIG (Take, Route, Frequency, Duration) Notes Start Date End Date Status Magnesium 500 MG 1 tablet with a meal Orally twice a day Active Metamucil Smooth Texture 58. 6 % as directed Orally Active Aspirin 81 MG 1 tablet Orally Once a day Active KlonoPIN 0.5 MG 1 tablet Orally Twice a day Not-Taking Metoprolol Succinate ER 25 MG 1 tablet O rally Once a day 08/24/2015 Active amLODIPine Besylate 5 MG 1 tablet Orally Once a day Active Isosorbide Mononitrate 10 MG 1 tablet Or ally Once a day Active Propafenone HCl 300 MG 1 tablet if Afib Orally Not-Taking Minocycline HCl 100 MG 1 tablet Orally Twice a day Not-Taking ProAir RespiClick 108 (90 Base) MCG/ACT 2 puffs as needed Inhalation every 6 hrs for 30 days 02/25/2019 Not-Taking hydroCHLOROthiazide 12.5 MG TAKE 1 CAPSU LE DAILY for 90 Active Jantoven 5 MG TAKE 2 TABLETS ONCE DAILY Active Pravastatin Sodium 10 MG TAKE 1 TABLET O NCE DAILY for 90 Active metFORMIN HCl 500 MG TAKE 2 TABLETS TWICE A DAY Active Azelaic Acid 15 % APPLY TO AFFECTED AREA OF SKIN EVERY DAY for 30 Active Vital Signs Blood pressure systolic 124 mm Hg 01/14/20 25 Blood pressure diastolic 60 mm Hg 025 Height 72 in 01/13/2025 Weight 259 lbs 01/13/2025 BMI 35.12 kg/m2 01/13/2025 weight is down 3 pounds sin e 10-16-24 Encounters Encounter Location Date Provider Diagnosis Liu Harris MD [address] [place] [address] [place] [phone] 01/13/2025 Liu Harris Type 2 diabetes mellitus without complication E11.9 ; Preop examination Z01.818 ; custodial (current) use of anticoagulants Z79.01 ; Atrial fibrillation I48.91 and Essential hypertension I10 Assessments Encounter Date Diagnosis (ICD Code) Assessment Notes Treatment Notes Treatment Clinical Notes Section Notes 01/13/2025 Type 2 diabetes mellitus without complication (ICD-10 - E11.9) running a little high, will continue current regiment and will continue to monitor 01/13/2025 Preop examination (ICD-10 - Z01.818) patient cleared for cataract surgery 01/13/2025 custodial (current) use of anticoagulants (ICD-10 - Z79.01) will hold for 3 days prior to the upcoming surgery, patient verbalized understanding of instruction to d'c medication 3 days prior to surgery 01/13/2025 Atrial fibrillation (ICD-10 - I48.91) doing well 01/13/2025 Essential hypertension (ICD-10 - I10) stable, will continue current regiment Plan Of Treatment Medication Medication Name Sig Start Date Stop Date Notes Metoprolol Succinate ER 25 MG 1 tablet Orally Once a day 1 10/24/2014 amLODIPine Besylate 5 MG 1 tablet Orally Once a day Isosorbide Mononitrate 10 MG 1 tablet Orally Once a day Jantoven 5 MG TAKE 2 TABLETS ONCE DAILY metFORMIN HCl 500 MG TAKE 2 TABLETS TWICE A DAY Treatment Notes Assessment Notes Type 2 diabetes mellitus wit hout complication running a little high, will continue current regiment and will continue to monitor Preop examination patient cleared for cataract surgery custodial (current) use of anticoagulant s will hold for 3 days prior to the upcoming surgery, patient verbalized understanding of instruction to d'c medication 3 days prior to surgery Atrial fibrillation doing well Essential hypertension stable, will cont inue current regiment Next Appt Details Follow Up: 3 Months, Reason: complete cancel 02/12 Provider Name:Liu hyde, 04/09/2025 07:45:00 AM, [address] [place] [address], [address], [place], [phone], Provider Name:Liu hyde, 04/16/2025 08:00:00 AM, [address] [place] [address], [address], [place], [place], [phone], Progress Notes * Remington ERIC RDOB:1960 (64 yo M)Acc No.[id number]:01/13/2025 Patient:?Remington ERIC Provider:?Liu Harris MD :1960???Age:64 Y???Sex:Male Manohar e:01/13/2025 Address:[address] [place], [place] [phone] Subjective: * Chief Complaints: * ???Pre op Cataract 01-28 Dr Reyes no labs or EKG * HPI: ???Symptom(s):? patient is a 64 yo male here for pre-op for upcoming cataract surgery scheduled 01/[address] Reyes. * ROS:?General/Constitutional:?Denies?Chills.?Denies?Fatigue.?Denies?Fever.?Denies?Headache.?ENT:?Denies?Sore throat.?Endocrine:?Admits?Dizziness.?Denies?Excessive sweating.?Denies?Excessive thirst.?Admits?Frequent urination.?Respiratory:?Denies?Cough.?Denies?Shortness of breath at rest.?Denies?Shortness of breath with exertion.?Cardiovascular:?Patient denies?chest pain with exertion, chest pain at rest.?Gastrointestinal:?Denies?Diarrhea.?Denies?Nausea.? * Medical History:? * Surgical History:? * Hospitalization/Major Diagno stic Procedure:? * Medications:?TakingMetamucil Smooth Texture 58.6 % Powder as directed Orally Aspirin 81 MG Tablet Chewable 1 tablet Orally Once a day Magnesium 500 MG Tablet 1 tablet with a meal Orally twice a day Azelaic Acid 15 % Gel APPLY TO AFFECTED AREA OF SKIN EVERY DAY Isosorbide Mononitrate 10 MG Tablet 1 tablet Orally Once a day amLODIPine Besylate 5 MG Tablet 1 tablet Orally Once a day Metoprolol Succinate ER 25 MG Tablet Extended Release 24 Hour 1 tablet Orally Once a day Pravastatin Sodium 10 MG Tablet TAKE 1 TABLET ONCE DAILY metFORMIN HCl 500 MG Tablet TAKE 2 TABLETS TWICE A DAY hydroCHLOROthiazide 12.5 MG Capsule TAKE 1 CAPSULE DAILY Jantoven 5 MG Tablet TAKE 2 TABLETS ONCE DAILY Taking Metamucil Smooth Texture 58.6 % Powder as directed Orally Taking Aspirin 81 MG Tablet Chewable 1 tablet Orally Once a day Taking Magnesium 500 MG Tablet 1 tablet with a meal Orally twice a day Taking Azelaic Acid 15 % Gel APPLY TO AFFECTED AREA OF SKIN EVERY DAY Taking Isosorbide Mononitrate 10 MG Tablet 1 tablet Orally Once a day Taking amLODIPine Besylate 5 MG Tablet 1 tablet Orally Once a day Taking Metoprolol Succinate ER 25 MG Tablet Extended Release 24 Hour 1 tablet Orally Once a day Taking Pravastatin Sodium 10 MG Tablet TAKE 1 TABLET ONCE DAILY Taking metFORMIN HCl 500 MG Tablet TAKE 2 TABLETS TWICE A DAY Taking hydroCHLOROthiazide 12.5 MG Capsule TAKE 1 CAPSULE DAILY Taking Jantoven 5 MG Tablet TAKE 2 TABLETS ONCE DAILY Not-Taking/PRNPropafenone HCl 300 MG Tablet 1 tablet if Afib Orally Minocycline HCl 100 MG Tablet 1 tablet Orally Twice a day ProAir RespiClick 108 (90 Base) MCG/ACT Aerosol Powder Breath Activated 2 puffs as needed Inhalation every 6 hrs KlonoPIN 0.5 MG Tablet 1 tablet Orally Twice a day Medication List reviewed and reconciled with the patientNot-Taking/PRN Propafenone HCl 300 MG Tablet 1 tablet if Afib Orally Not-Taking/PRN Minocycline HCl 100 MG Tablet 1 tablet Orally Twice a day Not-Taking/PRN ProAir RespiClick 108 (90 Base) MCG/ACT Aerosol Powder Breath Activated 2 puffs as needed Inhalation every 6 hrs Not-Taking/PRN KlonoPIN 0.5 MG Tablet 1 tablet Orally Twice a day Medication List reviewed and reconciled with the patient * Allergies:?N.K.D.A.yes[Aller gies Verified] Objective: * Vitals:?Ht: 72, Wt: 259, BMI :35.12, BP:124/60, Wt-k.48. weight is down 3 pounds since 10-16-24. * Examination: ???General Examination: ?GENERAL APPEARANCE:?alert, well hydrated, in no distress.?HEAD:?normocephalic.?EARS:?BOTH EARS, normal.?THROAT:?no erythema, no exudate, pharynx normal.?SKIN:?with rosacea.?HEART:?no murmurs, rubs, gallops, regular rate and rhythm.?LUNGS:?no wheezes, rales, rhonchi, good air movement, clear to auscultation bilaterally.?ABDOMEN:?soft, nontender, nondistended, no rebound tenderness, no organomegaly.? Assessment: * Assessment: 1.?Preop examination - Z01.8 18 (Primary)???2.?Type 2 diabetes mellitus without complication - E11.9???3.?custodial (current) use of anticoagulants - Z79.01???4.?Atrial fibrillation - I48.91???5.?Essential hypertension - I10??? Plan: * Treatment: 2.?Type 2 diabetes mellitus without complication? Continue metFORMIN HCl Tablet, 500 MG, TAKE 2 TABLETS TWICE A DAY;?Continue Jantoven Tablet, 5 MG, TAKE 2 TABLETS ONCE DAILY.?LAB: Hemoglobin A1c (Collection Date & Time - 01/13/2025) ? Value Reference Range ?Hemoglobin A1c 8.1 ?LAB: Glucose, finger stick (Collection Date & Time - 01/13/2025)* ? Value Reference Range ?Value 175 Notes: running a little high, will continue current regiment and will continue to monitor? 3.?custodial (current) use of anticoagulants?LAB: Prothrombin Time INR (Collection Date & Time - 01/13/2025 08:30 AM) Notes: will hold for 3 days prior to the upcoming surgery, patient verbalized understanding of instruction to d'c medication 3 days prior to surgery?? 4.?Atrial fibrillation?LAB: Prothrombin Time INR (Collection Date & Time - 01/13/2025 08:30 AM) Notes: doing well??5.?Essential hypertension? Continue Isosorbide Mononitrate Tablet, 10 MG, 1 tablet, Orally, Once a day;?Continue amLODIPine Besylate Tablet, 5 MG, 1 tablet, Orally, Once a day;?Continue Metoprolol Succinate ER TabletExtended Release 24 Hour, 25 MG, 1 tablet, Orally, Once a day.?? Notes: stable, will continue current regiment?? * Procedure Codes:?77593 ASSAY , GLUCOSE, BLOOD QUANT, Modifiers: QW 29111 VENIPUNCT, ROUTINE*69042 GLYCATED HEMOGLOBIN TEST, Modifiers: QW * Follow Up:?3 Months (Reason: complete cancel 02/12) * * Sign off status: Completed true * Provider:?Liu Harris MD Date:?0 01/13/2025 Generated for Josue mejia/Oxana/eTransmitting on:?01/27/2025 12:42 PM EDT History and Physical Notes * HPI (History of Present Illness) Category Sub-Category Detail Notes Category Not es Symptom(s) patient is a 64 yo male here for pre-op for upcoming cataract surgery scheduled 01/[address] Reyes Examination Category Sub-Category Detail Notes Category Not es General Examination GENERAL APPEARANCE: alert, w ell hydrated, in no distress HEAD: normocephalic EARS: BOTH EARS, normal THROAT: no erythema, no exud ate, pharynx normal HEART: no murmurs, rubs, ga llops, regular rate and rhythm LUNGS: no wheezes, rales, r honchi, good air movement, clear to auscultation bilaterally ABDOMEN: soft, nontender, non distended, no rebound tenderness, no organomegaly SKIN: with rosacea
== END 2025-01-27 10:35 | disposition home or self-care (01) ==
LOC: HO.LNP 10:34
PROVIDERS: Visit Provider Internal Medicine
DX: I48.91 Unspecified atrial fibrillation (principal); Z79.01 Long term (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 of 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
CPT/HCPCS: 85610

== ENCOUNTER 2025-02-17 09:47 | Outpatient (REF) | payer BC, SELFPAY ==
[2025-02-17 10:44] LABS: INTERNATIONAL NORM RATIO 2.2 (0.9-1.1); Prothrombin Time 25.2 SEC (10.9-12.4)
--- OUTSIDE RECORDS SUMMARY | 2025-02-17 10:55 | XMS_ITS ---
Author Organization Liu Harris MD Address [address] [place] [phone] Care Team Providers Care Patient Office Rep Name Role Phone Liu Harris Primary Care Provider Allergies No Known Allergies Results Component Value Reference Range Notes Hemoglobin A1c Reviewed date:01/13/2025 08:26:35 AM Interpretation: Performing Lab: Notes/Report: Hemoglobin A1c 8.1 Glucose, finger stick Reviewed date:01/13/2025 08:20:13 AM Interpretation: Performing Lab: Notes/Report: Value 175 Prothrombin Time INR Reviewed date:01/13/2025 10:36:58 AM Interpretation: Performing Lab:[facility], [address] [place] [id number] Notes/Report: Prothrombin Time 28.3 10.9-12.4 SEC INTERNATIONAL [...] Location Date Provider Diagnosis Liu Harris MD [address] [place] [address] [place] [phone] 01/13/2025 Liu Harris Type 2 diabetes mellitus without complication E11.9 ; Preop examination Z01.818 ; intermediate (current) use of anticoagulants Z79.01 ; Atrial fibrillation I48.91 and Essential hypertension I10 Assessments Encounter Date Diagnosis (ICD Code) Assessment Notes Treatment Notes Treatment Clinical Notes Section Notes 01/13/2025 Type 2 diabetes mellitus without complication (ICD-10 - E11.9) running a little high, will continue current regiment and will continue to monitor 01/13/2025 Preop examination (ICD-10 - Z01.818) patient cleared for cataract surgery 01/13/2025 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 (ICD-10 - Z79.01) [...] Preop examination patient cleared for cataract surgery intermediate (current) use of anticoagulant s will hold for 3 days prior to the upcoming surgery, patient verbalized understanding of instruction to d'c medication 3 days prior to surgery Atrial fibrillation doing well Essential hypertension stable, will cont inue current regiment Next Appt Details Follow Up: 3 Months, Reason: complete cancel 02/12 Provider Name:Liu hyde, 03/10/2025 08:15:00 AM, [address] [place] [address], [address], [phone], Provider Name:Liu hyde, 04/09/2025 07:45:00 AM, [address] [place] [address], [facility] [address], [place], [phone], Provider Name:Liu hyde, 04/16/2025 08:00:00 AM, [address], [address], [place], [place], [phone], Progress Notes * Remington ERIC RDOB:1960 (64 yo M)Acc No.[id number]:01/13/2025 Patient:?Remington ERIC Provider:?Liu Harris MD :1960???Age:64 Y???Sex:Male Manohar e:01/13/2025 Address:[address] [place], [place] [phone] Subjective: * Chief Complaints: * ???Pre op [...] (Primary)???2.?Type 2 diabetes mellitus without complication - E11.9???3.?intermediate (current) use of anticoagulants - Z79.01???4.?Atrial fibrillation [...] current regiment and will continue to monitor? 3.?intermediate (current) use of anticoagulants?LAB: Prothrombin Time INR [...] stable, will continue current regiment?? * Procedure Codes:?46378 ASSAY , GLUCOSE, BLOOD QUANT, Modifiers: QW 15801 VENIPUNCT, ROUTINE*28048 GLYCATED HEMOGLOBIN TEST, Modifiers: QW * Follow Up:?3 Months (Reason: complete cancel 02/12) * * Sign off status: Completed true * Provider:?Liu Harris MD Date:?0 01/13/2025 Generated for Josue mejia/Oxana/eTransmitting on:?02/17/2025 10:54 AM EDT History and Physical Notes * HPI [...]
--- OUTSIDE RECORDS SUMMARY | 2025-02-17 10:55 | XMS_ITS | Patient Health Record ---
Author Organization Liu Harris MD Address [address] [place] [phone] Care Team Providers Care Parent Aide Name Role Phone Liu Harris Primary Care Provider [phone] Allergies No Known Allergies Results Component Value Reference Range Notes Hemoglobin A1c Reviewed date:01/13/2025 08:26:35 AM Interpretation: Performing Lab: Notes/Report: Hemoglobin A1c 8.1 Prothrombin Time INR Reviewed date:02/26/2024 12:42:38 PM Interpretation: Performing Lab:[facility], [address] [place] [phone] Notes/Report: Prothrombin Time 21.3 11.1-13.3 SEC INTERNATIONAL [...] INR Reviewed date:03/11/2024 11:47:01 AM Interpretation: Performing Lab:[facility], [address] [place] [phone] Notes/Report: Prothrombin Time 35.6 11.1-13.3 SEC INTERNATIONAL [...] INR Reviewed date:03/25/2024 12:28:14 PM Interpretation: Performing Lab:[facility], [address] [place] [phone] Notes/Report: Prothrombin Time 21.3 11.1-13.3 SEC INTERNATIONAL [...] INR Reviewed date:04/08/2024 12:37:48 PM Interpretation: Performing Lab:[facility], [address] [place] [phone] Notes/Report: Prothrombin Time 27.5 11.1-13.3 SEC INTERNATIONAL [...] INR Reviewed date:04/22/2024 12:55:57 PM Interpretation: Performing Lab:[facility], [address] [place] [phone] Notes/Report: Prothrombin Time 15.7 11.1-13.3 SEC INTERNATIONAL [...] INR Reviewed date:05/06/2024 11:11:11 AM Interpretation: Performing Lab:[facility], [address] [place] [phone] Notes/Report: Prothrombin Time 24.1 11.1-13.3 SEC INTERNATIONAL [...] INR Reviewed date:05/20/2024 04:01:59 PM Interpretation: Performing Lab:[facility], [address] [place] [phone] Notes/Report: Prothrombin Time 39.2 11.1-13.3 SEC INTERNATIONAL [...] INR Reviewed date:05/27/2024 12:33:07 PM Interpretation: Performing Lab:[facility], [address] [place] [phone] Notes/Report: Prothrombin Time 20.7 11.1-13.3 SEC INTERNATIONAL [...] INR Reviewed date:06/03/2024 11:01:16 AM Interpretation: Performing Lab:[facility], [address] [place] [phone] Notes/Report: Prothrombin Time 24.1 11.1-13.3 SEC INTERNATIONAL [...] INR Reviewed date:06/17/2024 12:00:03 PM Interpretation: Performing Lab:[facility], [address] [place] [phone] Notes/Report: Prothrombin Time 34.4 11.1-13.3 SEC INTERNATIONAL [...] INR Reviewed date:07/01/2024 12:37:48 PM Interpretation: Performing Lab:[facility], [address] [place] [phone] Notes/Report: Prothrombin Time 30.4 11.1-13.3 SEC INTERNATIONAL [...] INR Reviewed date:07/15/2024 12:50:32 PM Interpretation: Performing Lab:[facility], [address] [place] [phone] Notes/Report: Prothrombin Time 18.4 10.9-12.4 SEC INTERNATIONAL [...] INR Reviewed date:08/12/2024 12:09:44 PM Interpretation: Performing Lab:[facility], [address] [place] [phone] Notes/Report: Prothrombin Time 26.1 10.9-12.4 SEC INTERNATIONAL [...] INR Reviewed date:08/26/2024 12:46:34 PM Interpretation: Performing Lab:[facility], [address] [place] [phone] Notes/Report: Prothrombin Time 35.5 10.9-12.4 SEC INTERNATIONAL [...] INR Reviewed date:09/16/2024 12:42:50 PM Interpretation: Performing Lab:[facility], [address] [place] [phone] Notes/Report: Prothrombin Time 30.5 10.9-12.4 SEC INTERNATIONAL [...] INR Reviewed date:09/30/2024 12:23:25 PM Interpretation: Performing Lab:[facility], [address] [place] [phone] Notes/Report: Prothrombin Time 28.9 10.9-12.4 SEC INTERNATIONAL [...] INR Reviewed date:10/16/2024 06:51:10 PM Interpretation: Performing Lab:[facility], [address] [place] [phone] Notes/Report: Prothrombin Time 28.4 10.9-12.4 SEC INTERNATIONAL [...] INR Reviewed date:10/28/2024 05:01:12 PM Interpretation: Performing Lab:[facility], [address] [place] [phone] Notes/Report: Prothrombin Time 27.4 10.9-12.4 SEC INTERNATIONAL [...] INR Reviewed date:11/11/2024 11:57:26 AM Interpretation: Performing Lab:[facility], [address] [place] [phone] Notes/Report: Prothrombin Time 31.9 10.9-12.4 SEC INTERNATIONAL [...] INR Reviewed date:11/25/2024 12:38:44 PM Interpretation: Performing Lab:[facility], [address] [place] [phone] Notes/Report: Prothrombin Time 28.5 10.9-12.4 SEC INTERNATIONAL [...] INR Reviewed date:12/09/2024 12:27:16 PM Interpretation: Performing Lab:[facility], [address] [place] [phone] Notes/Report: Prothrombin Time 32.4 10.9-12.4 SEC INTERNATIONAL [...] INR Reviewed date:12/23/2024 12:10:07 PM Interpretation: Performing Lab:[facility], [address] [place] [phone] Notes/Report: Prothrombin Time 30.2 10.9-12.4 SEC INTERNATIONAL [...] INR Reviewed date:01/06/2025 10:32:13 AM Interpretation: Performing Lab:[facility], [address] [place] [phone] Notes/Report: Prothrombin Time 33.3 10.9-12.4 SEC INTERNATIONAL [...] INR Reviewed date:01/27/2025 11:31:40 AM Interpretation: Performing Lab:[facility], [address] [place] [phone] Notes/Report: Prothrombin Time 28.1 10.9-12.4 SEC INTERNATIONAL [...] valves: 2.5 - 3.5 Prothrombin Time INR (Not ye t reviewed by provider) Interpretation: Performing Lab:[facility], [address] [place] [phone] Notes/Report: Prothrombin Time 25.2 10.9-12.4 SEC INTERNATIONAL NORM RATIO 2.2 0.9-1.1 [...] 2.5 - 3.5 Prothrombin Time INR Reviewed date:07/29/2024 01:46:50 PM Interpretation: Performing Lab:[facility], [address] [place] [phone] Notes/Report: Prothrombin Time 31.5 10.9-12.4 SEC INTERNATIONAL [...] INR Reviewed date:08/05/2024 12:55:18 PM Interpretation: Performing Lab:[facility], [address] [place] [phone] Notes/Report: Prothrombin Time 26.4 10.9-12.4 SEC INTERNATIONAL [...] Panel Reviewed date:08/05/2024 05:41:41 PM Interpretation: Performing Lab:[facility], [address] [place] [phone] Notes/Report: Bilirubin Total 1.3 0.0-1.0 mg/dL Bilirubin Direct 0.4 0.0-0.5 mg/dL Aspartate Amino Transferase 31 5-37 U/L Alanine Aminotransferase 39 0-40 U/L Total Protein 7.4 6.5-8.0 g/dL Albumin Level 4.3 3.5-5.0 g/dL Alkaline Phosphatase 62 39-117 U/L Glucose Fasting Reviewed date:08/05/2024 05:42:35 PM Interpretation: Performing Lab:[address] [phone] Notes/Report: Glucose Fasting 166 60-99 mg/dL A fasting glucose of 126 mg/dl or greater on more than one occasion is considered diagnostic of diabetes. Hemoglobin A1c Reviewed date:08/05/2024 08:40:07 PM Interpretation: Performing Lab:[address] [phone] Notes/Report: Hemoglobin A1c % 7.1 <6.0 % [...] average glucose, using the formula of the [id number] Average Glucose study (ADAG), Diabetes Care, Vol.31,#8, 2007 Blood Urea Nitrogen Reviewed date:09/21/2024 12:00:49 PM Interpretation: Performing Lab:[address] [phone] Notes/Report: Blood Urea Nitrogen 15 9-16 mg/dL Creatinine Reviewed date:09/21/2024 12:04:27 PM Interpretation: Performing Lab:[address] [phone] Notes/Report: Creatinine 0.86 0.5-1.4 mg/dL Estimated Glomerular Filt Rate > 60 Chronic Kidney Disease: Estimated GFR < 60 mL/min/1.73m2 Severe Kidney Disease: Estimated GFR < 15 mL/min/1.73m2 TSH reflex Free T4 Reviewed date:09/21/2024 12:01:45 PM Interpretation: Performing Lab:[facility], [address] [place] [phone] Notes/Report: TSH reflex Free T4 0.38 0.32-4.0 uIU/mL Glucose, finger stick Reviewed date:01/13/2025 08:20:13 AM Interpretation: Performing Lab: Notes/Report: Value 175 Prothrombin Time INR Reviewed date:01/13/2025 10:36:58 AM Interpretation: Performing Lab:[facility], [address] [place] [phone] Notes/Report: Prothrombin Time 28.3 10.9-12.4 SEC INTERNATIONAL [...] Lipase Reviewed date:08/05/2024 05:42:05 PM Interpretation: Performing Lab:[facility], [address] [place] [phone] Notes/Report: Lipase 46 8-78 U/L Abigail Young Reviewed date:08/05/2024 05:43:12 PM Interpretation: Performing Lab:[address] [phone] Notes/Report: Abigail Young See Note Specimen held untested for 24 hours; Call to request Chemistry testing. Lipid Panel Reviewed date:08/26/2024 03:08:03 PM Interpretation: Performing Lab:[address] [phone] Notes/Report: Triglycerides 177 <150 mg/dL Desirable Triglyceride: [...] Young Reviewed date:08/26/2024 12:53:02 PM Interpretation: Performing Lab:[facility], [address] [place] [phone] Notes/Report: Abigail Young See Note Specimen held untested for 24 hours; Call to request Chemistry testing. Vitamin B12 Reviewed date:09/21/2024 12:02:00 PM Interpretation: Performing Lab:[facility], [address] [place] [phone] Notes/Report: Vitamin B12 377 200-900 pg/mL NORMAL 200-900 PG/ML INDETERMINATE 160-199 PG/ML DEFICIENT < 160 PG/ML Folate Reviewed date:09/21/2024 12:01:53 PM Interpretation: Performing Lab:[facility], [address] [place] [phone] Notes/Report: Folate 16.6 > or = 4.0 ng/mL Reference Values: > or = 4.0 ng/mL < 4.0 ng/mL suggests folate deficiency Methotrexate, aminopterin and folinic acid (leucovorin) are chemotherapeutic agents whose molecular structures are similar to folate; therefore, the Freight Agent folate assay cannot be used for patients using these drugs. Abigail Hardy Reviewed date:09/21/2024 12:02:06 PM Interpretation: Performing Lab:[facility], [address] [place] [phone] Notes/Report: Abigail Hardy See Note Specimen held [...] Administe red Fluarix Quadrivalent IM Intramuscular 06/20/2016 Administtori red Prevnar 13 IM Intramuscular 09/12/2016 Administered Fluarix Quadrivalent IM Intramuscular 06/19/2017 Adminanuradhae red Shingrix IM Intramuscular 05/14/2018 Administered Fluarix Quadrivalent IM Intramuscular 06/25/2018 Administe red Shingrix IM Intramuscular 08/27/2018 Administered Fluarix Quadrivalent IM Intramuscular 06/24/2019 Administtori red PPSV23 (Pnemovax) IM Intramuscular 07/08/2019 Administered Tetanus Unknown 08/18/2013 Administered Fluarix Quadrivalent IM Intramuscular 06/30/2020 Administe red Covid Vaccine Unknown 01/07/2021 Administered Pfizer Covid Vaccine Unknown 01/29/2021 Administered Pfizer Fluarix Quadrivalent IM Intramuscular 07/05/2021 Adminshannon red SARS-COV-2 Pfizer Unknown 09/01/2021 Administered SARS-COV-2 [...] W/U Status Risk Notes Problem Atrial fibrillation (30102977) Atrial fibrillation (I48.91) Active confirmed Problem 640063968 Tubular adenoma (D36.9) Active confirmed Problem Long-term current use of anticoagulant (361631953) intermediate card tender (current) use of anticoagulants (Z79.01) Active confirmed Problem 845113820 Body mass index (BMI) 35.0-35.9, adult (Z68.35) Active confirmed Problem 46493345 Essential hypert ension (I10) Active confirmed Problem Rosacea (018494380) Rosacea (L71.9) Active confirmed Problem 78477441 Type 2 diabetes mellitus without complication (E11.9) Active confirmed Problem Polyneuropathy due to type 2 diabetes mellitus (841091848) Diabetic polyneuropathy associated with type 2 diabetes mellitus (E11.42) Active confirmed Problem 072262357 Cervical disc di sease (M50.90) Active confirmed Problem 535648747 Doxycycline adve rse reaction, initial encounter (T36.4X5A) Active confirmed Problem Diabetic autonomic neuropathy due to type 2 diabetes mellitus (534346349) Diabetic autonomic neuropathy associated with type 2 diabetes mellitus (E11.43) Active confirmed Problem 01616937 Unsteady gait (R26.81) Active confirme d Problem 984745876 Pure hypercholesterolemia (E78.00) Active confirmed Problem 103417014 Body mass index (BMI) of 39.0-39.9 in adult (Z68.39) Active confirmed Problem 205017063 Confusion state (F44.89) Active confirmed Vital Signs [...] Date Provider Diagnosis Liu Harris MD [address] [place] [id number] 02/26/2024 Liu Harris longterm (current) use of anticoagulants Z79.01 and Atrial fibrillation I48.91 Liu Harris MD [address] [place] [address] [id number] 03/11/2024 Liu Harris intermediate card tender (current) use of anticoagulants Z79.01 and Atrial fibrillation I48.91 Liu Harris MD [address] [id number] 03/25/2024 Liu Harris intermediate card tender (current) use of anticoagulants Z79.01 and Atrial fibrillation I48.91 Liu Harris MD [address] [id number] 04/08/2024 Liu Harris intermediate card tender (current) use of anticoagulants Z79.01 and Atrial fibrillation I48.91 Liu Harris MD [address] [id number] 04/22/2024 Liu Harris intermediate card tender (current) use of anticoagulants Z79.01 and Atrial fibrillation I48.91 Liu Harris MD [address] [id number] 05/06/2024 Liu Bombardier longterm (current) use of anticoagulants Z79.01 and Atrial fibrillation I48.91 Liu Harris MD [address] [place] [id number] 05/20/2024 Liu Bombardier intermediate card tender (current) use of anticoagulants Z79.01 and Atrial fibrillation I48.91 Liu Harris MD [address] [id number] 05/27/2024 Liu Bombardier longterm (current) use of anticoagulants Z79.01 and Atrial fibrillation I48.91 Liu Harris MD [address] [place] [id number] 06/03/2024 Liu Bombardier longterm (current) use of anticoagulants Z79.01 and Atrial fibrillation I48.91 Liu Harris MD [address] [id number] 06/17/2024 Liu Bombardier longterm (current) use of anticoagulants Z79.01 and Atrial fibrillation I48.91 Liu Harris MD [address] [place] [id number] 07/01/2024 Liu Bombardier longterm (current) use of anticoagulants Z79.01 ; Encounter for immunization Z23 and Atrial fibrillation I48.91 Liu Harris MD [address] [id number] 07/15/2024 Liu Bombardier longterm (current) use of anticoagulants Z79.01 and Atrial fibrillation I48.91 Liu Harris MD [address] [id number] 08/12/2024 Liu Bombardier intermediate card tender (current) use of anticoagulants Z79.01 ; Atrial fibrillation I48.91 ; Type 2 diabetes mellitus without complication E11.9 and Essential hypertension I10 Liu Harris MD [address] [place] [id number] 08/26/2024 Liu Bombgela Pure hypercholestero lemia E78.00 and Atrial fibrillation I48.91 Liu Harris MD [address] [id number] 09/16/2024 Liu Bombardier intermediate card tender (current) use of anticoagulants Z79.01 and Atrial fibrillation I48.91 Liu Harris MD [address] [place] [id number] 09/30/2024 Liu Bombardier longterm (current) use of anticoagulants Z79.01 and Atrial fibrillation I48.91 Liu Harris MD [address] [place] [id number] 10/16/2024 Liu Bombardier longterm (current) use of anticoagulants Z79.01 ; Atrial fibrillation I48.91 and Unsteady gait R26.81 Liu Harris MD [address] [place] [address] [id number] 10/28/2024 Liu Bombardier longterm (current) use of anticoagulants Z79.01 and Atrial fibrillation I48.91 Liu Harris MD [address] [place] [id number] 11/11/2024 Liu Bombardier longterm (current) use of anticoagulants Z79.01 and Atrial fibrillation I48.91 Liu Harris MD [address] [place] [id number] 11/25/2024 Liu Bombardier intermediate card tender (current) use of anticoagulants Z79.01 and Atrial fibrillation I48.91 Liu Harris MD [address] [place] [id number] 12/09/2024 Liu Bombardier Atrial fibrillation I48.91 and longterm (current) use of anticoagulants Z79.01 Liu Harris MD [address] [place] [id number] 12/23/2024 Liu Bombardier longterm (current) use of anticoagulants Z79.01 and Atrial fibrillation I48.91 Liu Harris MD [address] [place] [id number] 01/06/2025 Liu Bombardier intermediate card tender (current) use of anticoagulants Z79.01 and Atrial fibrillation I48.91 Liu Harris MD [address] [place] [address] [id number] 01/27/2025 Liu Bombardier intermediate card tender (current) use of anticoagulants Z79.01 and Atrial fibrillation I48.91 Liu Harris MD [address] [place] [id number] 02/17/2025 Liu Bombardier intermediate card tender (current) use of anticoagulants Z79.01 and Atrial fibrillation I48.91 Liu Harris MD [address] [place] [id number] 07/29/2024 Liu Harris intermediate card tender (current) use of anticoagulants Z79.01 and Atrial fibrillation I48.91 Liu Harris MD [address] [id number] 08/05/2024 Liu Harris Type 2 diabetes opal itus without complication E11.9 ; Pure hypercholesterolemia E78.00 ; longterm (current) use of anticoagulants Z79.01 and Atrial fibrillation I48.91 Liu Harris MD [address] [place] [id number] 09/19/2024 Liu Harris Hx of melanoma of sk in Z85.820 ; Unsteady gait R26.81 ; Confusion state F44.89 and Blood tests prior to treatment or procedure Z01.812 Liu Harris MD [address] [id number] 01/13/2025 Liu Harris Type 2 diabetes opal itus without complication E11.9 ; Preop examination Z01.818 ; intermediate card tender (current) use of anticoagulants Z79.01 ; Atrial fibrillation I48.91 and Essential hypertension I10 Liu Harris MD [address] [place] [id number] 09/15/2024 Liu Harris MD [address] [id number] 09/18/2024 Liu Harris MD [address] [place] [address] [address] [id number] 09/22/2024 Liu Harris Foreign body in eye, right, initial encounter T15.91XA Liu Harris MD [address] [place] [address] [id number] 10/09/2024 Liu Harris Assessments Encounter Date Diagnosis (ICD Code) Assessment Notes Treatment Notes Treatment Clinical Notes Section Notes 02/26/2024 intermediate card tender (current) use of anticoagulants (ICD-10 - Z79.01) 02/26/2024 Atrial fibrillation (ICD-10 - I48.91) 03/11/2024 longterm (current) use of anticoagulants (ICD-10 - Z79.01) 03/11/2024 Atrial fibrillation (ICD-10 - I48.91) 03/25/2024 intermediate card tender (current) use of anticoagulants (ICD-10 - Z79.01) 04/08/2024 intermediate card tender (current) use of anticoagulants (ICD-10 - Z79.01) 04/08/2024 Atrial fibrillation (ICD-10 - I48.91) 04/22/2024 longterm (current) use of anticoagulants (ICD-10 - Z79.01) 04/22/2024 Atrial fibrillation (ICD-10 - I48.91) 05/06/2024 intermediate card tender (current) use of anticoagulants (ICD-10 - Z79.01) 05/06/2024 Atrial fibrillation (ICD-10 - I48.91) 05/20/2024 longterm (current) use of anticoagulants (ICD-10 - Z79.01) 05/20/2024 Atrial fibrillation (ICD-10 - I48.91) 05/27/2024 longterm (current) use of anticoagulants (ICD-10 - Z79.01) 05/27/2024 Atrial fibrillation (ICD-10 - I48.91) 06/03/2024 longterm (current) use of anticoagulants (ICD-10 - Z79.01) 06/03/2024 Atrial fibrillation (ICD-10 - I48.91) 06/17/2024 intermediate card tender (current) use of anticoagulants (ICD-10 - Z79.01) 06/17/2024 Atrial fibrillation (ICD-10 - I48.91) 07/01/2024 longterm (current) use of anticoagulants (ICD-10 - Z79.01) 07/01/2024 Encounter for immunization (ICD-10 - Z23) 07/15/2024 longterm (current) use of anticoagulants (ICD-10 - Z79.01) 07/15/2024 Atrial fibrillation (ICD-10 - I48.91) 08/12/2024 longterm (current) use of anticoagulants (ICD-10 - Z79.01) not having any problems Will do Lipids at his 11-12-24 INR Visit 08/12/2024 Atrial fibrillation (ICD-10 - I48.91) need lipids i think the lab did lipase instead of lipids 08/26/2024 Pure hypercholesterolemia (ICD-10 - E78.00) 08/26/2024 Atrial fibrillation (ICD-10 - I48.91) 09/16/2024 longterm (current) use of anticoagulants (ICD-10 - Z79.01) 09/16/2024 Atrial fibrillation (ICD-10 - I48.91) 09/30/2024 intermediate card tender (current) use of anticoagulants (ICD-10 - Z79.01) 09/30/2024 Atrial fibrillation (ICD-10 - I48.91) 10/16/2024 intermediate card tender (current) use of anticoagulants (ICD-10 - Z79.01) is doing well with no problems 10/16/2024 Atrial fibrillation (ICD-10 - I48.91) when he gets into afib gets a diureses which is related to a naturtic hormone. has been doing well now 10/28/2024 intermediate card tender (current) use of anticoagulants (ICD-10 - Z79.01) 10/28/2024 Atrial fibrillation (ICD-10 - I48.91) 11/11/2024 intermediate card tender (current) use of anticoagulants (ICD-10 - Z79.01) 11/25/2024 intermediate card tender (current) use of anticoagulants (ICD-10 - Z79.01) 12/09/2024 Atrial fibrillation (ICD-10 - I48.91) 12/23/2024 intermediate card tender (current) use of anticoagulants (ICD-10 - Z79.01) 01/06/2025 intermediate card tender (current) use of anticoagulants (ICD-10 - Z79.01) 01/27/2025 longterm (current) use of anticoagulants (ICD-10 - Z79.01) 02/17/2025 intermediate card tender (current) use of anticoagulants (ICD-10 - Z79.01) 07/29/2024 longterm (current) use of anticoagulants (ICD-10 - Z79.01) 07/29/2024 Atrial fibrillation (ICD-10 - I48.91) 08/05/2024 Type 2 diabetes mellitus without complication (ICD-10 - E11.9) 08/05/2024 Pure hypercholesterolemia (ICD-10 - E78.00) 09/19/2024 Hx of melanoma of sk in (ICD-10 - Z85.820) followed by derm/ MRI order faxed to [facility], pending diagnostic testing 09/19/2024 Unsteady gait (ICD-1 0 - R26.81) pending diagnostic testing 01/13/2025 Type 2 diabetes mellitus without complication (ICD-10 - E11.9) running a little high, will continue current regiment and will continue to monitor 01/13/2025 Preop examination (ICD-10 - Z01.818) patient cleared for cataract surgery 03/25/2024 Atrial fibrillation (ICD-10 - I48.91) 07/01/2024 Atrial fibrillation (ICD-10 - I48.91) 08/12/2024 Type 2 diabetes mellitus without complication (ICD-10 - E11.9) doing a little better. is cutting back on candy 10/16/2024 Unsteady gait (ICD-1 0 - R26.81) discussed findings of MRI with patient, is going to see jeep driver for cataract surgery/ feels as though it is related to his vision as a problem 11/11/2024 Atrial fibrillation (ICD-10 - I48.91) 11/25/2024 Atrial fibrillation (ICD-10 - I48.91) 12/09/2024 intermediate card tender (current) use of anticoagulants (ICD-10 - Z79.01) 12/23/2024 Atrial fibrillation (ICD-10 - I48.91) 01/06/2025 Atrial fibrillation (ICD-10 - I48.91) 01/27/2025 Atrial fibrillation (ICD-10 - I48.91) 02/17/2025 Atrial fibrillation (ICD-10 - I48.91) 08/05/2024 intermediate card tender (current) use of anticoagulants (ICD-10 - Z79.01) 09/19/2024 Confusion state (ICD -10 - F44.89) pending diagnostic testing 01/13/2025 intermediate card tender (current) use of anticoagulants (ICD-10 - Z79.01) will hold for 3 days prior to the upcoming surgery, patient verbalized understanding of instruction to d'c medication 3 days prior to surgery 09/22/2024 Foreign body in eye, right, initial encounter (ICD-10 - T15.91XA) Order faxed to [facility] [phone] 08/12/2024 Essential hypertensi on (ICD-10 - I10) stable, is at goal, will continue current regiment 08/05/2024 Atrial fibrillation (ICD-10 - I48.91) 09/19/2024 Blood tests prior to treatment or procedure (ICD-10 - Z01.812) 01/13/2025 Atrial fibrillation (ICD-10 - I48.91) doing well 01/13/2025 Essential hypertensi on (ICD-10 - I10) stable, will continue current regiment Plan Of Treatment Pending Test Test Name Order Date Electrocardiogram (EKG) 11/07/2018 Electrocardiogram (EKG) 11/20/2019 MRI BRAIN W&WO CONTRAST 09/19/2024 Prothrombin Time INR 02/17/2025 XR orbit min 4V 09/22/2024 Next Appt Details Provider Name:Liu phelanr, 03/10/2025 08:15:00 AM, [address] [place] [address], [address], [phone], Provider Name:Liu Shafer ier, 04/09/2025 07:45:00 AM, [address] [place] [address], [address] [place] [address], [phone], Provider Name:Liu Shafer ier, 04/16/2025 08:00:00 AM, [address] [place] [address], [address], [phone], Insurance Providers Payer Name Payer Address Payer Phone Subscriber Number Group Number Insured Name Patient Relationship to Insured Coverage Start Date Coverage End Date [employer] [address] [place], [place] [id number] [phone] [id number] Remington Eric Self - patient is the insured Medical (General) History Medical History History ICD Code Atrial fibrillation diabetes mellitus colonoscopy - 02/26/2013; colonoscopy 03/[address] Gifford - repeat 5 years Surgical History Surgery Date(Month/Year) pulmonarry artery ablation Partial Medial Menisectomy, rt knee (Dr. Perez) 10/2016
--- OUTSIDE RECORDS SUMMARY | 2025-02-17 10:55 | XMS_ITS | Clinical Summary ---
Author Organization [facility] Address [address] [place] [address] Phone Care Team Providers Care Food Service Employee Name Role Phone Liu Harris MD Primary Care Provider [phone] Allergies No known active allergies Medications amLODIPine (NORVASC) 10 mg tabletIndication s:Paroxysmal atrial fibrillation (CMS/HCC V24, CMS/HCC V28) TAKE 1 TABLET BY MOUTH EVERY DAY 90 tablet 3 11/06/19 25 Active magnesium oxide 500 mg magnesium tablet Take by mouth 2 times daily. Active aspirin 81 mg EC tablet Take 81 mg by mouth daily. Active clonazePAM (KlonoPIN) 0.5 mg tablet Take 0.5 mg by mouth 2 times daily as needed. Active hydroCHLOROthiaz new 12.5 mg tablet Take 12.5 mg by mouth every other day. Active metFORMIN (GLUCOPHAGE) 500 mg tablet Take 500 mg by mouth 4 times daily. Active pravastatin (PRAVACHOL) 10 mg tablet Take 10 mg by mouth daily. Active warfarin (COUMADIN) 7.5 mg tablet As directed by PCP Active propafenone (RYTHMOL) 300 mg tablet Take 1 tablet (300 mg total) by mouth if needed (atrial fibrillation ). 10 tablet 1 01/20/20 25 Active metoprolol succinate (TOPROL-XL) 25 mg 24 hr tabletIndication s:Paroxysmal atrial fibrillation (CMS/HCC V24, CMS/HCC V28) TAKE 1 TABLET BY MOUTH EVERY DAY 90 tablet 02/05/20 25 Active isosorbide mononitrate (IMDUR) 30 mg 24 hr tabletIndication s:Paroxysmal atrial fibrillation ([facility] V24, [facility] V28) TAKE 1 TABLET BY MOUTH EVERY DAY 90 tablet 02/05/20 25 Active isosorbide mononitrate (IMDUR) 30 mg 24 hr tablet Take 1 Tablet by mouth daily. 01/17/20 24 025 Discontinued metoprolol succinate (TOPROL-XL) 25 mg 24 hr tablet Take 1 Tablet by mouth daily. 01/17/20 24 025 Discontinued Active Problems Problem Noted Date Diagnosed Date Dizziness 01/19/2025 Assessment & Plan (01/19/2025 3:10 PM EDT): Patient has been having difficulties with dizziness which he attributes to vision changes secondary to cataract. He has undergone evaluation for vertigo and even completed a brain MRI. He is hopeful that his symptoms will improve with upcoming cataract surgery. Atrial fibrillation ([facility] V24, [facility] V28) 1 Overview (12/03/2024): Last Assessment [...] him. We will update an echocardiogram. Diabetes ([facility] V24, [facility] V28) 08/11/2021 Hyperlipidemia 08/11/2021 Overview (12/03/2024): [...] Description 01/19/2025 2:40 PM EDT Office Visit [facility] - [facility] [address] [place] [address] Jody Askew NP Paroxysmal atrial fibrillation (CMS/[facility] V24, [facility] V28) (Primary Dx); Primary hypertension; Mixed hyperlipidemia; Dizziness from Last 3 Months Medical History Medical History Date Comments Diabetes mellitus type 2, co ntrolled, with complications (CMS/HCC V24, CMS/[facility] V28) DX:Diabetes mellitus type 2, controlled, with [...] Description 04/07/2025 8:00 AM EDT Ancillary Procedure [facility] [address] [place] [address] 07/24/2025 8:50 AM EDT Office Visit [facility] - [address] [place] [phone] dE Cadena MD [address] [place] [address] [address] [place] [address] Health Maintenance Due Date Last Done Comments [...] PCV20 or PCV21) 07/08/2024 07/08/2019, 09/12/2016, 02/17/2014 COVID-19 Vaccine ( season) 2025 07/23/2024, 07/11/2023, 07/20/2022, Additional history exists DTaP,Tdap,and Td Vaccines (3 - Td or Tdap) 06/12/2033 06/12/2023, 08/18/2013 Zoster Vaccines Completed 08/27/2018, 05/14/2018 Influenza Vaccine Completed 07/01/2024, , 07/11/2022, Additional history exists HIB Vaccines Aged Out [...] age to complete this topic Insurance MEDICARE [facility] Care Teams Food Service Employee Relationship Specialty Start Date End Date Liu Harris MD [address] [facility] [address] [place] [address] PCP - General 07/30/12
--- OUTSIDE RECORDS SUMMARY | 2025-02-17 10:55 | XMS_ITS ---
Author Organization Liu Harris MD Address [address] [place] [phone] Care Team Providers Care Human Resources Benefits Assistant Name Role Phone Liu Harris Primary Care Provider [phone] Results Component Value Reference Range Notes Prothrombin Time INR (Not ye t reviewed by provider) Interpretation: Performing Lab:[facility], [address] [place] [phone] Notes/Report: Prothrombin Time 25.2 10.9-12.4 SEC INTERNATIONAL [...] Location Date Provider Diagnosis Liu Harris MD [address] [place] [address] [place] [phone] 02/17/2025 Liu Harris penitentiary (current) use of anticoagulants Z79.01 and Atrial fibrillation I48.91 Assessments Encounter Date Diagnosis (ICD Code) Assessment Notes Treatment Notes Treatment Clinical Notes Section Notes 02/17/2025 penitentiary (current) use of anticoagulants (ICD-10 - Z79.01) 02/17/2025 Atrial fibrillation (ICD-10 - I48.91) Plan Of Treatment Pending Test Test Name Order Date Prothrombin Time INR 02/17/2025 Next Appt Details Provider Name:Liu hyde, 03/10/2025 08:15:00 AM, [address] [place] [address], [address], [phone], Provider Name:Liu hyde, 04/09/2025 07:45:00 AM, [address] [place] [address], [place] [address], [place], [place], [phone], Provider Name:Liu hyde, 04/16/2025 08:00:00 AM, [address] [place] [address], [address], [phone], Progress Notes * Remington ERIC RDOB:1960 (64 yo M)Acc No.[id number]:02/17/2025 Progress Note Patient:?Remington ERIC R Provider:?Liu Harris MD :1960???Age:64 Y???Sex:Male Manohar e:02/17/2025 Address:[address] [place], [place] [phone] Subjective: * Chief Complaints: * ???1. INR. * Medical History:? Objective: * Vitals:? Assessment: * Assessment: 1.?penitentiary (current) use o f anticoagulants - Z79.01 (Primary)???2.?Atrial fibrillation - I48.91??? Plan: * Treatment: 2.?Atrial fibrillation?LAB: Prothrombin Time INR (Collection Date & Time - 02/17/2025 08:45 AM) * Procedure Codes:?03420 VENIP UNCT, ROUTINE* * * The named appointment provid er may or may not be the originator of this progress note, and it is not deemed complete until electronically signed by the appointment provider. Sign off status: Pending * Provider:?Liu Harris MD Date:?0 02/17/2025 Generated for Josue mejia/Oxana/Annitasmitting on:?02/17/2025 10:54 AM EDT
--- OUTSIDE RECORDS SUMMARY | 2025-02-17 10:55 | XMS_ITS ---
Author Organization Liu Harris MD Address [address] [place] [phone] Care Team Providers Care Desk Clerk Name Role Phone Liu Harris Primary Care Provider [phone] Results Component Value Reference Range Notes Prothrombin Time INR Reviewed date:01/27/2025 11:31:40 AM Interpretation: Performing Lab:[facility], [address] [place] [phone] Notes/Report: Prothrombin Time 28.1 10.9-12.4 SEC INTERNATIONAL [...] Location Date Provider Diagnosis Liu Harris MD [address] [place] [address] [place] [phone] 01/27/2025 Liu Harris long-term (current) use of anticoagulants Z79.01 and Atrial fibrillation I48.91 Assessments Encounter Date Diagnosis (ICD Code) Assessment Notes Treatment Notes Treatment Clinical Notes Section Notes 01/27/2025 long-term (current) use of anticoagulants (ICD-10 - Z79.01) 01/27/2025 Atrial fibrillation (ICD-10 - I48.91) Plan Of Treatment Next Appt Details Provider Name:Liu hyde, 03/10/2025 08:15:00 AM, [address] [place] [address], [address] [place] [address], [phone], Provider Name:Liu hyde, 04/09/2025 07:45:00 AM, [address] [place] [address], [place] [address], [place], [place], [phone], Provider Name:Liu hyde, 04/16/2025 08:00:00 AM, [address] [place] [address], Suite [facility], [place], [place], [phone], Progress Notes * Remington ERIC RDOB:1960 (64 yo M)Acc No.[id number]:01/27/2025 Progress Note Patient:?Carlitos ERICmarcus Howell Provider:?Liu Harris MD :1960???Age:64 Y???Sex:Male Manohar e:01/27/2025 Address:[address] [place], [place] [phone] Subjective: * Chief Complaints: * ???1. INR. * Medical History:? Objective: * Vitals:? 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 Plan: * Treatment: 2.?Atrial fibrillation?LAB: Prothrombin Time INR (Collection Date & Time - 01/27/2025 08:45 AM) * Procedure Codes:?58768 VENIP UNCT, ROUTINE* * * The named appointment provid er may or may not be the originator of this progress note, and it is not deemed complete until electronically signed by the appointment provider. Sign off status: Pending * Provider:?Liu Harris MD Date:?0 01/27/2025 Generated for Josue mejia/Oxana/Bintaitting on:?02/17/2025 10:54 AM EDT
== END 2025-02-17 09:48 | disposition home or self-care (01) ==
LOC: HO.LNP 09:47
PROVIDERS: Visit Provider Internal Medicine
DX: I48.91 Unspecified atrial fibrillation (principal); Z79.01 Long term (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 of 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
CPT/HCPCS: 85610

== ENCOUNTER 2025-03-10 09:55 | Outpatient (REF) | payer BC, SELFPAY ==
[2025-03-10 10:12] LABS: INTERNATIONAL NORM RATIO 1.8 (0.9-1.1); Prothrombin Time 20.3 SEC (10.9-12.4)
--- OUTSIDE RECORDS SUMMARY | 2025-03-10 10:33 | XMS_ITS ---
Author Organization Liu Harris MD Address [address] [place] [phone] Care Team Providers Care Real Estate Sales Manager Name Role Phone Liu Harris Primary Care Provider [phone] Results Component Value Reference Range Notes Prothrombin Time INR (Not ye t reviewed by provider) Interpretation: Performing Lab:[facility], [address] [place] [phone] Notes/Report: Prothrombin Time 20.3 10.9-12.4 SEC INTERNATIONAL [...] Location Date Provider Diagnosis Liu Harris MD [address] [place] [address] [place] [phone] 03/10/2025 Liu Harris intermediate (current) use of anticoagulants Z79.01 and Atrial fibrillation I48.91 Assessments Encounter Date Diagnosis (ICD Code) Assessment Notes Treatment Notes Treatment Clinical Notes Section Notes 03/10/2025 intermediate (current) use of anticoagulants (ICD-10 - Z79.01) 03/10/2025 Atrial fibrillation (ICD-10 - I48.91) Plan Of Treatment Pending Test Test Name Order Date Prothrombin Time INR 03/10/2025 Next Appt Details Provider Name:Liu hyde, 04/09/2025 07:45:00 AM, [address] [place] [address], [address], [phone], Provider Name:Liu hyde, 04/16/2025 08:00:00 AM, [address] [place] [address], [place] [address], [place], [place], [phone], Progress Notes * Remington ERIC RDOB:1960 (64 yo M)Acc No.[id number]:03/10/2025 Progress Note Patient:Remington CORNEJO R Provider:?Liu Harris MD :1960???Age:64 Y???Sex:Male Manohar e:03/10/2025 Address:[address] [place], [place] [phone] Subjective: * Chief Complaints: * ???1. INR. * Medical History:? Objective: * Vitals:? Assessment: * Assessment: 1.?intermediate (current) use o f anticoagulants - Z79.01 (Primary)???2.?Atrial fibrillation - I48.91??? Plan: * Treatment: 2.?Atrial fibrillation?LAB: Prothrombin Time INR (Collection Date & Time - 03/10/2025 08:15 AM) * Procedure Codes:?23414 VENIP UNCT, ROUTINE* * * The named appointment provid er may or may not be the originator of this progress note, and it is not deemed complete until electronically signed by the appointment provider. Sign off status: Pending * Provider:?Liu Harris MD Date:?0 03/10/2025 Generated for Josue mejia/Oxana/Bintaitting on:?03/10/2025 10:33 AM EDT
== END 2025-03-10 09:56 | disposition home or self-care (01) ==
LOC: HO.LNP 09:55
PROVIDERS: Visit Provider Internal Medicine
DX: I48.91 Unspecified atrial fibrillation (principal); Z79.01 Long term (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 of 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
CPT/HCPCS: 85610

== ENCOUNTER 2025-03-24 09:46 | Outpatient (REF) | payer BC, SELFPAY ==
[2025-03-24 10:15] LABS: INTERNATIONAL NORM RATIO 2.8 (0.9-1.1); Prothrombin Time 31.8 SEC (10.9-12.4)
--- OUTSIDE RECORDS SUMMARY | 2025-03-24 10:55 | XMS_ITS ---
Author Organization Liu Harris MD Address [address] [place] [phone] Care Team Providers Care Electrician Technician Name Role Phone Liu Harris Primary Care Provider [phone] Results Component Value Reference Range Notes Prothrombin Time INR Reviewed date:03/10/2025 12:34:22 PM Interpretation: Performing Lab:[facility], [address] [place] [phone] Notes/Report: Prothrombin Time 20.3 10.9-12.4 SEC INTERNATIONAL [...] Location Date Provider Diagnosis Liu Harris MD [address] [place] [address] [place] [phone] 03/10/2025 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 Z79.01 and Atrial fibrillation I48.91 Assessments Encounter Date Diagnosis (ICD Code) Assessment Notes Treatment Notes Treatment Clinical Notes Section Notes 03/10/2025 intermediate (current) use of anticoagulants (ICD-10 - Z79.01) 03/10/2025 Atrial fibrillation (ICD-10 - I48.91) Plan Of Treatment Next Appt Details Provider Name:Liu hyde, 04/07/2025 07:45:00 AM, [address] [place] [address], [address] [place] [address], [phone], Provider Name:Liu hyde, 04/16/2025 08:00:00 AM, [address] [place] [address], Suite [facility], [place], [place], [phone], Progress Notes * Remington ERIC RDOB:1960 (64 yo M)Acc No.[id number]:03/10/2025 Progress Note Patient:?Carlitos ERICy R Provider:?Liu Harris MD :1960???Age:64 Y???Sex:Male Manohar e:03/10/2025 Address:[address] [place], [place] [phone] Subjective: * Chief Complaints: * ???1. INR. * Medical History:? Objective: * Vitals:? Assessment: * Assessment: 1.?intermediate (current) use o f anticoagulants - Z79.01 (Primary)???2.?Atrial fibrillation - I48.91??? Plan: * Treatment: 2.?Atrial fibrillation?LAB: Prothrombin Time INR (Collection Date & Time - 03/10/2025 08:15 AM) * Procedure Codes:?22398 VENIP UNCT, ROUTINE* * * The named appointment provid er may or may not be the originator of this progress note, and it is not deemed complete until electronically signed by the appointment provider. Sign off status: Pending * Provider:?Liu Harris MD Date:?0 03/10/2025 Generated for Josue mejia/Oxana/Bintaitting on:?03/24/2025 10:54 AM EDT
== END 2025-03-24 09:47 | disposition home or self-care (01) ==
LOC: HO.LNP 09:46
PROVIDERS: Visit Provider Internal Medicine
DX: Z79.01 Long term (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 of 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 (principal); I48.91 Unspecified atrial fibrillation
CPT/HCPCS: 85610

== ENCOUNTER 2025-04-07 09:54 | Outpatient (REF) | payer BC, SELFPAY ==
--- OUTSIDE RECORDS SUMMARY | 2025-03-10 04:15 | XMS_ITS ---
Author Organization Liu Harris MD Address [address] [place] [phone] Care Team Providers Care Scaffolder Name Role Phone Liu Harris Primary Care Provider [phone] Results Component Value Reference Range Notes Prothrombin Time INR Reviewed date:03/10/2025 12:34:22 PM Interpretation: Performing Lab:[facility], [address] [place] [phone] Notes/Report: Prothrombin Time 20.3 10.9-12.4 SEC INTERNATIONAL NORM RATIO 1.8 0.9-1.1 INTERNATIONAL [...] Date Provider Diagnosis Liu Harris MD [address] [place], [place] [phone] 03/10/2025 Liu Harris 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 Z79.01 and Atrial fibrillation I48.91 Assessments Encounter Date Diagnosis (ICD Code) Assessment Notes Treatment Notes Treatment Clinical Notes Section Notes 03/10/2025 custodial (current) use of anticoagulants (ICD-10 - Z79.01) 03/10/2025 Atrial fibrillation (ICD-10 - I48.91) Plan Of Treatment Next Appt Details Provider Name:Liu Shafer ier, 04/16/2025 08:00:00 AM, [address] [place] [address], Suite [facility], [place], [place], [phone], Progress Notes * YOHANA, Remington RDOB:1960 (65 yo M)Acc No.[id number]:03/10/2025 Progress Note Patient: Remington PEDERSEN Provider: Lillie Harris MD :1960 A ge:64 Y S ex:Male Date:03/10/2025 Address:[address] [place], [place] [phone] Subjective: * Chief Complaints: * 1 . INR. * Medical History: Objective: * Vitals: Assessment: * Assessment: 1. L douglas term (current) use of anticoagulants - Z79.01 (Primary) 2 . A trial fibrillation - I48.91 Plan: * Treatment: 2. A trial fibrillation L AB: Prothrombin Time INR (Collection Date & Time - 03/10/2025 08:15 AM) * Procedure Codes: 3 6415 VENIPUNCT, ROUTINE* * * The named appointment provid er may or may not be the originator of this progress note, and it is not deemed complete until electronically signed by the appointment provider. Sign off status: Pending * Provider: Lillie Harris MD Date: 0 03/10/2025 Generated for Josue mejia/Oxana/Bintaitting on: 0 04/07/2025 10:53 AM EDT
[2025-04-07 10:01] LABS: MANUAL DIFF FLAG NO
[2025-04-07 10:14] LABS: INTERNATIONAL NORM RATIO 2.2 (0.9-1.1)
[2025-04-07 10:28] LABS: Basophils Percent Auto 0.3 % (0-2); Eosinophils Absolute Auto 0.1 X10*3/uL (0.0-0.4); Eosinophils Percent Auto 2.1 % (0-4); Hematocrit 39.6 % (42.0-52.0); Hemoglobin 13.2 g/dl (14.0-18.0); Imm Gran Abs Auto 0.03 X10*3/uL (0.00-0.03); Imm Gran Pct Auto 0.5 % (0.0-0.4); Lymphocytes Absolute Auto 2.2 X10*3/uL (1.2-4.9); Lymphocytes Percent Auto 33.2 % (20-40); Mean Corpuscular HGB Conc 33.3 g/dl (31.0-36.0); Mean Platelet Volume 9.7 fL (9.4-12.4); Monocytes Absolute Auto 0.6 X10*3/uL (0.1-1.2); Monocytes Percent Auto 8.8 % (2-11); Neutrophils Absolute Auto 3.6 x10*3/uL (2.0-8.3); Neutrophils Percent Auto 55.1 % (45-73); Platelet Count 249 X10*3/uL (160-400); Red Blood Count 4.55 X10*6/uL (4.60-5.80); Red Cell Distribution Width 14.2 % (11.0-16.0); White Blood Count 6.6 X10*3/uL (4.8-10.8)
[2025-04-07 10:31] LABS: Appearance Urine Clear; Color Urine Yellow; Glucose Urine UA Negative (Negative); Leukocyte Esterase Urine Negative (Negative); Nitrite Urine Negative (Negative); Urine Blood Negative (Negative); Urine Ketones Negative (Negative); Urine Protein Negative (Neg-Trace)
[2025-04-07 10:41] LABS: Bacteria Urine None Seen (None Seen); Hyaline Casts Urine 0-2 /LPF (0-2); RBC Urine 0-2 /HPF (0-2); Squamous Epithelial Cell Urine 0-2 /HPF (0-2); WBC Urine 0-5 /HPF (0-5)
[2025-04-07 10:43] LABS: Estimated Average Glucose 163 mg/dL; Hemoglobin A1c % 7.3 % (<6.0)
[2025-04-07 10:45] LABS: Alanine Aminotransferase 34 U/L (0-40); Albumin Level 4.4 g/dL (3.5-5.0); Alkaline Phosphatase 67 U/L (39-117); Anion Gap 12 (12-20); Aspartate Amino Transferase 34 U/L (5-37); Bilirubin Total 1.7 mg/dL (0.0-1.0); Blood Urea Nitrogen 12 mg/dL (9-16); Calcium 9.5 mg/dL (8.4-10.2); Carbon Dioxide 27 mmol/L (22-29); Chloride 104 mmol/L (96-108); Cholesterol 150 mg/dL (<200); Estimated Glomerular Filt Rate > 60; Glucose Fasting 165 mg/dL (60-99); HDL Cholesterol 40 mg/dL (>40); LDL Cholesterol Calculated 89 mg/dL (<100); Sodium 139 mmol/L (135-145); Total Protein 7.2 g/dL (6.5-8.0); Triglycerides 106 mg/dL (<150)
[2025-04-07 10:57] LABS: PSA,Total (Free>4and<10) 0.49 ng/mL (0.00-4.00)
[2025-04-07 11:11] LABS: Microalbum/Creatinine Ratio Ur 16.7 ug/mg cr (<30)
[2025-04-07 12:42] LABS: Reflex LDLD? No
== END 2025-04-07 09:55 | disposition home or self-care (01) ==
LOC: HO.LNP 09:54
PROVIDERS: Visit Provider Internal Medicine
DX: I48.91 Unspecified atrial fibrillation (principal); I10 Essential (primary) hypertension; E11.9 Type 2 diabetes mellitus without complications; E78.00 Pure hypercholesterolemia, unspecified; E11.43 Type 2 diabetes mellitus with diabetic autonomic (poly)neuropathy; Z79.01 Long term (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 of 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; Z12.5 Encounter for screening for malignant neoplasm of prostate
CPT/HCPCS: 80053; 80061; 81001; 82043; 82570; 83036; 84153; 85025; 85610

== ENCOUNTER 2025-04-21 09:55 | Outpatient (REF) | payer BC, SELFPAY ==
--- OUTSIDE RECORDS SUMMARY | 2025-04-16 04:00 | XMS_ITS ---
Author Organization Liu Harris MD Address [address] [place] [phone] Care Team Providers Care Waterproofing Supervisor Name Role Phone Liu Harris Primary Care [...] Zamora 04/16/2025 08:45:30 AM >REFFERAL FAXED TO [facility] FOR SCHEDULING, Kavita Zamora 04/20/2025 02:11:29 PM >INSURANCE REFERRAL REQUESTED AND FAXED TO [facility] Referral Priority Routine REASON FOR VISIT annual visit, Due for [...] History of malignant melanoma of the skin (004870932774) History of melanoma (Z85.820) Active confirmed Vital Signs Blood pressure systolic 136 mm Hg 04/16/20 25 Blood pressure diastolic 60 mm Hg 025 Height 72 in 04/16/2025 Weight 255 lbs 04/16/2025 BMI 34.58 kg/m2 04/16/2025 weight is down 4 pounds [facility] 01-13-25 Encounters Encounter Location Date Provider Diagnosis Liu Harris MD [address] [place] [address] [address] [place], [place] [phone] 04/16/2025 Liu Harris Type 2 diabetes opal [...] 04/16/2025, SCREEN F OR COLON CANCER, MARK JESSICALESLY Next Appt Details Follow Up: 6 Months, Reason: Provider Name:Liu Shafer ier, 10/19/2025 07:15:00 AM, [address] [place] [address], Suite [facility], [place], [place], [phone], Provider Name:Liu Shafer ier, 10/26/2025 09:00:00 AM, [address] [place] [address], Suite [facility], [place], [place], [phone], Provider Name:Liu phelanr, 04/12/2026 07:00:00 AM, [address] [place] [address], Suite [facility], [place], [place], [phone], Provider Name:Liu Shafer ier, 04/19/2026 08:30:00 AM, [address] [place] [address], Suite [facility], [place], [place], [phone], Progress Notes * YOHANA, Remington RDOB:1960 (65 yo M)Acc No.[id number]:04/16/2025 Progress Notes Patient: Remington PEDERSEN Dante Provider: Lillie Harris MD :1960 A ge:65 Y S ex:Male Date:04/16/2025 Address:[address] [place], [place] [phone] Subjective: * Chief Complaints: * 1 . Annual visit. 2. Due for Colorectal Cancer Screening. * HPI: D epression Screening: PHQ-9 L [...] d enies. H eadache?denies. * Medical History: A trial fibrillation, Diabetes mellitus, colonoscopy - 02/26/2013; colonoscopy 03/18/[address] Gifford - repeat 5 years. * Family History: F ather: 64 yrs, [...] none, 1 cat. Travel outside of the [place]: no. * Medications: T aking Metamucil Smooth Texture 58.6 % Powder as directed Orally , Taking Aspirin 81 MG Tablet Chewable 1 tablet Orally Once a day , Taking Magnesium 500 MG Tablet 1 tablet with a meal Orally twice a day , Taking Azelaic Acid 15 % Gel APPLY TO AFFECTED AREA OF SKIN EVERY DAY , Taking Pravastatin Sodium 10 MG Tablet TAKE 1 TABLET ONCE DAILY , Taking hydroCHLOROthiazide 12.5 MG Capsule TAKE 1 CAPSULE DAILY , Taking metFORMIN HCl 500 MG Tablet TAKE 2 TABLETS TWICE A DAY , Taking Jantoven 5 MG Tablet TAKE 2 TABLETS ONCE DAILY , Taking Isosorbide Mononitrate 10 MG Tablet 1 tablet Orally Once a day , Taking amLODIPine Besylate 5 MG Tablet 1 tablet Orally Once a day , Taking Metoprolol Succinate ER 25 MG Tablet Extended Release 24 Hour 1 tablet Orally Once a day , Not-Taking/PRN Propafenone HCl 300 MG Tablet 1 tablet if Afib Orally , Not-Taking/PRN Minocycline HCl 100 MG Tablet 1 tablet Orally Twice a day , Not-Taking/PRN ProAir RespiClick 108 (90 Base) MCG/ACT Aerosol Powder Breath Activated 2 puffs as needed Inhalation every 6 hrs , Not-Taking/PRN KlonoPIN 0.5 MG Tablet 1 tablet Orally Twice a day , Medication List reviewed and reconciled with the patient * Allergies: N .K.D.A. Objective: * Vitals: H t: 72, Wt: [...] mg/dL Urine Blood Negative Negative - Specific [place] - Urine 1.020 1.005-1.025 - Urine Protein [...] Urine 0-2 0-2 - /LPF L ab:Comprehensive [place]. Panel Fast (Order Date - 04/07/2025) (Collection [...] L ab:Lipid Panel with Reflex (Order Date 04/07/2025) (Collection Date & Time - 04/07/2025 07:45 AM) Value Reference Range Triglycerides 106 <150 - mg/dL Cholesterol 150 <200 - mg/dL LDL Cholesterol Calculated 89 <100 - mg/dL HDL Cholesterol 40 L >40 - mg/dL L ab:Complete Blood Count Auto Diff (Order Date 04/07/2025) (Collection Date & Time - 04/07/2025 [...] stable, will continue current regiment 9. O ericka Referral To:[facility] Reason:SCREEN FOR COLON CANCER * Preventive Medicine: Counseling: C are goal [...] * Follow Up: 6 Months * * The named appointment provid er may or may not be the originator of this progress note, and it is not deemed complete until electronically signed by the appointment provider. Sign off status: Pending * Provider: Lillie Harris MD Date: 0 04/16/2025 Generated for Josue mejia/Oxana/Renato on: 0 04/21/2025 10:34 AM EDT History and Physical Notes * [...] Total Score: 0 Interpretation and Intervention Depression Lenka ramirez Findings: Negative Follow-Up for Depression: : review [...] had two or more falls in the st year?: No Communication Needs Communication Needs Does [...]
[2025-04-21 10:07] LABS: INTERNATIONAL NORM RATIO 2.5 (0.9-1.1); Prothrombin Time 29.1 SEC (10.9-12.4)
--- OUTSIDE RECORDS SUMMARY | 2025-04-21 10:34 | XMS_ITS | Encounter Summary ---
Author Organization [facility] Address [address] [place] [address] Care Team Providers Care Retirement Specialist Name Role Phone Liu Harris MD Primary Care Provider [phone] Reason for Visit * Reason Onset Date Comments MISSING INFORMATION 04/20/2025 Encounter Details Date Type Department Care Team ([facility] st Contact Info) Description 04/20/2025 Telephone Gastroenterology - [address] [place] [phone] Donnie Coronado MD [address] [address] MISSING INFORMATION Social History Tobacco Use Types Packs/Day Years Used Date Smoking Tobacco: Never Smokeless Tobacco: Never Alcohol Use Standard Drinks/Week Comments Not Currently 0 (1 standard drink = 0.6 oz pur e alcohol) Sex and Gender Information Value Date Recorded Sex Assigned at Not on file Legal Sex Male 9:49 PM EST Gender Identity Not on file Sexual Orientation Not on file documented as of this encounter Progress Notes * Ilene Kaur - 04/20/2025 9:50 AM EDT Referral received from Liu Harris office for colon--Missing insurance referral--Req faxed to pcp documented in this encounter Plan of Treatment Upcoming Encounters Date Type Department Care Team (Late st Contact Info) Description 07/24/2025 8:50 AM EDT Office Visit [facility] - [address] [place] [phone] Ed Cadena MD [address] [place] [address] DRIVE [address] [place] [address] documented as of this encounter Visit Diagnoses Not on filedocumented in this encounter Care Teams Retirement Specialist Relationship Specialty Start Date End Date iLu Harris MD [address] [place] [address] Drive [address] [place] [address] PCP - General 07/30/12 documented as of this encounter
== END 2025-04-21 09:56 | disposition home or self-care (01) ==
LOC: HO.LNP 09:55
PROVIDERS: Visit Provider Internal Medicine
DX: Z79.01 Long term (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 of 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 (principal); I48.91 Unspecified atrial fibrillation
CPT/HCPCS: 85610

== ENCOUNTER 2025-05-05 09:43 | Outpatient (REF) | payer BC, SELFPAY ==
[2025-05-05 09:58] LABS: INTERNATIONAL NORM RATIO 2.3 (0.9-1.1); Prothrombin Time 26.4 SEC (10.9-12.4)
--- OUTSIDE RECORDS SUMMARY | 2025-05-05 10:30 | XMS_ITS | Patient Health Record ---
Author Organization Liu Harris MD Address [address] [place] [id number] Care Team Providers Care Steward/Stewardess Second Name Role Phone Liu Harris Primary Care Provider Allergies No Known Allergies Results Component Value Reference Range Notes Hemoglobin A1c Reviewed date:01/13/2025 08:26:35 AM Interpretation: Performing Lab: Notes/Report: Hemoglobin A1c 8.1 Prothrombin Time INR Reviewed date:05/06/2024 11:11:11 AM Interpretation: Performing Lab:[facility], [address] [place] [phone] Notes/Report: Prothrombin Time 24.1 11.1-13.3 SEC INTERNATIONAL [...] INR Reviewed date:05/20/2024 04:01:59 PM Interpretation: Performing Lab:[facility], [address] [place] [phone] Notes/Report: Prothrombin Time 39.2 11.1-13.3 SEC INTERNATIONAL [...] INR Reviewed date:05/27/2024 12:33:07 PM Interpretation: Performing Lab:[facility], [address] [place] [phone] Notes/Report: Prothrombin Time 20.7 11.1-13.3 SEC INTERNATIONAL [...] INR Reviewed date:06/03/2024 11:01:16 AM Interpretation: Performing Lab:[facility], [address] [place] [phone] Notes/Report: Prothrombin Time 24.1 11.1-13.3 SEC INTERNATIONAL [...] INR Reviewed date:06/17/2024 12:00:03 PM Interpretation: Performing Lab:[facility], [address] [place] [phone] Notes/Report: Prothrombin Time 34.4 11.1-13.3 SEC INTERNATIONAL [...] INR Reviewed date:07/01/2024 12:37:48 PM Interpretation: Performing Lab:[facility], [address] [place] [phone] Notes/Report: Prothrombin Time 30.4 11.1-13.3 SEC INTERNATIONAL [...] INR Reviewed date:07/15/2024 12:50:32 PM Interpretation: Performing Lab:[facility], [address] [place] [phone] Notes/Report: Prothrombin Time 18.4 10.9-12.4 SEC INTERNATIONAL [...] INR Reviewed date:08/12/2024 12:09:44 PM Interpretation: Performing Lab:[facility], [address] [place] [phone] Notes/Report: Prothrombin Time 26.1 10.9-12.4 SEC INTERNATIONAL [...] INR Reviewed date:08/26/2024 12:46:34 PM Interpretation: Performing Lab:[facility], [address] [place] [phone] Notes/Report: Prothrombin Time 35.5 10.9-12.4 SEC INTERNATIONAL [...] INR Reviewed date:09/16/2024 12:42:50 PM Interpretation: Performing Lab:[facility], [address] [place] [phone] Notes/Report: Prothrombin Time 30.5 10.9-12.4 SEC INTERNATIONAL [...] INR Reviewed date:09/30/2024 12:23:25 PM Interpretation: Performing Lab:[facility], [address] [place] [phone] Notes/Report: Prothrombin Time 28.9 10.9-12.4 SEC INTERNATIONAL [...] INR Reviewed date:10/16/2024 06:51:10 PM Interpretation: Performing Lab:[facility], [address] [place] [phone] Notes/Report: Prothrombin Time 28.4 10.9-12.4 SEC INTERNATIONAL [...] INR Reviewed date:10/28/2024 05:01:12 PM Interpretation: Performing Lab:[facility], [address] [place] [phone] Notes/Report: Prothrombin Time 27.4 10.9-12.4 SEC INTERNATIONAL [...] INR Reviewed date:11/11/2024 11:57:26 AM Interpretation: Performing Lab:[facility], [address] [place] [phone] Notes/Report: Prothrombin Time 31.9 10.9-12.4 SEC INTERNATIONAL [...] INR Reviewed date:11/25/2024 12:38:44 PM Interpretation: Performing Lab:[facility], [address] [place] [phone] Notes/Report: Prothrombin Time 28.5 10.9-12.4 SEC INTERNATIONAL [...] INR Reviewed date:12/09/2024 12:27:16 PM Interpretation: Performing Lab:[facility], [address] [place] [phone] Notes/Report: Prothrombin Time 32.4 10.9-12.4 SEC INTERNATIONAL [...] INR Reviewed date:12/23/2024 12:10:07 PM Interpretation: Performing Lab:[facility], [address] [place] [phone] Notes/Report: Prothrombin Time 30.2 10.9-12.4 SEC INTERNATIONAL [...] INR Reviewed date:01/06/2025 10:32:13 AM Interpretation: Performing Lab:[facility], [address] [place] [phone] Notes/Report: Prothrombin Time 33.3 10.9-12.4 SEC INTERNATIONAL [...] INR Reviewed date:01/27/2025 11:31:40 AM Interpretation: Performing Lab:[facility], [address] [place] [phone] Notes/Report: Prothrombin Time 28.1 10.9-12.4 SEC INTERNATIONAL [...] 2.5 - 3.5 Prothrombin Time INR Reviewed date:02/17/2025 11:22:57 AM Interpretation: Performing Lab:[facility], [address] [place] [phone] Notes/Report: Prothrombin Time 25.2 10.9-12.4 SEC INTERNATIONAL [...] 2.5 - 3.5 Prothrombin Time INR Reviewed date:03/10/2025 12:34:22 PM Interpretation: Performing Lab:[facility], [address] [place] [phone] Notes/Report: Prothrombin Time 20.3 10.9-12.4 SEC INTERNATIONAL [...] 2.5 - 3.5 Prothrombin Time INR Reviewed date:03/24/2025 11:29:00 AM Interpretation: Performing Lab:[facility], [address] [place] [phone] Notes/Report: Prothrombin Time 31.8 10.9-12.4 SEC INTERNATIONAL NORM RATIO 2.8 0.9-1.1 [...] mechanical prosthetic heart valves: 2.5 - 3.5 Complete Blood Count Auto Di ff Reviewed date:04/07/2025 12:37:35 PM Interpretation: Performing Lab:[facility], [address] [place] [phone] Notes/Report: White Blood Count 6.6 4.8-10.8 X10*3/uL Red Blood Count 4.55 4.60-5.80 X10*6/uL Hemoglobin 13.2 14.0-18.0 g/dl Hematocrit 39.6 42.0-52.0 % Mean Corpuscular Volume 87.0 80.0-98.0 fL Mean Corpuscular Hemoglobin 29.0 27.0-33.0 pg Mean Corpuscular HGB Conc 33.3 31.0-36.0 g/dl Red Cell Distribution Width 14.2 11.0-16.0 % Platelet Count 249 160-400 X10*3/uL Mean Platelet Volume 9.7 9.4-12.4 fL Neutrophils Percent Auto 55.1 45-73 % Imm Gran Pct Auto 0.5 0.0-0.4 % Lymphocytes Percent Auto 33.2 20-40 % Monocytes Percent Auto 8.8 2-11 % Eosinophils Percent Auto 2.1 0-4 % Basophils Percent Auto 0.3 0-2 % NRBC Pct Auto 0.0 0.0-0.2 /100WBC Neutrophils Absolute Auto 3.6 2.0-8.3 x10*3/u L Imm Gran Abs Auto 0.03 0.00-0.03 X10*3/uL Lymphocytes Absolute Auto 2.2 1.2-4.9 X10*3/u L Monocytes Absolute Auto 0.6 0.1-1.2 X10*3/uL Eosinophils Absolute Auto 0.1 0.0-0.4 X10*3/u L Basophils Absolute Auto 0.0 0.0-0.2 X10*3/uL NRBC Abs Auto 0.000 0.0-0.012 X10*3/uL Prothrombin Time INR Reviewed date:04/07/2025 10:53:43 AM Interpretation: Performing Lab:[facility], [address] [place] [phone] Notes/Report: Prothrombin Time 25.0 10.9-12.4 SEC INTERNATIONAL NORM RATIO 2.2 0.9-1.1 [...] prosthetic heart valves: 2.5 - 3.[address] [place] Panel Fa st Reviewed date:04/07/2025 12:44:59 PM Interpretation: Performing Lab:[facility], [address] [place] [phone] Notes/Report: Sodium 139 135-145 mmol/L Potassium 4.0 3.3-5.1 mmol/L Chloride 104 96-108 mmol/L Carbon Dioxide 27 22-29 mmol/L Anion Gap 12 12-20 Blood Urea Nitrogen 12 9-16 mg/dL Creatinine 0.79 0.5-1.4 mg/dL Estimated Glomerular Filt Rate > 60 Chronic Kidney Disease: Estimated GFR < 60 mL/min/1.73m2 Severe Kidney Disease: Estimated GFR < 15 mL/min/1.73m2 Glucose Fasting 165 60-99 mg/dL A fasting glucose of 126 mg/dl or greater on more than one occasion is considered diagnostic of diabetes. Calcium 9.5 8.4-10.2 mg/dL Bilirubin Total 1.7 0.0-1.0 mg/dL Aspartate Amino Transferase 34 5-37 U/L Alanine Aminotransferase 34 0-40 U/L Total Protein 7.2 6.5-8.0 g/dL Albumin Level 4.4 3.5-5.0 g/dL Alkaline Phosphatase 67 39-117 U/L Lipid Panel with Reflex Reviewed date:04/07/2025 12:44:40 PM Interpretation: Performing Lab:[facility], [address] [place] [phone] Notes/Report: Triglycerides 106 <150 mg/dL Desirable Triglyceride: less than 150 mg/dL Borderline High Triglyceride 150-199 mg/dL High Triglyceride: 200-499 mg/dL Very High Triglyceride: greater than or equal to 5OO mg/dL Cholesterol 150 <200 mg/dL Desirable Cholesterol: less than 200 mg/dL Borderline High Cholesterol: 200-239 mg/dL High Cholesterol: greater than 239 mg/dL LDL Cholesterol Calculated 89 <100 mg/dL Desirable LDL: less than 100 mg/dL Near Optimal/Above Optimal LDL: 110-129 mg/dL Borderline High LDL: 130-159 mg/dL High LDL: 160-189 mg/dL Very High LDL: greater than or equal to 190 mg/dL HDL Cholesterol 40 >40 mg/dL Desirable HDL: greater than 40 mg/dL Note: This HDL assay may give artificially low results in patients with liver disease. PSA,Total (Free>4and<10) Reviewed date:04/07/2025 12:26:21 PM Interpretation: Performing Lab:[facility], [address] [place] [phone] Notes/Report: PSA,Total (Free>4and<10) 0.49 0.00-4.00 ng/mL A Free PSA was not [...] Chemiluminescent Microparticle Immunoassay (CMIA) Microalbumin, Random Reviewed date:04/07/2025 12:29:08 PM Interpretation: Performing Lab:[facility], [address] [place] [phone] Notes/Report: Creatinine Urine 77.80 Microalbumin Urine 13.0 Microalbum/Creatinine Ratio Ur 16.7 <30 ug/mg cr Albumin/Creatinine Ratio Reference Ranges: Normal: < 30 ug/mg creatinine Microalbuminuria: 30 - 300 ug/mg creatinine Clinical Albuminuria: > 300 ug/mg creatinine Hemoglobin A1c Reviewed date:04/07/2025 12:26:50 PM Interpretation: Performing Lab:[facility], [address] [place] [phone] Notes/Report: Hemoglobin A1c % 7.3 <6.0 % Hemoglobin A1C Reference Range Adults: 4.8 - 6.0 % Non diabetic: < 6.0 % Goal: < 7.0 % Additional Action Suggested: > 8.0 % Note: Hemoglobin A1c results are invalid for patients with abnormal amounts of HbF. Blood transfusions may impact the HbA1c concentration in the patient sample. Estimated Average Glucose 163 eAG = Estimated average glucose which is %A1C expressed as average glucose, using the formula of the R8N-Ddfreaa Average Glucose study (ADAG), Diabetes Care, Vol.31,#8, May. 2007 UA ClnCatch+Micro w/rflx Cul t Reviewed date:04/07/2025 12:37:53 PM Interpretation: Performing Lab:[facility], [address] [place] [phone] Notes/Report: [id number] Urine, Clean Catch Color Urine Yellow Appearance Urine Clear PH 7.0 5.0-9.0 Glucose Urine UA Negative Negative mg/dL Urine Blood Negative Negative Specific Holman - Urine 1.020 1.005-1.025 Urine Protein Negative Neg-Trace mg/dL Urine Ketones Negative Negative mg/dL Nitrite Urine Negative Negative Leukocyte Esterase Urine Negative Negative RBC Urine 0-2 0-2 /HPF WBC Urine 0-5 0-5 /HPF Squamous Epithelial Cell Urine 0-2 0-2 /HPF Bacteria Urine None Seen None Seen Hyaline Casts Urine 0-2 0-2 /LPF Prothrombin Time INR Reviewed date:04/21/2025 10:32:14 AM Interpretation: Performing Lab:[address] [phone] Notes/Report: Prothrombin Time 29.1 10.9-12.4 SEC INTERNATIONAL [...] 2.5 - 3.5 Prothrombin Time INR Reviewed date:05/05/2025 10:27:45 AM Interpretation: Performing Lab:[facility], [address] [place] [phone] Notes/Report: Prothrombin Time 26.4 10.9-12.4 SEC INTERNATIONAL [...] INR Reviewed date:07/29/2024 01:46:50 PM Interpretation: Performing Lab:[facility], [address] [place] [phone] Notes/Report: Prothrombin Time 31.5 10.9-12.4 SEC INTERNATIONAL [...] INR Reviewed date:08/05/2024 12:55:18 PM Interpretation: Performing Lab:[facility], [address] [place] [phone] Notes/Report: Prothrombin Time 26.4 10.9-12.4 SEC INTERNATIONAL [...] Panel Reviewed date:08/05/2024 05:41:41 PM Interpretation: Performing Lab:[address] [phone] Notes/Report: Bilirubin Total 1.3 0.0-1.0 mg/dL Bilirubin Direct 0.4 0.0-0.5 mg/dL Aspartate Amino Transferase 31 5-37 U/L Alanine Aminotransferase 39 0-40 U/L Total Protein 7.4 6.5-8.0 g/dL Albumin Level 4.3 3.5-5.0 g/dL Alkaline Phosphatase 62 39-117 U/L Glucose Fasting Reviewed date:08/05/2024 05:42:35 PM Interpretation: Performing Lab:[address] [phone] Notes/Report: Glucose Fasting 166 60-99 mg/dL A fasting glucose of 126 mg/dl or greater on more than one occasion is considered diagnostic of diabetes. Hemoglobin A1c Reviewed date:08/05/2024 08:40:07 PM Interpretation: Performing Lab:[address] [phone] Notes/Report: Hemoglobin A1c % 7.1 <6.0 % [...] average glucose, using the formula of the I5T-Ueuhbal Average Glucose study (ADAG), Diabetes Care, Vol.31,#8, 2007 Blood Urea Nitrogen Reviewed date:09/21/2024 12:00:49 PM Interpretation: Performing Lab:[address] [phone] Notes/Report: Blood Urea Nitrogen 15 9-16 mg/dL Creatinine Reviewed date:09/21/2024 12:04:27 PM Interpretation: Performing Lab:[facility], [address] [place] [phone] Notes/Report: Creatinine 0.86 0.5-1.4 mg/dL Estimated Glomerular Filt Rate > 60 Chronic Kidney Disease: Estimated GFR < 60 mL/min/1.73m2 Severe Kidney Disease: Estimated GFR < 15 mL/min/1.73m2 TSH reflex Free T4 Reviewed date:09/21/2024 12:01:45 PM Interpretation: Performing Lab:[facility], [address] [place] [phone] Notes/Report: TSH reflex Free T4 0.38 0.32-4.0 uIU/mL Glucose, finger stick Reviewed date:01/13/2025 08:20:13 AM Interpretation: Performing Lab: Notes/Report: Value 175 Prothrombin Time INR Reviewed date:01/13/2025 10:36:58 AM Interpretation: Performing Lab:[facility], [address] [place] [phone] Notes/Report: Prothrombin Time 28.3 10.9-12.4 SEC INTERNATIONAL [...] Lipase Reviewed date:08/05/2024 05:42:05 PM Interpretation: Performing Lab:[address] [phone] Notes/Report: Lipase 46 8-78 U/L Hold Gold Reviewed date:08/05/2024 05:43:12 PM Interpretation: Performing Lab:[address] [phone] Notes/Report: Hold Gold See Note Specimen held untested for 24 hours; Call to request Chemistry testing. Lipid Panel Reviewed date:08/26/2024 03:08:03 PM Interpretation: Performing Lab:[facility], [address] [place] [phone] Notes/Report: Triglycerides 177 <150 mg/dL Desirable Triglyceride: [...] Young Reviewed date:08/26/2024 12:53:02 PM Interpretation: Performing Lab:[facility], [address] [place] [phone] Notes/Report: Abigail Young See Note Specimen held untested for 24 hours; Call to request Chemistry testing. Vitamin B12 Reviewed date:09/21/2024 12:02:00 PM Interpretation: Performing Lab:[facility], [address] [place] [phone] Notes/Report: Vitamin B12 377 200-900 pg/mL NORMAL 200-900 PG/ML INDETERMINATE 160-199 PG/ML DEFICIENT < 160 PG/ML Folate Reviewed date:09/21/2024 12:01:53 PM Interpretation: Performing Lab:[facility], [address] [place] [phone] Notes/Report: Folate 16.6 > or = 4.0 ng/mL Reference Values: > or = 4.0 ng/mL < 4.0 ng/mL suggests folate deficiency Methotrexate, aminopterin and folinic acid (leucovorin) are chemotherapeutic agents whose molecular structures are similar to folate; therefore, the Cigarette Examiner folate assay cannot be used for patients using these drugs. Abigail Hardy Reviewed date:09/21/2024 12:02:06 PM Interpretation: Performing Lab:[facility], [address] [facility], [place] [address] Notes/Report: Hold Red See Note Specimen held untested for 24 hours; Call to request Chemistry testing. Reason For Referral Reason SCREEN FOR COLON CAN CER Diagnosis 1 Screen for colon can cer (Z12.11) Referral Organization Liu Harris MD Referring Provider First Name Liu Referring Provider Last Name Steven Referring Provider Speciality Internal M edicine Referred Provider MARK BALDWIN Referred Provider Specialty Gastroentero logy General Notes Kavita Zamora 04/16/2025 08:45:30 AM >REFFERAL FAXED TO [facility] FOR SCHEDULING, Kavita Zamora 04/20/2025 02:11:29 PM >INSURANCE REFERRAL REQUESTED AND FAXED TO [facility] Referral Priority Routine Medications Medication SIG (Take, Route, Frequency, Duration) Notes Start Date End Date Status Isosorbide Mononitrate 10 MG 1 tablet Or ally Once a day Active Metamucil Smooth Texture 58. 6 % as directed Orally Active amLODIPine Besylate 5 MG 1 tablet Orally Once a day Active Metoprolol Succinate ER 25 MG 1 tablet O rally Once a day 08/24/2015 Active Propafenone HCl 300 MG 1 tablet if Afib Orally Not-Taking Pravastatin Sodium 10 MG TAKE 1 TABLET O NCE DAILY Active Aspirin 81 MG 1 tablet Orally Once a day Active Minocycline HCl 100 MG 1 tablet Orally Twice a day Not-Taking Magnesium 500 MG 1 tablet with a meal Orally twice a day Active ProAir RespiClick 108 (90 Base) MCG/ACT 2 puffs as needed Inhalation every 6 hrs for 30 days 02/25/2019 Not-Taking Azelaic Acid 15 % APPLY TO AFFECTED AREA OF SKIN EVERY DAY for 30 Active KlonoPIN 0.5 MG 1 tablet Orally Twice a day Not-Taking hydroCHLOROthiazide 12.5 MG TAKE 1 CAPSU LE DAILY Active metFORMIN HCl 500 MG TAKE 2 TABLETS TWICE A DAY Active Jantoven 5 MG TAKE 2 TABLETS ONCE DAILY Active Immunizations Vaccine Route Administration Date Status [...] 08/27/2018 Administered Fluarix Quadrivalent IM Intramuscular 06/24/2019 Adminanuradhae red PPSV23 (Pnemovax) IM Intramuscular 07/08/2019 Administered [...] W/U Status Risk Notes Problem Atrial fibrillation (22185135) Atrial fibrillation (I48.91) Active confirmed Problem 241294025 Tubular adenoma (D36.9) Active confirmed Problem Long-term current use of anticoagulant (174869531) halfway (current) use of anticoagulants (Z79.01) Active confirmed Problem 440667438 Body mass index (BMI) 35.0-35.9, adult (Z68.35) Active confirmed Problem 43936779 Essential hypert ension (I10) Active confirmed Problem Rosacea (543242798) Rosacea (L71.9) Active confirmed Problem 31127669 Type 2 diabetes mellitus without complication (E11.9) Active confirmed Problem History of malignant melanoma of the skin (668214850919) History of melanoma (Z85.820) Active confirmed Problem Polyneuropathy due to type 2 diabetes mellitus (008745864) Diabetic polyneuropathy associated with type 2 diabetes mellitus (E11.42) Active confirmed Problem 347401824 Cervical disc di sease (M50.90) Active confirmed Problem 711785356 Doxycycline adve rse reaction, initial encounter (T36.4X5A) Active confirmed Problem Diabetic autonomic neuropathy due to type 2 diabetes mellitus (812334578) Diabetic autonomic neuropathy associated with type 2 diabetes mellitus (E11.43) Active confirmed Problem 90248037 Unsteady gait (R26.81) Active confirme d Problem 860033324 Pure hypercholesterolemia (E78.00) Active confirmed Problem 082408774 Body mass index (BMI) of 39.0-39.9 in adult (Z68.39) Active confirmed Problem 944569054 Confusion state (F44.89) Active confirmed Vital Signs Blood pressure diastolic 60 mm Hg 04/16/2025 gentry ght is down 4 pounds since 01-13-25 Height 72 in 04/16/2025 weight is down 4 pounds since 01-13-25 Blood pressure systolic 136 mm Hg 04/16/2025 weig ht is down 4 pounds since 01-13-25 Weight 255 lbs 04/16/2025 weight is down 4 pounds since 01-13-25 BMI 34.58 kg/m2 04/16/2025 weight is down 4 pounds since 01-13-25 Encounters Encounter Location Date Provider Diagnosis Liu Harris MD [address] [place] [id number] 05/06/2024 Liu Bombardier halfway (current) use of anticoagulants Z79.01 and Atrial fibrillation I48.91 Liu Harris MD [address] [place] [address] [id number] 05/20/2024 Liu Bombardier halfway (current) use of anticoagulants Z79.01 and Atrial fibrillation I48.91 Liu Harris MD [address] [place] [address] [id number] 05/27/2024 Liu Bombardier halfway (current) use of anticoagulants Z79.01 and Atrial fibrillation I48.91 Liu Harris MD [address] [place] [address] [id number] 06/03/2024 Liu Bombardier halfway (current) use of anticoagulants Z79.01 and Atrial fibrillation I48.91 Liu Harris MD [address] [id number] 06/17/2024 Liu Bombardier 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 Z79.01 and Atrial fibrillation I48.91 Liu Harris MD [address] [place] [address] [id number] 07/01/2024 Liu Bombardier 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 anticoagulants Z79.01 ; Encounter for immunization Z23 and Atrial fibrillation I48.91 Liu Harris MD [address] [place] [address] [id number] 07/15/2024 Liu Bombardier 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 anticoagulants Z79.01 and Atrial fibrillation I48.91 Liu Harris MD [address] [place] [address] [id number] 08/12/2024 Liu Bombardier halfway (current) use of anticoagulants Z79.01 ; Atrial fibrillation I48.91 ; Type 2 diabetes mellitus without complication E11.9 and Essential hypertension I10 Liu Harris MD [address] [place] [address] [id number] 08/26/2024 Liu Harris Pure hypercholestero lemia E78.00 and Atrial fibrillation I48.91 Liu Harris MD [address] [place] [address] [id number] 09/16/2024 Liu Bombardier halfway (current) use of anticoagulants Z79.01 and Atrial fibrillation I48.91 Liu Harris MD [address] [place] [address] [id number] 09/30/2024 Liu Bombardier halfway (current) use of anticoagulants Z79.01 and Atrial fibrillation I48.91 Liu Harris MD [address] [place] [address] [id number] 10/16/2024 Liu Bombardier halfway (current) use of anticoagulants Z79.01 ; Atrial fibrillation I48.91 and Unsteady gait R26.81 Liu Harris MD [address] [place] [address] [id number] 10/28/2024 Liu Bombardier 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 anticoagulants Z79.01 and Atrial fibrillation I48.91 Liu Harris MD [address] [place] [address] [id number] 11/11/2024 Liu Bombardier halfway (current) use of anticoagulants Z79.01 and Atrial fibrillation I48.91 Liu Harris MD [address] [place] [address] [id number] 11/25/2024 Liu Bombardier halfway (current) use of anticoagulants Z79.01 and Atrial fibrillation I48.91 Liu Harris MD [address] [place] [address] [id number] 12/09/2024 Liu Toñoardidavon Atrial fibrillation I48.91 and 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 anticoagulants Z79.01 Liu Harris MD [address] [place] [address] [id number] 12/23/2024 Liu Bombardier halfway (current) use of anticoagulants Z79.01 and Atrial fibrillation I48.91 Liu Harris MD [address] [place] [address] [id number] 01/06/2025 Liu Bombardier 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 anticoagulants Z79.01 and Atrial fibrillation I48.91 Liu Harris MD [address] [place] [address] [id number] 01/27/2025 Liu Bombardier halfway (current) use of anticoagulants Z79.01 and Atrial fibrillation I48.91 Liu Harris MD [address] [place] [address] [id number] 02/17/2025 Liu Harris 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 anticoagulants Z79.01 and Atrial fibrillation I48.91 Liu Harris MD [address] [id number] 03/10/2025 Liu Bombardier halfway (current) use of anticoagulants Z79.01 and Atrial fibrillation I48.91 Liu Harris MD [address] [id number] 03/24/2025 Liu Bombardier 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 anticoagulants Z79.01 and Atrial fibrillation I48.91 Liu Harris MD [address] [id number] 04/07/2025 Liu Bombardier halfway (current) use of anticoagulants Z79.01 ; Atrial fibrillation I48.91 ; Essential hypertension I10 ; Type 2 diabetes mellitus without complication E11.9 ; Pure hypercholesterolemia E78.00 and Diabetic autonomic neuropathy associated with type 2 diabetes mellitus E11.43 Liu Harris MD [address] [place] [address] [id number] 04/21/2025 Liu Harris halfway (current) use of anticoagulants Z79.01 and Atrial fibrillation I48.91 Liu Harrsi MD [address] [id number] 05/05/2025 Liu Lundbergardidavon halfway (current) use of anticoagulants Z79.01 and Atrial fibrillation I48.91 Liu Harris MD [address] [id number] 07/29/2024 Liu Bombardier halfway (current) use of anticoagulants Z79.01 and Atrial fibrillation I48.91 Liu Harris MD [address] [place] [id number] 08/05/2024 Liu Harris Type 2 diabetes opal itus without complication E11.9 ; Pure hypercholesterolemia E78.00 ; halfway (current) use of anticoagulants Z79.01 and Atrial fibrillation I48.91 Liu Harris MD [address] [place] [id number] 09/19/2024 Liu Harris Hx of melanoma of sk in Z85.820 ; Unsteady gait R26.81 ; Confusion state F44.89 and Blood tests prior to treatment or procedure Z01.812 Liu Harris MD [address] [id number] 01/13/2025 Liu Harris Type 2 diabetes opal itus without complication E11.9 ; Preop examination Z01.818 ; 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 anticoagulants Z79.01 ; Atrial fibrillation I48.91 and Essential hypertension I10 Liu Harris MD [address] [id number] 04/16/2025 Liu Harris Type 2 diabetes opal itus without complication E11.9 ; Adult general medical examination Z00.00 ; Essential hypertension I10 ; History of melanoma Z85.820 ; Diabetic autonomic neuropathy associated with type 2 diabetes mellitus E11.43 ; Colon cancer screening Z12.11 ; Depression screening Z13.31 and Pure hypercholesterolemia E78.00 Liu Harris MD [address] [id number] 09/15/2024 Liu Harris MD [address] [place] [address] [id number] 09/18/2024 Liu Harris MD [address] [place] [id number] 09/22/2024 Liu Harris Foreign body in eye, right, initial encounter T15.91XA Liu Harris MD [address] [place] [address] [id number] 10/09/2024 Liu Harris Assessments Encounter Date Diagnosis (ICD Code) Assessment Notes Treatment Notes Treatment Clinical Notes Section Notes 05/06/2024 halfway (current) use of anticoagulants (ICD-10 - Z79.01) 05/06/2024 Atrial fibrillation (ICD-10 - I48.91) 05/20/2024 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 anticoagulants (ICD-10 - Z79.01) 05/20/2024 Atrial fibrillation (ICD-10 - I48.91) 05/27/2024 halfway (current) use of anticoagulants (ICD-10 - Z79.01) 05/27/2024 Atrial fibrillation (ICD-10 - I48.91) 06/03/2024 halfway (current) use of anticoagulants (ICD-10 - Z79.01) 06/03/2024 Atrial fibrillation (ICD-10 - I48.91) 06/17/2024 halfway (current) use of anticoagulants (ICD-10 - Z79.01) 06/17/2024 Atrial fibrillation (ICD-10 - I48.91) 07/01/2024 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 anticoagulants (ICD-10 - Z79.01) 07/01/2024 Encounter for immunization (ICD-10 - Z23) 07/15/2024 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 anticoagulants (ICD-10 - Z79.01) 07/15/2024 Atrial fibrillation (ICD-10 - I48.91) 08/12/2024 halfway (current) use of anticoagulants (ICD-10 - Z79.01) not having any problems Will do Lipids at his 08-26-24 INR Visit 08/12/2024 Atrial fibrillation (ICD-10 - I48.91) need lipids i think the lab did lipase instead of lipids 08/26/2024 Pure hypercholesterolemia (ICD-10 - E78.00) 08/26/2024 Atrial fibrillation (ICD-10 - I48.91) 09/16/2024 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 anticoagulants (ICD-10 - Z79.01) 01/06/2025 halfway (current) use of anticoagulants (ICD-10 - Z79.01) 01/27/2025 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 anticoagulants (ICD-10 - Z79.01) 02/17/2025 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 anticoagulants (ICD-10 - Z79.01) 03/10/2025 halfway (current) use of anticoagulants (ICD-10 - Z79.01) 03/24/2025 halfway (current) use of anticoagulants (ICD-10 - Z79.01) 04/07/2025 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 anticoagulants (ICD-10 - Z79.01) 04/21/2025 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 anticoagulants (ICD-10 - Z79.01) 05/05/2025 halfway (current) use of anticoagulants (ICD-10 - Z79.01) 07/29/2024 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 anticoagulants (ICD-10 - [...] - Z01.818) patient cleared for cataract surgery 04/16/2025 Type 2 diabetes mellitus without complication (ICD-10 - E11.9) stable, will continue current regiment 04/16/2025 Adult general medica l examination (ICD-10 - Z00.00) labs reviewed and discussed with patient 07/01/2024 Atrial fibrillation (ICD-10 - I48.91) 08/12/2024 Type 2 diabetes mellitus without complication (ICD-10 - E11.9) doing a little better. is cutting back on candy 10/16/2024 Unsteady gait (ICD-1 0 - R26.81) discussed findings of MRI with patient, is going to see team automobile assembler for cataract surgery/ feels as though it is related to his vision as a problem 11/11/2024 Atrial fibrillation (ICD-10 - I48.91) 11/25/2024 Atrial fibrillation (ICD-10 - I48.91) 12/09/2024 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 anticoagulants (ICD-10 - Z79.01) 12/23/2024 Atrial fibrillation (ICD-10 - I48.91) 01/06/2025 Atrial fibrillation (ICD-10 - I48.91) 01/27/2025 Atrial fibrillation (ICD-10 - I48.91) 02/17/2025 Atrial fibrillation (ICD-10 - I48.91) 03/10/2025 Atrial fibrillation (ICD-10 - I48.91) 03/24/2025 Atrial fibrillation (ICD-10 - I48.91) 04/07/2025 Atrial fibrillation (ICD-10 - I48.91) 04/21/2025 Atrial fibrillation (ICD-10 - I48.91) 05/05/2025 Atrial fibrillation (ICD-10 - I48.91) 08/05/2024 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 anticoagulants (ICD-10 - Z79.01) 09/19/2024 Confusion state (ICD -10 - F44.89) pending diagnostic testing 01/13/2025 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 anticoagulants (ICD-10 - Z79.01) will hold for 3 days prior to the upcoming surgery, patient verbalized understanding of instruction to d'c medication 3 days prior to surgery 04/16/2025 Essential hypertensi on (ICD-10 - I10) well controlled, will cntinue current regiment 09/22/2024 Foreign body in eye, right, initial encounter (ICD-10 - T15.91XA) Order faxed to Magan Solis [phone] 08/12/2024 Essential hypertensi on (ICD-10 - I10) stable, is at goal, will continue current regiment 04/07/2025 Essential hypertensi on (ICD-10 - I10) 08/05/2024 Atrial fibrillation (ICD-10 - I48.91) 09/19/2024 Blood tests prior to treatment or procedure (ICD-10 - Z01.812) 01/13/2025 Atrial fibrillation (ICD-10 - I48.91) doing well 04/16/2025 History of melanoma (ICD-10 - Z85.820) was [facility] with [facility] 04/07/2025 Type 2 diabetes mellitus without complication (ICD-10 - E11.9) 01/13/2025 Essential hypertensi on (ICD-10 - I10) stable, will continue current regiment 04/16/2025 Diabetic autonomic neuropathy associated with type 2 diabetes mellitus (ICD-10 - E11.43) stable 04/07/2025 Pure hypercholesterolemia (ICD-10 - E78.00) 04/16/2025 Colon cancer screeni ng (ICD-10 - Z12.11) guaiac negative 04/07/2025 Diabetic autonomic neuropathy associated with type 2 diabetes mellitus (ICD-10 - E11.43) 04/16/2025 Depression screening (ICD-10 - Z13.31) negative screen 04/16/2025 Pure hypercholesterolemia (ICD-10 - E78.00) stable, will continue current regiment Plan Of Treatment Pending Test Test Name Order Date Electrocardiogram (EKG) 11/07/2018 Electrocardiogram (EKG) 11/20/2019 MRI BRAIN W&WO CONTRAST 09/19/2024 XR orbit min 4V 09/22/2024 Next Appt Details Provider Name:Liu hyde, 10/19/2025 07:15:00 AM, [address] [place] [address], [address], [place], [place], [phone], Provider Name:Liu hyde, 10/26/2025 09:00:00 AM, [address] [place] [address], [address], [place], [place], [phone], Provider Name:Liu hyde, 04/12/2026 07:00:00 AM, [address], [address], [place], [place], [phone], Provider Name:Liu Shafer ier, 04/19/2026 08:30:00 AM, [address], [address], [place], [place], [phone], Insurance Providers Payer Name Payer Address Payer Phone Subscriber Number Group Number Insured Name Patient Relationship to Insured Coverage Start Date Coverage End Date [facility] [address] [place], [place] [phone] [id number] Remington Eric Self - patient is the insured Medical (General) History Medical History History ICD Code Atrial fibrillation diabetes mellitus colonoscopy - 02/26/2013; colonoscopy 03/[address] Gifford - repeat 5 years Surgical History Surgery Date(Month/Year) pulmonarry artery ablation Partial Medial Menisectomy, rt knee (Dr. Perez) 10/2016
--- OUTSIDE RECORDS SUMMARY | 2025-05-05 10:30 | XMS_ITS | Clinical Summary ---
Author Organization [facility] Address [address] [place] [address] Phone Care Team Providers Care Curtain Stretcher Name Role Phone Liu Harris MD Primary Care Provider Allergies No known active allergies Medications amLODIPine (NORVASC) 10 mg tabletIndicatio ns:Paroxysmal atrial fibrillation (CMS/HCC V24, CMS/HCC V28) TAKE 1 TABLET BY MOUTH EVERY DAY 90 tablet 3 11/06/19 25 Active magnesium oxide 500 mg magnesium tablet Take by mouth 2 times daily. Active aspirin 81 mg EC tablet Take 81 mg by mouth daily. Active clonazePAM (KlonoPIN) 0.5 mg tablet Take 0.5 mg by mouth 2 times daily as needed. Active hydroCHLOROthia zide 12.5 mg tablet Take 12.5 mg by [...] mg total) by mouth if needed (atrial fibrillation). 10 tablet 1 01/20/20 25 Active psyllium (KONSYL) powder Take by mouth. Active azelaic acid (FINACEA) 15 % gel Apply 1 Application topically 2 (two) times a day. After skin is thoroughly washed and patted dry, gently but thoroughly massage a thin film of azelaic acid gel into the affected area. Cosmetics may be applied after gel has dried. Active metoprolol succinate (TOPROL-XL) 25 mg 24 hr tabletIndicatio ns:Paroxysmal atrial fibrillation (CMS/HCC V24, CMS/HCC V28) TAKE 1 TABLET BY MOUTH EVERY DAY 90 tablet 1 05/01/20 25 Active isosorbide mononitrate (IMDUR) 30 mg 24 hr tabletIndicatio ns:Paroxysmal atrial fibrillation (CMS/HCC V24, CMS/HCC V28) TAKE 1 TABLET BY MOUTH EVERY DAY 90 tablet 1 05/01/20 25 Active metoprolol succinate (TOPROL-XL) 25 mg 24 hr tabletIndicatio ns:Paroxysmal atrial fibrillation (CMS/HCC V24, CMS/HCC V28) TAKE 1 TABLET BY MOUTH EVERY DAY 90 tablet 02/05/20 25 025 Discontinued isosorbide mononitrate (IMDUR) 30 mg 24 hr tabletIndicatio ns:Paroxysmal atrial fibrillation (CMS/HCC V24, CMS/HCC V28) TAKE 1 TABLET BY MOUTH EVERY DAY 90 tablet 02/05/20 25 025 Discontinued Active Problems Problem Noted Date Diagnosed Date Dizziness 01/19/2025 Assessment & Plan (01/19/2025 3:10 PM EDT): Patient has been having difficulties with dizziness which he attributes to vision changes secondary to cataract. He has undergone evaluation for vertigo and even completed a brain MRI. He is hopeful that his symptoms will improve with upcoming cataract surgery. Atrial fibrillation (CMS/HCC V24, CMS/HCC V28) 1 Overview (12/03/2024): Last Assessment & [...] him. We will update an echocardiogram. Diabetes ([facility] V24, [facility] V28) 08/11/2021 Hyperlipidemia 08/11/2021 Overview (12/03/2024): Last [...] Encounters Date Type Department Care Team Description 04/23/2025 Telephone Gastroenterology - [address] [place] [address] Donnie Coronado MD 04/20/2025 Telephone Gastroenterology - [address] [place] [phone] Donnie Coronado MD MISSING INFORMATION 04/07/2025 8:00 AM EDT Ancillary Procedure [facility] [address] [place] [address] Paroxysmal atrial fibrillation (CMS/HCC V24, CMS/HCC V28); Primary hypertension from Last 3 Months Medical History Medical History Date Comments Diabetes mellitus type 2, co ntrolled, with complications (CMS/HCC V24, CMS/HCC V28) DX:Diabetes mellitus type 2, controlled, with complications ([facility]) Hyperlipidemia DX:Hyperlipidemi a Essential hypertension DX:Essent ial [...] Sign Reading Time Taken Comments Blood Pressure 140/74 04/07/2025 8:43 AM EDT Pulse 70 01/19/2025 2:31 PM EDT Temperature - - Respiratory Rate - - Oxygen Saturation 99% 01/19/2025 2:31 PM EDT Inhaled Oxygen Concentration - - Weight 114 kg (252 lb) 04/07/2025 8:43 AM EDT Height 182.9 cm (6') 04/07/2025 8:43 AM EDT Body Mass Index 34.18 04/07/2025 8:43 AM EDT Plan of Treatment Upcoming Encounters Date Type Department Care Team (Late st Contact Info) Description 07/24/2025 8:50 AM EDT Office Visit [facility] [address] [place] [phone] Ed Cadena MD [address] [address] DRIVE [address] [place] [address] Health Maintenance Due Date Last Done Comments Diabetes: Annual GFR (Glomerular Filtration Rate) 1959 Diabetes: Annual Foot Exam 1969 Diabetes: Annual Retina Eye Exam 1969 Cholesterol Screening (Lipid Panel) 09/16/2022 Colorectal Cancer Screening: Colonoscopy 09/16/2022 Hepatitis C Screening 09/16/2022 Social Influencers of Health Screening 09/16/2022 Hypertension/CHF/CAD Annual BMP Blood Test 09/24/2022 Diabetes: Annual Urine Albumin-Creatinine Ratio (uACR) 09/30/2022 Diabetes: Blood Sugar Control Test (HGBA1C) 09/30/2022 Falls Risk Assessment 2024 Pneumococcal Vaccine: 50+ Years (3 of 3 - PCV20 or PCV21) 07/08/2024 07/08/2019, 09/12/2016, 02/17/2014 Depression Screening 10/15/2024 COVID-19 Vaccine ( season) 2025 07/23/2024, 07/11/2023, 07/20/2022, Additional history exists Influenza Vaccine (#1) 2025 , 07/03/2023, 07/11/2022, Additional history exists DTaP,Tdap,and Td Vaccines (3 - Td or Tdap) 06/12/2033 06/12/2023, 08/18/2013 RSV Immunization Adult Patients (1 - 1-dose 75+ series) 2034 Zoster Vaccines Completed 08/27/2018, 05/14/2018 HIB Vaccines Aged Out No longer eligi [...] on patient's age to complete this topic Procedures Procedure Name Priority Date/Time Associated Diagnosis Comments TRANSTHORACIC ECHOCARDIOGRAM (TTE) COMPLETE Routine 04/07/2025 8:43 AM EDT Paroxysmal atrial fibrillation (CMS/HCC V24, CMS/HCC V28) Primary hypertension from Last 3 Months Results * TRANSTHORACIC ECHOCARDIOGRAM (TTE) COMPLETE (04/07/2025 8:43 AM EDT) Left Atrium Minor [place] 5.9 cm CV PACS Left Atrium Major [place] 6.2 cm CV PACS LA Area Sys (A2C) 22 cm2 CV PACS LA Area Sys (A4C) 20 cm2 CV PACS LA Volume (BP) 60 mL CV PACS RA Area 20.8 cm2 CV PACS RA 2D Volume 60 mL CV PACS AV Regurgitation PHT 556 ms CV PACS AR Max Velocity 4.4 m/s CV PACS AV Peak Gradient 78 mmHg CV PACS AV Peak Marquise 1.8 m/s CV PACS AV Mean Gradient 7 mmHg CV PACS Ao VTI 41.6 cm CV PACS AV Area Continuity Equation 2.2 cm2 CV PACS AV Area Peak Velocity 1.9 cm2 CV PACS Aortic Sinus Valsalva 3.9 cm CV PACS Ascending Aorta 4.2 cm CV PACS IVC Proximal 2.0 cm CV PACS IVSD 1.0 0.6 - 1.0 cm CV PACS LVIDD 5.0 4.2 - 5.8 cm CV PACS LVIDS 3.0 2.5 - 4.0 cm CV PACS LVOT Diameter 2.0 cm CV PACS LVOT Mean Marquise 0.7 m/s CV PACS LVOT Mean Grad 2 mmHg CV PACS LVOT Peak VTI 29.4 cm CV PACS LVOT Peak Marquise 1.1 m/s CV PACS LVOT Peak Gradient 5 mmHg CV PACS LVPWD 1.0 0.6 - 1.0 cm CV PACS MV E' Tissue Velocity Lateral 6 cm/s CV PACS MV E' Tissue Velocity Septal 6 cm/s CV PACS LVOT Area 3.1 cm2 CV PACS LVOT Stroke Volume 92 mL CV PACS MV Deceleration [place]son 5.0 m/s2 CV PACS E Wave Deceleration Time 208 119 - 242 ms CV PACS MV PHT 61 ms CV PACS MV Peak A Marquise 0.52 m/s CV PACS MV Peak E Marquise 1.04 m/s CV PACS MV Area PHT 3.6 cm2 CV PACS PV Acceleration Time 99 ms CV PACS PV Acceleration Time 99 ms CV PACS RV Diastolic Basal Dimension 3.6 2.5 - 4.1 cm CV PACS RV S' 11 cm/s CV PACS TAPSE 28 mm CV PACS TR Peak Velocity 1.74 m/s CV PACS TR Peak Gradient 12 mmHg CV PACS E/E' Ratio Septal 17 CV PACS E/E' Ratio Averaged 17 CV PACS Relative Wall Thickness ratio 0.40 CV PACS LVOT:AV VTI Index 0.71 CV PACS FS 40 % CV PACS LV Mass 2D 182 g CV PACS LVOT flow 220 mL/s CV PACS AV Velocity Ratio 0.61 CV PACS E/A Ratio 2.0 CV PACS E/E' Ratio Lateral 17 CV PACS BSA 2.41 m2 CV PACS LA Volume Index (BP) 26 mL/m2 CV PACS LVIDD Index 2.13 cm/m2 CV PACS LVIDS Index 1.28 cm/m2 CV PACS LV Mass Index 2D 77 50 - 102 g/m2 CV PACS LVOT Stroke Index 39 mL/m2 CV PACS RA 2D Volume Index 26 18 - 32 mL/m2 CV PACS PARK Index (VTI) 0.94 cm2/m2 CV PACS PARK Index (Pk Marquise) 0.81 cm2/m2 CV PACS Ascending Aorta Index 1.79 cm/m2 CV PACS Right Ventricular Peak Systolic Pressure 15 mmHg CV PACS Est. RA Pressure 3 mmHg CV PACS Anatomical Region Laterality Modality Ultrasound Narrative 04/12/2025 6:45 PM EDT Left ventricle cavity size is normal. Left ventricular systolic function is in the normal range with an ejection fraction of 55-60%. No regional LV wall motion abnormalities noted. Left ventricle wall thickness is normal. Right ventricle cavity is normal. Right ventricular systolic function is normal. Dilatation of the ascending aorta at 4.2 cm unchanged compared to last study done in 2021 Trace aortic insufficiency Left Ventricle Left ventricle cavity size is normal. Wall thickness is normal. Systolic function is normal with an ejection fraction of 55-60%. There are no regional LV wall motion abnormalities. Indeterminate diastolic function. Right Ventricle Right ventricle cavity appears normal. Systolic function is normal. Left Atrium Left atrium cavity size is normal. Right Atrium Right atrium cavity is normal. IVC/SVC RA pressures is estimated to be 3 mmHg (IVC diameter <21 mm and decreases >50% during inspiration). Mitral Valve The leaflets are mildly thickened. There is annular calcification. There is trace regurgitation. There is no evidence of mitral valve stenosis. Tricuspid Valve Tricuspid valve structure is normal. There is trace regurgitation. There is no evidence of tricuspid valve stenosis. The right ventricular systolic pressure is normal. Aortic Valve The aortic valve is trileaflet. Thickened aortic valve leaflets. There is mild regurgitation. There is no evidence of aortic valve stenosis. Pulmonic Valve Pulmonic valve structure is normal. There is trace pulmonic valve regurgitation. There is no evidence of pulmonic valve stenosis. Ascending Aorta Aortic sinus 3.9 cm. Ascending aorta 4.2 cm. Transverse aorta not well visualized. Pericardium Pericardium appears normal. There is no pericardial effusion. Study Details Overall the study quality was adequate. Jody Askew NP CV ECHO PROCEDURES Final Res ult from Last 3 Months Insurance MEDICARE [facility] Care Teams Curtain Stretcher Relationship Specialty Start Date End Date Liu Harris MD [address] [place] [address] [place] [phone] PCP - General 07/30/12
== END 2025-05-05 09:44 | disposition home or self-care (01) ==
LOC: HO.LNP 09:43
PROVIDERS: Visit Provider Internal Medicine
DX: Z79.01 Long term (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 of 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 (principal); I48.91 Unspecified atrial fibrillation
CPT/HCPCS: 85610

== ENCOUNTER 2025-05-19 09:15 | Outpatient (REF) | payer BC, SELFPAY ==
[2025-05-19 11:02] LABS: INTERNATIONAL NORM RATIO 2.0 (0.9-1.1); Prothrombin Time 23.4 SEC (10.9-12.4)
--- OUTSIDE RECORDS SUMMARY | 2025-05-19 11:16 | XMS_ITS | Patient Health Record ---
Author Organization Liu Harris MD Address [address] [place] [phone] Care Team Providers Care Director Of Field Sales Name Role Phone Liu Harris Primary Care Provider Allergies No Known Allergies Results Component Value Reference Range Notes Hemoglobin A1c Reviewed date:01/13/2025 08:26:35 AM Interpretation: Performing Lab: Notes/Report: Hemoglobin A1c 8.1 Prothrombin Time INR Reviewed date:05/20/2024 04:01:59 PM Interpretation: Performing Lab:[facility], [address] [place] [address] Notes/Report: Prothrombin Time 39.2 11.1-13.3 SEC INTERNATIONAL [...] INR Reviewed date:05/27/2024 12:33:07 PM Interpretation: Performing Lab:[facility], [address] [place] [phone] Notes/Report: Prothrombin Time 20.7 11.1-13.3 SEC INTERNATIONAL [...] INR Reviewed date:06/03/2024 11:01:16 AM Interpretation: Performing Lab:[facility], [address] [place] [address] Notes/Report: Prothrombin Time 24.1 11.1-13.3 SEC INTERNATIONAL [...] INR Reviewed date:06/17/2024 12:00:03 PM Interpretation: Performing Lab:[facility], [address] [place] [phone] Notes/Report: Prothrombin Time 34.4 11.1-13.3 SEC INTERNATIONAL [...] INR Reviewed date:07/01/2024 12:37:48 PM Interpretation: Performing Lab:[facility], [address] [place] [phone] Notes/Report: Prothrombin Time 30.4 11.1-13.3 SEC INTERNATIONAL [...] INR Reviewed date:07/15/2024 12:50:32 PM Interpretation: Performing Lab:[facility], [address] [place] [phone] Notes/Report: Prothrombin Time 18.4 10.9-12.4 SEC INTERNATIONAL [...] INR Reviewed date:08/12/2024 12:09:44 PM Interpretation: Performing Lab:[facility], [address] [place] [address] Notes/Report: Prothrombin Time 26.1 10.9-12.4 SEC INTERNATIONAL [...] INR Reviewed date:08/26/2024 12:46:34 PM Interpretation: Performing Lab:[facility], [address] [place] [address] Notes/Report: Prothrombin Time 35.5 10.9-12.4 SEC INTERNATIONAL [...] INR Reviewed date:09/16/2024 12:42:50 PM Interpretation: Performing Lab:[facility], [address] [place] [phone] Notes/Report: Prothrombin Time 30.5 10.9-12.4 SEC INTERNATIONAL [...] INR Reviewed date:09/30/2024 12:23:25 PM Interpretation: Performing Lab:[facility], [address] [place] [address] Notes/Report: Prothrombin Time 28.9 10.9-12.4 SEC INTERNATIONAL [...] INR Reviewed date:10/16/2024 06:51:10 PM Interpretation: Performing Lab:[facility], [address] [place] [phone] Notes/Report: Prothrombin Time 28.4 10.9-12.4 SEC INTERNATIONAL [...] INR Reviewed date:10/28/2024 05:01:12 PM Interpretation: Performing Lab:[facility], [address] [place] [phone] Notes/Report: Prothrombin Time 27.4 10.9-12.4 SEC INTERNATIONAL [...] INR Reviewed date:11/11/2024 11:57:26 AM Interpretation: Performing Lab:[facility], [address] [place] [phone] Notes/Report: Prothrombin Time 31.9 10.9-12.4 SEC INTERNATIONAL [...] INR Reviewed date:11/25/2024 12:38:44 PM Interpretation: Performing Lab:[facility], [address] [place] [phone] Notes/Report: Prothrombin Time 28.5 10.9-12.4 SEC INTERNATIONAL [...] INR Reviewed date:12/09/2024 12:27:16 PM Interpretation: Performing Lab:[facility], [address] [place] [phone] Notes/Report: Prothrombin Time 32.4 10.9-12.4 SEC INTERNATIONAL [...] INR Reviewed date:12/23/2024 12:10:07 PM Interpretation: Performing Lab:[facility], [address] [place] [phone] Notes/Report: Prothrombin Time 30.2 10.9-12.4 SEC INTERNATIONAL [...] INR Reviewed date:01/06/2025 10:32:13 AM Interpretation: Performing Lab:[facility], [address] [place] [address] Notes/Report: Prothrombin Time 33.3 10.9-12.4 SEC INTERNATIONAL [...] INR Reviewed date:01/27/2025 11:31:40 AM Interpretation: Performing Lab:[facility], [address] [place] [phone] Notes/Report: Prothrombin Time 28.1 10.9-12.4 SEC INTERNATIONAL [...] INR Reviewed date:02/17/2025 11:22:57 AM Interpretation: Performing Lab:[facility], [address] [place] [phone] Notes/Report: Prothrombin Time 25.2 10.9-12.4 SEC INTERNATIONAL [...] INR Reviewed date:03/10/2025 12:34:22 PM Interpretation: Performing Lab:[facility], [address] [place] [phone] Notes/Report: Prothrombin Time 20.3 10.9-12.4 SEC INTERNATIONAL [...] INR Reviewed date:03/24/2025 11:29:00 AM Interpretation: Performing Lab:[facility], [address] [place] [phone] Notes/Report: Prothrombin Time 31.8 10.9-12.4 SEC INTERNATIONAL [...] ff Reviewed date:04/07/2025 12:37:35 PM Interpretation: Performing Lab:[facility], [address] [place] [phone] Notes/Report: White Blood Count 6.6 4.8-10.8 X10*3/uL [...] INR Reviewed date:04/07/2025 10:53:43 AM Interpretation: Performing Lab:[facility], [address] [place] [phone] Notes/Report: Prothrombin Time 25.0 10.9-12.4 SEC INTERNATIONAL [...] prosthetic heart valves: 2.5 - 3.[address] Comprehensive [place] Panel Fa st Reviewed date:04/07/2025 12:44:59 PM Interpretation: Performing Lab:[facility], [address] [place] [phone] Notes/Report: Sodium 139 135-145 mmol/L Potassium 4.0 [...] Reflex Reviewed date:04/07/2025 12:44:40 PM Interpretation: Performing Lab:[facility], [address] [place] [phone] Notes/Report: Triglycerides 106 <150 mg/dL Desirable Triglyceride: [...] (Free>4and<10) Reviewed date:04/07/2025 12:26:21 PM Interpretation: Performing Lab:[address] [phone] Notes/Report: PSA,Total (Free>4and<10) 0.49 0.00-4.00 ng/mL A [...] Random Reviewed date:04/07/2025 12:29:08 PM Interpretation: Performing Lab:[address] [phone] Notes/Report: Creatinine Urine 77.80 Microalbumin Urine 13.0 Microalbum/Creatinine Ratio Ur 16.7 <30 ug/mg cr Albumin/Creatinine Ratio Reference Ranges: Normal: < 30 ug/mg creatinine Microalbuminuria: 30 - 300 ug/mg creatinine Clinical Albuminuria: > 300 ug/mg creatinine Hemoglobin A1c Reviewed date:04/07/2025 12:26:50 PM Interpretation: Performing Lab:[address] [phone] Notes/Report: Hemoglobin A1c % 7.3 <6.0 % [...] average glucose, using the formula of the U4S-Neosiaq Average Glucose study (ADAG), Diabetes Care, Vol.31,#8, 2007 UA ClnCatch+Micro w/rflx Cul t Reviewed date:04/07/2025 12:37:53 PM Interpretation: Performing Lab:[facility], [address] [place] [phone] Notes/Report: [id number] Urine, Clean Catch Color Urine Yellow Appearance Urine Clear PH 7.0 5.0-9.0 Glucose Urine UA Negative Negative mg/dL Urine Blood Negative Negative Specific Gordon - Urine 1.020 1.005-1.025 Urine Protein Negative Neg-Trace mg/dL Urine Ketones Negative Negative mg/dL Nitrite Urine Negative Negative Leukocyte Esterase Urine Negative Negative RBC Urine 0-2 0-2 /HPF WBC Urine 0-5 0-5 /HPF Squamous Epithelial Cell Urine 0-2 0-2 /HPF Bacteria Urine None Seen None Seen Hyaline Casts Urine 0-2 0-2 /LPF Prothrombin Time INR Reviewed date:04/21/2025 10:32:14 AM Interpretation: Performing Lab:[facility], [address] [place] [phone] Notes/Report: Prothrombin Time 29.1 10.9-12.4 SEC INTERNATIONAL [...] INR Reviewed date:05/05/2025 10:27:45 AM Interpretation: Performing Lab:[facility], [address] [place] [phone] Notes/Report: Prothrombin Time 26.4 10.9-12.4 SEC INTERNATIONAL [...] ye t reviewed by provider) Interpretation: Performing Lab:[facility], [address] [place] [phone] Notes/Report: Prothrombin Time 23.4 10.9-12.4 SEC INTERNATIONAL [...] INR Reviewed date:07/29/2024 01:46:50 PM Interpretation: Performing Lab:[facility], [address] [place] [phone] Notes/Report: Prothrombin Time 31.5 10.9-12.4 SEC INTERNATIONAL [...] INR Reviewed date:08/05/2024 12:55:18 PM Interpretation: Performing Lab:[facility], [address] [place] [phone] Notes/Report: Prothrombin Time 26.4 10.9-12.4 SEC INTERNATIONAL [...] Panel Reviewed date:08/05/2024 05:41:41 PM Interpretation: Performing Lab:[address] [phone] Notes/Report: Bilirubin Total 1.3 0.0-1.0 mg/dL Bilirubin Direct 0.4 0.0-0.5 mg/dL Aspartate Amino Transferase 31 5-37 U/L Alanine Aminotransferase 39 0-40 U/L Total Protein 7.4 6.5-8.0 g/dL Albumin Level 4.3 3.5-5.0 g/dL Alkaline Phosphatase 62 39-117 U/L Glucose Fasting Reviewed date:08/05/2024 05:42:35 PM Interpretation: Performing Lab:[address] [address] Notes/Report: Glucose Fasting 166 60-99 mg/dL A fasting glucose of 126 mg/dl or greater on more than one occasion is considered diagnostic of diabetes. Hemoglobin A1c Reviewed date:08/05/2024 08:40:07 PM Interpretation: Performing Lab:[address] [address] Notes/Report: Hemoglobin A1c % 7.1 <6.0 % [...] average glucose, using the formula of the K1P-Etvdxca Average Glucose study (ADAG), Diabetes Care, Vol.31,#8, 2007 Blood Urea Nitrogen Reviewed date:09/21/2024 12:00:49 PM Interpretation: Performing Lab:[address] [address] Notes/Report: Blood Urea Nitrogen 15 9-16 mg/dL Creatinine Reviewed date:09/21/2024 12:04:27 PM Interpretation: Performing Lab:[facility], [address] [place] [phone] Notes/Report: Creatinine 0.86 0.5-1.4 mg/dL Estimated Glomerular Filt Rate > 60 Chronic Kidney Disease: Estimated GFR < 60 mL/min/1.73m2 Severe Kidney Disease: Estimated GFR < 15 mL/min/1.73m2 TSH reflex Free T4 Reviewed date:09/21/2024 12:01:45 PM Interpretation: Performing Lab:[facility], [address] [place] [phone] Notes/Report: TSH reflex Free T4 0.38 0.32-4.0 uIU/mL Glucose, finger stick Reviewed date:01/13/2025 08:20:13 AM Interpretation: Performing Lab: Notes/Report: Value 175 Prothrombin Time INR Reviewed date:01/13/2025 10:36:58 AM Interpretation: Performing Lab:[facility], [address] [place] [phone] Notes/Report: Prothrombin Time 28.3 10.9-12.4 SEC INTERNATIONAL [...] Lipase Reviewed date:08/05/2024 05:42:05 PM Interpretation: Performing Lab:[facility], [address] [place] [address] Notes/Report: Lipase 46 8-78 U/L Abigail Gold Reviewed date:08/05/2024 05:43:12 PM Interpretation: Performing Lab:[facility], [address] [place] [phone] Notes/Report: bAigail Gold See Note Specimen held untested for 24 hours; Call to request Chemistry testing. Lipid Panel Reviewed date:08/26/2024 03:08:03 PM Interpretation: Performing Lab:[facility], [address] [place] [phone] Notes/Report: Triglycerides 177 <150 mg/dL Desirable Triglyceride: [...] Young Reviewed date:08/26/2024 12:53:02 PM Interpretation: Performing Lab:[facility], [address] [place] [address] Notes/Report: Abigail Young See Note Specimen held untested for 24 hours; Call to request Chemistry testing. Vitamin B12 Reviewed date:09/21/2024 12:02:00 PM Interpretation: Performing Lab:[facility], [address] [place] [phone] Notes/Report: Vitamin B12 377 200-900 pg/mL NORMAL 200-900 PG/ML INDETERMINATE 160-199 PG/ML DEFICIENT < 160 PG/ML Folate Reviewed date:09/21/2024 12:01:53 PM Interpretation: Performing Lab:[facility], [address] [place] [phone] Notes/Report: Folate 16.6 > or = 4.0 ng/mL Reference Values: > or = 4.0 ng/mL < 4.0 ng/mL suggests folate deficiency Methotrexate, aminopterin and folinic acid (leucovorin) are chemotherapeutic agents whose molecular structures are similar to folate; therefore, the Inventory Control Specialist folate assay cannot be used for patients using these drugs. Abigail Hardy Reviewed date:09/21/2024 12:02:06 PM Interpretation: Performing Lab:[facility], [address] [facility], [place] [address] Notes/Report: Hold Red See Note Specimen held [...] Zamora 04/16/2025 08:45:30 AM >REFFERAL FAXED TO [facility] FOR SCHEDULING, Kavita Zamora 04/20/2025 02:11:29 PM >INSURANCE [facility]FERR[facility] 05/14/2025 10:42:45 AM >PATIENT SCHEDULED FOR 07/28 @ 9AM Referral Priority Routine Referral Appointment Date 07/28/2025 Medications Medication SIG (Take, Route, Frequency, Duration) [...] W/U Status Risk Notes Problem Atrial fibrillation (33507861) Atrial fibrillation (I48.91) Active confirmed Problem 292934172 Tubular adenoma (D36.9) Active confirmed Problem Long-term current use of anticoagulant (273462598) 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) Active confirmed Problem 255447205 Body mass index (BMI) 35.0-35.9, adult (Z68.35) Active confirmed Problem 14722979 Essential hypert ension (I10) Active confirmed Problem Rosacea (347825196) Rosacea (L71.9) Active confirmed Problem 25477511 Type 2 diabetes mellitus without complication (E11.9) Active confirmed Problem History of malignant melanoma of the skin (735866719262) History of melanoma (Z85.820) Active confirmed Problem Polyneuropathy due to type 2 diabetes mellitus (295153571) Diabetic polyneuropathy associated with type 2 diabetes mellitus (E11.42) Active confirmed Problem 362882353 Cervical disc di sease (M50.90) Active confirmed Problem 298877813 Doxycycline adve rse reaction, initial encounter (T36.4X5A) Active confirmed Problem Diabetic autonomic neuropathy due to type 2 diabetes mellitus (319472428) Diabetic autonomic neuropathy associated with type 2 diabetes mellitus (E11.43) Active confirmed Problem 20834537 Unsteady gait (R26.81) Active confirme d Problem 671960119 Pure hypercholesterolemia (E78.00) Active confirmed Problem 226586987 Body mass index (BMI) of 39.0-39.9 in adult (Z68.39) Active confirmed Problem 271710106 Confusion state (F44.89) Active confirmed Vital Signs [...] Date Provider Diagnosis Liu Harris MD [address] [id number] 05/20/2024 [facility] (current) use of anticoagulants Z79.01 and Atrial fibrillation I48.91 Liu Harris MD [address] [id number] 05/27/2024 Liu 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 Z79.01 and Atrial fibrillation I48.91 Liu Harris MD [address] [id number] 06/03/2024 Liu 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 Z79.01 and Atrial fibrillation I48.91 Liu Harris MD [address] [id number] 06/17/2024 Liu 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 Z79.01 and Atrial fibrillation I48.91 Liu Harris MD [address] [id number] 07/01/2024 Liu [facility] (current) use of anticoagulants Z79.01 ; Encounter for immunization Z23 and Atrial fibrillation I48.91 Liu Harris MD [address] [id number] 07/15/2024 Liu 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 Z79.01 and Atrial fibrillation I48.91 Liu Harris MD [address] [id number] 08/12/2024 Liu [facility] (current) use of anticoagulants Z79.01 ; Atrial fibrillation I48.91 ; Type 2 diabetes mellitus without complication E11.9 and Essential hypertension I10 Liu Harris MD [address] [id number] 08/26/2024 Liu Steven Pure hypercholestero lemia E78.00 and Atrial fibrillation I48.91 Liu Harris MD [address] [id number] 09/16/2024 Liu [facility] (current) use of anticoagulants Z79.01 and Atrial fibrillation I48.91 Liu Harris MD [address] [place] [id number] 09/30/2024 Liu 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 Z79.01 and Atrial fibrillation I48.91 Liu Harris MD [address] [place] [address] [id number] 10/16/2024 Liu 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 Z79.01 ; Atrial fibrillation I48.91 and Unsteady gait R26.81 Liu Harris MD [address] [place] [address] [id number] 10/28/2024 Liu 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 Z79.01 and Atrial fibrillation I48.91 Liu Harris MD [address] [place] [address] [id number] 11/11/2024 Liu 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 Z79.01 and Atrial fibrillation I48.91 Liu Harris MD [address] [place] [address] [id number] 11/25/2024 Liu [facility] (current) use of anticoagulants Z79.01 and Atrial fibrillation I48.91 iLu Harris MD [address] [place] [id number] 12/09/2024 Liu Toñoardidavon Atrial fibrillation I48.91 and group home (current) use of anticoagulants Z79.01 Liu Harris MD [address] [id number] 12/23/2024 Liu [facility] (current) use of anticoagulants Z79.01 and Atrial fibrillation I48.91 Liu Harris MD [address] [place] [id number] 01/06/2025 Liu [facility] (current) use of anticoagulants Z79.01 and Atrial fibrillation I48.91 Liu Harris MD [address] [place] [address] [id number] 01/27/2025 Liu 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 Z79.01 and Atrial fibrillation I48.91 Liu Harris MD [address] [place] [address] [id number] 02/17/2025 Liu [facility] (current) use of anticoagulants Z79.01 and Atrial fibrillation I48.91 Liu Harris MD [address] [place] [address] [id number] 03/10/2025 Liu [facility] (current) use of anticoagulants Z79.01 and Atrial fibrillation I48.91 Liu Harris MD [address] [id number] 03/24/2025 Liu 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 Z79.01 and Atrial fibrillation I48.91 Liu Harris MD [address] [place] [address] [id number] 04/07/2025 Liu 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 Z79.01 ; Atrial fibrillation I48.91 ; Essential hypertension I10 ; Type 2 diabetes mellitus without complication E11.9 ; Pure hypercholesterolemia E78.00 and Diabetic autonomic neuropathy associated with type 2 diabetes mellitus E11.43 Liu Harris MD [address] [place] [address] [id number] 04/21/2025 Liu 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 Z79.01 and Atrial fibrillation I48.91 Liu Harris MD [address] [id number] 05/05/2025 Liu 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 Z79.01 and Atrial fibrillation I48.91 Liu Harris MD [address] [id number] 05/19/2025 Liu 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 Z79.01 and Atrial fibrillation I48.91 Liu Harris MD [address] [place] [address] [id number] 07/29/2024 Liu 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 Z79.01 and Atrial fibrillation I48.91 Liu Harris MD [address] [id number] 08/05/2024 Liu Harris Type 2 diabetes opal itus without complication E11.9 ; Pure hypercholesterolemia E78.00 ; 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 Z79.01 and Atrial fibrillation I48.91 Liu Harris MD [address] [place] [address] [id number] 09/19/2024 Liu Harris Hx of melanoma of sk in Z85.820 ; Unsteady gait R26.81 ; Confusion state F44.89 and Blood tests prior to treatment or procedure Z01.812 Liu Harris MD [address] [id number] 01/13/2025 Liu Harris Type 2 diabetes opal itus without complication E11.9 ; Preop examination Z01.818 ; 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 Z79.01 ; Atrial fibrillation I48.91 and Essential hypertension I10 Liu Harris MD [address] [id number] 04/16/2025 Liu Harris Type 2 diabetes opal itus without complication E11.9 ; Adult general medical examination Z00.00 ; Essential hypertension I10 ; History of melanoma Z85.820 ; Diabetic autonomic neuropathy associated with type 2 diabetes mellitus E11.43 ; Colon cancer screening Z12.11 ; Depression screening Z13.31 and Pure hypercholesterolemia E78.00 Liu Harris MD [address] [id number] 09/15/2024 Liu Harris MD [address] [place] [address] [id number] 09/18/2024 Liu Harris MD [address] [place] [address] [id number] 09/22/2024 Liu Harris Foreign body in eye, right, initial encounter T15.91XA Liu Harris MD [address] [place] [address] [id number] 10/09/2024 Liu Harris Assessments Encounter Date Diagnosis (ICD Code) Assessment Notes Treatment Notes Treatment Clinical Notes Section Notes 05/20/2024 group home (current) use of anticoagulants (ICD-10 - Z79.01) 05/20/2024 Atrial fibrillation (ICD-10 - I48.91) 05/27/2024 group home (current) use of anticoagulants (ICD-10 - Z79.01) 05/27/2024 Atrial fibrillation (ICD-10 - I48.91) 06/03/2024 group home (current) use of anticoagulants (ICD-10 - Z79.01) 06/03/2024 Atrial fibrillation (ICD-10 - I48.91) 06/17/2024 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 (ICD-10 - Z79.01) 06/17/2024 Atrial fibrillation (ICD-10 - I48.91) 07/01/2024 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 (ICD-10 - Z79.01) 07/01/2024 Encounter for immunization (ICD-10 - Z23) 07/15/2024 group home (current) use of anticoagulants (ICD-10 - Z79.01) 07/15/2024 Atrial fibrillation (ICD-10 - I48.91) 08/12/2024 group home (current) use of anticoagulants (ICD-10 - Z79.01) not having any problems Will do Lipids at his 08-26-24 INR Visit 08/12/2024 Atrial fibrillation (ICD-10 - I48.91) need lipids i think the lab did lipase instead of lipids 08/26/2024 Pure hypercholesterolemia (ICD-10 - E78.00) 08/26/2024 Atrial fibrillation (ICD-10 - I48.91) 09/16/2024 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 (ICD-10 - Z79.01) 09/16/2024 Atrial fibrillation (ICD-10 - I48.91) 09/30/2024 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 (ICD-10 - Z79.01) 09/30/2024 Atrial fibrillation (ICD-10 - I48.91) 10/16/2024 group home (current) use of anticoagulants (ICD-10 - Z79.01) is doing well with no problems 10/16/2024 Atrial fibrillation (ICD-10 - I48.91) when he gets into afib gets a diureses which is related to a naturtic hormone. 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 (ICD-10 - Z79.01) 02/17/2025 group home (current) use of anticoagulants (ICD-10 - Z79.01) 03/10/2025 group home (current) use of anticoagulants (ICD-10 - Z79.01) 03/24/2025 group home (current) use of anticoagulants (ICD-10 - Z79.01) 04/07/2025 group home (current) use of anticoagulants (ICD-10 - Z79.01) 04/21/2025 group home (current) use of anticoagulants (ICD-10 - Z79.01) 05/05/2025 group home (current) use of anticoagulants (ICD-10 - Z79.01) 05/19/2025 group home (current) use of anticoagulants (ICD-10 - Z79.01) 07/29/2024 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 (ICD-10 - Z79.01) 07/29/2024 Atrial fibrillation (ICD-10 - I48.91) 08/05/2024 Type 2 diabetes mellitus without complication (ICD-10 - E11.9) 08/05/2024 Pure hypercholesterolemia (ICD-10 - E78.00) 09/19/2024 Hx of melanoma of sk in (ICD-10 - Z85.820) followed by derm/ MRI order faxed to [facility], pending diagnostic testing 09/19/2024 Unsteady gait (ICD-1 [...] MRI with patient, is going to see install and repair technician for cataract surgery/ feels as though it is related to his vision as a problem 11/11/2024 Atrial fibrillation (ICD-10 - I48.91) 11/25/2024 Atrial fibrillation (ICD-10 - I48.91) 12/09/2024 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 [...] I48.91) 05/05/2025 Atrial fibrillation (ICD-10 - I48.91) 05/19/2025 Atrial fibrillation (ICD-10 - I48.91) 08/05/2024 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 (ICD-10 - Z79.01) 09/19/2024 Confusion state (ICD -10 - F44.89) pending diagnostic testing 01/13/2025 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 (ICD-10 - Z79.01) will hold for 3 days prior to the upcoming surgery, patient verbalized understanding of instruction to d'c medication 3 days prior to surgery 04/16/2025 Essential hypertensi on (ICD-10 - I10) well controlled, will cntinue current regiment 09/22/2024 Foreign body in eye, right, initial encounter (ICD-10 - T15.91XA) Order faxed to [facility] [phone] 08/12/2024 Essential hypertensi on (ICD-10 - I10) stable, is at goal, will continue current regiment 04/07/2025 Essential hypertensi on (ICD-10 - I10) 08/05/2024 Atrial fibrillation (ICD-10 - I48.91) 09/19/2024 Blood tests prior to treatment or procedure (ICD-10 - Z01.812) 01/13/2025 Atrial fibrillation (ICD-10 - I48.91) doing well 04/16/2025 History of melanoma (ICD-10 - Z85.820) was treated with moh's 04/07/2025 Type 2 diabetes mellitus without complication [...] BRAIN W&WO CONTRAST 09/19/2024 Prothrombin Time INR 05/19/2025 XR orbit min 4V 09/22/2024 Next Appt Details Provider Name:Liu hyde, 10/19/2025 07:15:00 AM, [address] [place] [address], [address], [place], [place], [phone], Provider Name:Liu hyde, 10/26/2025 09:00:00 AM, [address] [place] [address], [address], [place], [place], [phone], Provider Name:Liu Shafer ier, 04/12/2026 07:00:00 AM, [address], [address], [place], [phone], Provider Name:Liu Shafer ier, 04/19/2026 08:30:00 AM, [address], [address], [place], [phone], Insurance Providers Payer Name Payer Address Payer Phone Subscriber Number Group Number Insured Name Patient Relationship to Insured Coverage Start Date Coverage End Date [facility] [address] [place], [place] [id number] Remington Eric Self - patient is the insured Medical (General) History Medical History History ICD Code Atrial fibrillation diabetes mellitus colonoscopy - 02/26/2013; colonoscopy 03/[address] Gifford - repeat 5 years Surgical History Surgery Date(Month/Year) pulmonarry artery ablation Partial Medial Menisectomy, rt knee (Dr. Perez) 10/2016
--- OUTSIDE RECORDS SUMMARY | 2025-05-19 11:16 | XMS_ITS | Clinical Summary ---
Author Organization [facility] Address [address] [address] Phone Care Team Providers Care Mainframe Consultant Name Role Phone Liu Harris MD Primary [...] him. We will update an echocardiogram. Diabetes ([facility] V24, [facility] V28) 08/11/2021 Hyperlipidemia 08/11/2021 Overview (12/03/2024): Last [...] [address] [place] [address] Donnie Coronado MD 04/20/2025 Telephone Gastroenterology - [address] [place] [phone] Donnie Coronado MD MISSING INFORMATION 04/07/2025 8:00 AM EDT Ancillary Procedure [facility] - [address] [place] [address] Paroxysmal atrial fibrillation (CMS/HCC V24, CMS/HCC V28); Primary hypertension from Last 3 Months Medical History Medical History Date Comments Diabetes mellitus type 2, co ntrolled, with complications (CMS/HCC V24, CMS/HCC V28) DX:Diabetes mellitus type 2, controlled, with complications ([facility]) Hyperlipidemia DX:Hyperlipidemi a Essential hypertension DX:Essent ial [...] Description 07/24/2025 8:50 AM EDT Office Visit [facility] [address] [place] [phone] Ed Cadena MD [address] [place] [address] DRIVE [address] [place] [address] Health Maintenance Due Date Last Done Comments [...] (04/07/2025 8:43 AM EDT) Left Atrium Minor [place] 5.9 cm CV PACS Left Atrium Major [place] 6.2 cm CV PACS LA Area Sys [...] Volume 92 mL CV PACS MV Deceleration Dunn 5.0 m/s2 CV PACS E Wave Deceleration [...] ult from Last 3 Months Insurance MEDICARE [facility] [[email or web address]] Care Teams Mainframe Consultant Relationship Specialty Start Date End Date Liu Harris MD [address] [place] [address] [place] [id number] PCP - General 07/30/12
== END 2025-05-19 09:16 | disposition home or self-care (01) ==
LOC: HO.LNP 09:15
PROVIDERS: Visit Provider Internal Medicine
DX: I48.91 Unspecified atrial fibrillation (principal); Z79.01 Long term (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 of 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
CPT/HCPCS: 85610

== ENCOUNTER 2025-06-02 11:04 | Outpatient (REF) | payer BC, SELFPAY ==
[2025-06-02 11:17] LABS: INTERNATIONAL NORM RATIO 2.2 (0.9-1.1); Prothrombin Time 25.7 SEC (10.9-12.4)
--- OUTSIDE RECORDS SUMMARY | 2025-06-02 12:39 | XMS_ITS | Clinical Summary ---
Author Organization [facility] Address [address] [place] [address] Phone Care Team Providers Care Apparatus Operator Name Role Phone Liu Harris MD Primary [...] if needed (atrial fibrillation). 10 tablet 1 5 Active psyllium (KONSYL) powder Take by mouth. [...] mg 24 hr tabletIndication s:Paroxysmal atrial fibrillation ([facility]/HCC V24, CMS/HCC V28) TAKE 1 TABLET BY MOUTH EVERY DAY 90 tablet 1 5 Active isosorbide mononitrate (IMDUR) 30 mg 24 hr tabletIndication s:Paroxysmal atrial fibrillation (CMS/HCC V24, CMS/HCC V28) TAKE 1 TABLET BY MOUTH EVERY DAY 90 tablet 1 5 Active Active Problems Problem Noted Date Diagnosed Date Dizziness 01/19/2025 Assessment & Plan (01/19/2025 3:10 PM EDT): Patient has been having difficulties with dizziness which he attributes to vision changes secondary to cataract. He has undergone evaluation for vertigo and even completed a brain MRI. He is hopeful that his symptoms will improve with upcoming cataract surgery. Atrial fibrillation ([facility] V24, [facility] V28) 1 Overview (12/03/2024): Last Assessment & [...] him. We will update an echocardiogram. Diabetes ([facility]/HCC V24, CMS/HCC V28) 08/11/2021 Hyperlipidemia 08/11/2021 Overview (12/03/2024): Last [...] 04/23/2025 Telephone Gastroenterology - [address] [place] [address] Donnie Coronado MD 04/20/2025 Telephone Gastroenterology - [address] [place] [phone] Donnie Coronado MD MISSING INFORMATION 04/07/2025 8:00 AM EDT Ancillary Procedure [facility] - [address] [place] [phone] Paroxysmal atrial fibrillation (CMS/HCC V24, CMS/HCC V28); [...] Description 07/24/2025 8:50 AM EDT Office Visit [facility] [address] [place] [address] Ed Cadena MD [address] [place] [address] DRIVE [address] [place] [address] 07/28/2025 10:00 AM EDT Appointment [facility] [place] [facility] [address] [place] [phone] Donnie Coronado MD [address] [address] Health Maintenance Due Date Last Done Comments [...] (04/07/2025 8:43 AM EDT) Left Atrium Minor [place] 5.9 cm CV PACS Left Atrium Major [place] 6.2 cm CV PACS LA Area Sys [...] Volume 92 mL CV PACS MV Deceleration Daniels 5.0 m/s2 CV PACS E Wave Deceleration [...] unchanged compared to last study done in 2020 Trace aortic insufficiency Left Ventricle Left ventricle [...] ult from Last 3 Months Insurance MEDICARE [facility] Care Teams Apparatus Operator Relationship Specialty Start Date End Date Liu Harris MD [address] [place] [address] PCP - General 07/30/12
--- OUTSIDE RECORDS SUMMARY | 2025-06-02 12:39 | XMS_ITS | Patient Health Record ---
Author Organization Liu Harris MD Address [address] [place] [address] [phone] Care Team Providers Care Sales Promotion Officer Name Role Phone Liu Harris Primary Care Provider Allergies No Known Allergies Results Component Value Reference Range Notes Hemoglobin A1c Reviewed date:01/13/2025 08:26:35 AM Interpretation: Performing Lab: Notes/Report: Hemoglobin A1c 8.1 Prothrombin Time INR Reviewed date:06/03/2024 11:01:16 AM Interpretation: Performing Lab:[facility], [address] [place] [phone] Notes/Report: Prothrombin Time 24.1 11.1-13.3 SEC INTERNATIONAL [...] INR Reviewed date:06/17/2024 12:00:03 PM Interpretation: Performing Lab:[facility], [address] [place] [phone] Notes/Report: Prothrombin Time 34.4 11.1-13.3 SEC INTERNATIONAL [...] INR Reviewed date:07/01/2024 12:37:48 PM Interpretation: Performing Lab:[facility], [address] [place] [phone] Notes/Report: Prothrombin Time 30.4 11.1-13.3 SEC INTERNATIONAL [...] INR Reviewed date:07/15/2024 12:50:32 PM Interpretation: Performing Lab:[facility], [address] [place] [phone] Notes/Report: Prothrombin Time 18.4 10.9-12.4 SEC INTERNATIONAL [...] INR Reviewed date:08/12/2024 12:09:44 PM Interpretation: Performing Lab:[facility], [address] [place] [phone] Notes/Report: Prothrombin Time 26.1 10.9-12.4 SEC INTERNATIONAL [...] INR Reviewed date:08/26/2024 12:46:34 PM Interpretation: Performing Lab:[facility], [address] [place] [phone] Notes/Report: Prothrombin Time 35.5 10.9-12.4 SEC INTERNATIONAL [...] INR Reviewed date:09/16/2024 12:42:50 PM Interpretation: Performing Lab:[facility], [address] [place] [phone] Notes/Report: Prothrombin Time 30.5 10.9-12.4 SEC INTERNATIONAL [...] INR Reviewed date:09/30/2024 12:23:25 PM Interpretation: Performing Lab:[facility], [address] [place] [phone] Notes/Report: Prothrombin Time 28.9 10.9-12.4 SEC INTERNATIONAL [...] INR Reviewed date:10/16/2024 06:51:10 PM Interpretation: Performing Lab:[facility], [address] [place] [phone] Notes/Report: Prothrombin Time 28.4 10.9-12.4 SEC INTERNATIONAL [...] INR Reviewed date:10/28/2024 05:01:12 PM Interpretation: Performing Lab:[facility], [address] [place] [phone] Notes/Report: Prothrombin Time 27.4 10.9-12.4 SEC INTERNATIONAL [...] INR Reviewed date:11/11/2024 11:57:26 AM Interpretation: Performing Lab:[facility], [address] [place] [phone] Notes/Report: Prothrombin Time 31.9 10.9-12.4 SEC INTERNATIONAL [...] INR Reviewed date:11/25/2024 12:38:44 PM Interpretation: Performing Lab:[facility], [address] [place] [phone] Notes/Report: Prothrombin Time 28.5 10.9-12.4 SEC INTERNATIONAL [...] INR Reviewed date:12/09/2024 12:27:16 PM Interpretation: Performing Lab:[facility], [address] [place] [phone] Notes/Report: Prothrombin Time 32.4 10.9-12.4 SEC INTERNATIONAL [...] INR Reviewed date:12/23/2024 12:10:07 PM Interpretation: Performing Lab:[facility], [address] [place] [phone] Notes/Report: Prothrombin Time 30.2 10.9-12.4 SEC INTERNATIONAL [...] INR Reviewed date:01/06/2025 10:32:13 AM Interpretation: Performing Lab:[facility], [address] [place] [phone] Notes/Report: Prothrombin Time 33.3 10.9-12.4 SEC INTERNATIONAL [...] INR Reviewed date:01/27/2025 11:31:40 AM Interpretation: Performing Lab:[facility], [address] [place] [phone] Notes/Report: Prothrombin Time 28.1 10.9-12.4 SEC INTERNATIONAL [...] INR Reviewed date:02/17/2025 11:22:57 AM Interpretation: Performing Lab:[facility], [address] [place] [phone] Notes/Report: Prothrombin Time 25.2 10.9-12.4 SEC INTERNATIONAL [...] INR Reviewed date:03/10/2025 12:34:22 PM Interpretation: Performing Lab:[facility], [address] [place] [phone] Notes/Report: Prothrombin Time 20.3 10.9-12.4 SEC INTERNATIONAL [...] INR Reviewed date:03/24/2025 11:29:00 AM Interpretation: Performing Lab:[facility], [address] [place] [phone] Notes/Report: Prothrombin Time 31.8 10.9-12.4 SEC INTERNATIONAL [...] ff Reviewed date:04/07/2025 12:37:35 PM Interpretation: Performing Lab:[facility], [address] [place] [phone] Notes/Report: White Blood Count 6.6 4.8-10.8 X10*3/uL [...] INR Reviewed date:04/07/2025 10:53:43 AM Interpretation: Performing Lab:[facility], [address] [place] [phone] Notes/Report: Prothrombin Time 25.0 10.9-12.4 SEC INTERNATIONAL [...] prosthetic heart valves: 2.5 - 3.5 Comprehensive [place]. Panel Fa st Reviewed date:04/07/2025 12:44:59 PM Interpretation: Performing Lab:[facility], [address] [place] [phone] Notes/Report: Sodium 139 135-145 mmol/L Potassium 4.0 [...] Reflex Reviewed date:04/07/2025 12:44:40 PM Interpretation: Performing Lab:[facility], [address] [place] [phone] Notes/Report: Triglycerides 106 <150 mg/dL Desirable Triglyceride: [...] (Free>4and<10) Reviewed date:04/07/2025 12:26:21 PM Interpretation: Performing Lab:[facility], [address] [place] [phone] Notes/Report: PSA,Total (Free>4and<10) 0.49 0.00-4.00 ng/mL A [...] Random Reviewed date:04/07/2025 12:29:08 PM Interpretation: Performing Lab:[facility], [address] [place] [phone] Notes/Report: Creatinine Urine 77.80 Microalbumin Urine 13.0 Microalbum/Creatinine Ratio Ur 16.7 <30 ug/mg cr Albumin/Creatinine Ratio Reference Ranges: Normal: < 30 ug/mg creatinine Microalbuminuria: 30 - 300 ug/mg creatinine Clinical Albuminuria: > 300 ug/mg creatinine Hemoglobin A1c Reviewed date:04/07/2025 12:26:50 PM Interpretation: Performing Lab:[facility], [address] [place] [phone] Notes/Report: Hemoglobin A1c % 7.3 <6.0 % [...] average glucose, using the formula of the D1U-[place]rlin Average Glucose study (ADAG), Diabetes Care, Vol.31,#8, May. 2007 UA ClnCatch+Micro w/rflx Cul t Reviewed date:04/07/2025 12:37:53 PM Interpretation: Performing Lab:[facility], [address] [place] [phone] Notes/Report: [id number] Urine, Clean Catch Color Urine Yellow Appearance Urine Clear PH 7.0 5.0-9.0 Glucose Urine UA Negative Negative mg/dL Urine Blood Negative Negative Specific [place] - Urine 1.020 1.005-1.025 Urine Protein Negative Neg-Trace mg/dL Urine Ketones Negative Negative mg/dL Nitrite Urine Negative Negative Leukocyte Esterase Urine Negative Negative RBC Urine 0-2 0-2 /HPF WBC Urine 0-5 0-5 /HPF Squamous Epithelial Cell Urine 0-2 0-2 /HPF Bacteria Urine None Seen None Seen Hyaline Casts Urine 0-2 0-2 /LPF Prothrombin Time INR Reviewed date:04/21/2025 10:32:14 AM Interpretation: Performing Lab:[address] [phone] Notes/Report: Prothrombin Time 29.1 10.9-12.4 SEC INTERNATIONAL [...] INR Reviewed date:05/05/2025 10:27:45 AM Interpretation: Performing Lab:[facility], [address] [place] [phone] Notes/Report: Prothrombin Time 26.4 10.9-12.4 SEC INTERNATIONAL [...] 2.5 - 3.5 Prothrombin Time INR Reviewed date:05/19/2025 12:41:51 PM Interpretation: Performing Lab:[facility], [address] [place] [phone] Notes/Report: Prothrombin Time 23.4 10.9-12.4 SEC INTERNATIONAL [...] 2.5 - 3.5 Prothrombin Time INR Reviewed date:06/02/2025 11:24:03 AM Interpretation: Performing Lab:[facility], [address] [place] [phone] Notes/Report: Prothrombin Time 25.7 10.9-12.4 SEC INTERNATIONAL [...] INR Reviewed date:07/29/2024 01:46:50 PM Interpretation: Performing Lab:[address] [phone] Notes/Report: Prothrombin Time 31.5 10.9-12.4 SEC INTERNATIONAL [...] INR Reviewed date:08/05/2024 12:55:18 PM Interpretation: Performing Lab:[address] [phone] Notes/Report: Prothrombin Time 26.4 10.9-12.4 SEC INTERNATIONAL [...] Panel Reviewed date:08/05/2024 05:41:41 PM Interpretation: Performing Lab:[address] [phone] Notes/Report: Bilirubin Total 1.3 0.0-1.0 mg/dL Bilirubin Direct 0.4 0.0-0.5 mg/dL Aspartate Amino Transferase 31 5-37 U/L Alanine Aminotransferase 39 0-40 U/L Total Protein 7.4 6.5-8.0 g/dL Albumin Level 4.3 3.5-5.0 g/dL Alkaline Phosphatase 62 39-117 U/L Glucose Fasting Reviewed date:08/05/2024 05:42:35 PM Interpretation: Performing Lab:[facility], [address] [place] [phone] Notes/Report: Glucose Fasting 166 60-99 mg/dL A fasting glucose of 126 mg/dl or greater on more than one occasion is considered diagnostic of diabetes. Hemoglobin A1c Reviewed date:08/05/2024 08:40:07 PM Interpretation: Performing Lab:[address] [phone] Notes/Report: Hemoglobin A1c % 7.1 <6.0 % [...] average glucose, using the formula of the A9A-Pbxlkst Average Glucose study (ADAG), Diabetes Care, Vol.31,#8, 2007 Blood Urea Nitrogen Reviewed date:09/21/2024 12:00:49 PM Interpretation: Performing Lab:[facility], [address] [place] [phone] Notes/Report: Blood Urea Nitrogen 15 9-16 mg/dL Creatinine Reviewed date:09/21/2024 12:04:27 PM Interpretation: Performing Lab:[address] [phone] Notes/Report: Creatinine 0.86 0.5-1.4 mg/dL Estimated Glomerular Filt Rate > 60 Chronic Kidney Disease: Estimated GFR < 60 mL/min/1.73m2 Severe Kidney Disease: Estimated GFR < 15 mL/min/1.73m2 TSH reflex Free T4 Reviewed date:09/21/2024 12:01:45 PM Interpretation: Performing Lab:[address] [phone] Notes/Report: TSH reflex Free T4 0.38 0.32-4.0 uIU/mL Glucose, finger stick Reviewed date:01/13/2025 08:20:13 AM Interpretation: Performing Lab: Notes/Report: Value 175 Prothrombin Time INR Reviewed date:01/13/2025 10:36:58 AM Interpretation: Performing Lab:[facility], [address] [place] [phone] Notes/Report: Prothrombin Time 28.3 10.9-12.4 SEC INTERNATIONAL [...] Lipase Reviewed date:08/05/2024 05:42:05 PM Interpretation: Performing Lab:[facility], [address] [place] [phone] Notes/Report: Lipase 46 8-78 U/L Abigail Young Reviewed date:08/05/2024 05:43:12 PM Interpretation: Performing Lab:[facility], [address] [place] [phone] Notes/Report: Abigail Young See Note Specimen held untested for 24 hours; Call to request Chemistry testing. Lipid Panel Reviewed date:08/26/2024 03:08:03 PM Interpretation: Performing Lab:[facility], [address] [place] [phone] Notes/Report: Triglycerides 177 <150 mg/dL Desirable Triglyceride: [...] Young Reviewed date:08/26/2024 12:53:02 PM Interpretation: Performing Lab:[facility], [address] [place] [phone] Notes/Report: Abigail Young See Note Specimen held untested for 24 hours; Call to request Chemistry testing. Vitamin B12 Reviewed date:09/21/2024 12:02:00 PM Interpretation: Performing Lab:[facility], [address] [place] [phone] Notes/Report: Vitamin B12 377 200-900 pg/mL NORMAL 200-900 PG/ML INDETERMINATE 160-199 PG/ML DEFICIENT < 160 PG/ML Folate Reviewed date:09/21/2024 12:01:53 PM Interpretation: Performing Lab:[facility], [address] [place] [phone] Notes/Report: Folate 16.6 > or = 4.0 ng/mL Reference Values: > or = 4.0 ng/mL < 4.0 ng/mL suggests folate deficiency Methotrexate, aminopterin and folinic acid (leucovorin) are chemotherapeutic agents whose molecular structures are similar to folate; therefore, the [employer] folate assay cannot be used for patients using these drugs. Abigail Hardy Reviewed date:09/21/2024 12:02:06 PM Interpretation: Performing Lab:[facility], [address] [place] [phone] Notes/Report: Abigail Hardy See Note Specimen held [...] Zamora 04/16/2025 08:45:30 AM >REFFERAL FAXED TO [facility] FOR SCHEDULING, Kelle Zamorademetrius Graham 04/20/2025 02:11:29 PM >INSURANCE REFERRAL REQUESTED AND FAXED TO [facility], ToriNelyEdwardKavita nelson 05/14/2025 10:42:45 AM >PATIENT SCHEDULED FOR 07/28 [...] W/U Status Risk Notes Problem Atrial fibrillation (34130798) Atrial fibrillation (I48.91) Active confirmed Problem 920515901 Tubular adenoma (D36.9) Active confirmed Problem Long-term current use of anticoagulant (413862061) nursing home (current) use of anticoagulants (Z79.01) Active confirmed Problem 816645361 Body mass index (BMI) 35.0-35.9, adult (Z68.35) Active confirmed Problem 45214351 Essential hypert ension (I10) Active confirmed Problem Rosacea (977517790) Rosacea (L71.9) Active confirmed Problem 40882819 Type 2 diabetes mellitus without complication (E11.9) Active confirmed Problem History of malignant melanoma of the skin (824391341232) History of melanoma (Z85.820) Active confirmed Problem Polyneuropathy due to type 2 diabetes mellitus (716779701) Diabetic polyneuropathy associated with type 2 diabetes mellitus (E11.42) Active confirmed Problem 627177887 Cervical disc di sease (M50.90) Active confirmed Problem 300664775 Doxycycline adve rse reaction, initial encounter (T36.4X5A) Active confirmed Problem Diabetic autonomic neuropathy due to type 2 diabetes mellitus (659885822) Diabetic autonomic neuropathy associated with type 2 diabetes mellitus (E11.43) Active confirmed Problem 48392328 Unsteady gait (R26.81) Active confirme d Problem 649568996 Pure hypercholesterolemia (E78.00) Active confirmed Problem 516815543 Body mass index (BMI) of 39.0-39.9 in adult (Z68.39) Active confirmed Problem 671274584 Confusion state (F44.89) Active confirmed Vital Signs [...] Location Date Provider Diagnosis Liu Harris MD [address] [place] [address] [id number] 06/03/2024 Liu Harris nursing home (current) use of anticoagulants Z79.01 and Atrial fibrillation I48.91 Liu Harris MD [address] [place] [address] Drive [address] [place] [address] [id number] 06/17/2024 Liu Harris terminal worker (current) use of anticoagulants Z79.01 and Atrial fibrillation I48.91 Liu Harris MD [address] [place] [address] Drive [address] [place] [address] [id number] 07/01/2024 Liu Bombardier terminal worker (current) use of anticoagulants Z79.01 ; Encounter for immunization Z23 and Atrial fibrillation I48.91 Liu Harris MD [address] [place] [address] [id number] 07/15/2024 Liu Bombardier nursing home (current) use of anticoagulants Z79.01 and Atrial fibrillation I48.91 Liu Harris MD [address] [facility] [address] [id number] 08/12/2024 Liu Bombardier nursing home (current) use of anticoagulants Z79.01 ; Atrial fibrillation I48.91 ; Type 2 diabetes mellitus without complication E11.9 and Essential hypertension I10 Liu Harris MD [address] [facility] [address] [id number] 08/26/2024 Liu Harris Pure hypercholestero lemia E78.00 and Atrial fibrillation I48.91 Liu Harris MD [address] [facility] [address] [id number] 09/16/2024 Liu Bombardier nursing home (current) use of anticoagulants Z79.01 and Atrial fibrillation I48.91 Liu Harris MD [address] [place] [address] [id number] 09/30/2024 Liu Bombardier terminal worker (current) use of anticoagulants Z79.01 and Atrial fibrillation I48.91 Liu Harris MD [address] [id number] 10/16/2024 Liu Bombardier terminal worker (current) use of anticoagulants Z79.01 ; Atrial fibrillation I48.91 and Unsteady gait R26.81 Liu Harris MD [address] [place] [id number] 10/28/2024 Liu Bombardier terminal worker (current) use of anticoagulants Z79.01 and Atrial fibrillation I48.91 Liu Harris MD [address] [facility] [address] [id number] 11/11/2024 Liu Bombardier nursing home (current) use of anticoagulants Z79.01 and Atrial fibrillation I48.91 Liu Harris MD [address] [facility] [address] [id number] 11/25/2024 Liu Bombardier terminal worker (current) use of anticoagulants Z79.01 and Atrial fibrillation I48.91 Liu Harris MD [address] [place] [address] [id number] 12/09/2024 Liu Bombardidavon Atrial fibrillation I48.91 and nursing home (current) use of anticoagulants Z79.01 Liu Harris MD [address] [place] [address] [id number] 12/23/2024 Liu Bombardier terminal worker (current) use of anticoagulants Z79.01 and Atrial fibrillation I48.91 Liu Harris MD [address] [place] [address] [id number] 01/06/2025 Liu Bombardier nursing home (current) use of anticoagulants Z79.01 and Atrial fibrillation I48.91 Liu Harris MD [address] [id number] 01/27/2025 Liu Bombardier terminal worker (current) use of anticoagulants Z79.01 and Atrial fibrillation I48.91 Liu Harris MD [address] [id number] 02/17/2025 Liu Bombardier terminal worker (current) use of anticoagulants Z79.01 and Atrial fibrillation I48.91 Liu Harris MD [address] [id number] 03/10/2025 Liu Bombardier terminal worker (current) use of anticoagulants Z79.01 and Atrial fibrillation I48.91 Liu Harris MD [address] [id number] 03/24/2025 Liu Bombardier nursing home (current) use of anticoagulants Z79.01 and Atrial fibrillation I48.91 Liu Harris MD [address] [place] [address] [id number] 04/07/2025 Liu Bombardier nursing home (current) use of anticoagulants Z79.01 ; Atrial fibrillation I48.91 ; Essential hypertension I10 ; Type 2 diabetes mellitus without complication E11.9 ; Pure hypercholesterolemia E78.00 and Diabetic autonomic neuropathy associated with type 2 diabetes mellitus E11.43 Liu Harris MD [address] [place] [address] [id number] 04/21/2025 Liu Bombardier nursing home (current) use of anticoagulants Z79.01 and Atrial fibrillation I48.91 Liu Harris MD [address] [place] [address] [id number] 05/05/2025 Liu Harris terminal worker (current) use of anticoagulants Z79.01 and Atrial fibrillation I48.91 Liu Harris MD [address] [id number] 05/19/2025 Liu Harris terminal worker (current) use of anticoagulants Z79.01 and Atrial fibrillation I48.91 Liu Harris MD [address] [facility] [address] [id number] 06/02/2025 Liu Harris nursing home (current) use of anticoagulants Z79.01 and Atrial fibrillation I48.91 Liu Harris MD [address] [id number] 07/29/2024 Liu Harris nursing home (current) use of anticoagulants Z79.01 and Atrial fibrillation I48.91 Liu Harris MD [address] [place] [address] [id number] 08/05/2024 Liu Harris Type 2 diabetes opal itus without complication E11.9 ; Pure hypercholesterolemia E78.00 ; nursing home (current) use of anticoagulants Z79.01 and Atrial fibrillation I48.91 Liu Harris MD [address] [id number] 09/19/2024 Liu Harris Hx of melanoma of sk in Z85.820 ; Unsteady gait R26.81 ; Confusion state F44.89 and Blood tests prior to treatment or procedure Z01.812 Liu Harris MD [address] [place] [address] [id number] 01/13/2025 Liu Harris Type 2 diabetes opal itus without complication E11.9 ; Preop examination Z01.818 ; nursing home (current) use of anticoagulants Z79.01 ; Atrial fibrillation I48.91 and Essential hypertension I10 Liu Harris MD [address] [id number] 04/16/2025 Liu Harris Type 2 diabetes opal itus without complication E11.9 ; Adult general medical examination Z00.00 ; Essential hypertension I10 ; History of melanoma Z85.820 ; Diabetic autonomic neuropathy associated with type 2 diabetes mellitus E11.43 ; Colon cancer screening Z12.11 ; Depression screening Z13.31 and Pure hypercholesterolemia E78.00 Liu Harris MD [address] [place] [address] [id number] 09/15/2024 Liu Harris MD [address] [place] [address] [id number] 09/18/2024 Liu Harris MD [address] [place] [address] [id number] 09/22/2024 Liu Harris Foreign body in eye, right, initial encounter T15.91XA Liu Harris MD [address] [place] [address] [id number] 10/09/2024 Liu Harris Assessments Encounter Date Diagnosis (ICD Code) Assessment Notes Treatment Notes Treatment Clinical Notes Section Notes 06/03/2024 nursing home (current) use of anticoagulants (ICD-10 - Z79.01) 06/03/2024 Atrial fibrillation (ICD-10 - I48.91) 06/17/2024 terminal worker (current) use of anticoagulants (ICD-10 - Z79.01) 06/17/2024 Atrial fibrillation (ICD-10 - I48.91) 07/01/2024 terminal worker (current) use of anticoagulants (ICD-10 - Z79.01) 07/01/2024 Encounter for immunization (ICD-10 - Z23) 07/15/2024 terminal worker (current) use of anticoagulants (ICD-10 - Z79.01) 07/15/2024 Atrial fibrillation (ICD-10 - I48.91) 08/12/2024 nursing home (current) use of anticoagulants (ICD-10 - Z79.01) not having any problems Will do Lipids at his 08-26-24 INR Visit 08/12/2024 Atrial fibrillation (ICD-10 - I48.91) need lipids i think the lab did lipase instead of lipids 08/26/2024 Pure hypercholesterolemia (ICD-10 - E78.00) 08/26/2024 Atrial fibrillation (ICD-10 - I48.91) 09/16/2024 nursing home (current) use of anticoagulants (ICD-10 - Z79.01) 09/16/2024 Atrial fibrillation (ICD-10 - I48.91) 09/30/2024 nursing home (current) use of anticoagulants (ICD-10 - Z79.01) 09/30/2024 Atrial fibrillation (ICD-10 - I48.91) 10/16/2024 nursing home (current) use of anticoagulants (ICD-10 - Z79.01) is doing well with no problems 10/16/2024 Atrial fibrillation (ICD-10 - I48.91) when he gets into afib gets a diureses which is related to a naturtic hormone. has been doing well now 10/28/2024 nursing home (current) use of anticoagulants (ICD-10 - Z79.01) 10/28/2024 Atrial fibrillation (ICD-10 - I48.91) 11/11/2024 terminal worker (current) use of anticoagulants (ICD-10 - Z79.01) 11/25/2024 nursing home (current) use of anticoagulants (ICD-10 - Z79.01) 12/09/2024 Atrial fibrillation (ICD-10 - I48.91) 12/23/2024 terminal worker (current) use of anticoagulants (ICD-10 - Z79.01) 01/06/2025 terminal worker (current) use of anticoagulants (ICD-10 - Z79.01) 01/27/2025 terminal worker (current) use of anticoagulants (ICD-10 - Z79.01) 02/17/2025 terminal worker (current) use of anticoagulants (ICD-10 - Z79.01) 03/10/2025 terminal worker (current) use of anticoagulants (ICD-10 - Z79.01) 03/24/2025 terminal worker (current) use of anticoagulants (ICD-10 - Z79.01) 04/07/2025 nursing home (current) use of anticoagulants (ICD-10 - Z79.01) 04/21/2025 nursing home (current) use of anticoagulants (ICD-10 - Z79.01) 05/05/2025 nursing home (current) use of anticoagulants (ICD-10 - Z79.01) 05/19/2025 terminal worker (current) use of anticoagulants (ICD-10 - Z79.01) 06/02/2025 nursing home (current) use of anticoagulants (ICD-10 - Z79.01) 07/29/2024 terminal worker (current) use of anticoagulants (ICD-10 - Z79.01) 07/29/2024 Atrial fibrillation (ICD-10 - I48.91) 08/05/2024 Type 2 diabetes mellitus without complication (ICD-10 - E11.9) 08/05/2024 Pure hypercholesterolemia (ICD-10 - E78.00) 09/19/2024 Hx of melanoma of sk in (ICD-10 - Z85.820) followed by derm/ MRI order faxed to [facility], pending diagnostic testing 09/19/2024 Unsteady gait (ICD-1 [...] MRI with patient, is going to see activities counselor for cataract surgery/ feels as though it is related to his vision as a problem 11/11/2024 Atrial fibrillation (ICD-10 - I48.91) 11/25/2024 Atrial fibrillation (ICD-10 - I48.91) 12/09/2024 terminal worker (current) use of anticoagulants (ICD-10 - Z79.01) [...] I48.91) 05/19/2025 Atrial fibrillation (ICD-10 - I48.91) 06/02/2025 Atrial fibrillation (ICD-10 - I48.91) 08/05/2024 nursing home (current) use of anticoagulants (ICD-10 - Z79.01) 09/19/2024 Confusion state (ICD -10 - F44.89) pending diagnostic testing 01/13/2025 nursing home (current) use of anticoagulants (ICD-10 - Z79.01) will hold for 3 days prior to the upcoming surgery, patient verbalized understanding of instruction to d'c medication 3 days prior to surgery 04/16/2025 Essential hypertensi on (ICD-10 - I10) well controlled, will cntinue current regiment 09/22/2024 Foreign body in eye, right, initial encounter (ICD-10 - T15.91XA) Order faxed to [facility] [phone] 08/12/2024 Essential hypertensi on (ICD-10 - I10) [...] Next Appt Details Provider Name:Liu Shafer ier, 10/19/2025 07:15:00 AM, [address] [place] [address], [address], [phone], Provider Name:Liu Shafer ier, 10/26/2025 09:00:00 AM, [address] [place] [address], [address], [phone], Provider Name:Liu Shafer ier, 04/12/2026 07:00:00 AM, [address] [place] [address], [address], [phone], Provider Name:Liu Shafer ier, 04/19/2026 08:30:00 AM, [address] [place] [address], [address], [phone], Insurance Providers Payer Name Payer Address Payer Phone Subscriber Number Group Number Insured Name Patient Relationship to Insured Coverage Start Date Coverage End Date [employer] [address] [place], [place] [id number] Remington Eric Self - patient is the insured Medical (General) History Medical History History ICD Code Atrial fibrillation diabetes mellitus colonoscopy - 02/26/2013; colonoscopy 03/[address] Gifford - repeat 5 years Surgical History Surgery Date(Month/Year) pulmonarry artery ablation Partial Medial Menisectomy, rt knee (Dr. Perez) 10/2016
== END 2025-06-02 11:05 | disposition home or self-care (01) ==
LOC: HO.LNP 11:04
PROVIDERS: Visit Provider Internal Medicine
DX: I48.91 Unspecified atrial fibrillation (principal); Z79.01 Long term (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 of 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
CPT/HCPCS: 85610

== ENCOUNTER 2025-06-16 11:11 | Outpatient (REF) | payer BC, SELFPAY ==
[2025-06-16 11:25] LABS: INTERNATIONAL NORM RATIO 2.4 (0.9-1.1); Prothrombin Time 27.3 SEC (10.9-12.4)
--- OUTSIDE RECORDS SUMMARY | 2025-06-16 12:45 | XMS_ITS | Clinical Summary ---
Author Organization [facility] [employer] Address [address] [place] [address] Phone Care Team Providers Care Vibrating Screen Operator Name Role Phone Liu Harris MD [...] atrial fibrillation ([facility]/HCC V24, CMS/HCC V28) TAKE 1 TABLET BY [...] Atrial fibrillation ([facility] V24, [facility] V28) 1 Overview (12/03/2024): Last Assessment & [...] echocardiogram. Diabetes ([facility]/HCC V24, CMS/HCC V28) 08/11/2021 Hyperlipidemia 08/11/2021 Overview [...] 04/23/2025 Telephone Gastroenterology - [address] [place] [phone] Donnie Coronado MD 04/20/2025 Telephone Gastroenterology - [address] [place] [address] Donnie Coronado MD 04/07/2025 8:00 AM EDT Ancillary Procedure [facility] - [address] [place] [phone] Paroxysmal atrial fibrillation (CMS/HCC V24, CMS/HCC V28); [...] Description 07/24/2025 8:50 AM EDT Office Visit [facility] [address] [place] [address] [address] [place] [phone] Ed Cadena MD [address] [place] [address] Dr [address] [place] [phone] 07/28/2025 10:00 AM EDT Appointment [facility] [address] [place] [address] Donnie Coronado MD [address] [place] [phone] Health Maintenance Due Date Last Done Comments [...] (04/07/2025 8:43 AM EDT) Left Atrium Minor Arch Cape 5.9 cm CV PACS Left Atrium Major Arch Cape 6.2 cm CV PACS [place] Area Sys [...] Volume 92 mL CV PACS MV Deceleration [place] 5.0 m/s2 CV PACS E Wave Deceleration [...] Details Overall the study quality was adequate. us Jody Askew LANG PATH THERAPIST CV ECHO PROCEDURES Final Res ult from Last 3 Months Insurance MEDICARE [facility] Care Teams Vibrating Screen Operator Relationship Specialty Start Date End Date Liu Harris MD [address] [place] [address] Drive [address] [place] [address] PCP - General 07/30/12
== END 2025-06-16 11:12 | disposition home or self-care (01) ==
LOC: HO.LNP 11:11
PROVIDERS: Visit Provider Internal Medicine
DX: I48.91 Unspecified atrial fibrillation (principal); Z79.01 Long term (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 of 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
CPT/HCPCS: 85610

== ENCOUNTER 2025-06-30 10:31 | Outpatient (REF) | payer BC, SELFPAY ==
--- OUTSIDE RECORDS SUMMARY | 2025-05-05 04:15 | XMS_ITS ---
Author Organization Liu Harris MD Address [address] [place] [phone] Care Team Providers Care Auricular Acupuncturist Name Role Phone Liu Harris Primary Care Provider Results Component Value Reference Range Notes Prothrombin Time INR Reviewed date:05/05/2025 10:27:45 AM Interpretation: Performing Lab:[facility], [address] [place] [phone] Notes/Report: Prothrombin Time 26.4 10.9-12.4 SEC INTERNATIONAL [...] Location Date Provider Diagnosis Liu Harris MD [address] [place] [address] [place] [phone] 05/05/2025 Liu Harris prison (current) use of anticoagulants Z79.01 and Atrial fibrillation I48.91 Assessments Encounter Date Diagnosis (ICD Code) Assessment Notes Treatment Notes Treatment Clinical Notes Section Notes 05/05/2025 prison (current) use of anticoagulants (ICD-10 - Z79.01) 05/05/2025 Atrial fibrillation (ICD-10 - I48.91) Plan Of Treatment Next Appt Details Provider Name:Liu hyde, 10/19/2025 07:15:00 AM, [address] [place] [address], [address], [phone], Provider Name:Liu hyde, 10/26/2025 09:00:00 AM, [address] [place] [address], [address], [phone], Provider Name:Liu hyde, 04/12/2026 07:00:00 AM, [address] [place] [address], [address], [phone], Provider Name:Liu hyde, 04/19/2026 08:30:00 AM, [address] [place] [address], [address], [phone], Progress Notes * Remington ERIC RDOB:1960 (65 yo M)Acc No.[id number]:05/05/2025 Progress Note Patient: Remington PEDERSEN Dante Provider: Lillie Harris MD :1960 A ge:65 Y S ex:Male Date:05/05/2025 Address:[address] [place], [place] [phone] Subjective: * Chief Complaints: * 1 . [...] 0 05/05/2025 Generated for Josue mejia/Oxana/Bintaitting on: 0 06/30/2025 01:48 PM EDT
--- OUTSIDE RECORDS SUMMARY | 2025-05-19 05:15 | XMS_ITS ---
Author Organization Liu Harris MD Address [address] [place] [phone] Care Team Providers Care Beef Boner Name Role Phone Liu Harris Primary Care Provider [phone] Results Component Value Reference Range Notes Prothrombin Time INR Reviewed date:05/19/2025 12:41:51 PM Interpretation: Performing Lab:[facility], [address] [place] [phone] Notes/Report: Prothrombin Time 23.4 10.9-12.4 SEC INTERNATIONAL [...] Location Date Provider Diagnosis Liu Harris MD [address] [place] [address] [place] [phone] 05/19/2025 Liu Harris assisted (current) use of anticoagulants Z79.01 and Atrial fibrillation I48.91 Assessments Encounter Date Diagnosis (ICD Code) Assessment Notes Treatment Notes Treatment Clinical Notes Section Notes 05/19/2025 assisted (current) use of anticoagulants (ICD-10 - Z79.01) 05/19/2025 Atrial fibrillation (ICD-10 - I48.91) Plan Of Treatment Next Appt Details Provider Name:Liu hyde, 10/19/2025 07:15:00 AM, [address] [place] [address], [address], [phone], Provider Name:Liu hyde, 10/26/2025 09:00:00 AM, [address] [place] [address], [address], [phone], Provider Name:Liu hyde, 04/12/2026 07:00:00 AM, [address] [place] [address], [address], [phone], Provider Name:Liu hyde, 04/19/2026 08:30:00 AM, [address] [place] [address], [address], [phone], Progress Notes * Remington ERIC RDOB:1960 (65 yo M)Acc No.[id number]:05/19/2025 Progress Note Patient: Remington PEDERSEN Dante Provider: Lillie Harris MD :1960 A ge:65 Y S ex:Male Date:05/19/2025 Address:[address] [place], [place] [phone] Subjective: * Chief Complaints: * 1 . [...] 05/19/2025 Generated for Josue mejia/Oxana/Bintaitting on: 0 06/30/2025 01:48 PM EDT
--- OUTSIDE RECORDS SUMMARY | 2025-06-02 04:30 | XMS_ITS ---
Author Organization Liu Harris MD Address [address] [place] [phone] Care Team Providers Care Conference And Event Organiser Name Role Phone Liu Harris Primary Care Provider [phone] Results Component Value Reference Range Notes Prothrombin Time INR Reviewed date:06/02/2025 11:24:03 AM Interpretation: Performing Lab:[facility], [address] [place] [phone] Notes/Report: Prothrombin Time 25.7 10.9-12.4 SEC INTERNATIONAL [...] Date Provider Diagnosis Liu Harris MD [address] [place] [address] [place] [phone] 06/02/2025 Liu Harris [facility] (current) use of anticoagulants Z79.01 and Atrial fibrillation I48.91 Assessments Encounter Date Diagnosis (ICD Code) Assessment Notes Treatment Notes Treatment Clinical Notes Section Notes 06/02/2025 [facility] (current) use of anticoagulants (ICD-10 - Z79.01) 06/02/2025 Atrial fibrillation (ICD-10 - I48.91) Plan Of Treatment Next Appt Details Provider Name:Liu hyde, 10/19/2025 07:15:00 AM, [address] [place] [address], [address], [phone], Provider Name:Liu hyde, 10/26/2025 09:00:00 AM, [address] [place] [address], [address], [phone], Provider Name:Liu hyde, 04/12/2026 07:00:00 AM, [address] [place] [address], [address], [phone], Provider Name:Liu hyde, 04/19/2026 08:30:00 AM, [address] [place] [address], [address], [phone], Progress Notes * Remington ERIC RDOB:1960 (65 yo M)Acc No.[id number]:06/02/2025 Progress Note Patient: Remington PEDERSEN Dante Provider: Lillie Harris MD :1960 A ge:65 Y S ex:Male Date:06/02/2025 Address:[address] [place], [place] [phone] Subjective: * Chief Complaints: * 1 . [...] 0 06/02/2025 Generated for Josue mejia/Oxana/Bintaitting on: 0 06/30/2025 01:49 PM EDT
--- OUTSIDE RECORDS SUMMARY | 2025-06-16 05:30 | XMS_ITS ---
Author Organization Liu Harris MD Address [address] [place] [phone] Care Team Providers Care Dance Coach Name Role Phone Liu Harris Primary Care Provider Results Component Value Reference Range Notes Prothrombin Time INR Reviewed date:06/16/2025 12:35:41 PM Interpretation: Performing Lab:[facility], [address] [place] [phone] Notes/Report: Prothrombin Time 27.3 10.9-12.4 SEC INTERNATIONAL [...] Date Provider Diagnosis Liu Harris MD [address] [place] [address] [place] [phone] 06/16/2025 Liu Harris [facility] (current) use of anticoagulants Z79.01 and Atrial fibrillation I48.91 Assessments Encounter Date Diagnosis (ICD Code) Assessment Notes Treatment Notes Treatment Clinical Notes Section Notes 06/16/2025 [facility] (current) use of anticoagulants (ICD-10 - Z79.01) 06/16/2025 Atrial fibrillation (ICD-10 - I48.91) Plan Of Treatment Next Appt Details Provider Name:Liu hyde, 10/19/2025 07:15:00 AM, [address] [place] [address], [address], [phone], Provider Name:Liu hyde, 10/26/2025 09:00:00 AM, [address] [place] [address], [address], [phone], Provider Name:Liu hyde, 04/12/2026 07:00:00 AM, [address] [place] [address], [address], [phone], Provider Name:Liu hyde, 04/19/2026 08:30:00 AM, [address] [place] [address], [address], [phone], Progress Notes * Remington ERIC RDOB:1960 (65 yo M)Acc No.[id number]:06/16/2025 Progress Note Patient: Remington PEDERSEN Dante Provider: Lillie Harris MD :1960 A ge:65 Y S ex:Male Date:06/16/2025 Address:[address] [place], [place] [phone] Subjective: * Chief Complaints: * 1 . [...] 0 06/16/2025 Generated for Josue mejia/Oxana/Bintaitting on: 0 06/30/2025 01:48 PM EDT
--- OUTSIDE RECORDS SUMMARY | 2025-06-30 04:30 | XMS_ITS ---
Author Organization Liu Harris MD Address [address] [place] [phone] Care Team Providers Care Advertising Internship Name Role Phone Liu Harris Primary Care Provider [phone] Results Component Value Reference Range Notes Prothrombin Time INR Reviewed date:06/30/2025 12:04:22 PM Interpretation: Performing Lab:[facility], [address] [place] [phone] Notes/Report: Prothrombin Time 25.8 10.9-12.4 SEC INTERNATIONAL [...] Date Provider Diagnosis Liu Harris MD [address] [place] [address] [place] [phone] 06/30/2025 Liu Harris [facility] (current) use of anticoagulants Z79.01 and Atrial fibrillation I48.91 Assessments Encounter Date Diagnosis (ICD Code) Assessment Notes Treatment Notes Treatment Clinical Notes Section Notes 06/30/2025 [facility] (current) use of anticoagulants (ICD-10 - Z79.01) 06/30/2025 Atrial fibrillation (ICD-10 - I48.91) Plan Of Treatment Next Appt Details Provider Name:Liu hyde, 10/19/2025 07:15:00 AM, [address] [place] [address], [address], [phone], Provider Name:Liu hyde, 10/26/2025 09:00:00 AM, [address] [place] [address], [address], [phone], Provider Name:Liu hyde, 04/12/2026 07:00:00 AM, [address] [place] [address], [address], [phone], Provider Name:Liu hyde, 04/19/2026 08:30:00 AM, [address] [place] [address], [address], [phone], Progress Notes * Remington ERIC RDOB:1960 (65 yo M)Acc No.[id number]:06/30/2025 Progress Note Patient: Remington PEDERSEN Dante Provider: Lillie Harris MD :1960 A ge:65 Y S ex:Male Date:06/30/2025 Address:[address] [place], [place] [phone] Subjective: * Chief Complaints: * 1 . [...] 0 06/30/2025 Generated for Josue mejia/Oxana/Bintaitting on: 0 06/30/2025 01:48 PM EDT
[2025-06-30 11:38] LABS: INTERNATIONAL NORM RATIO 2.2 (0.9-1.1); Prothrombin Time 25.8 SEC (10.9-12.4)
--- OUTSIDE RECORDS SUMMARY | 2025-06-30 13:48 | XMS_ITS | Patient Health Record ---
Author Organization Liu Harris MD Address [address] [place] [phone] Care Team Providers Care Porter Luggage Name Role Phone Liu Harris Primary Care Provider [phone] Allergies No Known Allergies Results Component Value Reference Range Notes Hemoglobin A1c Reviewed date:01/13/2025 08:26:35 AM Interpretation: Performing Lab: Notes/Report: Hemoglobin A1c 8.1 Prothrombin Time INR Reviewed date:07/01/2024 12:37:48 PM Interpretation: Performing Lab:[facility], [address] [place] [phone] Notes/Report: Prothrombin Time 30.4 11.1-13.3 SEC INTERNATIONAL [...] INR Reviewed date:07/15/2024 12:50:32 PM Interpretation: Performing Lab:[facility], [address] [place] [phone] Notes/Report: Prothrombin Time 18.4 10.9-12.4 SEC INTERNATIONAL [...] INR Reviewed date:08/12/2024 12:09:44 PM Interpretation: Performing Lab:[facility], [address] [place] [phone] Notes/Report: Prothrombin Time 26.1 10.9-12.4 SEC INTERNATIONAL [...] INR Reviewed date:08/26/2024 12:46:34 PM Interpretation: Performing Lab:[facility], [address] [place] [phone] Notes/Report: Prothrombin Time 35.5 10.9-12.4 SEC INTERNATIONAL [...] INR Reviewed date:09/16/2024 12:42:50 PM Interpretation: Performing Lab:[facility], [address] [place] [phone] Notes/Report: Prothrombin Time 30.5 10.9-12.4 SEC INTERNATIONAL [...] INR Reviewed date:09/30/2024 12:23:25 PM Interpretation: Performing Lab:[facility], [address] [place] [phone] Notes/Report: Prothrombin Time 28.9 10.9-12.4 SEC INTERNATIONAL [...] INR Reviewed date:10/16/2024 06:51:10 PM Interpretation: Performing Lab:[facility], [address] [place] [phone] Notes/Report: Prothrombin Time 28.4 10.9-12.4 SEC INTERNATIONAL [...] INR Reviewed date:10/28/2024 05:01:12 PM Interpretation: Performing Lab:[facility], [address] [place] [phone] Notes/Report: Prothrombin Time 27.4 10.9-12.4 SEC INTERNATIONAL [...] INR Reviewed date:11/11/2024 11:57:26 AM Interpretation: Performing Lab:[facility], [address] [place] [phone] Notes/Report: Prothrombin Time 31.9 10.9-12.4 SEC INTERNATIONAL [...] INR Reviewed date:11/25/2024 12:38:44 PM Interpretation: Performing Lab:[facility], [address] [place] [phone] Notes/Report: Prothrombin Time 28.5 10.9-12.4 SEC INTERNATIONAL [...] INR Reviewed date:12/09/2024 12:27:16 PM Interpretation: Performing Lab:[facility], [address] [place] [phone] Notes/Report: Prothrombin Time 32.4 10.9-12.4 SEC INTERNATIONAL [...] INR Reviewed date:12/23/2024 12:10:07 PM Interpretation: Performing Lab:[facility], [address] [place] [phone] Notes/Report: Prothrombin Time 30.2 10.9-12.4 SEC INTERNATIONAL [...] INR Reviewed date:01/06/2025 10:32:13 AM Interpretation: Performing Lab:[facility], [address] [place] [phone] Notes/Report: Prothrombin Time 33.3 10.9-12.4 SEC INTERNATIONAL [...] INR Reviewed date:01/27/2025 11:31:40 AM Interpretation: Performing Lab:[facility], [address] [place] [phone] Notes/Report: Prothrombin Time 28.1 10.9-12.4 SEC INTERNATIONAL [...] INR Reviewed date:02/17/2025 11:22:57 AM Interpretation: Performing Lab:[facility], [address] [place] [phone] Notes/Report: Prothrombin Time 25.2 10.9-12.4 SEC INTERNATIONAL [...] INR Reviewed date:03/10/2025 12:34:22 PM Interpretation: Performing Lab:[facility], [address] [place] [phone] Notes/Report: Prothrombin Time 20.3 10.9-12.4 SEC INTERNATIONAL [...] INR Reviewed date:03/24/2025 11:29:00 AM Interpretation: Performing Lab:[facility], [address] [place] [phone] Notes/Report: Prothrombin Time 31.8 10.9-12.4 SEC INTERNATIONAL [...] ff Reviewed date:04/07/2025 12:37:35 PM Interpretation: Performing Lab:[facility], [address] [place] [phone] Notes/Report: White Blood Count 6.6 4.8-10.8 X10*3/uL [...] INR Reviewed date:04/07/2025 10:53:43 AM Interpretation: Performing Lab:[facility], [address] [place] [phone] Notes/Report: Prothrombin Time 25.0 10.9-12.4 SEC INTERNATIONAL [...] prosthetic heart valves: 2.5 - 3.5 Comprehensive [place] Reviewed date:04/07/2025 12:44:59 PM Interpretation: Performing Lab:[facility], [address] [place] [phone] Notes/Report: Sodium 139 135-145 mmol/L Potassium 4.0 [...] Reflex Reviewed date:04/07/2025 12:44:40 PM Interpretation: Performing Lab:[address] [phone] Notes/Report: Triglycerides 106 <150 mg/dL Desirable Triglyceride: [...] (Free>4and<10) Reviewed date:04/07/2025 12:26:21 PM Interpretation: Performing Lab:[address] [phone] Notes/Report: PSA,Total (Free>4and<10) 0.49 0.00-4.00 ng/mL A [...] Random Reviewed date:04/07/2025 12:29:08 PM Interpretation: Performing Lab:[address] [address] Notes/Report: Creatinine Urine 77.80 Microalbumin Urine 13.0 Microalbum/Creatinine Ratio Ur 16.7 <30 ug/mg cr Albumin/Creatinine Ratio Reference Ranges: Normal: < 30 ug/mg creatinine Microalbuminuria: 30 - 300 ug/mg creatinine Clinical Albuminuria: > 300 ug/mg creatinine Hemoglobin A1c Reviewed date:04/07/2025 12:26:50 PM Interpretation: Performing Lab:[address] [phone] Notes/Report: Hemoglobin A1c % 7.3 <6.0 % [...] average glucose, using the formula of the V7K-Clhgrnd Average Glucose study (ADAG), Diabetes Care, Vol.31,#8, May. 2007 UA ClnCatch+Micro w/rflx Cul t Reviewed date:04/07/2025 12:37:53 PM Interpretation: Performing Lab:[address] [phone] Notes/Report: [id number] Urine, Clean Catch Color Urine Yellow Appearance Urine Clear PH 7.0 5.0-9.0 Glucose Urine UA Negative Negative mg/dL Urine Blood Negative Negative Specific [place] - Urine 1.020 1.005-1.025 Urine Protein Negative Neg-Trace mg/dL Urine Ketones Negative Negative mg/dL Nitrite Urine Negative Negative Leukocyte Esterase Urine Negative Negative RBC Urine 0-2 0-2 /HPF WBC Urine 0-5 0-5 /HPF Squamous Epithelial Cell Urine 0-2 0-2 /HPF Bacteria Urine None Seen None Seen Hyaline Casts Urine 0-2 0-2 /LPF Prothrombin Time INR Reviewed date:04/21/2025 10:32:14 AM Interpretation: Performing Lab:[facility], [address] [place] [phone] Notes/Report: Prothrombin Time 29.1 10.9-12.4 SEC INTERNATIONAL [...] INR Reviewed date:05/05/2025 10:27:45 AM Interpretation: Performing Lab:[facility], [address] [place] [phone] Notes/Report: Prothrombin Time 26.4 10.9-12.4 SEC INTERNATIONAL [...] INR Reviewed date:05/19/2025 12:41:51 PM Interpretation: Performing Lab:[facility], [address] [place] [phone] Notes/Report: Prothrombin Time 23.4 10.9-12.4 SEC INTERNATIONAL [...] INR Reviewed date:06/02/2025 11:24:03 AM Interpretation: Performing Lab:[facility], [address] [place] [phone] Notes/Report: Prothrombin Time 25.7 10.9-12.4 SEC INTERNATIONAL [...] 2.5 - 3.5 Prothrombin Time INR Reviewed date:06/16/2025 12:35:41 PM Interpretation: Performing Lab:[facility], [address] [place] [phone] Notes/Report: Prothrombin Time 27.3 10.9-12.4 SEC INTERNATIONAL [...] 2.5 - 3.5 Prothrombin Time INR Reviewed date:06/30/2025 12:04:22 PM Interpretation: Performing Lab:[facility], [address] [place] [phone] Notes/Report: Prothrombin Time 25.8 10.9-12.4 SEC INTERNATIONAL [...] INR Reviewed date:07/29/2024 01:46:50 PM Interpretation: Performing Lab:[address] [address] Notes/Report: Prothrombin Time 31.5 10.9-12.4 SEC INTERNATIONAL [...] INR Reviewed date:08/05/2024 12:55:18 PM Interpretation: Performing Lab:[address] [address] Notes/Report: Prothrombin Time 26.4 10.9-12.4 SEC INTERNATIONAL [...] Panel Reviewed date:08/05/2024 05:41:41 PM Interpretation: Performing Lab:[address] [address] Notes/Report: Bilirubin Total 1.3 0.0-1.0 mg/dL Bilirubin Direct 0.4 0.0-0.5 mg/dL Aspartate Amino Transferase 31 5-37 U/L Alanine Aminotransferase 39 0-40 U/L Total Protein 7.4 6.5-8.0 g/dL Albumin Level 4.3 3.5-5.0 g/dL Alkaline Phosphatase 62 39-117 U/L Glucose Fasting Reviewed date:08/05/2024 05:42:35 PM Interpretation: Performing Lab:[facility], [address] [place] [phone] Notes/Report: Glucose Fasting 166 60-99 mg/dL A fasting glucose of 126 mg/dl or greater on more than one occasion is considered diagnostic of diabetes. Hemoglobin A1c Reviewed date:08/05/2024 08:40:07 PM Interpretation: Performing Lab:[address] [address] Notes/Report: Hemoglobin A1c % 7.1 <6.0 % [...] average glucose, using the formula of the Y4T-Gvmgkud Average Glucose study (ADAG), Diabetes Care, Vol.31,#8, 2007 Blood Urea Nitrogen Reviewed date:09/21/2024 12:00:49 PM Interpretation: Performing Lab:[facility], [address] [place] [phone] Notes/Report: Blood Urea Nitrogen 15 9-16 mg/dL Creatinine Reviewed date:09/21/2024 12:04:27 PM Interpretation: Performing Lab:[address] [phone] Notes/Report: Creatinine 0.86 0.5-1.4 mg/dL Estimated Glomerular Filt Rate > 60 Chronic Kidney Disease: Estimated GFR < 60 mL/min/1.73m2 Severe Kidney Disease: Estimated GFR < 15 mL/min/1.73m2 TSH reflex Free T4 Reviewed date:09/21/2024 12:01:45 PM Interpretation: Performing Lab:[address] [address] Notes/Report: TSH reflex Free T4 0.38 0.32-4.0 uIU/mL Glucose, finger stick Reviewed date:01/13/2025 08:20:13 AM Interpretation: Performing Lab: Notes/Report: Value 175 Prothrombin Time INR Reviewed date:01/13/2025 10:36:58 AM Interpretation: Performing Lab:[facility], [address] [place] [phone] Notes/Report: Prothrombin Time 28.3 10.9-12.4 SEC INTERNATIONAL [...] Lipase Reviewed date:08/05/2024 05:42:05 PM Interpretation: Performing Lab:[facility], [address] [place] [phone] Notes/Report: Lipase 46 8-78 U/L Abigail Young Reviewed date:08/05/2024 05:43:12 PM Interpretation: Performing Lab:[facility], [address] [place] [address] Notes/Report: Abigail Young See Note Specimen held untested for 24 hours; Call to request Chemistry testing. Lipid Panel Reviewed date:08/26/2024 03:08:03 PM Interpretation: Performing Lab:[facility], [address] [place] [phone] Notes/Report: Triglycerides 177 <150 mg/dL Desirable Triglyceride: [...] Young Reviewed date:08/26/2024 12:53:02 PM Interpretation: Performing Lab:[facility], [address] [place] [phone] Notes/Report: Abigail Young See Note Specimen held untested for 24 hours; Call to request Chemistry testing. Vitamin B12 Reviewed date:09/21/2024 12:02:00 PM Interpretation: Performing Lab:[facility], [address] [place] [phone] Notes/Report: Vitamin B12 377 200-900 pg/mL NORMAL 200-900 PG/ML INDETERMINATE 160-199 PG/ML DEFICIENT < 160 PG/ML Folate Reviewed date:09/21/2024 12:01:53 PM Interpretation: Performing Lab:[facility], [address] [place] [address] Notes/Report: Folate 16.6 > or = 4.0 ng/mL Reference Values: > or = 4.0 ng/mL < 4.0 ng/mL suggests folate deficiency Methotrexate, aminopterin and folinic acid (leucovorin) are chemotherapeutic agents whose molecular structures are similar to folate; therefore, the Manager Qa folate assay cannot be used for patients using these drugs. Abigail Hardy Reviewed date:09/21/2024 12:02:06 PM Interpretation: Performing Lab:[facility], [address] [place] [phone] Notes/Report: Abigail Hardy See Note Specimen held [...] PM >INSURANCE REFERRAL REQUESTED AND FAXED TO [facility], ToriNelyEdwardKavita nelson 05/14/2025 10:42:45 AM >PATIENT [...] W/U Status Risk Notes Problem Atrial fibrillation (34225176) Atrial fibrillation (I48.91) Active confirmed Problem 362200305 Tubular adenoma (D36.9) Active confirmed Problem Long-term current use of anticoagulant (404117830) FPC (current) use of anticoagulants (Z79.01) Active confirmed Problem 028694057 Body mass index (BMI) 35.0-35.9, adult (Z68.35) Active confirmed Problem 74266316 Essential hypert ension (I10) Active confirmed Problem Rosacea (122745230) Rosacea (L71.9) Active confirmed Problem 38173948 Type 2 diabetes mellitus without complication (E11.9) Active confirmed Problem History of malignant melanoma of the skin (281392160109) History of melanoma (Z85.820) Active confirmed Problem Polyneuropathy due to type 2 diabetes mellitus (069116315) Diabetic polyneuropathy associated with type 2 diabetes mellitus (E11.42) Active confirmed Problem 052356248 Cervical disc di sease (M50.90) Active confirmed Problem 971016152 Doxycycline adve rse reaction, initial encounter (T36.4X5A) Active confirmed Problem Diabetic autonomic neuropathy due to type 2 diabetes mellitus (409227117) Diabetic autonomic neuropathy associated with type 2 diabetes mellitus (E11.43) Active confirmed Problem 79050411 Unsteady gait (R26.81) Active confirme d Problem 250029850 Pure hypercholesterolemia (E78.00) Active confirmed Problem 760443948 Body mass index (BMI) of 39.0-39.9 in adult (Z68.39) Active confirmed Problem 876445384 Confusion state (F44.89) Active confirmed Vital Signs [...] Diagnosis Liu Harris MD [address] [place] [id number] 07/01/2024 Liu Harris salvage determiner (current) use of anticoagulants Z79.01 ; Encounter for immunization Z23 and Atrial fibrillation I48.91 Liu Harris MD [address] [place] [address] Drive [address] [place] [address] [id number] 07/15/2024 Liu Harris FPC (current) use of anticoagulants Z79.01 and Atrial fibrillation I48.91 Liu Harris MD [address] [place] [address] Drive [address] [place] [id number] 08/12/2024 Liu Bombardier FPC (current) use of anticoagulants Z79.01 ; Atrial fibrillation I48.91 ; Type 2 diabetes mellitus without complication E11.9 and Essential hypertension I10 Liu Harris MD [address] [place] [id number] 08/26/2024 Liu Harris Pure hypercholestero lemia E78.00 and Atrial fibrillation I48.91 Liu Harris MD [address] [place] [id number] 09/16/2024 Liu Bombardier FPC (current) use of anticoagulants Z79.01 and Atrial fibrillation I48.91 Liu Harris MD [address] [place] [id number] 09/30/2024 Liu Bombardier FPC (current) use of anticoagulants Z79.01 and Atrial fibrillation I48.91 Liu Harris MD [address] [id number] 10/16/2024 Liu Bombardier FPC (current) use of anticoagulants Z79.01 ; Atrial fibrillation I48.91 and Unsteady gait R26.81 Liu Harris MD [address] [place] [address] [id number] 10/28/2024 Liu Bombardier salvage determiner (current) use of anticoagulants Z79.01 and Atrial fibrillation I48.91 Liu Harris MD [address] [id number] 11/11/2024 Liu Bombardier FPC (current) use of anticoagulants Z79.01 and Atrial fibrillation I48.91 Liu Harris MD [address] [place] [id number] 11/25/2024 Liu Bombardier FPC (current) use of anticoagulants Z79.01 and Atrial fibrillation I48.91 Liu Harris MD [address] [id number] 12/09/2024 Liu Bombardier Atrial fibrillation I48.91 and FPC (current) use of anticoagulants Z79.01 Liu Harris MD [address] [id number] 12/23/2024 Liu Bombardier salvage determiner (current) use of anticoagulants Z79.01 and Atrial fibrillation I48.91 Liu Harris MD [address] [place] [id number] 01/06/2025 Liu Bombardier salvage determiner (current) use of anticoagulants Z79.01 and Atrial fibrillation I48.91 Liu Harris MD [address] [id number] 01/27/2025 Liu Bombardier FPC (current) use of anticoagulants Z79.01 and Atrial fibrillation I48.91 Liu Harris MD [address] [place] [address] [id number] 02/17/2025 Liu Bombardier FPC (current) use of anticoagulants Z79.01 and Atrial fibrillation I48.91 Liu Harris MD [address] [id number] 03/10/2025 Liu Bombardier FPC (current) use of anticoagulants Z79.01 and Atrial fibrillation I48.91 Liu Harris MD [address] [id number] 03/24/2025 Liu Bombardier FPC (current) use of anticoagulants Z79.01 and Atrial fibrillation I48.91 Liu Harris MD [address] [id number] 04/07/2025 Liu Bombardier salvage determiner (current) use of anticoagulants Z79.01 ; Atrial fibrillation I48.91 ; Essential hypertension I10 ; Type 2 diabetes mellitus without complication E11.9 ; Pure hypercholesterolemia E78.00 and Diabetic autonomic neuropathy associated with type 2 diabetes mellitus E11.43 Liu Harris MD [address] [place] [address] [id number] 04/21/2025 Liu Bombardier salvage determiner (current) use of anticoagulants Z79.01 and Atrial fibrillation I48.91 Liu Harris MD [address] [id number] 05/05/2025 Liu Bombardier FPC (current) use of anticoagulants Z79.01 and Atrial fibrillation I48.91 Liu Harris MD [address] [id number] 05/19/2025 Liu Bombardier salvage determiner (current) use of anticoagulants Z79.01 and Atrial fibrillation I48.91 Liu Harris MD [address] [place] [address] [id number] 06/02/2025 Liu Harris FPC (current) use of anticoagulants Z79.01 and Atrial fibrillation I48.91 Liu Harris MD [address] [id number] 06/16/2025 Liu Harris salvage determiner (current) use of anticoagulants Z79.01 and Atrial fibrillation I48.91 Liu Harris MD [address] [facility] [address] [id number] 06/30/2025 Liu Harris FPC (current) use of anticoagulants Z79.01 and Atrial fibrillation I48.91 Liu Harris MD [address] [id number] 07/29/2024 Liu Harris salvage determiner (current) use of anticoagulants Z79.01 and Atrial fibrillation I48.91 Liu Harris MD [address] [id number] 08/05/2024 Liu Harris Type 2 diabetes opal itus without complication E11.9 ; Pure hypercholesterolemia E78.00 ; FPC (current) use of anticoagulants Z79.01 and Atrial fibrillation I48.91 Liu Harris MD [address] [id number] 09/19/2024 Liu Harris Hx of melanoma of sk in Z85.820 ; Unsteady gait R26.81 ; Confusion state F44.89 and Blood tests prior to treatment or procedure Z01.812 Liu Harris MD [address] [place] [address] [id number] 01/13/2025 Liu Harris Type 2 diabetes opal itus without complication E11.9 ; Preop examination Z01.818 ; salvage determiner (current) use of anticoagulants Z79.01 ; Atrial fibrillation I48.91 and Essential hypertension I10 Liu Harris MD [address] [id number] 04/16/2025 Liu Harrsi Type 2 diabetes opal itus without complication E11.9 ; Adult general medical examination Z00.00 ; Essential hypertension I10 ; History of melanoma Z85.820 ; Diabetic autonomic neuropathy associated with type 2 diabetes mellitus E11.43 ; Colon cancer screening Z12.11 ; Depression screening Z13.31 and Pure hypercholesterolemia E78.00 Liu Harris MD [address] [place] [address] [id number] 09/15/2024 Liu Harris MD [address] [place] [address] [id number] 09/18/2024 Liu Harris MD [address] [place] [address] [id number] 09/22/2024 Liu Harris Foreign body in eye, right, initial encounter T15.91XA Liu Harris MD [address] [place] [address] [id number] 10/09/2024 Liu Harris Assessments Encounter Date Diagnosis (ICD Code) Assessment Notes Treatment Notes Treatment Clinical Notes Section Notes 07/01/2024 salvage determiner (current) use of anticoagulants (ICD-10 - Z79.01) 07/01/2024 Encounter for immunization (ICD-10 - Z23) 07/15/2024 FPC (current) use of anticoagulants (ICD-10 - Z79.01) 07/15/2024 Atrial fibrillation (ICD-10 - I48.91) 08/12/2024 salvage determiner (current) use of anticoagulants (ICD-10 - Z79.01) not having any problems Will do Lipids at his 08-26-24 INR Visit 08/12/2024 Atrial fibrillation (ICD-10 - I48.91) need lipids i think the lab did lipase instead of lipids 08/26/2024 Pure hypercholesterolemia (ICD-10 - E78.00) 08/26/2024 Atrial fibrillation (ICD-10 - I48.91) 09/16/2024 salvage determiner (current) use of anticoagulants (ICD-10 - Z79.01) 09/16/2024 Atrial fibrillation (ICD-10 - I48.91) 09/30/2024 salvage determiner (current) use of anticoagulants (ICD-10 - Z79.01) 09/30/2024 Atrial fibrillation (ICD-10 - I48.91) 10/16/2024 FPC (current) use of anticoagulants (ICD-10 - Z79.01) is doing well with no problems 10/16/2024 Atrial fibrillation (ICD-10 - I48.91) when he gets into afib gets a diureses which is related to a naturtic hormone. has been doing well now 10/28/2024 salvage determiner (current) use of anticoagulants (ICD-10 - Z79.01) 10/28/2024 Atrial fibrillation (ICD-10 - I48.91) 11/11/2024 FPC (current) use of anticoagulants (ICD-10 - Z79.01) 11/25/2024 salvage determiner (current) use of anticoagulants (ICD-10 - Z79.01) 12/09/2024 Atrial fibrillation (ICD-10 - I48.91) 12/23/2024 salvage determiner (current) use of anticoagulants (ICD-10 - Z79.01) 01/06/2025 FPC (current) use of anticoagulants (ICD-10 - Z79.01) 01/27/2025 salvage determiner (current) use of anticoagulants (ICD-10 - Z79.01) 02/17/2025 salvage determiner (current) use of anticoagulants (ICD-10 - Z79.01) 03/10/2025 salvage determiner (current) use of anticoagulants (ICD-10 - Z79.01) 03/24/2025 salvage determiner (current) use of anticoagulants (ICD-10 - Z79.01) 04/07/2025 salvage determiner (current) use of anticoagulants (ICD-10 - Z79.01) 04/21/2025 FPC (current) use of anticoagulants (ICD-10 - Z79.01) 05/05/2025 FPC (current) use of anticoagulants (ICD-10 - Z79.01) 05/19/2025 FPC (current) use of anticoagulants (ICD-10 - Z79.01) 06/02/2025 FPC (current) use of anticoagulants (ICD-10 - Z79.01) 06/16/2025 salvage determiner (current) use of anticoagulants (ICD-10 - Z79.01) 06/30/2025 FPC (current) use of anticoagulants (ICD-10 - Z79.01) 07/29/2024 salvage determiner (current) use of anticoagulants (ICD-10 - Z79.01) [...] MRI with patient, is going to see percussion instrument repairer for cataract surgery/ feels as though it is related to his vision as a problem 11/11/2024 Atrial fibrillation (ICD-10 - I48.91) 11/25/2024 Atrial fibrillation (ICD-10 - I48.91) 12/09/2024 FPC (current) use of anticoagulants (ICD-10 - Z79.01) [...] I48.91) 06/02/2025 Atrial fibrillation (ICD-10 - I48.91) 06/16/2025 Atrial fibrillation (ICD-10 - I48.91) 06/30/2025 Atrial fibrillation (ICD-10 - I48.91) 08/05/2024 salvage determiner (current) use of anticoagulants (ICD-10 - Z79.01) 09/19/2024 Confusion state (ICD -10 - F44.89) pending diagnostic testing 01/13/2025 FPC (current) use of anticoagulants (ICD-10 - Z79.01) will hold for 3 days prior to the upcoming surgery, patient verbalized understanding of instruction to d'c medication 3 days prior to surgery 04/16/2025 Essential hypertensi on (ICD-10 - I10) well controlled, will cntinue current regiment 09/22/2024 Foreign body in eye, right, initial encounter (ICD-10 - T15.91XA) Order faxed to Magan Solis [phone] 08/12/2024 Essential hypertensi on (ICD-10 - I10) [...] Provider Name:Liu Shafer ier, 10/19/2025 07:15:00 AM, [address] [place] [address], [address], [phone], Provider Name:Liu Shafer ier, 10/26/2025 09:00:00 AM, [address] [place] [address], [address], [phone], Provider Name:Liu Shafer ier, 04/12/2026 07:00:00 AM, [address] [place] [address], [address], [phone], Provider Name:Liu Shafer ier, 04/19/2026 08:30:00 AM, [address] [place] [address], [address], [phone], Insurance Providers Payer Name Payer Address Payer Phone Subscriber Number Group Number Insured Name Patient Relationship to Insured Coverage Start Date Coverage End Date BLUE [employer] AND [employer] [address] [place], [place] [id number] Remington Eric Self - patient is the insured Medical (General) History Medical History History ICD Code Atrial fibrillation diabetes mellitus colonoscopy - 02/26/2013; colonoscopy 03/[address] Gifford - repeat 5 years Surgical History Surgery Date(Month/Year) pulmonarry artery ablation Partial Medial Menisectomy, rt knee (Dr. Perez) 10/2016
--- OUTSIDE RECORDS SUMMARY | 2025-06-30 13:49 | XMS_ITS | Clinical Summary ---
Author Organization [employer] Address [address] [place] [address] Phone Care Team Providers Care Stock Manager Name Role Phone Liu Harris MD Primary [...] mg 24 hr tabletIndication s:Paroxysmal atrial fibrillation ([facility]/HCC V24, CMS/HCC V28) TAKE 1 TABLET BY [...] improve with upcoming cataract surgery. Atrial fibrillation ([facility] V24, [facility] V28) 1 Overview (12/03/2024): Last Assessment & [...] him. We will update an echocardiogram. Diabetes ([facility]/HCC V24, CMS/HCC V28) 08/11/2021 Hyperlipidemia 08/11/2021 Overview [...] 04/23/2025 Telephone Gastroenterology - [address] [place] [phone] Donnie Coronado MD 04/20/2025 Telephone Gastroenterology - [address] [place] [address] Donnie Coronado MD 04/07/2025 8:00 AM EDT Ancillary Procedure [facility] - [address] [place] [phone] Paroxysmal atrial fibrillation (CMS/HCC V24, CMS/HCC V28); [...] Description 07/24/2025 8:50 AM EDT Office Visit [facility] [address] [place] [address] [address] [place] [phone] Ed Cadena MD [address] [place] [address] Dr [address] [place] [phone] 07/28/2025 10:00 AM EDT Appointment Endoscopy [address] [place] [phone] Donnie Coronado MD [address] [address] Health Maintenance Due Date Last Done Comments [...] (04/07/2025 8:43 AM EDT) Left Atrium Minor [place] 5.9 cm CV PACS Left Atrium Major [place] 6.2 cm CV PACS [place] Area Sys [...] Volume 92 mL CV PACS MV Deceleration [place] 5.0 m/s2 CV PACS E Wave Deceleration [...] ult from Last 3 Months Insurance [address]ICARE [facility] Care Teams Stock Manager Relationship Specialty Start Date End Date Liu Harris MD [address] [place] [address] PCP - General 07/30/12
== END 2025-06-30 10:32 | disposition home or self-care (01) ==
LOC: HO.LNP 10:31
PROVIDERS: Visit Provider Internal Medicine
DX: I48.91 Unspecified atrial fibrillation (principal); Z79.01 Long term (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 of 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
CPT/HCPCS: 85610

== ENCOUNTER 2025-07-14 12:53 | Outpatient (REF) | payer BC, SELFPAY ==
--- OUTSIDE RECORDS SUMMARY | 2025-05-19 05:15 | XMS_ITS ---
Author Organization Liu Harris MD Address [address] [place] [phone] Care Team Providers Care Rehabilitation Specialist Name Role Phone Liu Harris Primary Care Provider [phone] Results Component Value Reference Range Notes Prothrombin Time INR Reviewed date:05/19/2025 12:41:51 PM Interpretation: Performing Lab:[facility], [address] [place] [phone] Notes/Report: Prothrombin Time 23.4 10.9-12.4 SEC INTERNATIONAL [...] Location Date Provider Diagnosis Liu Harris MD [address] [place] [address] [place] [phone] 05/19/2025 Liu Harris snf (current) use of anticoagulants Z79.01 and Atrial fibrillation I48.91 Assessments Encounter Date Diagnosis (ICD Code) Assessment Notes Treatment Notes Treatment Clinical Notes Section Notes 05/19/2025 snf (current) use of anticoagulants (ICD-10 - Z79.01) 05/19/2025 Atrial fibrillation (ICD-10 - I48.91) Plan Of Treatment Next Appt Details Provider Name:Liu hyde, 10/19/2025 07:15:00 AM, [address] [place] [address], [address], [phone], Provider Name:Liu hyde, 10/26/2025 09:00:00 AM, [address] [place] [address], [address], [phone], Provider Name:Liu hyde, 04/12/2026 07:00:00 AM, [address] [place] [address], [address], [phone], Provider Name:Liu hyde, 04/19/2026 08:30:00 AM, [address] [place] [address], [address], [phone], Progress Notes * Remington ERIC RDOB:1960 (65 yo M)Acc No.[id number]:05/19/2025 Progress Note Patient: Remington PEDERSEN Dante Provider: Lillie Harris MD :1960 A ge:65 Y S ex:Male Date:05/19/2025 Address:[address] [place], [place] [phone] Subjective: * Chief Complaints: * 1 . [...] 0 05/19/2025 Generated for Josue mejia/Oxana/Bintaitting on: 0 07/14/2025 02:01 PM EDT
--- OUTSIDE RECORDS SUMMARY | 2025-06-02 04:30 | XMS_ITS ---
Author Organization Liu Harris MD Address [address] [place] [phone] Care Team Providers Care Cargo Checker Name Role Phone Liu Harris Primary Care Provider Results Component Value Reference Range Notes Prothrombin Time INR Reviewed date:06/02/2025 11:24:03 AM Interpretation: Performing Lab:[facility], [address] [place] [phone] Notes/Report: Prothrombin Time 25.7 10.9-12.4 SEC INTERNATIONAL [...] Location Date Provider Diagnosis Liu Harris MD [address] [place] [address] [place] [phone] 06/02/2025 Liu Harris alf (current) use of anticoagulants Z79.01 and Atrial fibrillation I48.91 Assessments Encounter Date Diagnosis (ICD Code) Assessment Notes Treatment Notes Treatment Clinical Notes Section Notes 06/02/2025 alf (current) use of anticoagulants (ICD-10 - Z79.01) 06/02/2025 Atrial fibrillation (ICD-10 - I48.91) Plan Of Treatment Next Appt Details Provider Name:Liu hyde, 10/19/2025 07:15:00 AM, [address] [place] [address], [address], [phone], Provider Name:Liu hyde, 10/26/2025 09:00:00 AM, [address] [place] [address], [address], [phone], Provider Name:Liu hyde, 04/12/2026 07:00:00 AM, [address] [place] [address], [address], [phone], Provider Name:Liu hyde, 04/19/2026 08:30:00 AM, [address] [place] [address], [address], [phone], Progress Notes * Remington ERIC RDOB:1960 (65 yo M)Acc No.[id number]:06/02/2025 Progress Note Patient: Remington PEDERSEN Dante Provider: Lillie Harris MD :1960 A ge:65 Y S ex:Male Date:06/02/2025 Address:[address] [place], [place] [phone] Subjective: * Chief Complaints: * 1 . [...] 06/02/2025 Generated for Josue mejia/Oxana/Bintaitting on: 0 07/14/2025 02:01 PM EDT
--- OUTSIDE RECORDS SUMMARY | 2025-06-16 05:30 | XMS_ITS ---
Author Organization Liu Harris MD Address [address] [place] [phone] Care Team Providers Care Manager Digital Ad Operations Name Role Phone Liu Harris Primary Care Provider [phone] Results Component Value Reference Range Notes Prothrombin Time INR Reviewed date:06/16/2025 12:35:41 PM Interpretation: Performing Lab:[facility], [address] [place] [phone] Notes/Report: Prothrombin Time 27.3 10.9-12.4 SEC INTERNATIONAL [...] Location Date Provider Diagnosis Liu Harris MD [address] [place] [address] [place] [phone] 06/16/2025 Liu Harris jail (current) use of anticoagulants Z79.01 and Atrial fibrillation I48.91 Assessments Encounter Date Diagnosis (ICD Code) Assessment Notes Treatment Notes Treatment Clinical Notes Section Notes 06/16/2025 jail (current) use of anticoagulants (ICD-10 - Z79.01) 06/16/2025 Atrial fibrillation (ICD-10 - I48.91) Plan Of Treatment Next Appt Details Provider Name:Liu hyde, 10/19/2025 07:15:00 AM, [address] [place] [address], [address], [phone], Provider Name:Liu hyde, 10/26/2025 09:00:00 AM, [address] [place] [address], [address], [phone], Provider Name:Liu hyde, 04/12/2026 07:00:00 AM, [address] [place] [address], [address], [phone], Provider Name:Liu hyde, 04/19/2026 08:30:00 AM, [address] [place] [address], [address], [phone], Progress Notes * Remington ERIC RDOB:1960 (65 yo M)Acc No.[id number]:06/16/2025 Progress Note Patient: Remington PEDERSEN Dante Provider: Lillie Harris MD :1960 A ge:65 Y S ex:Male Date:06/16/2025 Address:[address] [place], [place] [phone] Subjective: * Chief Complaints: * 1 . [...] 06/16/2025 Generated for Josue mejia/Oxana/Bintaitting on: 0 07/14/2025 02:01 PM EDT
--- OUTSIDE RECORDS SUMMARY | 2025-06-30 04:30 | XMS_ITS ---
Author Organization Liu Harris MD Address [address] [place] [phone] Care Team Providers Care Tester Electronic Scale Name Role Phone Liu Harris Primary Care Provider Results Component Value Reference Range Notes Prothrombin Time INR Reviewed date:06/30/2025 12:04:22 PM Interpretation: Performing Lab:[facility], [address] [place] [phone] Notes/Report: Prothrombin Time 25.8 10.9-12.4 SEC [employer]NATIONAL [...] Location Date Provider Diagnosis Liu Harris MD [address] [place] [address] [place] [phone] 06/30/2025 Liu Harris [facility] (current) use of anticoagulants Z79.01 and Atrial fibrillation I48.91 Assessments Encounter Date Diagnosis (ICD Code) Assessment Notes Treatment Notes Treatment Clinical Notes Section Notes 06/30/2025 [facility] (current) use of anticoagulants (ICD-10 - Z79.01) 06/30/2025 Atrial fibrillation (ICD-10 - I48.91) Plan Of Treatment Next Appt Details Provider Name:Liu hyde, 10/19/2025 07:15:00 AM, [address] [place] [address], [address], [phone], Provider Name:Liu hyde, 10/26/2025 09:00:00 AM, [address] [place] [address], [address], [phone], Provider Name:Liu hyde, 04/12/2026 07:00:00 AM, [address] [place] [address], [address], [phone], Provider Name:Liu hyde, 04/19/2026 08:30:00 AM, [address] [place] [address], [address], [phone], Progress Notes * Remington ERIC RDOB:1960 (65 yo M)Acc No.[id number]:06/30/2025 Progress Note Patient: Remington PEDERSEN Dante Provider: Lillie Harris MD :1960 A ge:65 Y S ex:Male Date:06/30/2025 Address:[address] [place], [place] [phone] Subjective: * Chief Complaints: * 1 . [...] 06/30/2025 Generated for Josue mejia/Oxana/Bintaitting on: 0 07/14/2025 02:00 PM EDT
--- OUTSIDE RECORDS SUMMARY | 2025-07-14 05:00 | XMS_ITS ---
Author Organization Liu Harris MD Address [address] [place] [phone] Care Team Providers Care Director Long Term Care Name Role Phone Liu Harris Primary Care Provider Results Component Value Reference Range Notes Prothrombin Time INR Reviewed date:07/14/2025 01:19:51 PM Interpretation: Performing Lab:[facility], [address] [place] [phone] Notes/Report: Prothrombin Time 29.5 10.9-12.4 SEC INTERNATIONAL [...] Date Provider Diagnosis Liu Harris MD [address] [place] [phone] 07/14/2025 Liu Harris Atrial fibrillation I48.91 ; long term care administrator (current) use of anticoagulants Z79.01 and Encounter for administration of vaccine Z23 Assessments Encounter Date Diagnosis (ICD Code) Assessment Notes Treatment Notes Treatment Clinical Notes Section Notes 07/14/2025 Atrial fibrillation (ICD-10 - I48.91) 07/14/2025 [facility] (current) use of anticoagulants (ICD-10 - Z79.01) 07/14/2025 Encounter for administration of vaccine (ICD-10 - Z23) Plan Of Treatment Next Appt Details Provider Name:Liu hyde, 10/19/2025 07:15:00 AM, [address] [place] [address], [address], [phone], Provider Name:Liu hyde, 10/26/2025 09:00:00 AM, [address] [place] [address], [address], [phone], Provider Name:Liu hyde, 04/12/2026 07:00:00 AM, [address] [place] [address], [phone], Provider Name:Liu hyde, 04/19/2026 08:30:00 AM, [address] [place] [address], [phone], Progress Notes * Remington ERIC RDOB:1960 (65 yo M)Acc No.[id number]:07/14/2025 Progress Note Patient: Remington PEDERSEN Dante Provider: Lillie Harris MD :1960 A ge:65 Y S ex:Male Date:07/14/2025 Address:[address] [place], [place] [phone] Subjective: * Chief Complaints: * 1 . INR. * Medical History: Objective: * Vitals: Assessment: * Assessment: 1. A trial fibrillation - I48.91 (Primary) 2 . L douglas term (current) use of anticoagulants - Z79.01 3 . E ncounter for administration of vaccine - Z23 ? Plan: * Treatment: 2. L douglas term (current) use of anticoagulants L AB: Prothrombin Time INR (Collection Date & Time - 07/14/2025 09:00 AM) * Immunizations: Fluarix Quadrivalent - 150 : 0.5 mL (Dose No:1) (Route: Intramuscular) given by Kyleigh Little , Office Staff on Left Deltoid * Procedure Codes: 3 6415 VENIPUNCT, ROUTINE*, 73598 FLU VACCINE NO PRESERV 3 & >, 68149 IMMUNIZATION ADMIN * * The named appointment provid er may or may not be the originator of this progress note, and it is not deemed complete until electronically signed by the appointment provider. Sign off status: Pending * Provider: Lillie Harris MD Date: 07/14/2025 Generated for Josue mejia/Oxana/Bintaitting on: 07/14/2025 02:00 PM EDT
[2025-07-14 13:09] LABS: INTERNATIONAL NORM RATIO 2.6 (0.9-1.1); Prothrombin Time 29.5 SEC (10.9-12.4)
--- OUTSIDE RECORDS SUMMARY | 2025-07-14 14:01 | XMS_ITS | Patient Health Record ---
Author Organization Liu Harris MD Address [address] [place] [id number] Care Team Providers Care Sign Painter Helper Name Role Phone Liu Harris Primary Care Provider [phone] Allergies No Known Allergies Results Component Value Reference Range Notes Hemoglobin A1c Reviewed date:01/13/2025 08:26:35 AM Interpretation: Performing Lab: Notes/Report: Hemoglobin A1c 8.1 Prothrombin Time INR Reviewed date:07/15/2024 12:50:32 PM Interpretation: Performing Lab:[facility], [address] [place] [phone] Notes/Report: Prothrombin Time 18.4 10.9-12.4 [employer] [...] INR Reviewed date:08/12/2024 12:09:44 PM Interpretation: Performing Lab:[facility], [address] [place] [phone] Notes/Report: Prothrombin Time 26.1 10.9-12.4 SEC INTERNATIONAL [...] INR Reviewed date:08/26/2024 12:46:34 PM Interpretation: Performing Lab:[facility], [address] [place] [phone] Notes/Report: Prothrombin Time 35.5 10.9-12.4 SEC INTERNATIONAL [...] INR Reviewed date:09/16/2024 12:42:50 PM Interpretation: Performing Lab:[facility], [address] [place] [phone] Notes/Report: Prothrombin Time 30.5 10.9-12.4 SEC INTERNATIONAL [...] INR Reviewed date:09/30/2024 12:23:25 PM Interpretation: Performing Lab:[facility], [address] [place] [phone] Notes/Report: Prothrombin Time 28.9 10.9-12.4 SEC INTERNATIONAL [...] INR Reviewed date:10/16/2024 06:51:10 PM Interpretation: Performing Lab:[facility], [address] [place] [phone] Notes/Report: Prothrombin Time 28.4 10.9-12.4 SEC INTERNATIONAL [...] INR Reviewed date:10/28/2024 05:01:12 PM Interpretation: Performing Lab:[facility], [address] [place] [phone] Notes/Report: Prothrombin Time 27.4 10.9-12.4 SEC INTERNATIONAL [...] INR Reviewed date:11/11/2024 11:57:26 AM Interpretation: Performing Lab:[facility], [address] [place] [phone] Notes/Report: Prothrombin Time 31.9 10.9-12.4 SEC INTERNATIONAL [...] INR Reviewed date:11/25/2024 12:38:44 PM Interpretation: Performing Lab:[facility], [address] [place] [phone] Notes/Report: Prothrombin Time 28.5 10.9-12.4 SEC INTERNATIONAL [...] INR Reviewed date:12/09/2024 12:27:16 PM Interpretation: Performing Lab:[facility], [address] [place] [phone] Notes/Report: Prothrombin Time 32.4 10.9-12.4 SEC INTERNATIONAL [...] INR Reviewed date:12/23/2024 12:10:07 PM Interpretation: Performing Lab:[facility], [address] [place] [phone] Notes/Report: Prothrombin Time 30.2 10.9-12.4 SEC INTERNATIONAL [...] INR Reviewed date:01/06/2025 10:32:13 AM Interpretation: Performing Lab:[facility], [address] [place] [phone] Notes/Report: Prothrombin Time 33.3 10.9-12.4 SEC INTERNATIONAL [...] INR Reviewed date:01/27/2025 11:31:40 AM Interpretation: Performing Lab:[facility], [address] [place] [phone] Notes/Report: Prothrombin Time 28.1 10.9-12.4 SEC INTERNATIONAL [...] INR Reviewed date:02/17/2025 11:22:57 AM Interpretation: Performing Lab:[facility], [address] [place] [phone] Notes/Report: Prothrombin Time 25.2 10.9-12.4 SEC INTERNATIONAL [...] INR Reviewed date:03/10/2025 12:34:22 PM Interpretation: Performing Lab:[facility], [address] [place] [phone] Notes/Report: Prothrombin Time 20.3 10.9-12.4 SEC INTERNATIONAL [...] INR Reviewed date:03/24/2025 11:29:00 AM Interpretation: Performing Lab:[facility], [address] [place] [phone] Notes/Report: Prothrombin Time 31.8 10.9-12.4 SEC INTERNATIONAL [...] ff Reviewed date:04/07/2025 12:37:35 PM Interpretation: Performing Lab:[facility], [address] [place] [phone] Notes/Report: White Blood Count 6.6 4.8-10.8 X10*3/uL [...] INR Reviewed date:04/07/2025 10:53:43 AM Interpretation: Performing Lab:[facility], [address] [place] [phone] Notes/Report: Prothrombin Time 25.0 10.9-12.4 SEC INTERNATIONAL [...] prosthetic heart valves: 2.5 - 3.5 [facility]. Panel Fa st Reviewed date:04/07/2025 12:44:59 PM Interpretation: Performing Lab:[facility], [address] [place] [phone] Notes/Report: Sodium 139 135-145 mmol/L Potassium 4.0 [...] Reflex Reviewed date:04/07/2025 12:44:40 PM Interpretation: Performing Lab:[facility], [address] [place] [phone] Notes/Report: Triglycerides 106 <150 mg/dL Desirable Triglyceride: [...] (Free>4and<10) Reviewed date:04/07/2025 12:26:21 PM Interpretation: Performing Lab:[facility], [address] [place] [phone] Notes/Report: PSA,Total (Free>4and<10) 0.49 0.00-4.00 ng/mL A [...] Random Reviewed date:04/07/2025 12:29:08 PM Interpretation: Performing Lab:[facility], [address] [place] [phone] Notes/Report: Creatinine Urine 77.80 Microalbumin Urine 13.0 Microalbum/Creatinine Ratio Ur 16.7 <30 ug/mg cr Albumin/Creatinine Ratio Reference Ranges: Normal: < 30 ug/mg creatinine Microalbuminuria: 30 - 300 ug/mg creatinine Clinical Albuminuria: > 300 ug/mg creatinine Hemoglobin A1c Reviewed date:04/07/2025 12:26:50 PM Interpretation: Performing Lab:[facility], [address] [place] [phone] Notes/Report: Hemoglobin A1c % 7.3 <6.0 % [...] average glucose, using the formula of the I4C-Imffmjd Average Glucose study (ADAG), Diabetes Care, Vol.31,#8, May. 2007 UA ClnCatch+Micro w/rflx Cul t Reviewed date:04/07/2025 12:37:53 PM Interpretation: Performing Lab:[facility], [address] [place] [phone] Notes/Report: [id number] Urine, Clean Catch Color Urine Yellow Appearance Urine Clear PH 7.0 5.0-9.0 Glucose Urine UA Negative Negative mg/dL Urine Blood Negative Negative Specific [place] - Urine 1.020 1.005-1.025 Urine Protein Negative Neg-Trace mg/dL Urine Ketones Negative Negative mg/dL Nitrite Urine Negative Negative Leukocyte Esterase Urine Negative Negative RBC Urine 0-2 0-2 /HPF WBC Urine 0-5 0-5 /HPF Squamous Epithelial Cell Urine 0-2 0-2 /HPF Bacteria Urine None Seen None Seen Hyaline Casts Urine 0-2 0-2 /LPF Prothrombin Time INR Reviewed date:04/21/2025 10:32:14 AM Interpretation: Performing Lab:[address] [phone] Notes/Report: Prothrombin Time 29.1 10.9-12.4 SEC [employer]NATIONAL [...] INR Reviewed date:05/05/2025 10:27:45 AM Interpretation: Performing Lab:[facility], [address] [place] [phone] Notes/Report: Prothrombin Time 26.4 10.9-12.4 SEC INTERNATIONAL [...] INR Reviewed date:05/19/2025 12:41:51 PM Interpretation: Performing Lab:[facility], [address] [place] [phone] Notes/Report: Prothrombin Time 23.4 10.9-12.4 SEC INTERNATIONAL [...] INR Reviewed date:06/02/2025 11:24:03 AM Interpretation: Performing Lab:[facility], [address] [place] [phone] Notes/Report: Prothrombin Time 25.7 10.9-12.4 SEC INTERNATIONAL [...] INR Reviewed date:06/16/2025 12:35:41 PM Interpretation: Performing Lab:[facility], [address] [place] [phone] Notes/Report: Prothrombin Time 27.3 10.9-12.4 SEC INTERNATIONAL [...] INR Reviewed date:06/30/2025 12:04:22 PM Interpretation: Performing Lab:[facility], [address] [place] [phone] Notes/Report: Prothrombin Time 25.8 10.9-12.4 SEC INTERNATIONAL [...] 2.5 - 3.5 Prothrombin Time INR Reviewed date:07/14/2025 01:19:51 PM Interpretation: Performing Lab:[facility], [address] [place] [phone] Notes/Report: Prothrombin Time 29.5 10.9-12.4 SEC INTERNATIONAL [...] INR Reviewed date:07/29/2024 01:46:50 PM Interpretation: Performing Lab:[address] [phone] Notes/Report: Prothrombin Time 31.5 10.9-12.4 SEC INTERNATIONAL [...] INR Reviewed date:08/05/2024 12:55:18 PM Interpretation: Performing Lab:[address] [phone] Notes/Report: Prothrombin Time 26.4 10.9-12.4 SEC INTERNATIONAL [...] Panel Reviewed date:08/05/2024 05:41:41 PM Interpretation: Performing Lab:[address] [phone] Notes/Report: Bilirubin Total 1.3 0.0-1.0 mg/dL Bilirubin Direct 0.4 0.0-0.5 mg/dL Aspartate Amino Transferase 31 5-37 U/L Alanine Aminotransferase 39 0-40 U/L Total Protein 7.4 6.5-8.0 g/dL Albumin Level 4.3 3.5-5.0 g/dL Alkaline Phosphatase 62 39-117 U/L Glucose Fasting Reviewed date:08/05/2024 05:42:35 PM Interpretation: Performing Lab:[facility], [address] [place] [phone] Notes/Report: Glucose Fasting 166 60-99 mg/dL A fasting glucose of 126 mg/dl or greater on more than one occasion is considered diagnostic of diabetes. Hemoglobin A1c Reviewed date:08/05/2024 08:40:07 PM Interpretation: Performing Lab:[address] [phone] Notes/Report: Hemoglobin A1c % 7.1 <6.0 % [...] average glucose, using the formula of the O1V-Lxevpuw Average Glucose study (ADAG), Diabetes Care, Vol.31,#8, 2007 Blood Urea Nitrogen Reviewed date:09/21/2024 12:00:49 PM Interpretation: Performing Lab:[facility], [address] [place] [phone] Notes/Report: Blood Urea Nitrogen 15 9-16 mg/dL Creatinine Reviewed date:09/21/2024 12:04:27 PM Interpretation: Performing Lab:[address] [phone] Notes/Report: Creatinine 0.86 0.5-1.4 mg/dL Estimated Glomerular Filt Rate > 60 Chronic Kidney Disease: Estimated GFR < 60 mL/min/1.73m2 Severe Kidney Disease: Estimated GFR < 15 mL/min/1.73m2 TSH reflex Free T4 Reviewed date:09/21/2024 12:01:45 PM Interpretation: Performing Lab:[address] [phone] Notes/Report: TSH reflex Free T4 0.38 0.32-4.0 uIU/mL Glucose, finger stick Reviewed date:01/13/2025 08:20:13 AM Interpretation: Performing Lab: Notes/Report: Value 175 Prothrombin Time INR Reviewed date:01/13/2025 10:36:58 AM Interpretation: Performing Lab:[facility], [address] [place] [phone] Notes/Report: Prothrombin Time 28.3 10.9-12.4 SEC INTERNATIONAL [...] Lipase Reviewed date:08/05/2024 05:42:05 PM Interpretation: Performing Lab:[facility], [address] [place] [phone] Notes/Report: Lipase 46 8-78 U/L Abigail Young Reviewed date:08/05/2024 05:43:12 PM Interpretation: Performing Lab:[facility], [address] [place] [phone] Notes/Report: Abigail Young See Note Specimen held untested for 24 hours; Call to request Chemistry testing. Lipid Panel Reviewed date:08/26/2024 03:08:03 PM Interpretation: Performing Lab:[facility], [address] [place] [phone] Notes/Report: Triglycerides 177 <150 mg/dL Desirable Triglyceride: [...] Young Reviewed date:08/26/2024 12:53:02 PM Interpretation: Performing Lab:[facility], [address] [place] [phone] Notes/Report: Abigail Young See Note Specimen held untested for 24 hours; Call to request Chemistry testing. Vitamin B12 Reviewed date:09/21/2024 12:02:00 PM Interpretation: Performing Lab:[facility], [address] [place] [phone] Notes/Report: Vitamin B12 377 200-900 pg/mL NORMAL 200-900 PG/ML INDETERMINATE 160-199 PG/ML DEFICIENT < 160 PG/ML Folate Reviewed date:09/21/2024 12:01:53 PM Interpretation: Performing Lab:[facility], [address] [place] [phone] Notes/Report: Folate 16.6 > or = 4.0 ng/mL Reference Values: > or = 4.0 ng/mL < 4.0 ng/mL suggests folate deficiency Methotrexate, aminopterin and folinic acid (leucovorin) are chemotherapeutic agents whose molecular structures are similar to folate; therefore, the Loom Checker folate assay cannot be used for patients using these drugs. Abigail Hardy Reviewed date:09/21/2024 12:02:06 PM Interpretation: Performing Lab:[facility], [address] [place] [phone] Notes/Report: Abigail Hardy See Note Specimen held [...] PM >INSURANCE REFERRAL REQUESTED AND FAXED TO [facility], ToriNelyEdwardKavita nelson 05/14/2025 10:42:45 AM [...] 09/01/2021 Administered Fluarix Quadrivalent IM Intramuscular 07/11/2022 Administtori red Fluarix Quadrivalent IM Intramuscular 07/03/2023 Administe red SARS-COV-2 Pfizer Unknown 07/11/2023 Administered Fluarix Quadrivalent - 150 IM Intramuscular 07/01/2024 Adm inistered Fluarix Quadrivalent - 150 IM Intramuscular 07/14/2025 Adm inistered Flu Vaccine Unknown 06/16/2014 Pending [...] W/U Status Risk Notes Problem Atrial fibrillation (07287899) Atrial fibrillation (I48.91) Active confirmed Problem 288513006 Tubular adenoma (D36.9) Active confirmed Problem Long-term current use of anticoagulant (580504093) rope walker (current) use of anticoagulants (Z79.01) Active confirmed Problem 409533842 Body mass index (BMI) 35.0-35.9, adult (Z68.35) Active confirmed Problem 12070657 Essential hypert ension (I10) Active confirmed Problem Rosacea (472455950) Rosacea (L71.9) Active confirmed Problem 28513764 Type 2 diabetes mellitus without complication (E11.9) Active confirmed Problem History of malignant melanoma of the skin (055728768071) History of melanoma (Z85.820) Active confirmed Problem Polyneuropathy due to type 2 diabetes mellitus (222465473) Diabetic polyneuropathy associated with type 2 diabetes mellitus (E11.42) Active confirmed Problem 413563113 Cervical disc di sease (M50.90) Active confirmed Problem 474935879 Doxycycline adve rse reaction, initial encounter (T36.4X5A) Active confirmed Problem Diabetic autonomic neuropathy due to type 2 diabetes mellitus (222659204) Diabetic autonomic neuropathy associated with type 2 diabetes mellitus (E11.43) Active confirmed Problem 75696279 Unsteady gait (R26.81) Active confirme d Problem 395971207 Pure hypercholesterolemia (E78.00) Active confirmed Problem 932299169 Body mass index (BMI) of 39.0-39.9 in adult (Z68.39) Active confirmed Problem 945046874 Confusion state (F44.89) Active confirmed Vital Signs [...] Liu Harris MD [address] [place] [id number] 07/15/2024 Liu Harris rope walker (current) use of anticoagulants Z79.01 and Atrial fibrillation I48.91 Liu Harris MD [address] [place], [place] [id number] 08/12/2024 Liu Harris half-way (current) use of anticoagulants Z79.01 ; Atrial fibrillation I48.91 ; Type 2 diabetes mellitus without complication E11.9 and Essential hypertension I10 Liu Harris MD [address] [place] [id number] 08/26/2024 Liu Harris Pure hypercholestero lemia E78.00 and Atrial fibrillation I48.91 Liu Harris MD [address] [place] [id number] 09/16/2024 Liu Bombardier half-way (current) use of anticoagulants Z79.01 and Atrial fibrillation I48.91 Liu Harris MD [address] [place] [id number] 09/30/2024 Liu Bombardier half-way (current) use of anticoagulants Z79.01 and Atrial fibrillation I48.91 Liu Harris MD [address] [id number] 10/16/2024 Liu Bombardier half-way (current) use of anticoagulants Z79.01 ; Atrial fibrillation I48.91 and Unsteady gait R26.81 Liu Harris MD [address] [place] [address] [id number] 10/28/2024 Liu Bombardier rope walker (current) use of anticoagulants Z79.01 and Atrial fibrillation I48.91 Liu Harris MD [address] [id number] 11/11/2024 Liu Bombardier rope walker (current) use of anticoagulants Z79.01 and Atrial fibrillation I48.91 Liu Harris MD [address] [id number] 11/25/2024 Liu Bombardier half-way (current) use of anticoagulants Z79.01 and Atrial fibrillation I48.91 Lui Harris MD [address] [place] [address] [id number] 12/09/2024 Liu Harris Atrial fibrillation I48.91 and half-way (current) use of anticoagulants Z79.01 Liu Harris MD [address] [id number] 12/23/2024 Liu Bombardier half-way (current) use of anticoagulants Z79.01 and Atrial fibrillation I48.91 Liu Harris MD [address] [id number] 01/06/2025 Liu Bombardier rope walker (current) use of anticoagulants Z79.01 and Atrial fibrillation I48.91 Liu Harris MD [address] [place] [address] [id number] 01/27/2025 Liu Bombardier rope walker (current) use of anticoagulants Z79.01 and Atrial fibrillation I48.91 Liu Harris MD [address] [id number] 02/17/2025 Liu Bombardier half-way (current) use of anticoagulants Z79.01 and Atrial fibrillation I48.91 Liu Harris MD [address] [place] [address] [id number] 03/10/2025 Liu Bombardier rope walker (current) use of anticoagulants Z79.01 and Atrial fibrillation I48.91 Liu Harris MD [address] [id number] 03/24/2025 Liu Bombardier half-way (current) use of anticoagulants Z79.01 and Atrial fibrillation I48.91 Liu Harris MD [address] [place] [id number] 04/07/2025 Liu Bombardier rope walker (current) use of anticoagulants Z79.01 ; Atrial fibrillation I48.91 ; Essential hypertension I10 ; Type 2 diabetes mellitus without complication E11.9 ; Pure hypercholesterolemia E78.00 and Diabetic autonomic neuropathy associated with type 2 diabetes mellitus E11.43 Liu Harris MD [address] [place] [address] [id number] 04/21/2025 Liu Bombardier rope walker (current) use of anticoagulants Z79.01 and Atrial fibrillation I48.91 Liu Harris MD [address] [place] [address] [id number] 05/05/2025 Liu Bombardier rope walker (current) use of anticoagulants Z79.01 and Atrial fibrillation I48.91 Liu Harris MD [address] [place] [address] [id number] 05/19/2025 Liu Bombardier rope walker (current) use of anticoagulants Z79.01 and Atrial fibrillation I48.91 Liu Harris MD [address] [id number] 06/02/2025 Liu Bombardier rope walker (current) use of anticoagulants Z79.01 and Atrial fibrillation I48.91 Liu Harris MD [address] [place] [address] [id number] 06/16/2025 Liu Harris half-way (current) use of anticoagulants Z79.01 and Atrial fibrillation I48.91 Liu Harris MD [address] [id number] 06/30/2025 Liu Harris rope walker (current) use of anticoagulants Z79.01 and Atrial fibrillation I48.91 Liu Harris MD [address] [place] [id number] 07/14/2025 Liu Harris Atrial fibrillation I48.91 ; half-way (current) use of anticoagulants Z79.01 and Encounter for administration of vaccine Z23 Liu Harris MD [address] [id number] 07/29/2024 Liu Harris half-way (current) use of anticoagulants Z79.01 and Atrial fibrillation I48.91 Liu Harris MD [address] [id number] 08/05/2024 Liu Harris Type 2 diabetes opal itus without complication E11.9 ; Pure hypercholesterolemia E78.00 ; rope walker (current) use of anticoagulants Z79.01 and Atrial fibrillation I48.91 Liu Harris MD [address] [id number] 09/19/2024 Liu Harris Hx of melanoma of sk in Z85.820 ; Unsteady gait R26.81 ; Confusion state F44.89 and Blood tests prior to treatment or procedure Z01.812 Liu Harris MD [address] [id number] 01/13/2025 Liu Harris Type 2 diabetes opal itus without complication E11.9 ; Preop examination Z01.818 ; half-way (current) use of anticoagulants Z79.01 ; Atrial fibrillation I48.91 and Essential hypertension I10 Liu Hunter [facility] [address] [id number] 04/16/2025 Liu Harris Type 2 diabetes opal itus without complication E11.9 ; Adult general medical examination Z00.00 ; Essential hypertension I10 ; History of melanoma Z85.820 ; Diabetic autonomic neuropathy associated with type 2 diabetes mellitus E11.43 ; Colon cancer screening Z12.11 ; Depression screening Z13.31 and Pure hypercholesterolemia E78.00 Liu Harris MD [address] [place] [address] [id number] 09/15/2024 Liu Harris MD [address] [place] [address] [id number] 09/18/2024 Liu Harris MD [address] [place] [address] [id number] 09/22/2024 Liu Harris Foreign body in eye, right, initial encounter T15.91XA Liu Harris MD [address] [place] [address] [id number] 10/09/2024 Liu Harris Assessments Encounter Date Diagnosis (ICD Code) Assessment Notes Treatment Notes Treatment Clinical Notes Section Notes 07/15/2024 rope walker (current) use of anticoagulants (ICD-10 - Z79.01) 07/15/2024 Atrial fibrillation (ICD-10 - I48.91) 08/12/2024 half-way (current) use of anticoagulants (ICD-10 - Z79.01) not having any problems Will do Lipids at his 08-26-24 INR Visit 08/12/2024 Atrial fibrillation (ICD-10 - I48.91) need lipids i think the lab did lipase instead of lipids 08/26/2024 Pure hypercholesterolemia (ICD-10 - E78.00) 08/26/2024 Atrial fibrillation (ICD-10 - I48.91) 09/16/2024 rope walker (current) use of anticoagulants (ICD-10 - Z79.01) 09/16/2024 Atrial fibrillation (ICD-10 - I48.91) 09/30/2024 rope walker (current) use of anticoagulants (ICD-10 - Z79.01) 09/30/2024 Atrial fibrillation (ICD-10 - I48.91) 10/16/2024 half-way (current) use of anticoagulants (ICD-10 - Z79.01) is doing well with no problems 10/16/2024 Atrial fibrillation (ICD-10 - I48.91) when he gets into afib gets a diureses which is related to a naturtic hormone. has been doing well now 10/28/2024 half-way (current) use of anticoagulants (ICD-10 - Z79.01) 10/28/2024 Atrial fibrillation (ICD-10 - I48.91) 11/11/2024 rope walker (current) use of anticoagulants (ICD-10 - Z79.01) 11/25/2024 half-way (current) use of anticoagulants (ICD-10 - Z79.01) 12/09/2024 Atrial fibrillation (ICD-10 - I48.91) 12/23/2024 half-way (current) use of anticoagulants (ICD-10 - Z79.01) 01/06/2025 half-way (current) use of anticoagulants (ICD-10 - Z79.01) 01/27/2025 half-way (current) use of anticoagulants (ICD-10 - Z79.01) 02/17/2025 rope walker (current) use of anticoagulants (ICD-10 - Z79.01) 03/10/2025 rope walker (current) use of anticoagulants (ICD-10 - Z79.01) 03/24/2025 half-way (current) use of anticoagulants (ICD-10 - Z79.01) 04/07/2025 rope walker (current) use of anticoagulants (ICD-10 - Z79.01) 04/21/2025 rope walker (current) use of anticoagulants (ICD-10 - Z79.01) 05/05/2025 rope walker (current) use of anticoagulants (ICD-10 - Z79.01) 05/19/2025 rope walker (current) use of anticoagulants (ICD-10 - Z79.01) 06/02/2025 rope walker (current) use of anticoagulants (ICD-10 - Z79.01) 06/16/2025 rope walker (current) use of anticoagulants (ICD-10 - Z79.01) 06/30/2025 rope walker (current) use of anticoagulants (ICD-10 - Z79.01) 07/14/2025 Atrial fibrillation (ICD-10 - I48.91) 07/14/2025 half-way (current) use of anticoagulants (ICD-10 - Z79.01) 07/29/2024 rope walker (current) use of anticoagulants (ICD-10 - Z79.01) [...] Z00.00) labs reviewed and discussed with patient 08/12/2024 Type 2 diabetes mellitus without complication (ICD-10 - E11.9) doing a little better. is cutting back on candy 10/16/2024 Unsteady gait (ICD-1 0 - R26.81) discussed findings of MRI with patient, is going to see computer systems technology instructor for cataract surgery/ feels as though it is related to his vision as a problem 11/11/2024 Atrial fibrillation (ICD-10 - I48.91) 11/25/2024 Atrial fibrillation (ICD-10 - I48.91) 12/09/2024 half-way (current) use of anticoagulants (ICD-10 - Z79.01) [...] I48.91) 06/30/2025 Atrial fibrillation (ICD-10 - I48.91) 07/14/2025 Encounter for administration of vaccine (ICD-10 - Z23) 08/05/2024 rope walker (current) use of anticoagulants (ICD-10 - Z79.01) 09/19/2024 Confusion state (ICD -10 - F44.89) pending diagnostic testing 01/13/2025 rope walker (current) use of anticoagulants (ICD-10 - Z79.01) will hold for 3 days prior to the upcoming surgery, patient verbalized understanding of instruction to d'c medication 3 days prior to surgery 04/16/2025 Essential hypertensi on (ICD-10 - I10) well controlled, will cntinue current regiment 09/22/2024 Foreign body in eye, right, initial encounter (ICD-10 - T15.91XA) Order faxed to Magan Solis [phone] 08/12/2024 Essential hypertensi on (ICD-10 - I10) [...] Details Provider Name:Liu hyde, 10/19/2025 07:15:00 AM, [address] [place] [address], [address], [phone], Provider Name:Liu phelanr, 10/26/2025 09:00:00 AM, [address] [place] [address], [address] [place] [address], [phone], Provider Name:Liu phelanr, 04/12/2026 07:00:00 AM, [address] [place] [address], [address] [place] [address], [phone], Provider Name:Liu phelanr, 04/19/2026 08:30:00 AM, [address] [place] [address], [address], [phone], Insurance Providers Payer Name Payer Address Payer Phone Subscriber Number Group Number Insured Name Patient Relationship to Insured Coverage Start Date Coverage End Date [employer] [address] [place], [place] [id number] Remington Eric Self - patient is the insured Medical (General) History Medical History History ICD Code Atrial fibrillation diabetes mellitus colonoscopy - 02/26/2013; colonoscopy 03/[address] Gifford - repeat 5 years Surgical History Surgery Date(Month/Year) pulmonarry artery ablation Partial Medial Menisectomy, rt knee ( Instrsin) 10/2016
--- OUTSIDE RECORDS SUMMARY | 2025-07-14 14:01 | XMS_ITS | Clinical Summary ---
Author Organization [facility] Address [address] [facility] [place] [address] Phone Care Team Providers Care Water Resources Business Segment Leader Name Role Phone Liu Harris MD Primary Care Provider [phone] Allergies No known active allergies Medications amLODIPine [...] EVERY DAY 90 tablet 1 5 Active polyethylene glycol (Golytely) 236-22.74-6.74 -5.86 gram solution Take 4L by mouth once for one dose. May substitue any PEG. Starting at 2PM the day before your procedure drink 1 8oz glasses at your own pace until you complete half of the gallon. Finish 2nd half of the gallon at 8PM. 4000 mL 5 Active bisacodyL (DULCOLAX) 5 mg EC tablet Take 2 tablets by mouth right before beginning bowel prep. See instructions provided by the office 2 tablet 5 Active Active Problems Problem Noted Date [...] him. We will update an echocardiogram. Diabetes ([facility] V24, [facility] V28) 08/11/2021 Hyperlipidemia 08/11/2021 Overview (12/03/2024): Last [...] Encounters Date Type Department Care Team Description 07/10/2025 Telephone Gastroenterology - [address] [place] [address] Sharita Ewing MA 04/23/2025 Telephone Gastroenterology - [address] [place] [address] Donnie Coronado MD 04/20/2025 Telephone Gastroenterology - [address] [place] [phone] Donnie Coronado MD from Last 3 Months Medical History Medical [...] Description 07/24/2025 8:50 AM EDT Office Visit [facility] [address] [place] [address] Ed Cadena MD [address] [place] [address] [address] [place] [phone] 07/28/2025 10:00 AM EDT Appointment [facility] Endoscopy [address] [place] [address] Donnie Coronado MD [address] [place] [address] Health Maintenance Due Date Last Done Comments Colorectal Cancer Screening: Colonoscopy 1959 Diabetes: Annual GFR (Glomerular Filtration Rate) 1959 Diabetes: Annual Foot Exam 1969 Diabetes: Annual Retina Eye Exam 1969 Cholesterol Screening (Lipid Panel) 09/16/2022 Hepatitis C Screening 09/16/2022 Social Influencers [...] age to complete this topic Insurance MEDICARE [facility] Care Teams Water Resources Business Segment Leader Relationship Specialty Start Date End Date Liu Harris MD [address] [place] [address] Drive [address] [place] [address] PCP - General 07/30/12
--- OUTSIDE RECORDS SUMMARY | 2025-07-14 14:01 | XMS_ITS | Encounter Summary ---
Author Organization [facility] Address [address] [place] [address] Care Team Providers Care Elementary Summer [employer] Teacher Name Role Phone Liu Harris MD Primary Care Provider [phone] Reason for Visit * Reason Onset Date Comments Anticoagulation 07/10/2025 Colonoscopy 07/15 02/06 Dr. Coronado Encounter Details Date Type Department Care Team (Late st Contact Info) Description 07/10/2025 Telephone Gastroenterology - [address] [facility] [address] [place] [address] Sharita Ewing MA Social History Tobacco Use Types Packs/Day Years [...] as of this encounter Progress Notes * Jody Askew NP - 07/10/2025 2:52 PM EDT Patient may hold his Coumadin for 5 days prior to colonoscopy. Given his history of previous TIA hewould require Lovenox bridging. * Sharita Ewing MA - 07/10/2025 2:46 PM EDT Patient is scheduled for a colonoscopy on 07/28/[address] Coronado. Please advise if ok for patient to hold coumadin x 5 days prior to procedure and is a lovenox bridge needed? documented in this encounter Plan of Treatment Upcoming Encounters Date Type Department Care Team (Late st Contact Info) Description 07/24/2025 8:50 AM EDT Office Visit [facility] [address] [place] [address] [place] [address] Ed Cadena MD [address] [place] [address] [address] [place] [phone] 07/28/2025 10:00 AM EDT Appointment [facility] Endoscopy [address] [place] [phone] Donnie Coronado MD [address] [facility] [address] [place] [address] documented as of this encounter Visit Diagnoses Not on filedocumented in this encounter Care Teams Elementary Summer School Teacher Relationship Specialty Start Date End Date Liu Harris MD [address] [place] [address] PCP - General 07/30/12 documented as of this encounter
== END 2025-07-14 12:54 | disposition home or self-care (01) ==
LOC: HO.LNP 12:53
PROVIDERS: Visit Provider Internal Medicine
DX: I48.91 Unspecified atrial fibrillation (principal); Z79.01 Long term (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 of 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
CPT/HCPCS: 85610

== ENCOUNTER 2025-08-04 11:13 | Outpatient (REF) | payer BC, SELFPAY ==
[2025-08-04 11:36] LABS: INTERNATIONAL NORM RATIO 2.1 (0.9-1.1); Prothrombin Time 24.3 SEC (10.9-12.4)
== END 2025-08-04 11:14 | disposition home or self-care (01) ==
LOC: HO.LNP 11:13
PROVIDERS: Visit Provider Internal Medicine
DX: Z51.81 Encounter for therapeutic drug level monitoring (principal); I48.91 Unspecified atrial fibrillation; Z79.01 Long term (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 of 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
CPT/HCPCS: 85610

== ENCOUNTER 2025-08-18 10:31 | Outpatient (REF) | payer BC, SELFPAY ==
--- OUTSIDE RECORDS SUMMARY | 2025-04-16 03:00 | XMS_ITS ---
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 Name Role Phone Liu Harris Primary Care Provider Allergies No Known Allergies Reason For Referral Reason SCREEN FOR COLON CAN CER Diagnosis 1 Screen for colon can cer (Z12.11) Referral Organization Liu Harris MD Referring Provider First Name Liu Referring Provider Last Name Steven Referring Provider Speciality Internal M edicine Referred Provider MARK BALDWIN Referred Provider Specialty Gastroentero logy General Notes Kavita Zamora 04/16/2025 08:45:30 AM >REFFERAL FAXED TO [facility] FOR SCHEDULING, Kavita Zamora 04/20/2025 02:11:29 PM >INSURANCE REFERRAL REQUESTED AND FAXED TO [facility], Kelle Zamorademetrius Graham 05/14/2025 10:42:45 AM >PATIENT SCHEDULED FOR 07/28 @ 9AM, Kavita Zamora 08/03/2025 12:14:22 PM >CLOSE REFERRAL , PATIENT HAS HAD COLONOSCOPY 07/28 Referral Priority Routine Referral Appointment Date 07/28/2025 REASON FOR VISIT annual visit, Due for Colorectal Cancer Screening Medications Medication SIG (Take, Route, Frequency, Duration) Notes Start Date End Date Status Metoprolol Succinate ER 25 MG 1 tablet O rally Once a day 08/24/2015 Active Pravastatin Sodium 10 MG TAKE 1 TABLET O NCE DAILY Active Minocycline HCl 100 MG 1 tablet Orally Twice a day Not-Taking ProAir RespiClick 108 (90 Base) MCG/ACT 2 puffs as needed Inhalation every 6 hrs for 30 days 02/25/2019 Not-Taking KlonoPIN 0.5 MG 1 tablet Orally Twice a day Not-Taking Isosorbide Mononitrate 10 MG 1 tablet Or ally Once a day Active amLODIPine Besylate 5 MG 1 tablet Orally Once a day Active Propafenone HCl 300 MG 1 tablet if Afib Orally Not-Taking metFORMIN HCl 500 MG TAKE 2 TABLETS TWICE A DAY Active Jantoven 5 MG TAKE 2 TABLETS ONCE DAILY Active Metamucil Smooth Texture 58. 6 % as directed Orally Active Aspirin 81 MG 1 tablet Orally Once a day Active Magnesium 500 MG 1 tablet with a meal Orally twice a day Active Azelaic Acid 15 % APPLY TO AFFECTED AREA OF SKIN EVERY DAY for 30 Active hydroCHLOROthiazide 12.5 MG TAKE 1 CAPSU LE DAILY Active Social History Tobacco Use: Social History Observation [...] Problem Status W/U Status Risk Notes Problem History of malignant melanoma of the skin (708806264558) History of melanoma (Z85.820) Active confirmed Vital Signs Blood pressure systolic 136 mm Hg 04/16/20 25 Blood pressure diastolic 60 mm Hg 025 Height 72 in 04/16/2025 Weight 255 lbs 04/16/2025 BMI 34.58 kg/m2 04/16/2025 weight is down 4 pounds [facility] 01-13-25 Encounters Encounter Location Date Provider Diagnosis Liu Harris MD [address] [place] [address] Drive [address] [place], [place] [phone] 04/16/2025 Liu Harris Type 2 diabetes opal itus without complication E11.9 ; Adult general medical examination Z00.00 ; Essential hypertension I10 ; History of melanoma Z85.820 ; Diabetic autonomic neuropathy associated with type 2 diabetes mellitus E11.43 ; Colon cancer screening Z12.11 ; Depression screening Z13.31 and Pure hypercholesterolemia E78.00 Assessments Encounter Date Diagnosis (ICD Code) Assessment Notes Treatment Notes Treatment Clinical Notes Section Notes 04/16/2025 Type 2 diabetes opal itus without complication (ICD-10 - E11.9) stable, will continue current regiment 04/16/2025 Adult general medica l examination (ICD-10 - Z00.00) labs reviewed and discussed with patient 04/16/2025 Essential hypertensi on (ICD-10 - I10) well controlled, will cntinue current regiment 04/16/2025 History of melanoma (ICD-10 - Z85.820) was treated with moh's 04/16/2025 Diabetic autonomic neuropathy associated with type 2 diabetes mellitus (ICD-10 - E11.43) stable 04/16/2025 Colon cancer screeni ng (ICD-10 - Z12.11) guaiac negative 04/16/2025 Depression screening (ICD-10 - Z13.31) negative screen 04/16/2025 Pure hypercholesterolemia (ICD-10 - E78.00) stable, will continue current regiment Plan Of Treatment Medication Medication Name Sig Start Date Stop Date Notes Metoprolol Succinate ER 25 MG 1 tablet Orally Once a day 1 10/24/2014 Pravastatin Sodium 10 MG TAKE 1 TABLET ONCE DAILY Isosorbide Mononitrate 10 MG 1 tablet Orally Once a day amLODIPine Besylate 5 MG 1 tablet Orally Once a day metFORMIN HCl 500 MG TAKE 2 TABLETS TWICE A DAY Jantoven 5 MG TAKE 2 TABLETS ONCE DAILY hydroCHLOROthiazide 12.5 MG TAKE 1 CAPSULE DAILY Treatment Notes Assessment Notes Type 2 diabetes mellitus without complic ation stable, will continue current regiment Adult general medical examination labs r eviewed and discussed with patient Essential hypertension well controlled, will cntinue current regiment History of melanoma was treated with moh 's Diabetic autonomic neuropath y associated with type 2 diabetes mellitus stable Colon cancer screening guaiac negative Depression screening negative screen Pure hypercholesterolemia stable, will c ontinue current regiment Referrals Referral Date Details 04/16/2025 04/16/2025, SCREEN F OR COLON CANCER, MARK BALDWIN Next Appt Details Follow Up: 6 Months, Reason: Provider Name:Liu hyde, 10/19/2025 07:15:00 AM, [address] [place] [address], [address], [phone], Provider Name:Liu hyde, 10/26/2025 09:00:00 AM, [address] [place] [address], [address], [phone], Provider Name:Liu hyde, 04/12/2026 07:00:00 AM, [address] [place] [address], [address], [phone], Provider Name:Liu hyde, 04/19/2026 08:30:00 AM, [address] [place] [address], [address], [phone], Progress Notes * Remington ERIC RDOB:1960 (65 yo M)Acc No.[id number]:04/16/2025 Progress Notes Patient: Remington PEDERSEN Provider: Lillie Harris MD :1960 A ge:65 Y S ex:Male Date:04/16/2025 Address:[address] [place], [place] [id number] Subjective: * Chief Complaints: * A nnual visitDue for Colorectal Cancer Screening * HPI: D epression Screening: PHQ-9 L ittle interest or pleasure in doing things N ot at all, F eeling down, depressed, or hopeless N ot at all, T rouble falling or staying asleep, or sleeping too much N ot at all, F eeling tired or having little energy N ot at all, P oor appetite or overeating N ot at all, F eeling bad about yourself or that you are a failure, or have let yourself or your family down N ot at all, T rouble concentrating on things, such as reading the newspaper or watching television N ot at all, M oving or speaking so slowly that other people could have noticed; or the opposite, being so fidgety or restless that you have been moving around a lot more than usual N ot at all, T houghts that you would be better off or of hurting yourself in some way N ot at all, T otal Score 0 . I nterpretation and Intervention D epression Screening Findings N egative, F ollow-Up for Depression : review of PHQ-9 found negative result, no follow-up needed. C ommunication Needs: Communication Needs D oes the patient have a hearing impairment N o, D oes the patient have a vision impairment? Y es, I f yes, what is the vision impairment? G lasses, D oes the patient have a cognition impairment? N o. F all Risk: History H ave you had any falls with injury in the past year? N o, H ave you had two or more falls in the past year? N o. S PRIETO Questions: SDOH Questions I n the past year have you been worried about losing housing? N o, I n the past year have you or any family members you live with been unable to get any of the following when it was really needed? Check all that apply: N one. S ymptom(s): patient is a 65 yo male here for annual visit with review of recent labs and follow up of chronic issues. * ROS: G eneral/Constitutional: Change in appetite d enies. C hills d enies. F ever d enies. O phthalmologic: Blurred vision d enies. D ischarge d enies. P ain d enies. E NT: Decreased hearing d enies. S ore throat d enies.?Swollen glands d enies. E ndocrine: Cold intolerance d enies. E xcessive thirst d enies. H eat intolerance d enies. W eight loss d enies. R espiratory: Cough d enies. S hortness of breath at rest d enies. S hortness of breath with exertion d enies. W heezing d enies. C ardiovascular: Chest pain at rest d enies. C hest pain with exertion?denies. I rregular heartbeat d enies. S hortness of breath d enies. ? G astrointestinal: Abdominal pain d enies. C hange in bowel habits d enies. D iarrhea d enies. N ausea d enies. R ectal bleeding d enies. V omiting d enies . G enitourinary: Blood in urine d enies. D ifficulty urinating d enies. F requent urination d enies. M usculoskeletal: Painful joints d enies. W eakness d enies. ? S kin: Dry skin d enies. I tching d enies. D enies?Mole(s), changes in moles, new moles or any lesions of concern. D enies P hotosensitivity. R miriam d enies. N eurologic: Dizziness d enies. F ainting d enies. H eadache?denies. * Medical History: * Surgical History: * Hospitalization/Major Diagno stic Procedure: * Family History: F ather: 64 yrs, alcoholism, cardiac disease. M other: 71 yrs, alzheimer, diagnosed with Alzheimer disease. 2 brother(s) . 1 son(s) , 1 daughter(s) . . Father-Cardiac mother - Cardiac , Denies mental health/substance abuse family history, No pertinent family medical history, Denies mental health/substance abuse family history, Denies mental health/substance abuse family history. * Social History: T obacco Use: T obacco Use/Smoking P atient is a n onsmoker, A dditional Findings: Tobacco Non-User C urrent non-smoker, currently using no form of tobacco. D rugs/Alcohol: A lcohol Screen D id you have a drink containing alcohol in the past year? Y es, H ow often did you have a drink containing alcohol in the past year? M onthly or less (1 point), H ow many drinks did you have on a typical day when you were drinking in the past year? 1 or 2 drinks (0 point), H ow often did you have 6 or more drinks on one occasion in the past year? N ever (0 point), P oints 1 , I nterpretation N egative. M iscellaneous: C affeine: 1-2 cups per day. Children: yes. Exercise: yes, biking all summer treadmill 40 minutes 2 times aweek. Home smoke detector use: yes. Housing: owning. Marital status: . Occupation: weeks/months/years, works full-time. Pets: none, 1 cat. Travel outside of the [place]: no. * Medications: T akingMetamucil Smooth Texture 58.6 % Powder as directed Orally Aspirin 81 MG Tablet Chewable 1 tablet Orally Once a day Magnesium 500 MG Tablet 1 tablet with a meal Orally twice a day Azelaic Acid 15 % Gel APPLY TO AFFECTED AREA OF SKIN EVERY DAY Pravastatin Sodium 10 MG Tablet TAKE 1 TABLET ONCE DAILY hydroCHLOROthiazide 12.5 MG Capsule TAKE 1 CAPSULE DAILY metFORMIN HCl 500 MG Tablet TAKE 2 TABLETS TWICE A DAY Jantoven 5 MG Tablet TAKE 2 TABLETS ONCE DAILY Isosorbide Mononitrate 10 MG Tablet 1 tablet Orally Once a day amLODIPine Besylate 5 MG Tablet 1 tablet Orally Once a day Metoprolol Succinate ER 25 MG Tablet Extended Release 24 Hour 1 tablet Orally Once a day Taking Metamucil Smooth Texture 58.6 % Powder as directed Orally Taking Aspirin 81 MG Tablet Chewable 1 tablet Orally Once a day Taking Magnesium 500 MG Tablet 1 tablet with a meal Orally twice a day Taking Azelaic Acid 15 % Gel APPLY TO AFFECTED AREA OF SKIN EVERY DAY Taking Pravastatin Sodium 10 MG Tablet TAKE 1 TABLET ONCE DAILY Taking hydroCHLOROthiazide 12.5 MG Capsule TAKE 1 CAPSULE DAILY Taking metFORMIN HCl 500 MG Tablet TAKE 2 TABLETS TWICE A DAY Taking Jantoven 5 MG Tablet TAKE 2 TABLETS ONCE DAILY Taking Isosorbide Mononitrate 10 MG Tablet 1 tablet Orally Once a day Taking amLODIPine Besylate 5 MG Tablet 1 tablet Orally Once a day Taking Metoprolol Succinate ER 25 MG Tablet Extended Release 24 Hour 1 tablet Orally Once a day Not-Taking/PRNPropafenone HCl 300 MG Tablet 1 tablet [...] reviewed and reconciled with the patient * Allergies: N .K.D.A.yes[Allergies Verified] Objective: * Vitals: H t: 72, Wt: 255, BMI:34.58, BP:136/60, Wt-k.67. weight is down 4 pounds since 01-13-25. * P ast Orders: L ab:UA ClnCatch+Micro w/rflx Cult (Order Date - 04/07/2025) (Collection Date & Time - 04/07/2025 07:45 AM) Value Reference Range Color Urine Yellow - Appearance Urine Clear - PH 7.0 5.0-9.0 - Glucose Urine UA Negative Negative - mg/dL Urine Blood Negative Negative - Specific [place] - Urine 1.020 1.005-1.025 - Urine Protein Negative Neg-Trace - mg/dL Urine Ketones Negative Negative - mg/dL Nitrite Urine Negative Negative - Leukocyte Esterase Urine Negative Negative - RBC Urine 0-2 0-2 - /HPF WBC Urine 0-5 0-5 - /HPF Squamous Epithelial Cell Urine 0-2 0-2 - /HP F Bacteria Urine None Seen None Seen - Hyaline Casts Urine 0-2 0-2 - /LPF L ab:Comprehensive [place]. Panel Fast (Order Date - 04/07/2025) (Collection Date & Time - 04/07/2025 07:45 AM) Value Reference Range Sodium 139 135-145 - mmol/L Bilirubin Total 1.7 H 0.0-1.0 - mg/dL Aspartate Amino Transferase 34 5-37 - U/L Alanine Aminotransferase 34 0-40 - U/L Total Protein 7.2 6.5-8.0 - g/dL Albumin Level 4.4 3.5-5.0 - g/dL Alkaline Phosphatase 67 39-117 - U/L Potassium 4.0 3.3-5.1 - mmol/L Chloride 104 96-108 - mmol/L Carbon Dioxide 27 22-29 - mmol/L Anion Gap 12 12-20 - Blood Urea Nitrogen 12 9-16 - mg/dL Creatinine 0.79 0.5-1.4 - mg/dL Estimated Glomerular Filt Rate > 60 - Glucose Fasting 165 H 60-99 - mg/dL Calcium 9.5 8.4-10.2 - mg/dL L ab:Lipid Panel with Reflex (Order Date - 04/07/2025) (Collection Date & Time - 04/07/2025 07:45 AM) Value Reference Range Triglycerides 106 <150 - mg/dL Cholesterol 150 <200 - mg/dL LDL Cholesterol Calculated 89 <100 - mg/dL HDL Cholesterol 40 L >40 - mg/dL L ab:Complete Blood Count Auto Diff (Order Date - 04/07/2025) (Collection Date & Time - 04/07/2025 07:45 AM) Value Reference Range White Blood Count 6.6 4.8-10.8 - X10*3/uL Red Blood Count 4.55 L 4.60-5.80 - X10*6/uL Hemoglobin 13.2 L 14.0-18.0 - g/dl Hematocrit 39.6 L 42.0-52.0 - % Mean Corpuscular Volume 87.0 80.0-98.0 - fL Mean Corpuscular Hemoglobin 29.0 27.0-33.0 - pg Mean Corpuscular HGB Conc 33.3 31.0-36.0 - g/ dl Red Cell Distribution Width 14.2 11.0-16.0 - % Platelet Count 249 160-400 - X10*3/uL Mean Platelet Volume 9.7 9.4-12.4 - fL Neutrophils Percent Auto 55.1 45-73 - % Imm Gran Pct Auto 0.5 H 0.0-0.4 - % Lymphocytes Percent Auto 33.2 20-40 - % Monocytes Percent Auto 8.8 2-11 - % Eosinophils Percent Auto 2.1 0-4 - % Basophils Percent Auto 0.3 0-2 - % NRBC Pct Auto 0.0 0.0-0.2 - /100WBC Neutrophils Absolute Auto 3.6 2.0-8.3 - x10* 3/uL Imm Gran Abs Auto 0.03 0.00-0.03 - X10*3/uL Lymphocytes Absolute Auto 2.2 1.2-4.9 - X10* 3/uL Monocytes Absolute Auto 0.6 0.1-1.2 - X10*3/ uL Eosinophils Absolute Auto 0.1 0.0-0.4 - X10* 3/uL Basophils Absolute Auto 0.0 0.0-0.2 - X10*3/ uL NRBC Abs Auto 0.000 0.0-0.012 - X10*3/uL L ab:Hemoglobin A1c (Order Date - 04/07/2025) (Collection Date & Time - 04/07/2025 07:45 AM) Value Reference Range Hemoglobin A1c % 7.3 H <6.0 - % Estimated Average Glucose 163 - mg/dL L ab:Microalbumin, Random (Order Date - 04/07/2025) (Collection Date & Time - 04/07/2025 07:45 AM) Value Reference Range Creatinine Urine 77.80 - mg/dL Microalbumin Urine 13.0 - mg/L Microalbum Creatinine Ratio Ur 16.7 <30 - ug/ mg cr L ab:PSA,Total (Free>4and<10) (Order Date - 04/07/2025) (Collection Date & Time - 04/07/2025 07:45 AM) Value Reference Range PSA,Total (Free>4and<10) 0.49 0.00-4.00 - ng/ mL * Examination: G eneral Examination: GENERAL APPEARANCE: w ell developed, well nourished, in no acute distress. HEAD: n ormocephalic, atraumatic. EYES: p upils equal, round, reactive to light and accommodation, sclera non-icteric. EARS: n ormal. ORAL CAVITY: m ucosa moist. THROAT: c lear. NECK/THYROID: n laury supple, full range of motion, no cervical lymphadenopathy, no bruits. SKIN: w arm and dry, no suspicious lesions, abnormal with lesion on rt scalp. is going to see derm this week. HEART: r egular rate and rhythm, S1, S2 normal, no murmurs.? LUNGS: c lear to auscultation bilaterally. ABDOMEN: s oft, nontender, nondistended, bowel sounds present, normal, no organomegaly , no masses palpable. RECTAL EXAM: n ormal tone, no external hemorrhoids, no masses palpable, prostate normal, stool guaiac negative. MALE GENITOURINARY: c ircumcised, no penile lesions or discharge, testes descended bilaterally, no testicular mass. EXTREMITIES: n o clubbing, cyanosis, or edema. NEUROLOGIC: n onfocal, motor strength normal upper and lower extremities, sensory exam intact. PODIATRIC: d iminished pinprick, normal pulse, normal light touch. FOOT EXAM: . Assessment: * Assessment: 1. A dult general medical examination - Z00.00 (Primary) 2 . T ype 2 diabetes mellitus without complication - E11.9 3 . E ssential hypertension - I10 ? 4 . H istory of melanoma - Z85.820 5 . D iabetic autonomic neuropathy associated with type 2 diabetes mellitus - E11.43 6 . C olon cancer screening - Z12.11 7 . D epression screening - Z13.31 8 . P ure hypercholesterolemia - E78.00 Plan: * Treatment: 2. T ype 2 diabetes mellitus without complication Continue metFORMIN HCl Tablet, 500 MG, TAKE 2 TABLETS TWICE A DAY; C ontinue Jantoven Tablet, 5 MG, TAKE 2 TABLETS ONCE DAILY. Notes: stable, will continue current regiment 3. E ssential hypertension Continue hydroCHLOROthiazide Capsule, 12.5 MG, TAKE 1 CAPSULE DAILY; C ontinue Isosorbide Mononitrate Tablet, 10 MG, 1 tablet, Orally, Once a day; C ontinue amLODIPine Besylate Tablet, 5 MG, 1 tablet, Orally, Once a day; C ontinue Metoprolol Succinate ER Tablet Extended Release 24 Hour, 25 MG, 1 tablet, Orally, Once a day. Notes: well controlled, will cntinue current regiment 4. H istory of melanoma Notes: was treated with moh's 5. D iabetic autonomic neuropathy associated with type 2 diabetes mellitus Notes: stable 6. C olon cancer screening Notes: guaiac negative 7. D epression screening Notes: negative screen 8. P ure hypercholesterolemia Continue Pravastatin Sodium Tablet, 10 MG, TAKE 1 TABLET ONCE DAILY. Notes: stable, will continue current regiment 9. O clarences Referral To:MARK BALDWIN Gastroenterology Reason:SCREEN FOR COLON CANCER * Procedure Codes: * Preventive Medicine: Counseling: C are goal follow-up plan: C ounseling for abnormal BMI provided?Yes, A holly Normal BMI Follow-up G iving encouragement to exercise. Diabetes Care Plan: P atient Lifestyle Goals N eeds to maintain diet control.?Treatment Goals A 1C< 7. B arriers N eeds better diet control. E xpected Outcome m aintaining stable blood sugar levels within a target range. * Follow Up: 6 Months * * Sign off status: Completed true * Provider: Lillie Harris MD Date: 0 04/16/2025 Generated for Josue mejia/Oxana/Bintaitting on: 1 10/18/2024 12:21 PM EST History and Physical Notes * HPI (History of Present Illness) Category Sub-Category Detail Notes Category Not es Symptom(s) patient is a 65 yo male here for annual visit with review of recent labs and follow up of chronic issues. Depression Screening PHQ-9 Little inte rest or pleasure in doing things: Not at all Feeling down, depressed, or hopeless: No t at all Trouble falling or staying asleep, or sl eeping too much: Not at all Feeling tired or having little energy: N ot at all Poor appetite or overeating: Not at all Feeling bad about yourself o r that you are a failure, or have let yourself or your family down: Not at all Trouble concentrating on thi ngs, such as reading the newspaper or watching television: Not at all Moving or speaking so slowly that other people could have noticed; or the opposite, being so fidgety or restless that you have been moving around a lot more than usual: Not at all Thoughts that you would be b navya off or of hurting yourself in some way: Not at all Total Score: 0 Interpretation and Intervention Depression Scree ashley Findings: Negative Follow-Up for Depression: : review of PH Q-9 found negative result, no follow-up needed SDOH Questions SDOH Questions In the past year have you been worried about losing housing?: No In the past year have you or any family members you live with been unable to get any of the following when it was really needed? Check all that apply:: None Fall Risk History Have you had any falls with injury i n the past year?: No Have you had two or more falls in the year?: No Communication Needs Communication Needs Does the patient have a hearing impairment: No Does the patient have a vision impairmen t?: Yes If yes, what is the vision impairment?: Glasses Does the patient have a cognition impair ment?: No Examination Category Sub-Category Detail Notes Category Not es General Examination GENERAL APPEARANCE: well dev eloped, well nourished, in no acute distress HEAD: normocephalic, atrau matic EYES: pupils equal, round, reactive to light and accommodation, sclera non-icteric EARS: normal THROAT: clear NECK/THYROID: neck supple, full ra nge of motion, no cervical lymphadenopathy, no bruits HEART: regular rate and rhy thm, S1, S2 normal, no murmurs LUNGS: clear to auscultatio n bilaterally ABDOMEN: soft, nontender, non distended, bowel sounds present, normal, no organomegaly , no masses palpable NEUROLOGIC: nonfocal, motor stre ngth normal upper and lower extremities, sensory exam intact SKIN: warm and dry, no pamela picious lesions, abnormal with lesion on rt scalp. is going to see derm this week EXTREMITIES: no clubbing, cyanosi s, or edema MALE GENITOURINARY: circumcised, no peni le lesions or discharge, testes descended bilaterally, no testicular mass RECTAL EXAM: normal tone, no exte rnal hemorrhoids, no masses palpable, prostate normal, stool guaiac negative ORAL CAVITY: mucosa moist FOOT EXAM: Date: 04/16/2025 diminishedl pin prick. normal pulse. normal light touch. PODIATRIC: diminished pinprick, normal pulse, normal light touch Consultation Request Notes Referral Date Referring Provider Referred Provider Not es 04/16/2025 Liu Harris BARRY SCREEN FO R COLON CANCER
--- OUTSIDE RECORDS SUMMARY | 2025-04-21 03:30 | XMS_ITS ---
Author Organization Liu Harris MD Address [address] [place] [phone] Care Team Providers Care Facility Environmental Technician Name Role Phone Liu Harris Primary Care Provider Results Component Value Reference Range Notes Prothrombin Time INR Reviewed date:04/21/2025 10:32:14 AM Interpretation: Performing Lab:[facility], [address] [place] [phone] Notes/Report: Prothrombin Time 29.1 10.9-12.4 SEC INTERNATIONAL NORM RATIO 2.5 0.9-1.1 [...] Date Provider Diagnosis Liu Harris MD [address] [place] [address] [place] [phone] 04/21/2025 Liu Harris shelter (current) use of anticoagulants Z79.01 and Atrial fibrillation I48.91 Assessments Encounter Date Diagnosis (ICD Code) Assessment Notes Treatment Notes Treatment Clinical Notes Section Notes 04/21/2025 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 (ICD-10 - Z79.01) 04/21/2025 Atrial fibrillation (ICD-10 - I48.91) Plan Of Treatment Next Appt Details Provider Name:Liu hyde, 10/19/2025 07:15:00 AM, [address] [place] [address], [address], [phone], Provider Name:Liu hyde, 10/26/2025 09:00:00 AM, [address] [place] [address], [address], [phone], Provider Name:Liu hyde, 04/12/2026 07:00:00 AM, [address] [place] [address], [address], [phone], Provider Name:Liu hyde, 04/19/2026 08:30:00 AM, [address] [place] [address], [address], [phone], Progress Notes * Remington ERIC RDOB:1960 (65 yo M)Acc No.[id number]:04/21/2025 Progress Note Patient: Remington PEDERSEN Dante Provider: Lillie Harris MD :1960 A ge:65 Y S ex:Male Date:04/21/2025 Address:[address] [place], [place] [phone] Subjective: * Chief Complaints: * 1 . INR. * Medical History: Objective: * Vitals: Assessment: * Assessment: 1. L douglas term (current) use of anticoagulants - Z79.01 (Primary) 2 . A trial fibrillation - I48.91 Plan: * Treatment: 2. A trial fibrillation L AB: Prothrombin Time INR (Collection Date & Time - 04/21/2025 08:30 AM) * Procedure Codes: 3 6415 VENIPUNCT, ROUTINE* * * The named appointment provid er may or may not be the originator of this progress note, and it is not deemed complete until electronically signed by the appointment provider. Sign off status: Pending * Provider: Lillie Harris MD Date: 0 04/21/2025 Generated for Josue mejia/Oxana/Bintaitting on: 1 10/18/2024 12:21 PM EST
--- OUTSIDE RECORDS SUMMARY | 2025-05-05 03:15 | XMS_ITS ---
Author Organization Liu Harris MD Address [address] [place] [phone] Care Team Providers Care Mapping Supervisor Name Role Phone Liu Harris Primary Care Provider Results Component Value Reference Range Notes Prothrombin Time INR Reviewed date:05/05/2025 10:27:45 AM Interpretation: Performing Lab:[facility], [address] [place] [phone] Notes/Report: Prothrombin Time 26.4 10.9-12.4 SEC INTERNATIONAL [...] Location Date Provider Diagnosis Liu Harris MD [address] [place] [address] [place] [phone] 05/05/2025 Liu Harris assisted (current) use of anticoagulants Z79.01 and Atrial fibrillation I48.91 Assessments Encounter Date Diagnosis (ICD Code) Assessment Notes Treatment Notes Treatment Clinical Notes Section Notes 05/05/2025 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 of anticoagulants (ICD-10 - Z79.01) 05/05/2025 Atrial fibrillation (ICD-10 - I48.91) Plan Of Treatment Next Appt Details Provider Name:Liu hyde, 10/19/2025 07:15:00 AM, [address] [place] [address], [address], [phone], Provider Name:Liu hyde, 10/26/2025 09:00:00 AM, [address] [place] [address], [address], [phone], Provider Name:Liu hyde, 04/12/2026 07:00:00 AM, [address] [place] [address], [address], [phone], Provider Name:Liu hyde, 04/19/2026 08:30:00 AM, [address] [place] [address], [address], [phone], Progress Notes * Remington ERIC RDOB:1960 (65 yo M)Acc No.[id number]:05/05/2025 Progress Note Patient: Remington PEDERSEN Dante Provider: Lillie Harris MD :1960 A ge:65 Y S ex:Male Date:05/05/2025 Address:[address] [place], [place] [phone] Subjective: * Chief Complaints: * 1 . INR. * Medical History: Objective: * Vitals: Assessment: * Assessment: 1. L douglas term (current) use of anticoagulants - Z79.01 (Primary) 2 . A trial fibrillation - I48.91 Plan: * Treatment: 2. A trial fibrillation L AB: Prothrombin Time INR (Collection Date & Time - 05/05/2025 08:15 AM) * Procedure Codes: 3 6415 VENIPUNCT, ROUTINE* * * The named appointment provid er may or may not be the originator of this progress note, and it is not deemed complete until electronically signed by the appointment provider. Sign off status: Pending * Provider: Lillie Harris MD Date: 0 05/05/2025 Generated for Josue mejia/Oxana/Bintaitting on: 1 10/18/2024 12:22 PM EST
--- OUTSIDE RECORDS SUMMARY | 2025-05-19 04:15 | XMS_ITS ---
Author Organization Liu Harris MD Address [address] [place] [phone] Care Team Providers Care Mortgage Advisor Name Role Phone Liu Harris Primary Care Provider Results Component Value Reference Range Notes Prothrombin Time INR Reviewed date:05/19/2025 12:41:51 PM Interpretation: Performing Lab:[facility], [address] [place] [phone] Notes/Report: Prothrombin Time 23.4 10.9-12.4 SEC INTERNATIONAL NORM RATIO 2.0 0.9-1.1 INTERNATIONAL [...] Location Date Provider Diagnosis Liu Harris MD [address] [place] [address] [place] [phone] 05/19/2025 Liu Harris retirement (current) use of anticoagulants Z79.01 and Atrial fibrillation I48.91 Assessments Encounter Date Diagnosis (ICD Code) Assessment Notes Treatment Notes Treatment Clinical Notes Section Notes 05/19/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 (ICD-10 - Z79.01) 05/19/2025 Atrial fibrillation (ICD-10 - I48.91) Plan Of Treatment Next Appt Details Provider Name:Liu hyde, 10/19/2025 07:15:00 AM, [address] [place] [address], [address], [phone], Provider Name:Liu hyde, 10/26/2025 09:00:00 AM, [address] [place] [address], [address], [phone], Provider Name:Liu hyed, 04/12/2026 07:00:00 AM, [address] [place] [address], [address], [phone], Provider Name:Liu hyde, 04/19/2026 08:30:00 AM, [address] [place] [address], [address], [phone], Progress Notes * Remington ERIC RDOB:1960 (65 yo M)Acc No.[id number]:05/19/2025 Progress Note Patient: Remington PEDERSEN Dante Provider: Lillie Harris MD :1960 A ge:65 Y S ex:Male Date:05/19/2025 Address:[address] [place], [place] [phone] Subjective: * Chief Complaints: * 1 . INR. * Medical History: Objective: * Vitals: Assessment: * Assessment: 1. L douglas term (current) use of anticoagulants - Z79.01 (Primary) 2 . A trial fibrillation - I48.91 Plan: * Treatment: 2. A trial fibrillation L AB: Prothrombin Time INR (Collection Date & Time - 05/19/2025 09:15 AM) * Procedure Codes: 3 6415 VENIPUNCT, ROUTINE* * * The named appointment provid er may or may not be the originator of this progress note, and it is not deemed complete until electronically signed by the appointment provider. Sign off status: Pending * Provider: Lillie Harris MD Date: 0 05/19/2025 Generated for Josue mejia/Oxana/Bintaitting on: 1 10/18/2024 12:21 PM EST
--- OUTSIDE RECORDS SUMMARY | 2025-06-02 03:30 | XMS_ITS ---
Author Organization Liu Harris MD Address [address] [place] [phone] Care Team Providers Care Senior Mainframe Developer Name Role Phone Liu Harris Primary Care Provider Results Component Value Reference Range Notes Prothrombin Time INR Reviewed date:06/02/2025 11:24:03 AM Interpretation: Performing Lab:[facility], [address] [place] [phone] Notes/Report: Prothrombin Time 25.7 10.9-12.4 SEC INTERNATIONAL [...] Date Provider Diagnosis Liu Harris MD [address] [place] [address] [place] [phone] 06/02/2025 Liu Harris longterm (current) use of anticoagulants Z79.01 and Atrial fibrillation I48.91 Assessments Encounter Date Diagnosis (ICD Code) Assessment Notes Treatment Notes Treatment Clinical Notes Section Notes 06/02/2025 emt intermediate (current) use of anticoagulants (ICD-10 - Z79.01) 06/02/2025 Atrial fibrillation (ICD-10 - I48.91) Plan Of Treatment Next Appt Details Provider Name:Liu hyde, 10/19/2025 07:15:00 AM, [address] [place] [address], [address], [phone], Provider Name:Liu hyde, 10/26/2025 09:00:00 AM, [address] [place] [address], [address], [phone], Provider Name:Liu hyde, 04/12/2026 07:00:00 AM, [address] [place] [address], [address], [phone], Provider Name:Liu hyde, 04/19/2026 08:30:00 AM, [address] [place] [address], [address], [phone], Progress Notes * Remington ERIC RDOB:1960 (65 yo M)Acc No.[id number]:06/02/2025 Progress Note Patient: Remington PEDERSEN Dante Provider: Lillie Harris MD :1960 A ge:65 Y S ex:Male Date:06/02/2025 Address:[address] [place], [place] [phone] Subjective: * Chief Complaints: * 1 . [...] 06/02/2025 Generated for Josue mejia/Oxana/Bintaitting on: 1 10/18/2024 12:23 PM EST
--- OUTSIDE RECORDS SUMMARY | 2025-06-16 04:30 | XMS_ITS ---
Author Organization Liu Harris MD Address [address] [place] [phone] Care Team Providers Care Talent Development Coordinator Name Role Phone Liu Harris Primary Care Provider Results Component Value Reference Range Notes Prothrombin Time INR Reviewed date:06/16/2025 12:35:41 PM Interpretation: Performing Lab:[facility], [address] [place] [phone] Notes/Report: Prothrombin Time 27.3 10.9-12.4 SEC INTERNATIONAL [...] Location Date Provider Diagnosis Liu Harris MD [address] [place] [address] [place] [phone] 06/16/2025 Liu Harris senior care (current) use of anticoagulants Z79.01 and Atrial fibrillation I48.91 Assessments Encounter Date Diagnosis (ICD Code) Assessment Notes Treatment Notes Treatment Clinical Notes Section Notes 06/16/2025 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 (ICD-10 - Z79.01) 06/16/2025 Atrial fibrillation (ICD-10 - I48.91) Plan Of Treatment Next Appt Details Provider Name:Liu hyde, 10/19/2025 07:15:00 AM, [address] [place] [address], [address], [phone], Provider Name:Liu hyde, 10/26/2025 09:00:00 AM, [address] [place] [address], [address], [phone], Provider Name:Liu hyde, 04/12/2026 07:00:00 AM, [address] [place] [address], [address], [phone], Provider Name:Liu hyde, 04/19/2026 08:30:00 AM, [address] [place] [address], [address], [phone], Progress Notes * Remington ERIC RDOB:1960 (65 yo M)Acc No.[id number]:06/16/2025 Progress Note Patient: Remington PEDERSEN Dante Provider: Lillie Harris MD :1960 A ge:65 Y S ex:Male Date:06/16/2025 Address:[address] [place], [place] [phone] Subjective: * Chief Complaints: * 1 . [...] 06/16/2025 Generated for Josue mejia/Oxana/Bintaitting on: 1 10/18/2024 12:23 PM EST
--- OUTSIDE RECORDS SUMMARY | 2025-06-30 03:30 | XMS_ITS ---
Author Organization Liu Harris MD Address [address] [place] [phone] Care Team Providers Care Police Cadet Name Role Phone Liu Harris Primary Care Provider Results Component Value Reference Range Notes Prothrombin Time INR Reviewed date:06/30/2025 12:04:22 PM Interpretation: Performing Lab:[facility], [address] [place] [phone] Notes/Report: Prothrombin Time 25.8 10.9-12.4 SEC INTERNATIONAL [...] Location Date Provider Diagnosis Liu Harris MD [address] [place] [address] [place] [phone] 06/30/2025 Liu Harris [facility] (current) use of anticoagulants Z79.01 and Atrial fibrillation I48.91 Assessments Encounter Date Diagnosis (ICD Code) Assessment Notes Treatment Notes Treatment Clinical Notes Section Notes 06/30/2025 manager intermediate (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) use of anticoagulants (ICD-10 - Z79.01) 06/30/2025 Atrial fibrillation (ICD-10 - I48.91) Plan Of Treatment Next Appt Details Provider Name:Liu hyde, 10/19/2025 07:15:00 AM, [address] [place] [address], [address], [phone], Provider Name:Liu hyde, 10/26/2025 09:00:00 AM, [address] [place] [address], [address], [phone], Provider Name:Liu hyde, 04/12/2026 07:00:00 AM, [address] [place] [address], [address], [phone], Provider Name:Liu hyde, 04/19/2026 08:30:00 AM, [address] [place] [address], [address], [phone], Progress Notes * Remington ERIC RDOB:1960 (65 yo M)Acc No.[id number]:06/30/2025 Progress Note Patient: Remington PEDERSEN Dante Provider: Lillie Harris MD :1960 A ge:65 Y S ex:Male Date:06/30/2025 Address:[address] [place], [place] [phone] Subjective: * Chief Complaints: * 1 . [...] 06/30/2025 Generated for Josue mejia/Oxana/Bintaitting on: 1 10/18/2024 12:21 PM EST
--- OUTSIDE RECORDS SUMMARY | 2025-07-14 04:00 | XMS_ITS ---
Author Organization Liu Harris MD Address [address] [place] [phone] Care Team Providers Care Night Manager Name Role Phone Liu Harris Primary Care Provider Results Component Value Reference Range Notes Prothrombin Time INR Reviewed date:07/14/2025 01:19:51 PM Interpretation: Performing Lab:[facility], [address] [place] [phone] Notes/Report: Prothrombin Time 29.5 10.9-12.4 SEC INTERNATIONAL [...] Location Date Provider Diagnosis Liu Harris MD [address] [place] [phone] 07/14/2025 Liu Harris Atrial fibrillation I48.91 ; Encounter for administration of vaccine Z23 and terminal worker (current) use of anticoagulants Z79.01 Assessments Encounter Date Diagnosis (ICD Code) Assessment Notes Treatment Notes Treatment Clinical Notes Section Notes 07/14/2025 Atrial fibrillation (ICD-10 - I48.91) 07/14/2025 Encounter for administration of vaccine (ICD-10 - Z23) 07/14/2025 senior living (current) use of anticoagulants (ICD-10 - Z79.01) Plan Of Treatment Next Appt Details Provider Name:Liu hyde, 10/19/2025 07:15:00 AM, [address] [place] [address], [address], [phone], Provider Name:Liu hyde, 10/26/2025 09:00:00 AM, [address] [place] [address], [address], [phone], Provider Name:Liu hyde, 04/12/2026 07:00:00 AM, [address] [place] [address], [phone], Provider Name:Liu hyde, 04/19/2026 08:30:00 AM, [address] [place] [address], [phone], Progress Notes * Remington ERIC RDOB:1960 (65 yo M)Acc No.[id number]:07/14/2025 Progress Note Patient: Wanda KEYONRemington DE ANDA Dante Provider: Lillie Harris MD :1960 A ge:65 Y S ex:Male Date:07/14/2025 Address:[address] [place], [place] [phone] Subjective: * Chief Complaints: * 1 . [...] * Procedure Codes: 3 6415 VENIPUNCT, ROUTINE*, 90851 FLU VACCINE NO PRESERV 3 & >, 220[address] IMMUNIZATION ADMIN * * The named appointment provid er may or may not be the originator of this progress note, and it is not deemed complete until electronically signed by the appointment provider. Sign off status: Pending * Provider: Lillie Harris MD Date: 0 07/14/2025 Generated for Josue mejia/Oxana/Bintaitting on: 10/18/2024 12:21 PM EST
--- OUTSIDE RECORDS SUMMARY | 2025-08-04 03:15 | XMS_ITS ---
Author Organization Liu Harris MD Address [address] [place] [phone] Care Team Providers Care Product Delivery Specialist Name Role Phone Liu Harris Primary Care Provider Results Component Value Reference Range Notes Prothrombin Time INR Reviewed date:08/04/2025 12:15:44 PM Interpretation: Performing Lab:[facility], [address] [place] [phone] Notes/Report: Prothrombin Time 24.3 10.9-12.4 SEC INTERNATIONAL [...] Location Date Provider Diagnosis Liu Harris MD [address] [place] [address] [place] [phone] 08/04/2025 Liu Harris Atrial fibrillation I48.91 and snf (current) use of anticoagulants Z79.01 Assessments Encounter Date Diagnosis (ICD Code) Assessment Notes Treatment Notes Treatment Clinical Notes Section Notes 08/04/2025 Atrial fibrillation (ICD-10 - I48.91) 08/04/2025 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 of anticoagulants (ICD-10 - Z79.01) Plan Of Treatment Next Appt Details Provider Name:Liu hyde, 10/19/2025 07:15:00 AM, [address] [place] [address], [address], [phone], Provider Name:Liu hyde, 10/26/2025 09:00:00 AM, [address] [place] [address], [address], [phone], Provider Name:Liu hyde, 04/12/2026 07:00:00 AM, [address] [place] [address], [address], [phone], Provider Name:Liu hyde, 04/19/2026 08:30:00 AM, [address] [place] [address], [address], [phone], Progress Notes * Remington ERIC RDOB:1960 (65 yo M)Acc No.[id number]:08/04/2025 Progress Note Patient: Remington PEDERSEN Dante Provider: Lillie Harris MD :1960 A ge:65 Y S ex:Male Date:08/04/2025 Address:[address] [place], [place] [phone] Subjective: * Chief Complaints: * 1 . [...] Date: 1 Generated for Josue mejia/Oxana/Renato on: 10/18/2024 12:21 PM EST
--- OUTSIDE RECORDS SUMMARY | 2025-08-18 04:00 | XMS_ITS ---
Author Organization Liu Harris MD Address [address] [place] [phone] Care Team Providers Care Horseradish Maker Name Role Phone Liu Harris Primary Care Provider Results Component Value Reference Range Notes Prothrombin Time INR (Not ye t reviewed by provider) Interpretation: Performing Lab:[facility], [address] [place] [phone] Notes/Report: Prothrombin Time 31.3 10.9-12.4 SEC INTERNATIONAL [...] Location Date Provider Diagnosis Liu Harris MD [address] [place] [phone] 08/18/2025 Liu Harris [facility] (current) use of anticoagulants Z79.01 and Atrial fibrillation I48.91 Assessments Encounter Date Diagnosis (ICD Code) Assessment Notes Treatment Notes Treatment Clinical Notes Section Notes 08/18/2025 [facility] (current) use of anticoagulants (ICD-10 - Z79.01) 08/18/2025 Atrial fibrillation (ICD-10 - I48.91) Plan Of Treatment Pending Test Test Name Order Date Prothrombin Time INR 08/18/2025 Next Appt Details Provider Name:Liu hyde, 10/19/2025 07:15:00 AM, [address] [place] [address], [phone], Provider Name:Liu hyde, 10/26/2025 09:00:00 AM, [address] [place] [address], [phone], Provider Name:Liu hyde, 04/12/2026 07:00:00 AM, [address] [place] [address], [phone], Provider Name:Liu hyde, 04/19/2026 08:30:00 AM, [address] [place] [address], [phone], Progress Notes * Remington ERIC RDOB:1960 (65 yo M)Acc No.[id number]:08/18/2025 Progress Note Patient: Remington PEDERSEN Provider: Lillie Harris MD :1960 A ge:65 Y S ex:Male Date:08/18/2025 Address:[address] [place], [place] [phone] Subjective: * Chief Complaints: * 1 . [...] Pending * Provider: Lillie Harris MD Date: 10/18/2024 Generated for Josue mejia/Oxana/Renato on: 10/18/2024 12:24 PM EST
[2025-08-18 10:55] LABS: INTERNATIONAL NORM RATIO 2.7 (0.9-1.1); Prothrombin Time 31.3 SEC (10.9-12.4)
--- OUTSIDE RECORDS SUMMARY | 2025-08-18 12:20 | XMS_ITS | Clinical Summary ---
Author Organization [employer] Address [address] [place] [address] Phone Care Team Providers Care Six Color Press Operator Name Role Phone Liu Harris MD Primary Care Provider [phone] Allergies Active Allergy Reactions Criticality Noted Date Comments Shellfish Derived 07/28/2025 Medications amLODIPine (NORVASC) 10 mg tabletIndication s:Paroxysmal [...] by the office 2 tablet 5 Active psyllium husk (METAMUCIL ORAL) Take by mouth 2 (two) times a day. Active Active Problems Problem Noted Date Diagnosed Date Aneurysm of ascending aorta without rupture ([facility] /HCC V24) 07/24/2025 Assessment & Plan (07/24/2025 9:56 AM EDT): Patient with mild dilatation of the ascending aorta unchanged from previous echocardiogram in 2020 will repeat an echocardiogram in 1 year. Maintaining normal blood pressure and lipid status to prevent further progression of dilatation Orders: Transthoracic echocardiogram (TTE) complete with PRN contrast, bubble, strain, and 3D order panel; Future Dizziness 01/19/2025 Assessment & Plan (01/19/2025 3:10 PM EDT): Patient has been having difficulties with dizziness which he attributes to vision changes secondary to cataract. He has undergone evaluation for vertigo and even completed a brain MRI. He is hopeful that his symptoms will improve with upcoming cataract surgery. Atrial fibrillation ([facility] V24, [facility] V28) 1 Overview (12/03/2024): Last [...] him off the amlodipine. Assessment & Plan (07/24/2025 9:56 AM EDT): History of paroxysmal atrial fibrillation. Symptomatic when it occurs. Patient has pill in the pocket. He has been told that if he has to use it more frequently that we may need to consider a third ablation. His last ablation was a pulsed field ablation. I explained to him the ablations that he is had the possible history that may occur and the possibility that he may develop permanent A-fib if ablations are not possible in the future. He will continue with anticoagulation secondary to history of CVA when he has had paroxysmal A-fib. Orders: ECG 12 lead Assessment & Plan (01/19/2025 3:10 PM EDT): [...] him. We will update an echocardiogram. Diabetes ([facility] V24, [facility] V28) 08/11/2021 Hyperlipidemia 08/11/2021 Overview (12/03/2024): Last Assessment & Plan: Patient's last LDL cholesterol was 79. Given his history of diabetes his LDL cholesterol goal is less than 100. He should continue with pravastatin 10 mg once a day. Patient encouraged to follow a low-fat diet. Assessment & Plan (07/24/2025 9:56 AM EDT): Orders: ECG 12 lead Assessment & Plan (01/19/2025 2:46 PM EDT): [...] Encounters Date Type Department Care Team Description 07/31/2025 Telephone Gastroenterology - [address] [facility] [address] [place] [phone] Donnie Coronado MD 07/29/2025 Results Follow-Up Gastroenterology - [address] [place] [phone] [facility] [place] 07/28/2025 9:27 AM EDT Anesthesia Event [facility] [address] [place] [phone] Ronald Ruiz DO Guerin, Erik R, CRNA 07/28/2025 8:44 AM EDT - 07/28/2025 11:59 PM EDT Hospital Encounter [facility] [address] [place] [phone] Donnie Coronado MD Walsh, Michael, DO Hx of colonic polyps Discharge Disposition: Home or Self Care 07/24/2025 8:50 AM EDT Office Visit [facility] [address] [place] [phone] Junior Cadena MD Paroxysmal atrial fibrillation (CMS/[facility] V24, [facility] V28) (Primary Dx); Mixed hyperlipidemia; Aneurysm of ascending aorta without rupture ([facility] V24) 07/10/2025 Telephone Gastroenterology - [address] [facility] [address] [place] [address] Sharita Ewing MA from Last 3 Months Surgical History Surgery Date Site/Laterality Comments COLONOSCOPY ABLATION CARDIOVERSION Medical History Medical History Date Comments Diabetes mellitus type 2, co ntrolled, with complications ([facility] V24, [facility] V28) DX:Diabetes mellitus type 2, controlled, with complications ([facility]) Hyperlipidemia DX:Hyperlipidemi a Essential hypertension DX:Essent ial hypertension CVA (cerebral vascular accid ent) ([facility] V24, [facility] V28) 2004 A-fib ([facility] V24, [facility] V28) s/p cardioversion SVT (supraventricular tachyc ardia) ([facility] V24) s/p ablation ROSEANN on CPAP Colon polyp Melanoma ([facility] V24, [facility] V28) arm Basal cell carcinoma Family History Medical History Relation Name Comments [...] Tobacco: Never Alcohol Use Standard Drinks/Week Comments Yes 0 (1 standard drink = 0.6 oz pur e alcohol) social Interpersonal Safety Answer Date Record ed Physical Abuse Unrecognized value 07/28/2025 Verbal Abuse Unrecognized value 07/28/2025 Sex and Gender Information Value Date Recorded Sex Assigned at Not on file Legal Sex Male 9:49 PM EST Gender Identity Not on file Sexual Orientation Not on file Obstetrics History Last Filed Vital Signs Vital Sign Reading Time Taken Comments Blood Pressure 109/75 07/28/2025 10:03 AM EDT Pulse 61 07/28/2025 10:03 AM EDT Temperature 36.1 C (97 F) 07/28/2025 9:43 AM EDT Respiratory Rate 18 07/28/2025 10:03 AM EDT Oxygen Saturation 98% 07/28/2025 10:03 AM EDT Inhaled Oxygen Concentration - - Weight 106 kg (234 lb) 07/28/2025 9:07 AM EDT Height 182.9 cm (6') 07/28/2025 9:07 AM EDT Body Mass Index 31.74 07/28/2025 9:07 AM EDT Plan of Treatment Upcoming Encounters Date Type Department Care Team (Late st Contact Info) Description 07/13/2026 11:00 AM EDT Ancillary Procedure [facility] [address] [place] [address] Health Maintenance Due Date Last Done Comments Diabetes: Annual GFR (Glomerular Filtration Rate) 1959 Diabetes: Annual Foot Exam 1969 Diabetes: Annual Retina Eye Exam 1969 Cholesterol Screening (Lipid Panel) 09/16/2022 Hepatitis C Screening 09/16/2022 Social Influencers of Health Screening 09/16/2022 Hypertension/CHF/CAD Annual BMP Blood Test 09/24/2022 Diabetes: Annual Urine Albumin-Creatinine Ratio (uACR) 09/30/2022 Diabetes: Blood Sugar Control Test (HGBA1C) 09/30/2022 Pneumococcal Vaccine: 50+ Years (3 of 3 - PCV20 or PCV21) 07/08/2024 07/08/2019, 09/12/2016, 02/17/2014 Depression Screening 10/15/2024 COVID-19 Vaccine ( season) 2025 07/23/2024, 07/11/2023, 07/20/2022, Additional history exists Falls Risk Assessment 07/28/2026 07/28/2025 Colorectal Cancer Screening: Colonoscopy 07/28/2030 07/28/2025 DTaP,Tdap,and Td Vaccines (3 - Td or Tdap) 06/12/2033 06/12/2023, 08/18/2013 RSV Immunization Adult Patients (1 - 1-dose 75+ series) 2034 Zoster Vaccines Completed 08/27/2018, 05/14/2018 Influenza Vaccine Completed 07/14/2025, , 07/03/2023, Additional history exists HIB Vaccines Aged Out [...] Procedure Name Priority Date/Time Associated Diagnosis Comments COLONOSCOPY Routine 07/28/2025 9:42 AM EDT Hx of colonic polyps TISSUE EXAM Routine 07/28/2025 9:38 AM EDT Hx of colonic polyps ECG 12-LEAD Routine 07/24/2025 8:45 AM EDT Paroxysmal atrial fibrillation (CMS/HCC V24, CMS/HCC V28) Mixed hyperlipidemia from Last 3 Months Results * COLONOSCOPY Anesthesia - MAC; [facility] ENDOSCOPY (07/28/2025 9:42 AM EDT) Anatomical Region Laterality Modality Endoscopy 07/28/2025 9:15 AM EDT Impressions 07/28/2025 9:46 AM EDT - One 4 mm polyp at the hepatic flexure, removed with a cold snare. Resected and retrieved. - Diverticulosis in the sigmoid colon. - Diverticulosis in the ascending colon. - Non-bleeding internal hemorrhoids. - The examination was otherwise normal on direct and retroflexion views. Recommendation: - Discharge patient to home. - High fiber diet. - Continue present medications. - Await pathology results. - Repeat colonoscopy for surveillance based on pathology results. - Resume Coumadin (warfarin) at prior dose today. Refer to Coumadin Clinic for further adjustment of therapy. - Return to GI clinic PRN. Narrative 07/28/2025 9:46 AM EDT [facility] GI Patient Name: Remington Eric Procedure Date: 07/28/2025 9:15 AM Date of : 1960 Age: 65 Room: ROOM 17 Gender: Male Note Status: Finalized Attending MD: Donnie Coronado MD, Procedure Date No Time: 07/28/2025 Procedure: Colonoscopy Indications: High risk colon cancer surveillance: Personal history of colonic polyps Providers: Donnie Coronado MD Referring MD: Donnie Coronado MD Medicines: Monitored Anesthesia Care Complications: No immediate complications. Estimated Blood Loss: Estimated blood loss: none. Procedure: Pre-Anesthesia Assessment: - ASA Grade Assessment: III - A patient with severe systemic disease. - After reviewing the risks and benefits, the patient was deemed in satisfactory condition to undergo the procedure. After I obtained informed consent, the scope was passed under direct vision. Throughout the procedure, the patient's blood pressure, pulse, and oxygen saturations were monitored continuously.The Colonoscope was introduced through the anus and advanced to the cecum, identified by appendiceal orifice and ileocecal valve. The colonoscopy was performed without difficulty. The patient tolerated the procedure well. The quality of the bowel preparation was good. Findings: A 4 mm polyp was found in the hepatic flexure. The polyp was sessile. The polyp was removed with a cold snare. Resection and retrieval were complete. Estimated blood loss was minimal. Scattered small and large-mouthed diverticula were found in the sigmoid colon. A few medium-mouthed diverticula were found in the ascending colon. Non-bleeding internal hemorrhoids were found during retroflexion. The hemorrhoids were medium-sized. The exam was otherwise without abnormality on direct and retroflexion views. Procedure Code(s): --- Professional --- 88339, Colonoscopy, flexible; with removal of tumor(s), polyp(s), or other lesion(s) by snare technique Diagnosis Code(s): --- Professional --- Z86.010, Personal history of colonic polyps D12.3, Benign neoplasm of transverse colon (hepatic flexure or splenic flexure) CPT copyright 2020 [employer]. All rights reserved. The codes documented in this report are preliminary and upon full fashioned garment knitter review may be revised to meet current compliance requirements. Donnie Coronado MD 07/28/2025 9:45:57 AM This report has been signed electronically.Donnie Coronado MD Number of Addenda: 0 Note Initiated On: 07/28/2025 9:15 AM Scope In: Scope Out: Endoscopy Department at [facility] - [address] [place] [phone] Procedure Note Donnie Coronado MD - 07/28/2025 [facility] GI Patient Name: Remington Eric Procedure Date: 07/28/2025 9:15 AM Date of : 1960 Age: 65 Room: ROOM 17 Gender: Male Note Status: Finalized Attending MD: Donnie Coronado MD, Procedure Date No Time: 07/28/2025 Procedure: Colonoscopy Indications: High risk colon cancer surveillance: Personalhistory of colonic polyps Providers: Donnie Coronado MD Referring MD: Donnie Coronado MD Medicines: Monitored Anesthesia Care Complications: No immediate complications. Estimated Blood Loss: Estimated blood loss: none. Procedure: Pre-Anesthesia Assessment: - ASA Grade Assessment: III - A patient with severe systemic disease. - After reviewing the risks and benefits, thepatient was deemed in satisfactory condition to undergo the procedure. After I obtained informed consent, the scope was passed under direct vision. Throughout theprocedure, the patient's blood pressure, pulse, and oxygen saturations were monitored continuously.The Colonoscope was introduced through the anus and advanced to the cecum, identified by appendiceal orifice and ileocecal valve. The colonoscopy was performed without difficulty. The patient tolerated the procedure well. The quality of the bowel preparation was good. Findings: A 4 mm polyp was found in the hepatic flexure. The polyp was sessile. The polyp was removed with acold snare. Resection and retrieval were complete. Estimated blood loss was minimal. Scattered small and large-mouthed diverticula were found in the sigmoid colon. A few medium-mouthed diverticula were found in the ascending colon. Non-bleeding internal hemorrhoids were found during retroflexion. The hemorrhoids were medium-sized. The exam was otherwise without abnormality ondirect and retroflexion views. Procedure Code(s): --- Professional --- 96948, Colonoscopy, flexible; with removal of tumor(s), polyp(s), or other lesion(s) by snare technique Diagnosis Code(s): --- Professional --- Z86.010, Personal history of colonic polyps D12.3, Benign neoplasm of transverse colon (hepatic flexure or splenic flexure) CPT copyright 2020 [employer]. All rights reserved. The codes documented in this report are preliminary and upon full fashioned garment knitter reviewmay be revised to meet current compliance requirements. Donnie Coronado MD 07/28/2025 9:45:57 AM This report has been signed electronically.Donnie Coronado MD Number of Addenda: 0 Note Initiated On: 07/28/2025 9:15 AM Scope In: Scope Out: Endoscopy Department at [facility] - [address] [place] [phone] IMPRESSION: - One 4 mm polyp at the hepatic flexure, removed with a cold snare. Resected and retrieved. - Diverticulosis in the sigmoid colon. - Diverticulosis in the ascending colon. - Non-bleeding internal hemorrhoids. - The examination was otherwise normal on directand retroflexion views. Recommendation: - Discharge patient to home. - High fiber diet. - Continue present medications. - Await pathology results. - Repeat colonoscopy for surveillance based on pathology results. - Resume Coumadin (warfarin) at prior dose today. Refer to [facility]madin Clinic for further adjustment of therapy. - Return to GI clinic PRN. us Donnie Coronado MD GI~PROCEDURE ORDERABLES Final Result * Tissue exam (07/28/2025 9:38 AM EDT) Final Diagnosis Colon, hepatic flexure polyp: Tubular adenoma 07/29/2025 9:13 AM EDT [facility] ([facility]) [facility] at 0913 EDT Gross Description A. Large intestine, Hepatic flexure, polyp x1: Labeled polyp x 1 hepatic flex . Received in formalin is a 0.6 x 0.2 x 0.1 cm aggregate of soft to friable, vidal-pink fragmented portions of polypoid tissue and fecal/food debris, which are wrapped in paper and submitted in toto in one cassette, multiple pieces. TS 07/29/2025 9:13 AM EDT [facility] Disclaimer Unless otherwise specified, all tissue is 10% NB formalin fixed and paraffin embedded. 07/29/2025 9:13 AM EDT [facility] Tissue Structure of right colic flexure / Unknown 07/28/2025 9:38 AM EDT 07/28/2025 10:14 AM EDT Donnie Coronado MD LAB PATHOLOGY ORDERABLES Mehreen l Result [facility] [address] [place] [address], * ECG 12 lead (07/24/2025 8:45 AM EDT) Ventricular Rate ECG 64 BPM GEMUSE Atrial Rate 64 BPM GEMUSE P-R Interval 172 ms GEMUSE QRS Duration 100 ms GEMUSE Q-T Interval 408 ms GEMUSE QTc 420 ms GEMUSE P Wave [employer] 29 degrees GEMUSE R [employer] -16 degrees GEMUSE T [employer] 11 degrees GEMUSE ECG Interpretation Normal sinus rhythm Moderate voltage criteria for LVH, may be normal variant Borderline ECG No previous ECGs available Confirmed by Alec CADENA, JUNIOR ([id number]) on 07/24/2025 5:23:18 PM GEMUSE 07/24/2025 8:45 AM EDT 07/24/2025 5:23 PM EDT Junior Cadena MD ECG ORDERABLES Final Result GEMUSE from Last 3 Months Insurance MEDICARE [facility] Care Teams Six Color Press Operator Relationship Specialty Start Date End Date Liu Harris MD [address] [place] [address] PCP - General 07/30/12
--- OUTSIDE RECORDS SUMMARY | 2025-08-18 12:21 | XMS_ITS | Encounter Summary ---
Author Organization [facility] Address [address] [place] [address] Care Team Providers Care Supervisor Rolling Room Name Role Phone Liu Harris MD Primary Care Provider Encounter Details Date Type Department Care Team (Late Contact Info) Description 07/29/2025 Results Follow-Up Gastroenterology - [address] [place] [phone] Annie Wilkinson MA Social History Tobacco Use Types Packs/Day [...] on file documented as of this encounter Plan of Treatment Upcoming Encounters Date Type Department Care Team (Late Contact Info) Description 07/13/2026 11:00 AM EDT Ancillary Procedure [facility] - [address] [facility] [address] [place] [phone] documented as of this encounter Visit Diagnoses Not on filedocumented in this encounter Care Teams Supervisor Rolling Room Relationship Specialty Start Date End Date Liu Harris MD [address] [place] [address] Drive [address] [place] [address] PCP - General 07/30/12 documented as of this encounter
--- OUTSIDE RECORDS SUMMARY | 2025-08-18 12:21 | XMS_ITS | Patient Health Record ---
Author Organization Liu Harris MD Address [address] [place] [address] [phone] Care Team Providers Care Content Assistant Name Role Phone Liu Harris Primary Care Provider [phone] Allergies No Known Allergies Results Component Value Reference Range Notes Hemoglobin A1c Reviewed date:01/13/2025 08:26:35 AM Interpretation: Performing Lab: Notes/Report: Hemoglobin A1c 8.1 Prothrombin Time INR Reviewed date:08/26/2024 12:46:34 PM Interpretation: Performing Lab:[facility], [address] [place] [place] [phone] Notes/Report: Prothrombin Time 35.5 10.9-12.4 [employer] [...] INR Reviewed date:09/16/2024 12:42:50 PM Interpretation: Performing Lab:[facility], [address] [place] [phone] Notes/Report: Prothrombin Time 30.5 10.9-12.4 SEC [employer]NATIONAL [...] INR Reviewed date:09/30/2024 12:23:25 PM Interpretation: Performing Lab:[facility], [address] [place] [phone] Notes/Report: Prothrombin Time 28.9 10.9-12.4 SEC INTERNATIONAL [...] INR Reviewed date:10/16/2024 06:51:10 PM Interpretation: Performing Lab:[facility], [address] [place] [phone] Notes/Report: Prothrombin Time 28.4 10.9-12.4 SEC [employer]NATIONAL [...] INR Reviewed date:10/28/2024 05:01:12 PM Interpretation: Performing Lab:[facility], [address] [place] [phone] Notes/Report: Prothrombin Time 27.4 10.9-12.4 SEC [employer]NATIONAL [...] INR Reviewed date:11/11/2024 11:57:26 AM Interpretation: Performing Lab:[facility], [address] [place] [phone] Notes/Report: Prothrombin Time 31.9 10.9-12.4 SEC [employer]NATIONAL [...] INR Reviewed date:11/25/2024 12:38:44 PM Interpretation: Performing Lab:[facility], [address] [place] [phone] Notes/Report: Prothrombin Time 28.5 10.9-12.4 SEC INTERNATIONAL [...] INR Reviewed date:12/09/2024 12:27:16 PM Interpretation: Performing Lab:[facility], [address] [place] [phone] Notes/Report: Prothrombin Time 32.4 10.9-12.4 SEC INTERNATIONAL [...] INR Reviewed date:12/23/2024 12:10:07 PM Interpretation: Performing Lab:[facility], [address] [place] [phone] Notes/Report: Prothrombin Time 30.2 10.9-12.4 SEC INTERNATIONAL [...] INR Reviewed date:01/06/2025 10:32:13 AM Interpretation: Performing Lab:[facility], [address] [place] [phone] Notes/Report: Prothrombin Time 33.3 10.9-12.4 SEC INTERNATIONAL [...] INR Reviewed date:01/27/2025 11:31:40 AM Interpretation: Performing Lab:[facility], [address] [place] [phone] Notes/Report: Prothrombin Time 28.1 10.9-12.4 SEC [employer]NATIONAL [...] INR Reviewed date:02/17/2025 11:22:57 AM Interpretation: Performing Lab:[facility], [address] [place] [phone] Notes/Report: Prothrombin Time 25.2 10.9-12.4 SEC [employer]NATIONAL [...] INR Reviewed date:03/10/2025 12:34:22 PM Interpretation: Performing Lab:[facility], [address] [phone] Notes/Report: Prothrombin Time 20.3 10.9-12.4 SEC [employer]NATIONAL [...] INR Reviewed date:03/24/2025 11:29:00 AM Interpretation: Performing Lab:[facility], [address] [phone] Notes/Report: Prothrombin Time 31.8 10.9-12.4 SEC [employer]NATIONAL [...] ff Reviewed date:04/07/2025 12:37:35 PM Interpretation: Performing Lab:[facility], [address] [place] [phone] Notes/Report: White Blood Count 6.6 4.8-10.8 X10*3/uL [...] INR Reviewed date:04/07/2025 10:53:43 AM Interpretation: Performing Lab:[address] [phone] Notes/Report: Prothrombin Time 25.0 10.9-12.4 SEC [employer]NATIONAL [...] mechanical prosthetic heart valves: 2.5 - 3.5 [facility]. [facility] Reviewed date:04/07/2025 12:44:59 PM Interpretation: Performing Lab:[address] [phone] Notes/Report: Sodium 139 135-145 mmol/L Potassium 4.0 [...] Reflex Reviewed date:04/07/2025 12:44:40 PM Interpretation: Performing Lab:[address] [phone] Notes/Report: Triglycerides 106 <150 mg/dL Desirable Triglyceride: [...] (Free>4and<10) Reviewed date:04/07/2025 12:26:21 PM Interpretation: Performing Lab:[address] [phone] Notes/Report: PSA,Total (Free>4and<10) 0.49 0.00-4.00 ng/mL A [...] Random Reviewed date:04/07/2025 12:29:08 PM Interpretation: Performing Lab:[address] [phone] Notes/Report: Creatinine Urine 77.80 Microalbumin Urine 13.0 Microalbum/Creatinine Ratio Ur 16.7 <30 ug/mg cr Albumin/Creatinine Ratio Reference Ranges: Normal: < 30 ug/mg creatinine Microalbuminuria: 30 - 300 ug/mg creatinine Clinical Albuminuria: > 300 ug/mg creatinine Hemoglobin A1c Reviewed date:04/07/2025 12:26:50 PM Interpretation: Performing Lab:[address] [phone] Notes/Report: Hemoglobin A1c % 7.3 <6.0 % [...] average glucose, using the formula of the G5D-Swqsuma Average Glucose study (ADAG), Diabetes Care, Vol.31,#8, May. 2007 UA ClnCatch+Micro w/rflx Cul t Reviewed date:04/07/2025 12:37:53 PM Interpretation: Performing Lab:[address] [phone] Notes/Report: [id number] Urine, Clean Catch Color Urine Yellow Appearance Urine Clear PH 7.0 5.0-9.0 Glucose Urine UA Negative Negative mg/dL Urine Blood Negative Negative Specific Ransom - Urine 1.020 1.005-1.025 Urine Protein Negative Neg-Trace mg/dL Urine Ketones Negative Negative mg/dL Nitrite Urine Negative Negative Leukocyte Esterase Urine Negative Negative RBC Urine 0-2 0-2 /HPF WBC Urine 0-5 0-5 /HPF Squamous Epithelial Cell Urine 0-2 0-2 /HPF Bacteria Urine None Seen None Seen Hyaline Casts Urine 0-2 0-2 /LPF Prothrombin Time INR Reviewed date:04/21/2025 10:32:14 AM Interpretation: Performing Lab:[facility], [address] [place] [phone] Notes/Report: Prothrombin Time 29.1 10.9-12.4 SEC [employer]NATIONAL [...] INR Reviewed date:05/05/2025 10:27:45 AM Interpretation: Performing Lab:[facility], [address] [place] [phone] Notes/Report: Prothrombin Time 26.4 10.9-12.4 SEC INTERNATIONAL [...] INR Reviewed date:05/19/2025 12:41:51 PM Interpretation: Performing Lab:[facility], [address] [place] [phone] Notes/Report: Prothrombin Time 23.4 10.9-12.4 SEC INTERNATIONAL [...] 11:24:03 AM Interpretation: Performing Lab:[facility], [address] [place] [place] [phone] Notes/Report: Prothrombin Time 25.7 10.9-12.4 SEC INTERNATIONAL [...] INR Reviewed date:06/16/2025 12:35:41 PM Interpretation: Performing Lab:[facility], [address] [place] [phone] Notes/Report: Prothrombin Time 27.3 10.9-12.4 SEC INTERNATIONAL [...] INR Reviewed date:06/30/2025 12:04:22 PM Interpretation: Performing Lab:[facility], [address] [place] [phone] Notes/Report: Prothrombin Time 25.8 10.9-12.4 SEC INTERNATIONAL [...] INR Reviewed date:07/14/2025 01:19:51 PM Interpretation: Performing Lab:[facility], [address] [place] [phone] Notes/Report: Prothrombin Time 29.5 10.9-12.4 SEC INTERNATIONAL [...] 2.5 - 3.5 Prothrombin Time INR Reviewed date:08/04/2025 12:15:44 PM Interpretation: Performing Lab:[facility], [address] [place] [place] [phone] Notes/Report: Prothrombin Time 24.3 10.9-12.4 SEC INTERNATIONAL [...] ye t reviewed by provider) Interpretation: Performing Lab:[facility], [address] [phone] Notes/Report: Prothrombin Time 31.3 10.9-12.4 SEC INTERNATIONAL [...] mechanical prosthetic heart valves: 2.5 - 3.5 Blood Urea Nitrogen Reviewed date:09/21/2024 12:00:49 PM Interpretation: Performing Lab:[facility], [address] [place] [phone] Notes/Report: Blood Urea Nitrogen 15 9-16 mg/dL Creatinine Reviewed date:09/21/2024 12:04:27 PM Interpretation: Performing Lab:[facility], [address] [place] [phone] Notes/Report: Creatinine 0.86 0.5-1.4 mg/dL Estimated Glomerular Filt Rate > 60 Chronic Kidney Disease: Estimated GFR < 60 mL/min/1.73m2 Severe Kidney Disease: Estimated GFR < 15 mL/min/1.73m2 TSH reflex Free T4 Reviewed date:09/21/2024 12:01:45 PM Interpretation: Performing Lab:[facility], [address] [place] [phone] Notes/Report: TSH reflex Free T4 0.38 0.32-4.0 uIU/mL Glucose, finger stick Reviewed date:01/13/2025 08:20:13 AM Interpretation: Performing Lab: Notes/Report: Value 175 Prothrombin Time INR Reviewed date:01/13/2025 10:36:58 AM Interpretation: Performing Lab:[facility], [address] [place] [phone] Notes/Report: Prothrombin Time 28.3 10.9-12.4 SEC INTERNATIONAL [...] mechanical prosthetic heart valves: 2.5 - 3.5 Lipid Panel Reviewed date:08/26/2024 03:08:03 PM Interpretation: Performing Lab:[facility], [address] [place] [phone] Notes/Report: Triglycerides 177 <150 mg/dL Desirable Triglyceride: [...] Young Reviewed date:08/26/2024 12:53:02 PM Interpretation: Performing Lab:[facility], [address] [place] [phone] Notes/Report: Abigail Young See Note Specimen held untested for 24 hours; Call to request Chemistry testing. Vitamin B12 Reviewed date:09/21/2024 12:02:00 PM Interpretation: Performing Lab:[facility], [address] [place] [phone] Notes/Report: Vitamin B12 377 200-900 pg/mL NORMAL 200-900 PG/ML INDETERMINATE 160-199 PG/ML DEFICIENT < 160 PG/ML Folate Reviewed date:09/21/2024 12:01:53 PM Interpretation: Performing Lab:[facility], [address] [place] [phone] Notes/Report: Folate 16.6 > or = 4.0 ng/mL Reference Values: > or = 4.0 ng/mL < 4.0 ng/mL suggests folate deficiency Methotrexate, aminopterin and folinic acid (leucovorin) are chemotherapeutic agents whose molecular structures are similar to folate; therefore, the [employer] folate assay cannot be used for patients using these drugs. Abigail Hardy Reviewed date:09/21/2024 12:02:06 PM Interpretation: Performing Lab:[facility], [address] [facility], [place] [phone] Notes/Report: Hold Red See Note Specimen held [...] Zamora 04/16/2025 08:45:30 AM >REFFERAL FAXED TO [facility] FOR SCHEDULING, Kavita Zamora 04/20/2025 02:11:29 PM >INSURANCE REFERRAL REQUESTED AND FAXED TO [facility], Kavita Zamora 05/14/2025 10:42:45 AM >PATIENT SCHEDULED FOR 07/28 [...] 06/09/2014 Administered Fluarix Quadrivalent IM Intramuscular 06/16/2014 Admins[place]annon red Fluarix Quadrivalent IM Intramuscular 07/13/2015 Administe red Fluarix Quadrivalent IM Intramuscular 06/20/2016 Administe red Prevnar 13 IM Intramuscular 09/12/2016 Administered Fluarix Quadrivalent IM Intramuscular 06/19/2017 Adminanuradhae red Shingrix IM Intramuscular 05/14/2018 Administered Fluarix Quadrivalent IM Intramuscular 06/25/2018 Administe red Shingrix IM Intramuscular 08/27/2018 Administered Fluarix Quadrivalent IM Intramuscular 06/24/2019 Adm[place] red PPSV23 (Pnemovax) IM Intramuscular 07/08/2019 Administered Tetanus Unknown 08/18/2013 Administered Fluarix Quadrivalent IM Intramuscular 06/30/2020 Administe red Covid Vaccine Unknown 01/07/2021 Administered Pfizer Covid Vaccine Unknown 01/29/2021 Administered Pfizer Fluarix Quadrivalent IM Intramuscular 07/05/2021 Adminanuradhae red SARS-COV-2 Pfizer Unknown 09/01/2021 Administered SARS-COV-2 Pfizer Unknown 09/01/2021 Administered Fluarix Quadrivalent IM Intramuscular 07/11/2022 Adm[place] red Fluarix Quadrivalent IM Intramuscular 07/03/2023 [facility] SARS-COV-2 Pfizer Unknown 07/11/2023 Administered Fluarix [...] W/U Status Risk Notes Problem Atrial fibrillation (54413250) Atrial fibrillation (I48.91) Active confirmed Problem 942802146 Tubular adenoma (D36.9) Active confirmed Problem Long-term current use of anticoagulant (033162154) director long term care (current) use of anticoagulants (Z79.01) Active confirmed Problem 151511224 Body mass index (BMI) 35.0-35.9, adult (Z68.35) Active confirmed Problem 73565903 Essential hypert ension (I10) Active confirmed Problem Rosacea (283773987) Rosacea (L71.9) Active confirmed Problem 18724150 Type 2 diabetes mellitus without complication (E11.9) Active confirmed Problem History of malignant melanoma of the skin (003754527750) History of melanoma (Z85.820) Active confirmed Problem Polyneuropathy due to type 2 diabetes mellitus (554461953) Diabetic polyneuropathy associated with type 2 diabetes mellitus (E11.42) Active confirmed Problem 330507979 Cervical disc di sease (M50.90) Active confirmed Problem 438204691 Doxycycline adve rse reaction, initial encounter (T36.4X5A) Active confirmed Problem Diabetic autonomic neuropathy due to type 2 diabetes mellitus (482560181) Diabetic autonomic neuropathy associated with type 2 diabetes mellitus (E11.43) Active confirmed Problem 45160349 Unsteady gait (R26.81) Active confirme d Problem 848332332 Pure hypercholesterolemia (E78.00) Active confirmed Problem 037321610 Body mass index (BMI) of 39.0-39.9 in adult (Z68.39) Active confirmed Problem 985312505 Confusion state (F44.89) Active confirmed Vital Signs [...] Liu Harris MD [address] [place] [id number] 08/26/2024 Liu Harris Pure hypercholestero lemia E78.00 and Atrial fibrillation I48.91 Liu Harris MD [address] [place] [address] [id number] 09/16/2024 Liu Horneer [facility] (current) use of anticoagulants Z79.01 and Atrial fibrillation I48.91 Liu Harris MD [address] [id number] 09/30/2024 Liu Lundbergardier [facility] (current) use of anticoagulants Z79.01 and Atrial fibrillation I48.91 Liu Harris MD [address] [place] [address] [id number] 10/16/2024 Liu Harris director long term care (current) use of anticoagulants Z79.01 ; Atrial fibrillation I48.91 and Unsteady gait R26.81 Liu Harris MD [address] [place] [address] [id number] 10/28/2024 Liu Horneer director long term care (current) use of anticoagulants Z79.01 and Atrial fibrillation I48.91 Liu Harris MD [address] [id number] 11/11/2024 Liu Harris [facility] (current) use of anticoagulants Z79.01 and Atrial fibrillation I48.91 Liu Harris MD [address] [place] [address] [id number] 11/25/2024 Liu Harris director long term care (current) use of anticoagulants Z79.01 and Atrial fibrillation I48.91 Liu Harris MD [address] [id number] 12/09/2024 Liu Harris Atrial fibrillation I48.91 and director long term care (current) use of anticoagulants Z79.01 Liu Harris MD [address] [place] [address] [id number] 12/23/2024 Liu Bombardier [facility] (current) use of anticoagulants Z79.01 and Atrial fibrillation I48.91 Liu Harris MD [address] [place] [address] [id number] 01/06/2025 Liu Bombardier director long term care (current) use of anticoagulants Z79.01 and Atrial fibrillation I48.91 Liu Harris MD [address] [id number] 01/27/2025 Liu Bombardier director long term care (current) use of anticoagulants Z79.01 and Atrial fibrillation I48.91 Liu Harris MD [address] [place] [address] [id number] 02/17/2025 Liu Bombardier director long term care (current) use of anticoagulants Z79.01 and Atrial fibrillation I48.91 Liu Harris MD [address] [place] [address] [id number] 03/10/2025 Liu Bombardier director long term care (current) use of anticoagulants Z79.01 and Atrial fibrillation I48.91 Liu Harris MD [address] [place] [address] [id number] 03/24/2025 Liu Bombardier director long term care (current) use of anticoagulants Z79.01 and Atrial fibrillation I48.91 Liu Harris MD [address] [place] [address] [id number] 04/07/2025 Liu Bombardier director long term care (current) use of anticoagulants Z79.01 ; Atrial fibrillation I48.91 ; Essential hypertension I10 ; Type 2 diabetes mellitus without complication E11.9 ; Pure hypercholesterolemia E78.00 and Diabetic autonomic neuropathy associated with type 2 diabetes mellitus E11.43 Liu Harris MD [address] [place] [address] [id number] 04/21/2025 Liu Bombardier [facility] (current) use of anticoagulants Z79.01 and Atrial fibrillation I48.91 Liu Harris MD [address] [place] [address] [id number] 05/05/2025 Liu Bombardier [facility] (current) use of anticoagulants Z79.01 and Atrial fibrillation I48.91 Liu Harris MD [address] [place] [address] [id number] 05/19/2025 Liu Harris [facility] (current) use of anticoagulants Z79.01 and Atrial fibrillation I48.91 Liu Harris MD [address] [place] [address] [id number] 06/02/2025 Liu Harris director long term care (current) use of anticoagulants Z79.01 and Atrial fibrillation I48.91 Liu Harris MD [address] [facility] [address] [id number] 06/16/2025 Liu Harris director long term care (current) use of anticoagulants Z79.01 and Atrial fibrillation I48.91 Liu Harris MD [address] [place] [address] [id number] 06/30/2025 Liu Harris director long term care (current) use of anticoagulants Z79.01 and Atrial fibrillation I48.91 Liu Harris MD [address] [facility] [address] [id number] 07/14/2025 Liu Harris Atrial fibrillation I48.91 ; Encounter for administration of vaccine Z23 and [facility]CC (current) use of anticoagulants Z79.01 Liu Harris MD [address] [id number] 08/04/2025 Liu Harris Atrial fibrillation I48.91 and [facility] (current) use of anticoagulants Z79.01 Liu Harris MD [address] [id number] 08/18/2025 Liu Harris director long term care (current) use of anticoagulants Z79.01 and Atrial fibrillation I48.91 Liu Harris MD [address] [facility] [address] [id number] 09/19/2024 Liu Harris Hx of melanoma of sk in Z85.820 ; Unsteady gait R26.81 ; Confusion state F44.89 and Blood tests prior to treatment or procedure Z01.812 Liu Harris MD [address] [facility] [address] [id number] 01/13/2025 Liu Harris Type 2 diabetes opal itus without complication E11.9 ; Preop examination Z01.818 ; director long term care (current) use of anticoagulants Z79.01 ; Atrial fibrillation I48.91 and Essential hypertension I10 Liu Harris MD [address] [place] [address] [id number] 04/16/2025 Liu Harris Type 2 diabetes opal itus without complication E11.9 ; Adult general medical examination Z00.00 ; Essential hypertension I10 ; History of melanoma Z85.820 ; Diabetic autonomic neuropathy associated with type 2 diabetes mellitus E11.43 ; Colon cancer screening Z12.11 ; Depression screening Z13.31 and Pure hypercholesterolemia E78.00 Liu Harris MD [address] [place] [address] [id number] 09/15/2024 Liu Harris MD [address] [place] [address] [id number] 09/18/2024 Liu Harris MD [address] [place] [address] [id number] 09/22/2024 Liu Harris Foreign body in eye, right, initial encounter T15.91XA Liu Harris MD [address] [place] [address] [id number] 10/09/2024 Liu Harris Assessments Encounter Date Diagnosis (ICD Code) Assessment Notes Treatment Notes Treatment Clinical Notes Section Notes 08/26/2024 Pure hypercholesterolemia (ICD-10 - E78.00) 08/26/2024 Atrial fibrillation (ICD-10 - I48.91) 09/16/2024 MCC (current) use of anticoagulants (ICD-10 - Z79.01) 09/16/2024 Atrial fibrillation (ICD-10 - I48.91) 09/30/2024 MCC (current) use of anticoagulants (ICD-10 - Z79.01) 09/30/2024 Atrial fibrillation (ICD-10 - I48.91) 10/16/2024 [facility] (current) use of anticoagulants (ICD-10 - Z79.01) is doing well with no problems 10/16/2024 Atrial fibrillation (ICD-10 - I48.91) when he gets into afib gets a diureses which is related to a naturtic hormone. has been doing well now 10/28/2024 [facility] (current) use of anticoagulants (ICD-10 - Z79.01) 10/28/2024 Atrial fibrillation (ICD-10 - I48.91) 11/11/2024 director long term care (current) use of anticoagulants (ICD-10 - Z79.01) 11/25/2024 director long term care (current) use of anticoagulants (ICD-10 - Z79.01) 12/09/2024 Atrial fibrillation (ICD-10 - I48.91) 12/23/2024 director long term care (current) use of anticoagulants (ICD-10 - Z79.01) 01/06/2025 [facility]CC (current) use of anticoagulants (ICD-10 - Z79.01) 01/27/2025 [facility] (current) use of anticoagulants (ICD-10 - Z79.01) 02/17/2025 director long term care (current) use of anticoagulants (ICD-10 - Z79.01) 03/10/2025 [facility] (current) use of anticoagulants (ICD-10 - Z79.01) 03/24/2025 director long term care (current) use of anticoagulants (ICD-10 - Z79.01) 04/07/2025 [facility] (current) use of anticoagulants (ICD-10 - Z79.01) 04/21/2025 director long term care (current) use of anticoagulants (ICD-10 - Z79.01) 05/05/2025 director long term care (current) use of anticoagulants (ICD-10 - Z79.01) 05/19/2025 director long term care (current) use of anticoagulants (ICD-10 - Z79.01) 06/02/2025 director long term care (current) use of anticoagulants (ICD-10 - Z79.01) 06/16/2025 MCC (current) use of anticoagulants (ICD-10 - Z79.01) 06/30/2025 director long term care (current) use of anticoagulants (ICD-10 - Z79.01) 07/14/2025 Atrial fibrillation (ICD-10 - I48.91) 07/14/2025 Encounter for administration of vaccine (ICD-10 - Z23) 08/04/2025 Atrial fibrillation (ICD-10 - I48.91) 08/18/2025 MCC (current) use of anticoagulants (ICD-10 - Z79.01) 09/19/2024 Hx of melanoma of sk in [...] Z00.00) labs reviewed and discussed with patient 10/16/2024 Unsteady gait (ICD-1 0 - R26.81) discussed findings of MRI with patient, is going to see electric shipyard operator for cataract surgery/ feels as though it is related to his vision as a problem 11/11/2024 Atrial fibrillation (ICD-10 - I48.91) 11/25/2024 Atrial fibrillation (ICD-10 - I48.91) 12/09/2024 director long term care (current) use of anticoagulants (ICD-10 - Z79.01) [...] 06/30/2025 Atrial fibrillation (ICD-10 - I48.91) 07/14/2025 [facility] (current) use of anticoagulants (ICD-10 - Z79.01) 08/04/2025 director long term care (current) use of anticoagulants (ICD-10 - Z79.01) 08/18/2025 Atrial fibrillation (ICD-10 - I48.91) 09/19/2024 Confusion state (ICD -10 - F44.89) pending diagnostic testing 01/13/2025 director long term care (current) use of anticoagulants (ICD-10 - Z79.01) will hold for 3 days prior to the upcoming surgery, patient verbalized understanding of instruction to d'c medication 3 days prior to surgery 04/16/2025 Essential hypertensi on (ICD-10 - I10) well controlled, will cntinue current regiment 09/22/2024 Foreign body in eye, right, initial encounter (ICD-10 - T15.91XA) Order faxed to Mag[facility]is [phone] 04/07/2025 Essential hypertensi on (ICD-10 - I10) 09/19/2024 Blood tests prior to treatment or [...] BRAIN W&WO CONTRAST 09/19/2024 Prothrombin Time INR 08/18/2025 XR orbit min 4V 09/22/2024 Next Appt Details Provider Name:Liu Shafer ier, 10/19/2025 07:15:00 AM, [address], [address], [place], [id number], Provider Name:Liu Shafer ier, 10/26/2025 09:00:00 AM, [address] [facility] [address], [address], [place], [place], [phone], Provider Name:Liu Shafer ier, 04/12/2026 07:00:00 AM, [address], [address], [place], [place], [phone], Provider Name:Liu Shafer ier, 04/19/2026 08:30:00 AM, [address] [place] [address] Drive, [address] [address], [place], [place], [id number], Insurance Providers Payer Name Payer Address Payer Phone Subscriber Number Group Number Insured Name Patient Relationship to Insured Coverage Start Date Coverage End Date [facility] [address] [place], [place] [id number] Remington Eric Self - patient is the insured Medical (General) History Medical History History ICD Code Atrial fibrillation diabetes mellitus colonoscopy - 02/26/2013; colonoscopy 03/[address] Gifford - repeat 5 years Surgical History Surgery Date(Month/Year) pulmonarry artery ablation Partial Medial Menisectomy, rt knee (Dr. Perez) 10/2016
== END 2025-08-18 10:32 | disposition home or self-care (01) ==
LOC: HO.LNP 10:31
PROVIDERS: Visit Provider Internal Medicine
DX: I48.91 Unspecified atrial fibrillation (principal); Z79.01 Long term (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 of 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
CPT/HCPCS: 85610

== ENCOUNTER 2025-09-01 11:25 | Outpatient (REF) | payer BC, SELFPAY ==
[2025-09-01 12:18] LABS: INTERNATIONAL NORM RATIO 1.9 (0.9-1.1); Prothrombin Time 22.8 SEC (11.2-13.5)
== END 2025-09-01 11:26 | disposition home or self-care (01) ==
LOC: HO.LNP 11:25
PROVIDERS: Visit Provider Internal Medicine
DX: I48.91 Unspecified atrial fibrillation (principal); Z79.01 Long term (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 of 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
CPT/HCPCS: 85610

== ENCOUNTER 2025-09-15 10:38 | Outpatient (REF) | payer BC, SELFPAY ==
[2025-09-15 10:49] LABS: INTERNATIONAL NORM RATIO 1.9 (0.9-1.1); Prothrombin Time 23.2 SEC (11.2-13.5)
--- OUTSIDE RECORDS SUMMARY | 2025-09-15 12:23 | XMS_ITS | Encounter Summary ---
Author Organization [facility] Address [address] [place] [address] Care Team Providers Care Sales Enablement Lead Name Role Phone Liu Harris MD Primary Care Provider [phone] Encounter Details Date Type Department Care Team (Late Contact Info) Description 07/29/2025 Results Follow-Up Gastroenterology - [address] [place] [phone] Annie Wilkinson MA Social History Tobacco Use [...] Description 07/13/2026 11:00 AM EDT Ancillary Procedure [facility] - [address] [facility] [address] [place] [phone] documented as of this encounter Visit Diagnoses Not on filedocumented in this encounter Care Teams Sales Enablement Lead Relationship Specialty Start Date End Date Liu Harris MD [address] [place] [address] Drive [address] [place] [address] PCP - General 07/30/12 documented as of this encounter
--- OUTSIDE RECORDS SUMMARY | 2025-09-15 12:23 | XMS_ITS | Clinical Summary ---
Author Organization [facility] Address [address] [facility] [place] [address] Phone Care Team Providers Care Maturity Checker Name Role Phone Liu Harris MD Primary Care Provider [phone] Allergies Active Allergy Reactions Criticality Noted Date [...] Date Aneurysm of ascending aorta without rupture ([facility] /HCC V24) 07/24/2025 Assessment & Plan [...] improve with upcoming cataract surgery. Atrial fibrillation ([facility] V24, [facility] V28) 1 Overview (12/03/2024): Last [...] him. We will update an echocardiogram. Diabetes ([facility] V24, [facility] V28) 08/11/2021 Hyperlipidemia 08/11/2021 Overview [...] 07/31/2025 Telephone Gastroenterology - [address] [place] [phone] Donnie Coronado MD 07/29/2025 Results Follow-Up Gastroenterology - [address] [place] [phone] [facility] [place] 07/28/2025 9:27 AM EDT Anesthesia Event [facility] [address] [place] [phone] Ronald Ruiz DO Guerin, Erik R, CRNA 07/28/2025 8:44 AM EDT - 07/28/2025 11:59 PM EDT Hospital Encounter [facility] [address] [place] [phone] Donnie Coronado MD Walsh, Michael, DO Hx of colonic polyps Discharge Disposition: Home or Self Care 07/24/2025 8:50 AM EDT Office Visit [facility] [address] [place] [phone] Junior Cadena MD Paroxysmal atrial fibrillation ([facility] V24, [facility] V28) (Primary Dx); Mixed hyperlipidemia; Aneurysm of ascending aorta without rupture ([facility] V24) 07/10/2025 Telephone Gastroenterology - [address] [facility] [address] [place] [address] Sharita Ewing MA from Last 3 Months Surgical History Surgery Date Site/Laterality Comments COLONOSCOPY ABLATION CARDIOVERSION Medical History Medical History Date Comments Diabetes mellitus type 2, co ntrolled, with complications ([facility] V24, [facility] V28) DX:Diabetes mellitus type 2, controlled, with complications ([facility]) Hyperlipidemia DX:Hyperlipidemi a Essential hypertension DX:Essent ial hypertension CVA (cerebral vascular accid ent) ([facility] V24, [facility] V28) 2004 A-fib ([facility] V24, [facility] V28) s/p cardioversion SVT (supraventricular tachyc ardia) ([facility] V24) s/p ablation ROSEANN on CPAP Colon polyp Melanoma ([facility] V24, [facility] V28) arm Basal cell carcinoma Family History [...] Description 07/13/2026 11:00 AM EDT Ancillary Procedure [facility] - [address] [place] [address] Health Maintenance Due Date Last [...] Months Results * COLONOSCOPY Anesthesia - MAC; [facility] END[facility]COPY (07/28/2025 9:42 AM EDT) Anatomical Region [...] clinic PRN. Narrative 07/28/2025 9:46 AM EDT [facility] GI Patient Name: Remington Eric Procedure Date: [...] retroflexion views. Procedure Code(s): --- Professional --- 14499, Colonoscopy, flexible; with removal of tumor(s), polyp(s), or other lesion(s) by snare technique Diagnosis Code(s): --- Professional --- Z86.010, Personal history of colonic polyps D12.3, Benign neoplasm of transverse colon (hepatic flexure or splenic flexure) CPT copyright 2020 [employer]. All rights reserved. The codes documented in this report are preliminary and upon melt superintendant review may be revised to meet current compliance requirements. Donnie Coronado MD 07/28/2025 9:45:57 AM This report has been signed electronically.Donnie Coronado MD Number of Addenda: 0 Note Initiated On: 07/28/2025 9:15 AM Scope In: Scope Out: Endoscopy Department at [facility] - [address] [place] [phone] Procedure Note Donnie Coronado MD - 07/28/2025 [facility] GI Patient Name: Remington Eric Procedure Date: [...] retroflexion views. Procedure Code(s): --- Professional --- 51048, Colonoscopy, flexible; with removal of tumor(s), polyp(s), or other lesion(s) by snare technique Diagnosis Code(s): --- Professional --- Z86.010, Personal history of colonic polyps D12.3, Benign neoplasm of transverse colon (hepatic flexure or splenic flexure) CPT copyright 2020 [employer]. All rights reserved. The codes documented in this report are preliminary and upon melt superintendant reviewmay be revised to meet current compliance requirements. Donnie Coronado MD 07/28/2025 9:45:57 AM This report has been signed electronically.Donnie Coronado MD Number of Addenda: 0 Note Initiated On: 07/28/2025 9:15 AM Scope In: Scope Out: Endoscopy Department at [facility] - [address] [place] [phone] IMPRESSION: - One 4 mm polyp at [...] polyp: Tubular adenoma 07/29/2025 9:13 AM EDT [facility] ([facility]) [facility] at 0913 EDT Gross Description [...] multiple pieces. TS 07/29/2025 9:13 AM EDT [facility] Disclaimer Unless otherwise specified, all tissue is 10% NB formalin fixed and paraffin embedded. 07/29/2025 9:13 AM EDT [facility] Tissue Structure of right colic flexure / Unknown 07/28/2025 9:38 AM EDT 07/28/2025 10:14 AM EDT Donnie Coronado MD LAB PATHOLOGY ORDERABLES Mehreen l Result [facility] [address] [place] [address], * ECG 12 lead (07/24/2025 8:45 AM EDT) Ventricular Rate ECG 64 BPM GEMUSE Atrial Rate 64 BPM GEMUSE P-R Interval 172 ms GEMUSE QRS Duration 100 ms GEMUSE Q-T Interval 408 ms GEMUSE QTc 420 ms GEMUSE P Wave [place] 29 degrees GEMUSE R [place] -16 degrees GEMUSE T [place] 11 degrees GEMUSE ECG Interpretation Normal sinus rhythm Moderate voltage criteria for LVH, may be normal variant Borderline ECG No previous ECGs available Confirmed by Alec CADENA, JUNIOR ([id number]) on 07/24/2025 5:23:18 PM GEMUSE 07/24/2025 8:45 AM EDT 07/24/2025 5:23 PM EDT Junior Cadena MD ECG ORDERABLES Final Result GEMUSE from Last 3 Months Insurance [facility] Care Teams Maturity Checker Relationship Specialty Start Date End Date Liu Harris MD [address] [place] [address] PCP - General 07/30/12
== END 2025-09-15 10:39 | disposition home or self-care (01) ==
LOC: HO.LNP 10:38
PROVIDERS: Visit Provider Internal Medicine
DX: I48.91 Unspecified atrial fibrillation (principal); Z79.01 Long term (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 of 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
CPT/HCPCS: 85610

== ENCOUNTER 2025-09-29 11:21 | Outpatient (REF) | payer BC, SELFPAY ==
--- OUTSIDE RECORDS SUMMARY | 2025-05-19 04:15 | XMS_ITS ---
Author Organization Liu Harris MD Address [address] [place] [phone] Care Team Providers Care Catering Attendant Name Role Phone Liu Harris Primary Care Provider [phone] Results Component Value Reference Range Notes Prothrombin Time INR Reviewed date:05/19/2025 12:41:51 PM Interpretation: Performing Lab:[facility], [address] [place] [phone] Notes/Report: Prothrombin Time 23.4 10.9-12.4 SEC INTERNATIONAL [...] Location Date Provider Diagnosis Liu Harris MD [address] [place] [address] [place] [phone] 05/19/2025 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 Z79.01 and Atrial fibrillation I48.91 Assessments Encounter Date Diagnosis (ICD Code) Assessment Notes Treatment Notes Treatment Clinical Notes Section Notes 05/19/2025 care home (current) use of anticoagulants (ICD-10 - Z79.01) 05/19/2025 Atrial fibrillation (ICD-10 - I48.91) Plan Of Treatment Next Appt Details Provider Name:Liu hyde, 10/19/2025 07:15:00 AM, [address] [place] [address], [address], [phone], Provider Name:Liu hyde, 10/26/2025 09:00:00 AM, [address] [place] [address], [address], [phone], Provider Name:Liu hyde, 04/12/2026 07:00:00 AM, [address] [place] [address], [address], [phone], Provider Name:Liu hyde, 04/19/2026 08:30:00 AM, [address] [place] [address], [address], [phone], Progress Notes * Remington ERIC RDOB:1960 (65 yo M)Acc No.[id number]:05/19/2025 Progress Note Patient: Remington PEDERSEN Dante Provider: Lillie Harris MD :1960 A ge:65 Y S ex:Male Date:05/19/2025 Address:[address] [place], [place] [phone] Subjective: * Chief Complaints: * 1 . [...] 05/19/2025 Generated for Josue mejia/Oxana/Bintaitting on: 1 11/30/2024 03:01 PM EST
--- OUTSIDE RECORDS SUMMARY | 2025-06-02 03:30 | XMS_ITS ---
Author Organization Liu Harris MD Address [address] [place] [phone] Care Team Providers Care Drug Safety Scientist Name Role Phone Liu Harris Primary Care Provider Results Component Value Reference Range Notes Prothrombin Time INR Reviewed date:06/02/2025 11:24:03 AM Interpretation: Performing Lab:[facility], [address] [place] [phone] Notes/Report: Prothrombin Time 25.7 10.9-12.4 SEC INTERNATIONAL [...] Location Date Provider Diagnosis Liu Harris MD [address] [place] [address] [place] [phone] 06/02/2025 Liu Harris intermediate designer (current) use of anticoagulants Z79.01 and Atrial fibrillation I48.91 Assessments Encounter Date Diagnosis (ICD Code) Assessment Notes Treatment Notes Treatment Clinical Notes Section Notes 06/02/2025 [facility] (current) use of anticoagulants (ICD-10 - Z79.01) 06/02/2025 Atrial fibrillation (ICD-10 - I48.91) Plan Of Treatment Next Appt Details Provider Name:Liu hyde, 10/19/2025 07:15:00 AM, [address] [place] [address], [address], [phone], Provider Name:Liu hyde, 10/26/2025 09:00:00 AM, [address] [place] [address], [address], [phone], Provider Name:Liu hyde, 04/12/2026 07:00:00 AM, [address] [place] [address], [address], [phone], Provider Name:Liu hyde, 04/19/2026 08:30:00 AM, [address] [place] [address], [address], [phone], Progress Notes * Remington ERIC RDOB:1960 (65 yo M)Acc No.[id number]:06/02/2025 Progress Note Patient: Remington PEDERSEN Dante Provider: Lillie Harris MD :1960 A ge:65 Y S ex:Male Date:06/02/2025 Address:[address] [place], [place] [phone] Subjective: * Chief Complaints: * 1 . [...] 06/02/2025 Generated for Josue mejia/Oxana/Bintaitting on: 1 11/30/2024 03:02 PM EST
--- OUTSIDE RECORDS SUMMARY | 2025-06-16 04:30 | XMS_ITS ---
Author Organization Liu Harris MD Address [address] [place] [phone] Care Team Providers Care Docking Saw Operator Name Role Phone Liu Harris Primary Care Provider Results Component Value Reference Range Notes Prothrombin Time INR Reviewed date:06/16/2025 12:35:41 PM Interpretation: Performing Lab:[facility], [address] [place] [phone] Notes/Report: Prothrombin Time 27.3 10.9-12.4 SEC INTERNATIONAL NORM RATIO 2.4 0.9-1.1 [...] Date Provider Diagnosis Liu Harris MD [address] [place] [address] [place] [phone] 06/16/2025 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 Z79.01 and Atrial fibrillation I48.91 Assessments Encounter Date Diagnosis (ICD Code) Assessment Notes Treatment Notes Treatment Clinical Notes Section Notes 06/16/2025 skilled nursing (current) use of anticoagulants (ICD-10 - Z79.01) 06/16/2025 Atrial fibrillation (ICD-10 - I48.91) Plan Of Treatment Next Appt Details Provider Name:Liu hyde, 10/19/2025 07:15:00 AM, [address] [place] [address], [address], [phone], Provider Name:Liu hyde, 10/26/2025 09:00:00 AM, [address] [place] [address], [address], [phone], Provider Name:Liu hyde, 04/12/2026 07:00:00 AM, [address] [place] [address], [address], [phone], Provider Name:Liu hyde, 04/19/2026 08:30:00 AM, [address] [place] [address], [address], [phone], Progress Notes * Remington ERIC RDOB:1960 (65 yo M)Acc No.[id number]:06/16/2025 Progress Note Patient: Remington PEDERSEN Dante Provider: Lillie Harris MD :1960 A ge:65 Y S ex:Male Date:06/16/2025 Address:[address] [place], [place] [phone] Subjective: * Chief Complaints: * 1 . INR. * Medical History: Objective: * Vitals: Assessment: * Assessment: 1. L douglas term (current) use of anticoagulants - Z79.01 (Primary) 2 . A trial fibrillation - I48.91 Plan: * Treatment: 2. A trial fibrillation L AB: Prothrombin Time INR (Collection Date & Time - 06/16/2025 09:30 AM) * Procedure Codes: 3 6415 VENIPUNCT, ROUTINE* * * The named appointment provid er may or may not be the originator of this progress note, and it is not deemed complete until electronically signed by the appointment provider. Sign off status: Pending * Provider: Lillie Harris MD Date: 0 06/16/2025 Generated for Josue mejia/Oxana/Bintaitting on: 1 11/30/2024 03:02 PM EST
--- OUTSIDE RECORDS SUMMARY | 2025-06-30 03:30 | XMS_ITS ---
Author Organization Liu Harris MD Address [address] [place] [phone] Care Team Providers Care Customer Quality Engineer Name Role Phone Liu Harris Primary Care Provider Results Component Value Reference Range Notes Prothrombin Time INR Reviewed date:06/30/2025 12:04:22 PM Interpretation: Performing Lab:[facility], [address] [place] [phone] Notes/Report: Prothrombin Time 25.8 10.9-12.4 SEC INTERNATIONAL NORM RATIO 2.2 0.9-1.1 [...] Date Provider Diagnosis Liu Harris MD [address] [place] [address] [place] [phone] 06/30/2025 Liu Harris manager pest (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) use of anticoagulants Z79.01 and Atrial fibrillation I48.91 Assessments Encounter Date Diagnosis (ICD Code) Assessment Notes Treatment Notes Treatment Clinical Notes Section Notes 06/30/2025 [facility] (current) use of anticoagulants (ICD-10 - Z79.01) 06/30/2025 Atrial fibrillation (ICD-10 - I48.91) Plan Of Treatment Next Appt Details Provider Name:Liu hyde, 10/19/2025 07:15:00 AM, [address] [place] [address], [address], [phone], Provider Name:Liu hyde, 10/26/2025 09:00:00 AM, [address] [place] [address], [address], [phone], Provider Name:Liu hyde, 04/12/2026 07:00:00 AM, [address] [place] [address], [address], [phone], Provider Name:Liu hyde, 04/19/2026 08:30:00 AM, [address] [place] [address], [address], [phone], Progress Notes * Remington ERIC RDOB:1960 (65 yo M)Acc No.[id number]:06/30/2025 Progress Note Patient: Remington PEDERSEN Dante Provider: Lillie Harris MD :1960 A ge:65 Y S ex:Male Date:06/30/2025 Address:[address] [place], [place] [phone] Subjective: * Chief Complaints: * 1 . INR. * Medical History: Objective: * Vitals: Assessment: * Assessment: 1. L douglas term (current) use of anticoagulants - Z79.01 (Primary) 2 . A trial fibrillation - I48.91 Plan: * Treatment: 2. A trial fibrillation L AB: Prothrombin Time INR (Collection Date & Time - 06/30/2025 10:33 AM) * Procedure Codes: 3 6415 VENIPUNCT, ROUTINE* * * The named appointment provid er may or may not be the originator of this progress note, and it is not deemed complete until electronically signed by the appointment provider. Sign off status: Pending * Provider: Lillie Harris MD Date: 0 06/30/2025 Generated for Josue mejia/Oxana/Bintaitting on: 1 11/30/2024 03:01 PM EST
--- OUTSIDE RECORDS SUMMARY | 2025-07-14 04:00 | XMS_ITS ---
Author Organization Liu Harris MD Address [address] [place] [phone] Care Team Providers Care Ham Facer Name Role Phone Liu Harris Primary Care Provider [phone] Results Component Value Reference Range Notes Prothrombin Time INR Reviewed date:07/14/2025 01:19:51 PM Interpretation: Performing Lab:[facility], [address] [place] [phone] Notes/Report: Prothrombin Time 29.5 10.9-12.4 SEC INTERNATIONAL NORM RATIO 2.6 0.9-1.1 [...] 2.5 - 3.5 REASON FOR VISIT INR Immunizations Vaccine Route Administration Date Status Comme nts Fluarix Quadrivalent - 150 IM Intramuscular 07/14/2025 Adm inistered Encounters Encounter Location Date Provider Diagnosis Liu Harris MD [address] [place] [phone] 07/14/2025 Liu Harris Atrial fibrillation I48.91 ; Encounter for administration of vaccine Z23 and custodial (current) use of anticoagulants Z79.01 Assessments Encounter Date Diagnosis (ICD Code) Assessment Notes Treatment Notes Treatment Clinical Notes Section Notes 07/14/2025 Atrial fibrillation (ICD-10 - I48.91) 07/14/2025 Encounter for administration of vaccine (ICD-10 - Z23) 07/14/2025 custodial (current) use of anticoagulants (ICD-10 - Z79.01) Plan Of Treatment Next Appt Details Provider Name:Liu hyde, 10/19/2025 07:15:00 AM, [address] [place] [address], [address], [phone], Provider Name:Liu hyde, 10/26/2025 09:00:00 AM, [address] [place] [address], [address], [phone], Provider Name:Liu hyde, 04/12/2026 07:00:00 AM, [address] [place] [address], [phone], Provider Name:Liu hyde, 04/19/2026 08:30:00 AM, [address] [place] [address], [phone], Progress Notes * Remington ERIC RDOB:1960 (65 yo M)Acc No.[id number]:07/14/2025 Progress Note Patient: Wanda KEYONRemington DE ANDA Dante Provider: Lillie Harris MD :1960 A ge:65 Y S ex:Male Date:07/14/2025 Address:[address] [place], [place] [phone] Subjective: * Chief Complaints: * 1 . INR. * Medical History: Objective: * Vitals: Assessment: * Assessment: 1. E ncounter for administration of vaccine - Z23 (Primary) 2 . A trial fibrillation - I48.91 3 . L douglas term (current) use of anticoagulants - Z79.01 ? Plan: * Treatment: 2. L douglas term (current) use of anticoagulants L AB: Prothrombin Time INR (Collection Date & Time - 07/14/2025 09:00 AM) * Immunizations: Fluarix Quadrivalent - 150 : 0.5 mL (Dose No:1) (Route: Intramuscular) given by Kyleigh Little , Office Staff on Left Deltoid * Procedure Codes: 3 6415 VENIPUNCT, ROUTINE*, 49692 FLU VACCINE NO PRESERV 3 & >, 95897 IMMUNIZATION ADMIN * * The named appointment provid er may or may not be the originator of this progress note, and it is not deemed complete until electronically signed by the appointment provider. Sign off status: Pending * Provider: Lillie Harris MD Date: 0 07/14/2025 Generated for Josue mejia/Oxana/Bintaitting on: 11/30/2024 03:01 PM EST
--- OUTSIDE RECORDS SUMMARY | 2025-08-04 03:15 | XMS_ITS ---
Author Organization Liu Harris MD Address [address] [place] [phone] Care Team Providers Care Wastewater Treatment Plant Instructor Name Role Phone Liu Harris Primary Care Provider [phone] Results Component Value Reference Range Notes Prothrombin Time INR Reviewed date:08/04/2025 12:15:44 PM Interpretation: Performing Lab:[facility], [address] [place] [phone] Notes/Report: Prothrombin Time 24.3 10.9-12.4 SEC INTERNATIONAL [...] Date Provider Diagnosis Liu Harris MD [address] [place] [address] [place] [phone] 08/04/2025 Liu Harris Atrial fibrillation I48.91 and group home (current) use of anticoagulants Z79.01 Assessments Encounter Date Diagnosis (ICD Code) Assessment Notes Treatment Notes Treatment Clinical Notes Section Notes 08/04/2025 Atrial fibrillation (ICD-10 - I48.91) 08/04/2025 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) use of anticoagulants (ICD-10 - Z79.01) Plan Of Treatment Next Appt Details Provider Name:Liu hyde, 10/19/2025 07:15:00 AM, [address] [place] [address], [address], [phone], Provider Name:Liu hyde, 10/26/2025 09:00:00 AM, [address] [place] [address], [address], [phone], Provider Name:Liu hyde, 04/12/2026 07:00:00 AM, [address] [place] [address], [address], [phone], Provider Name:Liu hyde, 04/19/2026 08:30:00 AM, [address] [place] [address], [address], [phone], Progress Notes * Remington ERIC RDOB:1960 (65 yo M)Acc No.[id number]:08/04/2025 Progress Note Patient: Remington PEDERSEN Dante Provider: Lillie Harris MD :1960 A ge:65 Y S ex:Male Date:08/04/2025 Address:[address] [place], [place] [phone] Subjective: * Chief Complaints: * 1 . [...] 1 Generated for Josue mejia/Oxana/Renato on: 1 11/30/2024 03:02 PM EST
--- OUTSIDE RECORDS SUMMARY | 2025-08-18 04:00 | XMS_ITS ---
Author Organization Liu Harris MD Address [address] [place] [phone] Care Team Providers Care Instructor Dramatic Arts Name Role Phone Liu Harris Primary Care Provider [phone] Results Component Value Reference Range Notes Prothrombin Time INR Reviewed date:08/18/2025 12:35:43 PM Interpretation: Performing Lab:[facility], [address] [place] [phone] Notes/Report: Prothrombin Time 31.3 10.9-12.4 SEC INTERNATIONAL NORM RATIO 2.7 0.9-1.1 [...] Location Date Provider Diagnosis Liu Harris MD [address] [place] [address] [place] [phone] 08/18/2025 Liu Harris 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 Z79.01 and Atrial fibrillation I48.91 Assessments Encounter Date Diagnosis (ICD Code) Assessment Notes Treatment Notes Treatment Clinical Notes Section Notes 08/18/2025 halfway (current) use of anticoagulants (ICD-10 - Z79.01) 08/18/2025 Atrial fibrillation (ICD-10 - I48.91) Plan Of Treatment Next Appt Details Provider Name:Liu hyde, 10/19/2025 07:15:00 AM, [address] [place] [address], [address], [phone], Provider Name:Liu hyde, 10/26/2025 09:00:00 AM, [address] [place] [address], [address], [phone], Provider Name:Liu hyde, 04/12/2026 07:00:00 AM, [address] [place] [address], [address], [phone], Provider Name:Liu hyde, 04/19/2026 08:30:00 AM, [address] [place] [address], [address], [phone], Progress Notes * Remington ERIC RDOB:1960 (65 yo M)Acc No.[id number]:08/18/2025 Progress Note Patient: Remington PEDERSEN Dante Provider: Lillie Harris MD :1960 A ge:65 Y S ex:Male Date:08/18/2025 Address:[address] [place], [place] [phone] Subjective: * Chief Complaints: * 1 . INR. * Medical History: Objective: * Vitals: Assessment: * Assessment: 1. L douglas term (current) use of anticoagulants - Z79.01 (Primary) 2 . A trial fibrillation - I48.91 Plan: * Treatment: 2. A trial fibrillation L AB: Prothrombin Time INR (Collection Date & Time - 08/18/2025 09:00 AM) * Procedure Codes: 3 6415 VENIPUNCT, ROUTINE* * * The named appointment provid er may or may not be the originator of this progress note, and it is not deemed complete until electronically signed by the appointment provider. Sign off status: Pending * Provider: Lillie Harris MD Date: 1 10/18/2024 Generated for Josue mejia/Oxana/Bintaitting on: 11/30/2024 03:03 PM EST
--- OUTSIDE RECORDS SUMMARY | 2025-09-01 03:45 | XMS_ITS ---
Author Organization Liu Harris MD Address [address] [place] [phone] Care Team Providers Care Facilities Engineer Name Role Phone Liu Harris Primary Care Provider [phone] Results Component Value Reference Range Notes Prothrombin Time INR Reviewed date:09/01/2025 12:42:05 PM Interpretation: Performing Lab:[facility], [address] [place] [phone] Notes/Report: Prothrombin Time 22.8 11.2-13.5 SEC INTERNATIONAL [...] Date Provider Diagnosis Liu Harris MD [address] [place] [address] [place] [phone] 09/01/2025 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) use of anticoagulants Z79.01 and Atrial fibrillation I48.91 Assessments Encounter Date Diagnosis (ICD Code) Assessment Notes Treatment Notes Treatment Clinical Notes Section Notes 09/01/2025 alf (current) use of anticoagulants (ICD-10 - Z79.01) 09/01/2025 Atrial fibrillation (ICD-10 - I48.91) Plan Of Treatment Next Appt Details Provider Name:Liu hyde, 10/19/2025 07:15:00 AM, [address] [place] [address], [address], [phone], Provider Name:Liu hyde, 10/26/2025 09:00:00 AM, [address] [place] [address], [address], [phone], Provider Name:Liu hyde, 04/12/2026 07:00:00 AM, [address] [place] [address], [address], [phone], Provider Name:Liu hyde, 04/19/2026 08:30:00 AM, [address] [place] [address], [address], [phone], Progress Notes * Remington ERIC RDOB:1960 (65 yo M)Acc No.[id number]:09/01/2025 Progress Note Patient: Remington PEDERSEN Dante Provider: Lillie Harris MD :1960 A ge:65 Y S ex:Male Date:09/01/2025 Address:[address] [place], [place] [phone] Subjective: * Chief Complaints: * 1 . [...] 1 11/01/2024 Generated for Josue mejia/Oxana/Bintaitting on: 11/30/2024 03:01 PM EST
--- OUTSIDE RECORDS SUMMARY | 2025-09-15 03:15 | XMS_ITS ---
Author Organization Liu Harris MD Address [address] [place] [phone] Care Team Providers Care Senior Cytogenetics Laboratory Director Name Role Phone Liu Hraris Primary Care Provider Results Component Value Reference Range Notes Prothrombin Time INR Reviewed date:09/17/2025 06:45:05 AM Interpretation: Performing Lab:[facility], [address] [place] [phone] Notes/Report: Prothrombin Time 23.2 11.2-13.5 SEC INTERNATIONAL [...] Location Date Provider Diagnosis Liu Harris MD [address] [place] [address] [place] [phone] 09/15/2025 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 Z79.01 and Atrial fibrillation I48.91 Assessments Encounter Date Diagnosis (ICD Code) Assessment Notes Treatment Notes Treatment Clinical Notes Section Notes 09/15/2025 shelter (current) use of anticoagulants (ICD-10 - Z79.01) 09/15/2025 Atrial fibrillation (ICD-10 - I48.91) Plan Of Treatment Next Appt Details Provider Name:Liu hyde, 10/19/2025 07:15:00 AM, [address] [place] [address], [address], [phone], Provider Name:Liu hyde, 10/26/2025 09:00:00 AM, [address] [place] [address], [address], [phone], Provider Name:Liu hyde, 04/12/2026 07:00:00 AM, [address] [place] [address], [address], [phone], Provider Name:Liu hyde, 04/19/2026 08:30:00 AM, [address] [place] [address], [address], [phone], Progress Notes * Remington ERIC RDOB:1960 (65 yo M)Acc No.[id number]:09/15/2025 Progress Note Patient: Remington PEDERSEN Dante Provider: Lillie Harris MD :1960 A ge:65 Y S ex:Male Date:09/15/2025 Address:[address] [place], [place] [phone] Subjective: * Chief Complaints: * 1 . [...] 11/16/2024 Generated for Josue mejia/Oxana/Bintaitting on: 1 11/30/2024 03:01 PM EST
--- OUTSIDE RECORDS SUMMARY | 2025-09-29 03:30 | XMS_ITS ---
Author Organization Liu Harris MD Address [address] [place] [phone] Care Team Providers Care Motion Picture Printer Name Role Phone Liu Harris Primary Care Provider Results Component Value Reference Range Notes Prothrombin Time INR Reviewed date:09/29/2025 11:43:34 AM Interpretation: Performing Lab:[facility], [address] [place] [phone] Notes/Report: Prothrombin Time 24.3 11.2-13.5 SEC INTERNATIONAL [...] Location Date Provider Diagnosis Liu Harris MD [address] [place] [address] [place] [phone] 09/29/2025 Liu Harris technician terminal and repeater (current) use of anticoagulants Z79.01 and Atrial fibrillation I48.91 Assessments Encounter Date Diagnosis (ICD Code) Assessment Notes Treatment Notes Treatment Clinical Notes Section Notes 09/29/2025 [facility] (current) use of anticoagulants (ICD-10 - Z79.01) 09/29/2025 Atrial fibrillation (ICD-10 - I48.91) Plan Of Treatment Next Appt Details Provider Name:Liu hyde, 10/19/2025 07:15:00 AM, [address] [place] [address], [address], [phone], Provider Name:Liu hyde, 10/26/2025 09:00:00 AM, [address] [place] [address], [address], [phone], Provider Name:Liu hyde, 04/12/2026 07:00:00 AM, [address] [place] [address], [address], [phone], Provider Name:Liu hyde, 04/19/2026 08:30:00 AM, [address] [place] [address], [address], [phone], Progress Notes * Remington ERIC RDOB:1960 (65 yo M)Acc No.[id number]:09/29/2025 Progress Note Patient: Remington PEDERSEN Dante Provider: Lillie Harris MD :1960 A ge:65 Y S ex:Male Date:09/29/2025 Address:[address] [place], [place] [phone] Subjective: * Chief Complaints: * 1 . [...] 1 11/30/2024 Generated for Josue mejia/Oxana/Bintaitting on: 11/30/2024 03:01 PM EST
[2025-09-29 11:34] LABS: INTERNATIONAL NORM RATIO 2.0 (0.9-1.1); Prothrombin Time 24.3 SEC (11.2-13.5)
--- OUTSIDE RECORDS SUMMARY | 2025-09-29 15:00 | XMS_ITS | Clinical Summary ---
Author Organization [facility] Address [address] [place] [address] Phone Care Team Providers Care Preschool Teacher'S Assistant Name Role Phone Liu Harris MD Primary Care Provider [phone] Allergies Active Allergy Reactions Criticality Noted Date [...] Date Aneurysm of ascending aorta without rupture 07/15 Assessment & Plan (07/24/2025 9:56 AM EDT): [...] improve with upcoming cataract surgery. Atrial fibrillation 08/11/2021 Overview (12/03/2024): Last Assessment [...] him. We will update an echocardiogram. Diabetes 08/11/2021 Hyperlipidemia 08/11/2021 Overview (12/03/2024): Last [...] 07/31/2025 Telephone Gastroenterology - [address] [facility] [address] [place] [phone] Donnie Coronado MD 07/29/2025 Results Follow-Up Gastroenterology - [address] [place] [phone] Annie Wilkinson MA 07/28/2025 9:27 AM EDT Anesthesia Event [facility] [address] [place] [phone] Ronald Ruiz DO Guerin, Erik R, CRNA 07/28/2025 8:44 AM EDT - 07/28/2025 11:59 PM EDT Hospital Encounter [facility] [address] [place] [phone] Donnie Coronado MD Walsh, Michael, DO Hx of colonic polyps Discharge Disposition: Home or Self Care 07/24/2025 8:50 AM EDT Office Visit [facility] [place] [id number] [place] [phone] Junior Cadena MD Paroxysmal atrial fibrillation (CMS/HCC V24, CMS/HCC V28) (Primary Dx); Mixed hyperlipidemia; Aneurysm of ascending aorta without rupture (CMS/HCC V24) 07/10/2025 Telephone Gastroenterology - [address] [place] [address] Sharita Ewing MA from Last 3 Months Surgical History Surgery Date Site/Laterality Comments COLONOSCOPY ABLATION CARDIOVERSION Medical History Medical History Date Comments Diabetes mellitus type 2, co ntrolled, with complications [place] [place] [facility] [place] DX:Diabetes mellitus type 2, controlled, with complications (HCC) Hyperlipidemia DX:Hyperlipidemi a Essential hypertension DX:Essent ial hypertension CVA (cerebral vascular accid ent) [place] [place] [facility] [place] 2004 A-fib ([facility] [place], [facility]) s/p cardioversion SVT (supraventricular tachyc ardia) ([facility] [place]) s/p ablation ROSEANN on CPAP Colon polyp Melanoma ([facility] [place], [facility] [place]) arm Basal cell carcinoma Family History [...] on file Sexual Orientation Not on file Last Filed Vital Signs Vital Sign Reading [...] Description 07/13/2026 11:00 AM EDT Ancillary Procedure [facility] - [address] [place] [address] Health Maintenance Due Date Last Done Comments Diabetes: Annual GFR (Glomerular Filtration Rate) 1959 Drug Screen 1959 Non-Opioid Controlled Substance Agreement 1959 Diabetes: Annual Foot Exam 1969 Diabetes: [...] Months Results * COLONOSCOPY Anesthesia - MAC; [facility] (07/28/2025 9:42 AM EDT) [...] PRN. Narrative 07/28/2025 9:46 AM EDT [facility] Patient Name: Remington Eric Procedure [...] retroflexion views. Procedure Code(s): --- Professional --- 41428, Colonoscopy, flexible; with removal of tumor(s), polyp(s), or other lesion(s) by snare technique Diagnosis Code(s): --- Professional --- Z86.010, Personal history of colonic polyps D12.3, Benign neoplasm of transverse colon (hepatic flexure or splenic flexure) CPT copyright 2020 [employer]. All rights reserved. The codes documented in this report are preliminary and upon respiratory therapist review may be revised to meet current compliance requirements. Donnie Coronado MD 07/28/2025 9:45:57 AM This report has been signed electronically.Donnie Coronado MD Number of Addenda: 0 Note Initiated On: 07/28/2025 9:15 AM Scope In: Scope Out: Endoscopy Department at [facility] - [address] [place] [phone] Procedure Note Donnie Coronado MD - 07/28/2025 [facility] Patient Name: Remington Eric Procedure [...] retroflexion views. Procedure Code(s): --- Professional --- 94766, Colonoscopy, flexible; with removal of tumor(s), polyp(s), or other lesion(s) by snare technique Diagnosis Code(s): --- Professional --- Z86.010, Personal history of colonic polyps D12.3, Benign neoplasm of transverse colon (hepatic flexure or splenic flexure) CPT copyright 2020 [employer]. All rights reserved. The codes documented in this report are preliminary and upon respiratory therapist reviewmay be revised to meet current compliance requirements. Donnie Coronado MD 07/28/2025 9:45:57 AM This report has been signed electronically.Donnie Coronado MD Number of Addenda: 0 Note Initiated On: 07/28/2025 9:15 AM Scope In: Scope Out: Endoscopy Department at [facility] - [address] [place] [phone] IMPRESSION: - One 4 mm polyp at [...] polyp: Tubular adenoma 07/29/2025 9:13 AM EDT [facility] ([facility]) [facility] at 0913 EDT Gross Description [...] multiple pieces. TS 07/29/2025 9:13 AM EDT [facility] Disclaimer Unless otherwise specified, all tissue is 10% NB formalin fixed and paraffin embedded. 07/29/2025 9:13 AM EDT [facility] Tissue Structure of right colic flexure / Unknown 07/28/2025 9:38 AM EDT 07/28/2025 10:14 AM EDT Donnie Coronado MD LAB PATHOLOGY ORDERABLES Mehreen l Result Performing Organization Address City/State/[facility] Co de Phone Number [facility] [address] [place] [address], * ECG 12 lead (07/24/2025 8:45 AM EDT) Ventricular Rate ECG 64 BPM [facility] Atrial Rate 64 BPM [facility] P-R Interval 172 ms GEM[facility] QRS Duration 100 ms GEM[facility] Q-T Interval 408 ms GEMUSE QTc 420 ms GEMUSE P Wave [place] 29 degrees GEMUSE R [place] -16 degrees GEMUSE T [place] 11 degrees GEMUSE ECG Interpretation Normal sinus rhythm Moderate voltage criteria for LVH, may be normal variant Borderline ECG No previous ECGs available Confirmed by Alec CADENA, JUNIOR ([id number]) on 07/24/2025 5:23:18 PM [facility] 07/24/2025 8:45 AM EDT 07/24/2025 5:23 PM EDT Junior Cadena MD ECG ORDERABLES Final Result Performing Organization Address City/[facility] Co de Phone Number G[facility] from Last 3 Months Insurance MEDICARE [facility] Care Teams Preschool Teacher'S Assistant Relationship Specialty Start Date End Date Liu Harris MD [address] [place] [address] [place] [id number] PCP - General 07/30/12
--- OUTSIDE RECORDS SUMMARY | 2025-09-29 15:01 | XMS_ITS | Patient Health Record ---
Author Organization Liu Harris MD Address [address] [place] [address] [phone] Care Team Providers Care Legal Support Manager Name Role Phone Liu Harris Primary Care Provider Allergies No Known Allergies Results Component Value Reference Range Notes Hemoglobin A1c Reviewed date:01/13/2025 08:26:35 AM Interpretation: Performing Lab: Notes/Report: Hemoglobin A1c 8.1 Prothrombin Time INR Reviewed date:09/30/2024 12:23:25 PM Interpretation: Performing Lab:[facility], [address] [place] [phone] Notes/Report: Prothrombin Time 28.9 10.9-12.4 SEC INTERNATIONAL [...] INR Reviewed date:10/28/2024 05:01:12 PM Interpretation: Performing Lab:[facility], [address] [place] [phone] Notes/Report: Prothrombin Time 27.4 10.9-12.4 SEC INTERNATIONAL [...] INR Reviewed date:11/11/2024 11:57:26 AM Interpretation: Performing Lab:[facility], [address] [place] [phone] Notes/Report: Prothrombin Time 31.9 10.9-12.4 SEC INTERNATIONAL [...] INR Reviewed date:11/25/2024 12:38:44 PM Interpretation: Performing Lab:[facility], [address] [place] [phone] Notes/Report: Prothrombin Time 28.5 10.9-12.4 SEC INTERNATIONAL [...] INR Reviewed date:12/09/2024 12:27:16 PM Interpretation: Performing Lab:[facility], [address] [place] [phone] Notes/Report: Prothrombin Time 32.4 10.9-12.4 SEC INTERNATIONAL [...] INR Reviewed date:12/23/2024 12:10:07 PM Interpretation: Performing Lab:[facility], [address] [place] [phone] Notes/Report: Prothrombin Time 30.2 10.9-12.4 SEC INTERNATIONAL [...] INR Reviewed date:01/06/2025 10:32:13 AM Interpretation: Performing Lab:[facility], [address] [place] [phone] Notes/Report: Prothrombin Time 33.3 10.9-12.4 SEC INTERNATIONAL [...] INR Reviewed date:01/27/2025 11:31:40 AM Interpretation: Performing Lab:[facility], [address] [place] [phone] Notes/Report: Prothrombin Time 28.1 10.9-12.4 SEC INTERNATIONAL [...] INR Reviewed date:02/17/2025 11:22:57 AM Interpretation: Performing Lab:[facility], [address] [place] [phone] Notes/Report: Prothrombin Time 25.2 10.9-12.4 SEC INTERNATIONAL [...] INR Reviewed date:03/10/2025 12:34:22 PM Interpretation: Performing Lab:[facility], [address] [place] [phone] Notes/Report: Prothrombin Time 20.3 10.9-12.4 SEC INTERNATIONAL [...] INR Reviewed date:03/24/2025 11:29:00 AM Interpretation: Performing Lab:[address] [phone] Notes/Report: Prothrombin Time 31.8 10.9-12.4 SEC INTERNATIONAL [...] ff Reviewed date:04/07/2025 12:37:35 PM Interpretation: Performing Lab:[address] [phone] Notes/Report: White Blood Count 6.6 4.8-10.8 X10*3/uL [...] INR Reviewed date:04/07/2025 10:53:43 AM Interpretation: Performing Lab:[facility], [address] [place] [phone] Notes/Report: Prothrombin Time 25.0 10.9-12.4 SEC INTERNATIONAL [...] prosthetic heart valves: 2.5 - 3.5 Comprehensive [place] Reviewed date:04/07/2025 12:44:59 PM Interpretation: Performing Lab:[facility], [address] [place] [phone] Notes/Report: Sodium 139 135-145 mmol/L Potassium 4.0 [...] Reflex Reviewed date:04/07/2025 12:44:40 PM Interpretation: Performing Lab:[address] [phone] Notes/Report: Triglycerides 106 <150 mg/dL Desirable Triglyceride: [...] (Free>4and<10) Reviewed date:04/07/2025 12:26:21 PM Interpretation: Performing Lab:[address] [phone] Notes/Report: PSA,Total (Free>4and<10) 0.49 0.00-4.00 ng/mL A [...] Random Reviewed date:04/07/2025 12:29:08 PM Interpretation: Performing Lab:[address] [phone] Notes/Report: Creatinine Urine 77.80 Microalbumin Urine 13.0 Microalbum/Creatinine Ratio Ur 16.7 <30 ug/mg cr Albumin/Creatinine Ratio Reference Ranges: Normal: < 30 ug/mg creatinine Microalbuminuria: 30 - 300 ug/mg creatinine Clinical Albuminuria: > 300 ug/mg creatinine Hemoglobin A1c Reviewed date:04/07/2025 12:26:50 PM Interpretation: Performing Lab:[address] [phone] Notes/Report: Hemoglobin A1c % 7.3 <6.0 % [...] average glucose, using the formula of the U8L-Ntdbvhd Average Glucose study (ADAG), Diabetes Care, Vol.31,#8, May. 2007 UA ClnCatch+Micro w/rflx Cul t Reviewed date:04/07/2025 12:37:53 PM Interpretation: Performing Lab:[address] [phone] Notes/Report: [id number] Urine, Clean Catch Color Urine Yellow Appearance Urine Clear PH 7.0 5.0-9.0 Glucose Urine UA Negative Negative mg/dL Urine Blood Negative Negative Specific Allison - Urine 1.020 1.005-1.025 Urine Protein Negative Neg-Trace mg/dL Urine Ketones Negative Negative mg/dL Nitrite Urine Negative Negative Leukocyte Esterase Urine Negative Negative RBC Urine 0-2 0-2 /HPF WBC Urine 0-5 0-5 /HPF Squamous Epithelial Cell Urine 0-2 0-2 /HPF Bacteria Urine None Seen None Seen Hyaline Casts Urine 0-2 0-2 /LPF Prothrombin Time INR Reviewed date:04/21/2025 10:32:14 AM Interpretation: Performing Lab:[facility], [address] [place] [phone] Notes/Report: Prothrombin Time 29.1 10.9-12.4 SEC INTERNATIONAL [...] INR Reviewed date:05/05/2025 10:27:45 AM Interpretation: Performing Lab:[facility], [address] [place] [phone] Notes/Report: Prothrombin Time 26.4 10.9-12.4 SEC INTERNATIONAL [...] INR Reviewed date:05/19/2025 12:41:51 PM Interpretation: Performing Lab:[facility], [address] [place] [phone] Notes/Report: Prothrombin Time 23.4 10.9-12.4 SEC INTERNATIONAL [...] INR Reviewed date:06/02/2025 11:24:03 AM Interpretation: Performing Lab:[facility], [address] [place] [phone] Notes/Report: Prothrombin Time 25.7 10.9-12.4 SEC INTERNATIONAL [...] INR Reviewed date:06/16/2025 12:35:41 PM Interpretation: Performing Lab:[facility], [address] [place] [phone] Notes/Report: Prothrombin Time 27.3 10.9-12.4 SEC INTERNATIONAL [...] INR Reviewed date:06/30/2025 12:04:22 PM Interpretation: Performing Lab:[facility], [address] [place] [phone] Notes/Report: Prothrombin Time 25.8 10.9-12.4 SEC INTERNATIONAL [...] INR Reviewed date:07/14/2025 01:19:51 PM Interpretation: Performing Lab:[facility], [address] [place] [phone] Notes/Report: Prothrombin Time 29.5 10.9-12.4 SEC INTERNATIONAL [...] INR Reviewed date:08/04/2025 12:15:44 PM Interpretation: Performing Lab:[facility], [address] [place] [phone] Notes/Report: Prothrombin Time 24.3 10.9-12.4 SEC INTERNATIONAL [...] 2.5 - 3.5 Prothrombin Time INR Reviewed date:08/18/2025 12:35:43 PM Interpretation: Performing Lab:[facility], [address] [place] [phone] Notes/Report: Prothrombin Time 31.3 10.9-12.4 SEC INTERNATIONAL [...] 2.5 - 3.5 Prothrombin Time INR Reviewed date:09/01/2025 12:42:05 PM Interpretation: Performing Lab:[facility], [address] [place] [phone] Notes/Report: Prothrombin Time 22.8 11.2-13.5 SEC INTERNATIONAL [...] 2.5 - 3.5 Prothrombin Time INR Reviewed date:09/17/2025 06:45:05 AM Interpretation: Performing Lab:[facility], [address] [place] [phone] Notes/Report: Prothrombin Time 23.2 11.2-13.5 SEC INTERNATIONAL [...] 2.5 - 3.5 Prothrombin Time INR Reviewed date:09/29/2025 11:43:34 AM Interpretation: Performing Lab:[facility], [address] [place] [phone] Notes/Report: Prothrombin Time 24.3 11.2-13.5 SEC INTERNATIONAL [...] INR Reviewed date:10/16/2024 06:51:10 PM Interpretation: Performing Lab:[facility], [address] [place] [phone] Notes/Report: Prothrombin Time 28.4 10.9-12.4 SEC INTERNATIONAL [...] mechanical prosthetic heart valves: 2.5 - 3.5 Glucose, finger stick Reviewed date:01/13/2025 08:20:13 AM Interpretation: Performing Lab: Notes/Report: Value 175 Prothrombin Time INR Reviewed date:01/13/2025 10:36:58 AM Interpretation: Performing Lab:[facility], [address] [place] [phone] Notes/Report: Prothrombin Time 28.3 10.9-12.4 SEC INTERNATIONAL [...] mechanical prosthetic heart valves: 2.5 - 3.5 Reason For Referral Reason SCREEN FOR COLON CAN CER Diagnosis 1 Screen for colon can cer (Z12.11) Referral Organization Liu Harris MD Referring Provider First Name Liu Referring Provider Last Name Steven Referring Provider Speciality Internal M edicine Referred Provider MARK BALDWIN Referred Provider Specialty Gastroentero logy General Notes ToriNelyWagner Kavita Graham 04/16/2025 08:45:30 AM >REFFERAL FAXED TO [facility] FOR SCHEDULING, ToriNelyEdward Kavita Graham 04/20/2025 02:11:29 PM >INSURANCE REFERRAL REQUESTED AND FAXED TO [facility], SeraKavita 05/14/2025 10:42:45 AM >PATIENT SCHEDULED FOR 07/28 [...] 58. 6 % as directed Orally Active metFORMIN HCl 500 MG TAKE 2 TABLETS TWICE A DAY for Active amLODIPine Besylate 5 MG 1 tablet [...] 1 CAPSU LE DAILY for 90 Active Azelaic Acid 15 % APPLY TO AFFECTED AREA OF SKIN EVERY DAY for 30 Active KlonoPIN 0.5 MG 1 tablet Orally Twice a day Not-Taking Pravastatin Sodium 10 MG TAKE 1 TABLET O NCE DAILY for 90 Active Jantoven 5 MG TAKE 2 TABLETS ONCE DAILY Active Immunizations Vaccine Route Administration Date Status Comme nts Flu Vaccine IM Intramuscular 07/04/2011 Administered Flu Vaccine IM Intramuscular 06/11/2012 Administered Flu Vaccine IM Intramuscular 06/17/2013 Administered TDaP IM Intramuscular 08/18/2013 Administered PPSV23 (Pnemovax) IM Intramuscular 06/09/2014 Administered Fluarix Quadrivalent IM Intramuscular 06/16/2014 Administe red Fluarix Quadrivalent IM Intramuscular 07/13/2015 Adm[place] red Fluarix Quadrivalent IM Intramuscular 06/20/2016 [place] red Prevnar 13 IM Intramuscular 09/12/2016 Administered Fluarix Quadrivalent IM Intramuscular 06/19/2017 [place] red Shingrix IM Intramuscular 05/14/2018 Administered Fluarix Quadrivalent IM Intramuscular 06/25/2018 [place] red Shingrix IM Intramuscular 08/27/2018 Administered Fluarix Quadrivalent IM Intramuscular 06/24/2019 [place] red PPSV23 (Pnemovax) IM Intramuscular 07/08/2019 Administered Tetanus Unknown 08/18/2013 Administered Fluarix Quadrivalent IM Intramuscular 06/30/2020 Adm[place] red Covid Vaccine Unknown 01/07/2021 Administered Pfizer Covid Vaccine Unknown 01/29/2021 Administered Pfizer Fluarix Quadrivalent IM Intramuscular 07/05/2021 Adm[place] red SARS-COV-2 Pfizer Unknown 09/01/2021 Administered SARS-COV-2 Pfizer Unknown 09/01/2021 Administered Fluarix Quadrivalent IM Intramuscular 07/11/2022 Admins[place]annon omalley Fluarix Quadrivalent IM Intramuscular 07/03/2023 Adm[place] omalley SARS-COV-2 Pfizer Unknown 07/11/2023 Administered Fluarix Quadrivalent [...] W/U Status Risk Notes Problem Atrial fibrillation (07401647) Atrial fibrillation (I48.91) Active confirmed Problem 847655065 Tubular adenoma (D36.9) Active confirmed Problem Long-term current use of anticoagulant (093123524) [facility] (current) use of anticoagulants (Z79.01) Active confirmed Problem 981596316 Body mass index (BMI) 35.0-35.9, adult (Z68.35) Active confirmed Problem 75945365 Essential hypert ension (I10) Active confirmed Problem Rosacea (486086732) Rosacea (L71.9) Active confirmed Problem 79070630 Type 2 diabetes mellitus without complication (E11.9) Active confirmed Problem History of malignant melanoma of the skin (564164667958) History of melanoma (Z85.820) Active confirmed Problem Polyneuropathy due to type 2 diabetes mellitus (703425596) Diabetic polyneuropathy associated with type 2 diabetes mellitus (E11.42) Active confirmed Problem 534078537 Cervical disc di sease (M50.90) Active confirmed Problem 428307513 Doxycycline adve rse reaction, initial encounter (T36.4X5A) Active confirmed Problem Diabetic autonomic neuropathy due to type 2 diabetes mellitus (595204713) Diabetic autonomic neuropathy associated with type 2 diabetes mellitus (E11.43) Active confirmed Problem 26526166 Unsteady gait (R26.81) Active confirme d Problem 060597048 Pure hypercholesterolemia (E78.00) Active confirmed Problem 583194120 Body mass index (BMI) of 39.0-39.9 in adult (Z68.39) Active confirmed Problem 831335315 Confusion state (F44.89) Active confirmed Vital Signs Blood pressure diastolic 60 mm Hg 04/16/2025 gentry ght is down 4 pounds since 01-13-25 Height 72 in 04/16/2025 weight is down 4 pounds since 01-13-25 Blood pressure systolic 136 mm Hg 04/16/2025 gentryg ht is down 4 pounds since 01-13-25 Weight 255 lbs 04/16/2025 weight is down 4 pounds since 01-13-25 BMI 34.58 kg/m2 04/16/2025 weight is down 4 pounds since 01-13-25 Encounters Encounter Location Date Provider Diagnosis Liu Harris MD [address] [place] [address] Drive [address] [place], [place] [id number] 09/30/2024 Liu Harris [facility] (current) use of anticoagulants Z79.01 and Atrial fibrillation I48.91 Liu Harris MD [address] [place] [id number] 10/28/2024 Liu Bombardier [facility] (current) use of anticoagulants Z79.01 and Atrial fibrillation I48.91 Liu Harris MD [address] [place] [id number] 11/11/2024 Liu Bombardier long term care pharmacist (current) use of anticoagulants Z79.01 and Atrial fibrillation I48.91 Liu Harris MD [address] [place] [address] [id number] 11/25/2024 Liu Bombardier [facility] (current) use of anticoagulants Z79.01 and Atrial fibrillation I48.91 Liu Harris MD [address] [place] [address] [id number] 12/09/2024 Liu Bombardier Atrial fibrillation I48.91 and long term care pharmacist (current) use of anticoagulants Z79.01 Liu Harris MD [address] [place] [address] [id number] 12/23/2024 Liu Bombardier [facility] (current) use of anticoagulants Z79.01 and Atrial fibrillation I48.91 Liu Harris MD [address] [place] [id number] 01/06/2025 Liu Bombardier [facility] (current) use of anticoagulants Z79.01 and Atrial fibrillation I48.91 Liu Harris MD [address] [id number] 01/27/2025 Liu Bombardier long term care pharmacist (current) use of anticoagulants Z79.01 and Atrial fibrillation I48.91 Liu Harris MD [address] [place] [address] [id number] 02/17/2025 Liu Bombardier [facility] (current) use of anticoagulants Z79.01 and Atrial fibrillation I48.91 Liu Harris MD [address] [place] [id number] 03/10/2025 Liu Bombardier [facility] (current) use of anticoagulants Z79.01 and Atrial fibrillation I48.91 Liu Harris MD [address] [place] [address] [id number] 03/24/2025 Liu Bombardier long term care pharmacist (current) use of anticoagulants Z79.01 and Atrial fibrillation I48.91 Liu Harris MD [address] [place] [address] [id number] 04/07/2025 Liu Bombardier [facility] (current) use of anticoagulants Z79.01 ; Atrial fibrillation I48.91 ; Essential hypertension I10 ; Type 2 diabetes mellitus without complication E11.9 ; Pure hypercholesterolemia E78.00 and Diabetic autonomic neuropathy associated with type 2 diabetes mellitus E11.43 Liu Harris MD [address] [place] [address] [id number] 04/21/2025 Liu Bombardier [facility] (current) use of anticoagulants Z79.01 and Atrial fibrillation I48.91 Liu Harris MD [address] [facility] [address] [id number] 05/05/2025 Liu Bombardier [facility] (current) use of anticoagulants Z79.01 and Atrial fibrillation I48.91 Liu Harris MD [address] [id number] 05/19/2025 Liu Bombardier long term care pharmacist (current) use of anticoagulants Z79.01 and Atrial fibrillation I48.91 Liu Harris MD [address] [id number] 06/02/2025 Liu Bombardier [facility] (current) use of anticoagulants Z79.01 and Atrial fibrillation I48.91 Liu Harris MD [address] [id number] 06/16/2025 Liu Bombardier [facility] (current) use of anticoagulants Z79.01 and Atrial fibrillation I48.91 Liu Harris MD [address] [id number] 06/30/2025 Liu Bombardier long term care pharmacist (current) use of anticoagulants Z79.01 and Atrial fibrillation I48.91 Liu Harris MD [address] [id number] 07/14/2025 Liu Bombardier Atrial fibrillation I48.91 ; Encounter for administration of vaccine Z23 and [facility] (current) use of anticoagulants Z79.01 Liu Harris MD [address] [facility] [address] [id number] 08/04/2025 Liu Harris Atrial fibrillation I48.91 and long term care pharmacist (current) use of anticoagulants Z79.01 Liu Harris MD [address] [place] [address] [id number] 08/18/2025 Liu Harris long term care pharmacist (current) use of anticoagulants Z79.01 and Atrial fibrillation I48.91 Liu Harris MD [address] [id number] 09/01/2025 Lui Harris long term care pharmacist (current) use of anticoagulants Z79.01 and Atrial fibrillation I48.91 Liu Harris MD [address] [place] [address] [id number] 09/15/2025 Liu Harris long term care pharmacist (current) use of anticoagulants Z79.01 and Atrial fibrillation I48.91 Liu Harris MD [address] [facility] [address] [id number] 09/29/2025 Liu Harris long term care pharmacist (current) use of anticoagulants Z79.01 and Atrial fibrillation I48.91 Liu Harris MD [address] [id number] 10/16/2024 Liu Harris [facility] (current) use of anticoagulants Z79.01 ; Atrial fibrillation I48.91 and Unsteady gait R26.81 Liu Harris MD [address] [facility] [address] [id number] 01/13/2025 Liu Harris Type 2 diabetes opal itus without complication E11.9 ; Preop examination Z01.818 ; long term care pharmacist (current) use of anticoagulants Z79.01 ; Atrial fibrillation I48.91 and Essential hypertension I10 Liu Harris MD [address] [facility] [address] [place] [address] [id number] 04/16/2025 Liu Harris Type 2 diabetes opal itus without complication E11.9 ; Adult general medical examination Z00.00 ; Essential hypertension I10 ; History of melanoma Z85.820 ; Diabetic autonomic neuropathy associated with type 2 diabetes mellitus E11.43 ; Colon cancer screening Z12.11 ; Depression screening Z13.31 and Pure hypercholesterolemia E78.00 Liu Harris MD [address] [id number] 10/09/2024 Liu Harris Assessments Encounter Date Diagnosis (ICD Code) Assessment Notes Treatment Notes Treatment Clinical Notes Section Notes 09/30/2024 long term care pharmacist (current) use of anticoagulants (ICD-10 - Z79.01) 09/30/2024 Atrial fibrillation (ICD-10 - I48.91) 10/28/2024 long term care pharmacist (current) use of anticoagulants (ICD-10 - Z79.01) 10/28/2024 Atrial fibrillation (ICD-10 - I48.91) 11/11/2024 [facility] (current) use of anticoagulants (ICD-10 - Z79.01) 11/25/2024 long term care pharmacist (current) use of anticoagulants (ICD-10 - Z79.01) 12/09/2024 Atrial fibrillation (ICD-10 - I48.91) 12/23/2024 [facility] (current) use of anticoagulants (ICD-10 - Z79.01) 01/06/2025 [facility] (current) use of anticoagulants (ICD-10 - Z79.01) 01/27/2025 long term care pharmacist (current) use of anticoagulants (ICD-10 - Z79.01) 02/17/2025 long term care pharmacist (current) use of anticoagulants (ICD-10 - Z79.01) 03/10/2025 [facility] (current) use of anticoagulants (ICD-10 - Z79.01) 03/24/2025 long term care pharmacist (current) use of anticoagulants (ICD-10 - Z79.01) 04/07/2025 [facility] (current) use of anticoagulants (ICD-10 - Z79.01) 04/21/2025 [facility] (current) use of anticoagulants (ICD-10 - Z79.01) 05/05/2025 long term care pharmacist (current) use of anticoagulants (ICD-10 - Z79.01) 05/19/2025 long term care pharmacist (current) use of anticoagulants (ICD-10 - Z79.01) 06/02/2025 long term care pharmacist (current) use of anticoagulants (ICD-10 - Z79.01) 06/16/2025 [facility] (current) use of anticoagulants (ICD-10 - Z79.01) 06/30/2025 long term care pharmacist (current) use of anticoagulants (ICD-10 - Z79.01) 07/14/2025 Atrial fibrillation (ICD-10 - I48.91) 07/14/2025 Encounter for administration of vaccine (ICD-10 - Z23) 08/04/2025 Atrial fibrillation (ICD-10 - I48.91) 08/18/2025 long term care pharmacist (current) use of anticoagulants (ICD-10 - Z79.01) 09/01/2025 [facility] (current) use of anticoagulants (ICD-10 - Z79.01) 09/15/2025 [facility] (current) use of anticoagulants (ICD-10 - Z79.01) 09/29/2025 [facility] (current) use of anticoagulants (ICD-10 - Z79.01) 10/16/2024 long term care pharmacist (current) use of anticoagulants (ICD-10 - Z79.01) is doing well with no problems 10/16/2024 Atrial fibrillation (ICD-10 - I48.91) when he gets into afib gets a diureses which is related to a naturtic hormone. has been doing well now 01/13/2025 Type 2 diabetes mellitus without complication [...] Z00.00) labs reviewed and discussed with patient 11/11/2024 Atrial fibrillation (ICD-10 - I48.91) 11/25/2024 Atrial fibrillation (ICD-10 - I48.91) 12/09/2024 [facility] (current) use of anticoagulants (ICD-10 - Z79.01) [...] 06/30/2025 Atrial fibrillation (ICD-10 - I48.91) 07/14/2025 [facility] (current) use of anticoagulants (ICD-10 - Z79.01) 08/04/2025 [facility] (current) use of anticoagulants (ICD-10 - Z79.01) 08/18/2025 Atrial fibrillation (ICD-10 - I48.91) 09/01/2025 Atrial fibrillation (ICD-10 - I48.91) 09/15/2025 Atrial fibrillation (ICD-10 - I48.91) 09/29/2025 Atrial fibrillation (ICD-10 - I48.91) 10/16/2024 Unsteady gait (ICD-1 0 - R26.81) discussed findings of MRI with patient, is going to see gusset edger for cataract surgery/ feels as though it is related to his vision as a problem 01/13/2025 long term care pharmacist (current) use of anticoagulants (ICD-10 - Z79.01) will hold for 3 days prior to the upcoming surgery, patient verbalized understanding of instruction to d'c medication 3 days prior to surgery 04/16/2025 Essential hypertensi on (ICD-10 - I10) well controlled, will cntinue current regiment 04/07/2025 Essential hypertensi on (ICD-10 - I10) 01/13/2025 Atrial fibrillation (ICD-10 - I48.91) doing well 04/16/2025 History of melanoma (ICD-10 - Z85.820) was [facility] with [facility] 04/07/2025 Type 2 diabetes mellitus without complication [...] 09/22/2024 Next Appt Details Provider Name:Liu phelanr, 10/19/2025 07:15:00 AM, [address] [place] [address], [address], [id number], Provider Name:Liu Shafer ier, 10/26/2025 09:00:00 AM, [address] [place] [address], [address], [phone], Provider Name:Liu Shafer ier, 04/12/2026 07:00:00 AM, [address] [place] [address], [address], [id number], Provider Name:Liu Shafer ier, 04/19/2026 08:30:00 AM, [address] [place] [address], [address], [phone], Insurance Providers Payer Name Payer Address Payer Phone Subscriber Number Group Number Insured Name Patient Relationship to Insured Coverage Start Date Coverage End Date [employer] [facility] [address] [place], [place] [phone] [id number] Remington Eric Self - patient is the insured Medical (General) History Medical History History ICD Code Atrial fibrillation diabetes mellitus colonoscopy - 02/26/2013; colonoscopy 03/[address] Gifford - repeat 5 years Surgical History Surgery Date(Month/Year) pulmonarry artery ablation Partial Medial Menisectomy, rt knee (Dr. Perez) 10/2016
--- OUTSIDE RECORDS SUMMARY | 2025-09-29 15:01 | XMS_ITS | Encounter Summary ---
Author Organization [facility] Address [address] [place] [address] Care Team Providers Care Postal Support Employee Name Role Phone Liu Harris MD Primary Care Provider [phone] Encounter Details Date Type Department Care Team (Late Contact Info) Description 07/29/2025 Results Follow-Up Gastroenterology - 299 [address] [facility] [address] [place] [phone] Annie Wilkinson MA Social History Tobacco Use [...] Description 07/13/2026 11:00 AM EDT Ancillary Procedure [facility] - [address] [facility] [address] [place] [phone] documented as of this encounter Visit Diagnoses Not on filedocumented in this encounter Care Teams Postal Support Employee Relationship Specialty Start Date End Date Liu Harris MD [address] [place] [address] Drive [address] [place] [address] PCP - General 07/30/12 documented as of this encounter
== END 2025-09-29 11:22 | disposition home or self-care (01) ==
LOC: HO.LNP 11:21
PROVIDERS: Visit Provider Internal Medicine
DX: I48.91 Unspecified atrial fibrillation (principal); Z79.01 Long term (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 of 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
CPT/HCPCS: 85610

== ENCOUNTER 2025-10-13 07:15 | Outpatient (REF) | payer BC, SELFPAY ==
--- OUTSIDE RECORDS SUMMARY | 2025-06-02 03:30 | XMS_ITS ---
Author Organization Liu Harris MD Address [address] [place] [phone] Care Team Providers Care Optical Systems Engineer Name Role Phone Liu Harris Primary Care Provider Results Component Value Reference Range Notes Prothrombin Time INR Reviewed date:06/02/2025 11:24:03 AM Interpretation: Performing Lab:[facility], [address] [place] [phone] Notes/Report: Prothrombin Time 25.7 10.9-12.4 SEC INTERNATIONAL NORM RATIO 2.2 0.9-1.1 [...] Location Date Provider Diagnosis Liu Harris MD [address] [place] [address] [place] [phone] 06/02/2025 Liu Harris bed bug exterminator (current) use of anticoagulants Z79.01 and Atrial fibrillation I48.91 Assessments Encounter Date Diagnosis (ICD Code) Assessment Notes Treatment Notes Treatment Clinical Notes Section Notes 06/02/2025 [facility] (current) use of anticoagulants (ICD-10 - Z79.01) 06/02/2025 Atrial fibrillation (ICD-10 - I48.91) Plan Of Treatment Next Appt Details Provider Name:Liu hyde, 10/26/2025 09:00:00 AM, [address] [place] [address], [address], [phone], Provider Name:Liu hyde, 10/27/2025 08:45:00 AM, [address] [place] [address], [address], [phone], Provider Name:Liu hyde, 04/12/2026 07:00:00 AM, [address] [place] [address], [address], [phone], Provider Name:Liu hyde, 04/19/2026 08:30:00 AM, [address] [place] [address], [address], [phone], Progress Notes * Remington ERIC RDOB:1960 (65 yo M)Acc No.[id number]:06/02/2025 Progress Note Patient: Remington PEDERSEN Dante Provider: Lillie Harris MD :1960 A ge:65 Y S ex:Male Date:06/02/2025 Address:[address] [place], [place] [phone] Subjective: * Chief Complaints: * 1 . INR. * Medical History: Objective: * Vitals: Assessment: * Assessment: 1. L douglas term (current) use of anticoagulants - Z79.01 (Primary) 2 . A trial fibrillation - I48.91 Plan: * Treatment: 2. A trial fibrillation L AB: Prothrombin Time INR (Collection Date & Time - 06/02/2025 08:30 AM) * Procedure Codes: 3 6415 VENIPUNCT, ROUTINE* * * The named appointment provid er may or may not be the originator of this progress note, and it is not deemed complete until electronically signed by the appointment provider. Sign off status: Pending * Provider: Lillie Harris MD Date: 0 06/02/2025 Generated for Josue mejia/Oxana/Bintaitting on: 1 02:12 PM EST
--- OUTSIDE RECORDS SUMMARY | 2025-06-16 04:30 | XMS_ITS ---
Author Organization Liu Harris MD Address [address] [place] [phone] Care Team Providers Care Sponge Diver Name Role Phone Liu Harris Primary Care Provider [phone] Results Component Value Reference Range Notes Prothrombin Time INR Reviewed date:06/16/2025 12:35:41 PM Interpretation: Performing Lab: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 Z79.01 and Atrial fibrillation I48.91 Assessments Encounter Date Diagnosis (ICD Code) Assessment Notes Treatment Notes Treatment Clinical Notes Section Notes 06/16/2025 halfway (current) use of anticoagulants (ICD-10 - Z79.01) 06/16/2025 Atrial fibrillation (ICD-10 - I48.91) Plan Of Treatment Next Appt Details Provider Name:Liu hyde, 10/26/2025 09:00:00 AM, [address] [place] [address], [address], [phone], Provider Name:Liu hyde, 10/27/2025 08:45:00 AM, [address] [place] [address], [address], [phone], Provider Name:Liu hyde, 04/12/2026 07:00:00 AM, [address] [place] [address], [address], [phone], Provider Name:Liu hyde, 04/19/2026 08:30:00 AM, [address] [place] [address], [address], [phone], Progress Notes * Remington ERIC RDOB:1960 (65 yo M)Acc No.[id number]:06/16/2025 Progress Note Patient: Remington PEDERSEN Dante Provider: Lillie Harris MD :1960 A ge:65 Y S ex:Male Date:06/16/2025 Address:[address] [place], [place] [phone] Subjective: * Chief Complaints: * 1 . [...] 06/16/2025 Generated for Josue mejia/Oxana/Bintaitting on: 1 02:12 PM EST
--- OUTSIDE RECORDS SUMMARY | 2025-06-30 03:30 | XMS_ITS ---
Author Organization Liu Harris MD Address [address] [place] [phone] Care Team Providers Care Drug Safety Specialist Name Role Phone Liu Harris Primary Care Provider Results Component Value Reference Range Notes Prothrombin Time INR Reviewed date:06/30/2025 12:04:22 PM Interpretation: Performing Lab:[facility], [address] [place] [phone] Notes/Report: Prothrombin Time 25.8 10.9-12.4 SEC INTERNATIONAL [...] Date Provider Diagnosis Liu Harris MD [address] [place] [address] [place] [phone] 06/30/2025 Liu Harris terminal supervisor (current) use of anticoagulants Z79.01 and Atrial fibrillation I48.91 Assessments Encounter Date Diagnosis (ICD Code) Assessment Notes Treatment Notes Treatment Clinical Notes Section Notes 06/30/2025 long-term (current) use of anticoagulants (ICD-10 - Z79.01) 06/30/2025 Atrial fibrillation (ICD-10 - I48.91) Plan Of Treatment Next Appt Details Provider Name:Liu hyde, 10/26/2025 09:00:00 AM, [address] [place] [address], [address], [phone], Provider Name:Liu hyde, 10/27/2025 08:45:00 AM, [address] [place] [address], [address], [phone], Provider Name:Liu hyde, 04/12/2026 07:00:00 AM, [address] [place] [address], [address], [phone], Provider Name:Liu hyde, 04/19/2026 08:30:00 AM, [address] [place] [address], [address], [phone], Progress Notes * Remington ERIC RDOB:1960 (65 yo M)Acc No.[id number]:06/30/2025 Progress Note Patient: Remington PEDERSEN Dante Provider: Lillie Harris MD :1960 A ge:65 Y S ex:Male Date:06/30/2025 Address:[address] [place], [place] [phone] Subjective: * Chief Complaints: * 1 . [...] 06/30/2025 Generated for Josue mejia/Oxana/Bintaitting on: 1 02:11 PM EST
--- OUTSIDE RECORDS SUMMARY | 2025-07-14 04:00 | XMS_ITS ---
Author Organization Liu Harris MD Address [address] [place] [phone] Care Team Providers Care Phone Banker Name Role Phone Liu Harris Primary Care Provider [phone] Results Component Value Reference Range Notes Prothrombin Time INR Reviewed date:07/14/2025 01:19:51 PM Interpretation: Performing Lab:[facility], [address] [place] [phone] Notes/Report: Prothrombin Time 29.5 10.9-12.4 SEC INTERNATIONAL [...] Location Date Provider Diagnosis Liu Harris MD [address] [place] [phone] 07/14/2025 Liu Harris Atrial fibrillation I48.91 ; Encounter for administration of vaccine Z23 and intermediate (current) use of anticoagulants Z79.01 Assessments Encounter Date Diagnosis (ICD Code) Assessment Notes Treatment Notes Treatment Clinical Notes Section Notes 07/14/2025 Atrial fibrillation (ICD-10 - I48.91) 07/14/2025 Encounter for administration of vaccine (ICD-10 - Z23) 07/14/2025 intermediate (current) use of anticoagulants (ICD-10 - Z79.01) Plan Of Treatment Next Appt Details Provider Name:Liu hyde, 10/26/2025 09:00:00 AM, [address] [place] [address], [address], [phone], Provider Name:Liu hyde, 10/27/2025 08:45:00 AM, [address] [place] [address], [address], [phone], Provider Name:Liu hyde, 04/12/2026 07:00:00 AM, [address] [place] [address], [phone], Provider Name:Liu hyde, 04/19/2026 08:30:00 AM, [address] [place] [address], [phone], Progress Notes * Remington ERIC RDOB:1960 (65 yo M)Acc No.[id number]:07/14/2025 Progress Note Patient: Wanda KEYONRemington DE ANDA Dante Provider: Lillie Harris MD :1960 A ge:65 Y S ex:Male Date:07/14/2025 Address:[address] [place], [place] [phone] Subjective: * Chief Complaints: * 1 . [...] * Procedure Codes: 3 6415 VENIPUNCT, ROUTINE*, 07960 FLU VACCINE NO PRESERV 3 & >, 12229 IMMUNIZATION ADMIN * * The named appointment provid er may or may not be the originator of this progress note, and it is not deemed complete until electronically signed by the appointment provider. Sign off status: Pending * Provider: Lillie Harris MD Date: 0 07/14/2025 Generated for Josue mejia/Oxana/Bintaitting on: 02:11 PM EST
--- OUTSIDE RECORDS SUMMARY | 2025-08-04 03:15 | XMS_ITS ---
Author Organization Liu Harris MD Address [address] [place] [phone] Care Team Providers Care Offset Printing Operator Name Role Phone Liu Harris Primary Care Provider Results Component Value Reference Range Notes Prothrombin Time INR Reviewed date:08/04/2025 12:15:44 PM Interpretation: Performing Lab:[facility], [address] [place] [phone] Notes/Report: Prothrombin Time 24.3 10.9-12.4 SEC INTERNATIONAL NORM RATIO 2.1 0.9-1.1 INTERNATIONAL NORMALIZED RATIO (INR) REFERENCE RANGES [...] Location Date Provider Diagnosis Liu Harris MD [address] [place] [address] [place] [phone] 08/04/2025 Liu Harris Atrial fibrillation I48.91 and care home (current) use of anticoagulants Z79.01 Assessments Encounter Date Diagnosis (ICD Code) Assessment Notes Treatment Notes Treatment Clinical Notes Section Notes 08/04/2025 Atrial fibrillation (ICD-10 - I48.91) 08/04/2025 oysterman (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[id number]:08/04/2025 Progress Note Patient: Remington PEDERSEN Dante Provider: Lillie Harris MD :1960 A ge:65 Y S ex:Male Date:08/04/2025 Address:[address] [place], [place] [phone] Subjective: * Chief Complaints: * 1 . INR. * Medical History: Objective: * Vitals: Assessment: * Assessment: 1. A trial fibrillation - I48.91 (Primary) 2 . L douglas term (current) use of anticoagulants - Z79.01 Plan: * Treatment: 2. L douglas term (current) use of anticoagulants L AB: Prothrombin Time INR (Collection Date & Time - 08/04/2025 08:15 AM) * Procedure Codes: 3 6415 VENIPUNCT, ROUTINE* * * The named appointment provid er may or may not be the originator of this progress note, and it is not deemed complete until electronically signed by the appointment provider. Sign off status: Pending * Provider: Lillie Harris MD Date: 1 Generated for Josue mejia/Oxana/Renato on: 1 02:12 PM EST
--- OUTSIDE RECORDS SUMMARY | 2025-08-18 04:00 | XMS_ITS ---
Author Organization Liu Harris MD Address [address] [place] [phone] Care Team Providers Care Settlement Technician Name Role Phone Liu Harris Primary Care Provider [phone] Results Component Value Reference Range Notes Prothrombin Time INR Reviewed date:08/18/2025 12:35:43 PM Interpretation: Performing Lab:[facility], [address] [place] [phone] Notes/Report: Prothrombin Time 31.3 10.9-12.4 SEC INTERNATIONAL [...] Location Date Provider Diagnosis Liu Harris MD [address] [place] [phone] 08/18/2025 Liu Harris 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 (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) use of anticoagulants Z79.01 and Atrial fibrillation I48.91 Assessments Encounter Date Diagnosis (ICD Code) Assessment Notes Treatment Notes Treatment Clinical Notes Section Notes 08/18/2025 [facility] (current) use of anticoagulants (ICD-10 - Z79.01) 08/18/2025 Atrial fibrillation (ICD-10 - I48.91) Plan Of Treatment Next Appt Details Provider Name:Liu hyde, 10/26/2025 09:00:00 AM, [address] [place] [address], [address], [phone], Provider Name:Liu hyde, 10/27/2025 08:45:00 AM, [address] [place] [address], [address], [phone], Provider Name:Liu hyde, 04/12/2026 07:00:00 AM, [address] [place] [address], [address], [phone], Provider Name:Liu hyde, 04/19/2026 08:30:00 AM, [address] [place] [address], [address], [phone], Progress Notes * Remington ERIC RDOB:1960 (65 yo M)Acc No.[id number]:08/18/2025 Progress Note Patient: Remington PEDERSEN Dante Provider: Lillie Harris MD :1960 A ge:65 Y S ex:Male Date:08/18/2025 Address:[address] [place], [place] [phone] Subjective: * Chief Complaints: * 1 . [...] 1 10/18/2024 Generated for Josue mejia/Oxana/Bintaitting on: 02:12 PM EST
--- OUTSIDE RECORDS SUMMARY | 2025-09-01 03:45 | XMS_ITS ---
Author Organization Liu Harris MD Address [address] [place] [phone] Care Team Providers Care Commercial Specialist Name Role Phone Liu Harris Primary Care Provider [phone] Results Component Value Reference Range Notes Prothrombin Time INR Reviewed date:09/01/2025 12:42:05 PM Interpretation: Performing Lab:[facility], [address] [place] [phone] Notes/Report: Prothrombin Time 22.8 11.2-13.5 SEC INTERNATIONAL NORM RATIO 1.9 0.9-1.1 INTERNATIONAL NORMALIZED RATIO (INR) REFERENCE RANGES [...] Date Provider Diagnosis Liu Harris MD [address] [place] [address] [place] [phone] 09/01/2025 Liu Harris 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 scale operator (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) use of anticoagulants Z79.01 and Atrial fibrillation I48.91 Assessments Encounter Date Diagnosis (ICD Code) Assessment Notes Treatment Notes Treatment Clinical Notes Section Notes 09/01/2025 detention (current) use of anticoagulants (ICD-10 - Z79.01) 09/01/2025 Atrial fibrillation (ICD-10 - I48.91) Plan Of Treatment Next Appt Details Provider Name:Liu hyde, 10/26/2025 09:00:00 AM, [address] [place] [address], [address], [phone], Provider Name:Liu hyde, 10/27/2025 08:45:00 AM, [address] [place] [address], [address], [phone], Provider Name:Liu hyde, 04/12/2026 07:00:00 AM, [address] [place] [address], [address], [phone], Provider Name:Liu hyde, 04/19/2026 08:30:00 AM, [address] [place] [address], [address], [phone], Progress Notes * Remington ERIC RDOB:1960 (65 yo M)Acc No.[id number]:09/01/2025 Progress Note Patient: Remington PEDERSEN Dante Provider: Lillie Harris MD :1960 A ge:65 Y S ex:Male Date:09/01/2025 Address:[address] [place], [place] [phone] Subjective: * Chief Complaints: * 1 . INR. * Medical History: Objective: * Vitals: Assessment: * Assessment: 1. L douglas term (current) use of anticoagulants - Z79.01 (Primary) 2 . A trial fibrillation - I48.91 Plan: * Treatment: 2. A trial fibrillation L AB: Prothrombin Time INR (Collection Date & Time - 09/01/2025 08:45 AM) * Procedure Codes: 3 6415 VENIPUNCT, ROUTINE* * * The named appointment provid er may or may not be the originator of this progress note, and it is not deemed complete until electronically signed by the appointment provider. Sign off status: Pending * Provider: Lillie Harris MD Date: 1 11/01/2024 Generated for Josue mejia/Oxana/Bintaitting on: 02:11 PM EST
--- OUTSIDE RECORDS SUMMARY | 2025-09-15 03:15 | XMS_ITS ---
Author Organization Liu Harris MD Address [address] [place] [phone] Care Team Providers Care Dry Press Operator Name Role Phone Liu Harris Primary Care Provider Results Component Value Reference Range Notes Prothrombin Time INR Reviewed date:09/17/2025 06:45:05 AM Interpretation: Performing Lab:[facility], [address] [place] [phone] Notes/Report: Prothrombin Time 23.2 11.2-13.5 SEC INTERNATIONAL NORM RATIO 1.9 0.9-1.1 [...] Location Date Provider Diagnosis Liu Harris MD [address] [place] [address] [place] [phone] 09/15/2025 Liu Harris meterman (current) use of anticoagulants Z79.01 and Atrial fibrillation I48.91 Assessments Encounter Date Diagnosis (ICD Code) Assessment Notes Treatment Notes Treatment Clinical Notes Section Notes 09/15/2025 snf (current) use of anticoagulants (ICD-10 - Z79.01) 09/15/2025 Atrial fibrillation (ICD-10 - I48.91) Plan Of Treatment Next Appt Details Provider Name:Liu hyde, 10/26/2025 09:00:00 AM, [address] [place] [address], [address], [phone], Provider Name:Liu hyde, 10/27/2025 08:45:00 AM, [address] [place] [address], [address], [phone], Provider Name:Liu hyde, 04/12/2026 07:00:00 AM, [address] [place] [address], [address], [phone], Provider Name:Liu hyde, 04/19/2026 08:30:00 AM, [address] [place] [address], [address], [phone], Progress Notes * Remington ERIC RDOB:1960 (65 yo M)Acc No.[id number]:09/15/2025 Progress Note Patient: Remington PEDERSEN Dante Provider: Lillie Harris MD :1960 A ge:65 Y S ex:Male Date:09/15/2025 Address:[address] [place], [place] [phone] Subjective: * Chief Complaints: * 1 . INR. * Medical History: Objective: * Vitals: Assessment: * Assessment: 1. L douglas term (current) use of anticoagulants - Z79.01 (Primary) 2 . A trial fibrillation - I48.91 Plan: * Treatment: 2. A trial fibrillation L AB: Prothrombin Time INR (Collection Date & Time - 09/15/2025 08:15 AM) * Procedure Codes: 3 6415 VENIPUNCT, ROUTINE* * * The named appointment provid er may or may not be the originator of this progress note, and it is not deemed complete until electronically signed by the appointment provider. Sign off status: Pending * Provider: Lillie Harris MD Date: 1 11/16/2024 Generated for Josue mejia/Oxana/Bintaitting on: 1 02:12 PM EST
--- OUTSIDE RECORDS SUMMARY | 2025-09-29 03:30 | XMS_ITS ---
Author Organization Liu Harris MD Address [address] [place] [phone] Care Team Providers Care Project Admin Name Role Phone Liu Harris Primary Care Provider Results Component Value Reference Range Notes Prothrombin Time INR Reviewed date:09/29/2025 11:43:34 AM Interpretation: Performing Lab:[facility], [address] [place] [phone] Notes/Report: Prothrombin Time 24.3 11.2-13.5 SEC INTERNATIONAL NORM RATIO 2.0 0.9-1.1 INTERNATIONAL [...] Location Date Provider Diagnosis Liu Harris MD [address] [place] [address] [place] [phone] 09/29/2025 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) use of anticoagulants Z79.01 and Atrial fibrillation I48.91 Assessments Encounter Date Diagnosis (ICD Code) Assessment Notes Treatment Notes Treatment Clinical Notes Section Notes 09/29/2025 senior care (current) use of anticoagulants (ICD-10 - Z79.01) 09/29/2025 Atrial fibrillation (ICD-10 - I48.91) Plan Of Treatment Next Appt Details Provider Name:Liu hyde, 10/26/2025 09:00:00 AM, [address] [place] [address], [address], [phone], Provider Name:Liu hyde, 10/27/2025 08:45:00 AM, [address] [place] [address], [address], [phone], Provider Name:Liu hyde, 04/12/2026 07:00:00 AM, [address] [place] [address], [address], [phone], Provider Name:Liu hyde, 04/19/2026 08:30:00 AM, [address] [place] [address], [address], [phone], Progress Notes * Remington ERIC RDOB:1960 (65 yo M)Acc No.[id number]:09/29/2025 Progress Note Patient: Remington PEDERSEN Dante Provider: Lillie Harris MD :1960 A ge:65 Y S ex:Male Date:09/29/2025 Address:[address] [place], [place] [phone] Subjective: * Chief Complaints: * 1 . INR. * Medical History: Objective: * Vitals: Assessment: * Assessment: 1. L douglas term (current) use of anticoagulants - Z79.01 (Primary) 2 . A trial fibrillation - I48.91 Plan: * Treatment: 2. A trial fibrillation L AB: Prothrombin Time INR (Collection Date & Time - 09/29/2025 08:30 AM) * Procedure Codes: 3 6415 VENIPUNCT, ROUTINE* * * The named appointment provid er may or may not be the originator of this progress note, and it is not deemed complete until electronically signed by the appointment provider. Sign off status: Pending * Provider: Lillie Harris MD Date: 1 11/30/2024 Generated for Josue mejia/Oxana/Bintaitting on: 02:11 PM EST
--- OUTSIDE RECORDS SUMMARY | 2025-10-13 02:15 | XMS_ITS ---
Author Organization Liu Harris MD Address [address] [place] [phone] Care Team Providers Care Sterile Tech Name Role Phone Liu Harris Primary Care Provider Results Component Value Reference Range Notes Liver Panel (Not yet reviewe d by provider) Interpretation: Performing Lab:[facility], [address] [place] [phone] Notes/Report: Bilirubin Total 1.4 0.0-1.0 mg/dL Bilirubin Direct 0.5 0.0-0.5 mg/dL Aspartate Amino Transferase 29 5-37 U/L Alanine Aminotransferase 33 0-40 U/L Total Protein 7.3 6.5-8.0 g/dL Albumin Level 4.3 3.5-5.0 g/dL Alkaline Phosphatase 78 39-117 U/L Glucose Fasting (Not yet rev iewed by provider) Interpretation: Performing Lab:[address] [address] Notes/Report: Glucose Fasting 156 60-99 mg/dL A fasting glucose of 126 mg/dl or greater on more than one occasion is considered diagnostic of diabetes. Lipid Panel with Reflex (Not yet reviewed by provider) Interpretation: Performing Lab:[address] [phone] Notes/Report: Triglycerides 137 <150 mg/dL Desirable Triglyceride: less than 150 mg/dL Borderline High Triglyceride 150-199 mg/dL High Triglyceride: 200-499 mg/dL Very High Triglyceride: greater than or equal to 5OO mg/dL Cholesterol 131 <200 mg/dL Desirable Cholesterol: less than 200 [...] low results in patients with liver disease. Prothrombin Time INR Reviewed date:10/13/2025 11:12:57 AM Interpretation: Performing Lab:[address] [address] Notes/Report: Prothrombin Time 31.6 11.2-13.5 SEC INTERNATIONAL NORM RATIO 2.6 0.9-1.1 INTERNATIONAL [...] mechanical prosthetic heart valves: 2.5 - 3.5 Hemoglobin A1c Reviewed date:10/13/2025 12:45:42 PM Interpretation: Performing Lab:[facility], [address] [place] [address] [place] [address] Notes/Report: Hemoglobin A1c % 7.1 <6.0 % [...] average glucose, using the formula of the [id number]-[id number] Average Glucose study (ADAG), Diabetes Care, Vol.31,#8, 2007 REASON FOR VISIT FASTING LIPIDS Encounters Encounter Location Date Provider Diagnosis Liu Harris MD [address] [place] [address] [place] [phone] 10/13/2025 Liu Harris Type 2 diabetes opal itus without complication E11.9 ; Pure hypercholesterolemia E78.00 ; manager long term care (current) use of anticoagulants Z79.01 and Atrial fibrillation I48.91 Assessments Encounter Date Diagnosis (ICD Code) Assessment Notes Treatment Notes Treatment Clinical Notes Section Notes 10/13/2025 Type 2 diabetes opal itus without complication (ICD-10 - E11.9) 10/13/2025 Pure hypercholesterolemia (ICD-10 - E78.00) 10/13/2025 manager long term care (current) use of anticoagulants (ICD-10 - Z79.01) 10/13/2025 Atrial fibrillation (ICD-10 - I48.91) Plan Of Treatment Pending Test Test Name Order Date Liver Panel 10/13/2025 Glucose Fasting 10/13/2025 Lipid Panel with Reflex 10/13/2025 Next Appt Details Provider Name:Liu hyde, 10/26/2025 09:00:00 AM, [address] [place] [address], [address] [place] [address], [id number], Provider Name:Liu hyde, 10/27/2025 08:45:00 AM, [address] [place] [address], [address], [phone], Provider Name:Liu hyde, 04/12/2026 07:00:00 AM, [address] [place] [address], [address], [phone], Provider Name:Ilu Latasha Shafer ier, 04/19/2026 08:30:00 AM, [address], [address], [place], [place], [phone], Progress Notes * Remington ERIC RDOB:1960 (65 yo M)Acc No.[id number]:10/13/2025 Progress Note Patient: Remington PEDERSEN Provider: Lillie Harris MD :1960 A ge:65 Y S ex:Male Date:10/13/2025 Address:[address] [place], [place] [phone] Subjective: * Chief Complaints: * 1 . FASTING LIPIDS. * Medical History: Objective: * Vitals: Assessment: * Assessment: 1. T ype 2 diabetes mellitus without complication - E11.9 (Primary) 2 . P ure hypercholesterolemia - E78.00 3 . L douglas term (current) use of anticoagulants - Z79.01 4 . A trial fibrillation - I48.91 Plan: * Treatment: 2. P ure hypercholesterolemia L AB: Liver Panel (Collection Date & Time - 10/13/2025 07:15 AM) L AB: Glucose Fasting (Collection Date & Time - 10/13/2025 07:15 AM) L AB: Lipid Panel with Reflex (Collection Date & Time - 10/13/2025 07:15 AM) L AB: Hemoglobin A1c (Collection Date & Time - 10/13/2025 07:15 AM) 3. L douglas term (current) use of anticoagulants L AB: Prothrombin Time INR (Collection Date & Time - 10/13/2025 07:15 AM) 4. A trial fibrillation L AB: Prothrombin Time INR (Collection Date & Time - 10/13/2025 07:15 AM) * Procedure Codes: 3 6415 VENIPUNCT, ROUTINE* * * The named appointment provid er may or may not be the originator of this progress note, and it is not deemed complete until electronically signed by the appointment provider. Sign off status: Pending * Provider: Lillie Harris MD Date: 1 Generated for Silviai ng/Oxana/eTransmitting on: 1 02:13 PM EST
[2025-10-13 10:49] LABS: INTERNATIONAL NORM RATIO 2.6 (0.9-1.1); Prothrombin Time 31.6 SEC (11.2-13.5)
[2025-10-13 12:19] LABS: Alanine Aminotransferase 33 U/L (0-40); Albumin Level 4.3 g/dL (3.5-5.0); Alkaline Phosphatase 78 U/L (39-117); Aspartate Amino Transferase 29 U/L (5-37); Cholesterol 131 mg/dL (<200); HDL Cholesterol 40 mg/dL (>40); Total Protein 7.3 g/dL (6.5-8.0); Triglycerides 137 mg/dL (<150)
[2025-10-13 12:55] LABS: Reflex LDLD? No
--- OUTSIDE RECORDS SUMMARY | 2025-10-13 14:11 | XMS_ITS | Clinical Summary ---
Author Organization [facility] Address [address] [facility] [place] [address] Phone Care Team Providers Care Motorcycle Fabricator Name Role Phone Liu Harris MD Primary Care Provider [phone] Allergies Active Allergy Reactions Criticality Noted Date Comments Shellfish Derived 07/28/2025 Medications magnesium oxide 500 mg magnesium tablet Take [...] DAY 90 tablet 1 05/01/20 25 Active polyethylene glycol (Golytely) 236-22.74-6.74 -5.86 gram solution Take 4L by mouth once for one dose. May substitue any PEG. Starting at 2PM the day before your procedure drink 1 8oz glasses at your own pace until you complete half of the gallon. Finish 2nd half of the gallon at 8PM. 4000 mL 07/14/20 25 Active bisacodyL (DULCOLAX) 5 mg EC tablet Take 2 tablets by mouth right before beginning bowel prep. See instructions provided by the office 2 tablet 07/14/20 25 Active psyllium husk (METAMUCIL ORAL) Take by mouth 2 (two) times a day. Active amLODIPine (NORVASC) 10 mg tabletIndicatio ns:Paroxysmal atrial fibrillation (CMS/HCC V24, CMS/HCC V28) TAKE 1 TABLET BY MOUTH EVERY DAY 90 tablet 3 10/09/20 25 Active amLODIPine (NORVASC) 10 mg tabletIndicatio ns:Paroxysmal atrial fibrillation (CMS/HCC V24, CMS/HCC V28) TAKE 1 TABLET BY MOUTH EVERY DAY 90 tablet 3 11/06/19 25 2024 Discontinued Active Problems Problem Noted Date Diagnosed [...] Team Description 07/31/2025 Telephone Gastroenterology - [address] [phone] Donnie Coronado MD 07/29/2025 Results Follow-Up Gastroenterology - [address] [phone] Annie Wilkinson [place] 07/28/2025 9:27 AM EDT Anesthesia Event [facility] [address] [place] [address] Ronald Ruiz DO Guerin, Erik R, CRNA 07/28/2025 8:44 AM EDT - 07/28/2025 11:59 PM EDT Hospital Encounter [facility] [address] [place] [address] Donnie Coronado MD Walsh, Michael, DO Hx of colonic polyps Discharge Disposition: Home or Self Care 07/24/2025 8:50 AM EDT Office Visit [facility] - [address] [place] [address] Ed Cadena MD Paroxysmal atrial fibrillation ([facility] V24, [facility] [place] [place] V28) (Primary Dx); Mixed hyperlipidemia; Aneurysm of ascending aorta without rupture ([facility] V24) from Last 3 Months Surgical History Surgery Date Site/Laterality Comments COLONOSCOPY ABLATION CARDIOVERSION Medical History Medical History Date Comments Diabetes mellitus type 2, co ntrolled, with complications ([facility] V24, [facility] V28) DX:Diabetes mellitus type 2, controlled, with complications ([facility]) Hyperlipidemia DX:Hyperlipidemi a Essential hypertension DX:Essent ial hypertension CVA (cerebral vascular accid ent) ([facility] V24, [facility] [place] V28) 2004 A-fib ([facility] [place] [place] V24, [facility] [place] V28) s/p cardioversion SVT (supraventricular tachyc ardia) ([facility] [place] V24) s/p ablation ROSEANN on CPAP Colon polyp Melanoma ([facility] [place] V24, [facility] [place] [place] V28) arm Basal cell carcinoma Family History [...] Description 07/13/2026 11:00 AM EDT Ancillary Procedure [facility] - [address] [place] [address] Health Maintenance Due Date Last [...] Months Results * COLONOSCOPY Anesthesia - MAC; [facility] (07/28/2025 9:42 AM EDT) Anatomical [...] clinic PRN. Narrative 07/28/2025 9:46 AM EDT [facility] Patient Name: Dileep Eric Procedure Date: 07/28/2025 9:15 AM Date [...] retroflexion views. Procedure Code(s): --- Professional --- 45827, Colonoscopy, flexible; with removal of tumor(s), polyp(s), or other lesion(s) by snare technique Diagnosis Code(s): --- Professional --- Z86.010, Personal history of colonic polyps D12.3, Benign neoplasm of transverse colon (hepatic flexure or splenic flexure) CPT copyright 2021 [employer]. All rights reserved. The codes documented in this report are preliminary and upon caddie review may be revised to meet current compliance requirements. Donnie Coronado MD 07/28/2025 9:45:57 AM This report has been signed electronically.Donnie Coronado MD Number of Addenda: 0 Note Initiated On: 07/28/2025 9:15 AM Scope In: Scope Out: Endoscopy Department at [facility] - [address] [place] [phone] Procedure Note Donnie Coronado MD - 07/28/2025 [facility] Patient Name: Dileep Eric Procedure Date: 07/28/2025 9:15 AM Date [...] retroflexion views. Procedure Code(s): --- Professional --- 32722, Colonoscopy, flexible; with removal of tumor(s), polyp(s), or other lesion(s) by snare technique Diagnosis Code(s): --- Professional --- Z86.010, Personal history of colonic polyps D12.3, Benign neoplasm of transverse colon (hepatic flexure or splenic flexure) CPT copyright 2020 [employer]. All rights reserved. The codes documented in this report are preliminary and upon caddie reviewmay be revised to meet current compliance requirements. Donnie Coronado MD 07/28/2025 9:45:57 AM This report has been signed electronically.Donnie Coronado MD Number of Addenda: 0 Note Initiated On: 07/28/2025 9:15 AM Scope In: Scope Out: Endoscopy Department at [facility] - [address] [place] [phone] IMPRESSION: - One 4 mm polyp at [...] polyp: Tubular adenoma 07/29/2025 9:13 AM EDT [facility] at 0913 EDT Gross Description [...] multiple pieces. TS 07/29/2025 9:13 AM EDT [facility] Disclaimer Unless otherwise specified, all tissue is 10% NB formalin fixed and paraffin embedded. 07/29/2025 9:13 AM EDT [facility] Tissue Structure of right colic flexure / Unknown 07/28/2025 9:38 AM EDT 07/28/2025 10:14 AM EDT Donnie Coronado MD LAB PATHOLOGY ORDERABLES Mehreen l Result Performing Organization Address [facility]/ZIP Co de Phone Number [facility] [address] [place] [address], * ECG 12 lead (07/24/2025 8:45 AM EDT) Ventricular Rate ECG 64 BPM [facility] Atrial Rate 64 BPM [facility] P-R Interval 172 ms [facility] QRS Duration 100 ms [facility] Q-T Interval 408 ms [facility] QTc 420 ms [facility] P Wave [place] 29 degrees GEM[facility] R [place] -16 degrees GEM[facility] T [place] 11 degrees G[facility] ECG Interpretation Normal sinus rhythm Moderate voltage criteria for LVH, may be normal variant Borderline ECG No previous ECGs available Confirmed by Alec CADENA JAMES ([id number]) on 07/24/2025 5:23:18 PM [facility] 07/24/2025 8:45 AM EDT 07/24/2025 5:23 PM EDT Ed Cadena MD ECG ORDERABLES Final Result Performing Organization Address City/[facility]/ZIP Co de Phone Number [facility] from Last 3 Months Insurance MEDICARE [facility] Care Teams Motorcycle Fabricator Relationship Specialty Start Date End Date Liu Harris MD [address] [place] [address] PCP - General 07/30/12
--- OUTSIDE RECORDS SUMMARY | 2025-10-13 14:11 | XMS_ITS | Patient Health Record ---
Author Organization Liu Harris MD Address [address] [place] [phone] Care Team Providers Care Non Profit Financial Controller Name Role Phone Liu Harris Primary Care Provider [phone] Allergies No Known Allergies Results Component Value Reference Range Notes Hemoglobin A1c Reviewed date:01/13/2025 08:26:35 AM Interpretation: Performing Lab: Notes/Report: Hemoglobin A1c 8.1 Prothrombin Time INR Reviewed date:10/28/2024 05:01:12 PM Interpretation: Performing Lab:[facility], [address] [place] [phone] Notes/Report: Prothrombin Time 27.4 10.9-12.4 SEC INTERNATIONAL [...] date:11/11/2024 11:57:26 AM Interpretation: Performing Lab:[facility], [address] [place] [phone] Notes/Report: Prothrombin Time 31.9 10.9-12.4 SEC INTERNATIONAL [...] date:11/25/2024 12:38:44 PM Interpretation: Performing Lab:[facility], [address] [place] [phone] Notes/Report: Prothrombin Time 28.5 10.9-12.4 SEC INTERNATIONAL [...] date:12/09/2024 12:27:16 PM Interpretation: Performing Lab:[facility], [address] [place] [phone] Notes/Report: Prothrombin Time 32.4 10.9-12.4 SEC INTERNATIONAL [...] date:12/23/2024 12:10:07 PM Interpretation: Performing Lab:[facility], [address] [place] [phone] Notes/Report: Prothrombin Time 30.2 10.9-12.4 SEC INTERNATIONAL [...] date:01/06/2025 10:32:13 AM Interpretation: Performing Lab:[facility], [address] [place] [phone] Notes/Report: Prothrombin Time 33.3 10.9-12.4 SEC INTERNATIONAL [...] date:01/27/2025 11:31:40 AM Interpretation: Performing Lab:[facility], [address] [place] [phone] Notes/Report: Prothrombin Time 28.1 10.9-12.4 SEC INTERNATIONAL [...] date:02/17/2025 11:22:57 AM Interpretation: Performing Lab:[facility], [address] [place] [phone] Notes/Report: Prothrombin Time 25.2 10.9-12.4 SEC INTERNATIONAL [...] date:03/10/2025 12:34:22 PM Interpretation: Performing Lab:[facility], [address] [place] [phone] Notes/Report: Prothrombin Time 20.3 10.9-12.4 SEC INTERNATIONAL [...] date:03/24/2025 11:29:00 AM Interpretation: Performing Lab:[facility], [address] [place] [phone] Notes/Report: Prothrombin Time 31.8 10.9-12.4 SEC INTERNATIONAL [...] date:04/07/2025 12:37:35 PM Interpretation: Performing Lab:[facility], [address] [place] [phone] Notes/Report: White Blood Count 6.6 4.8-10.8 X10*3/uL [...] INR Reviewed date:04/07/2025 10:53:43 AM Interpretation: Performing Lab:[address] [phone] Notes/Report: Prothrombin Time 25.0 10.9-12.4 SEC INTERNATIONAL [...] prosthetic heart valves: 2.5 - 3.5 Comprehensive [place]. Panel Fa st Reviewed date:04/07/2025 12:44:59 PM Interpretation: Performing Lab:[address] [phone] Notes/Report: Sodium 139 135-145 mmol/L Potassium 4.0 [...] Reflex Reviewed date:04/07/2025 12:44:40 PM Interpretation: Performing Lab:[address] [phone] Notes/Report: Triglycerides 106 <150 mg/dL Desirable Triglyceride: [...] (Free>4and<10) Reviewed date:04/07/2025 12:26:21 PM Interpretation: Performing Lab:[address] [phone] Notes/Report: PSA,Total (Free>4and<10) 0.49 0.00-4.00 ng/mL A [...] Random Reviewed date:04/07/2025 12:29:08 PM Interpretation: Performing Lab:[address] [phone] Notes/Report: Creatinine Urine 77.80 Microalbumin Urine 13.0 Microalbum/Creatinine Ratio Ur 16.7 <30 ug/mg cr Albumin/Creatinine Ratio Reference Ranges: Normal: < 30 ug/mg creatinine Microalbuminuria: 30 - 300 ug/mg creatinine Clinical Albuminuria: > 300 ug/mg creatinine Hemoglobin A1c Reviewed date:04/07/2025 12:26:50 PM Interpretation: Performing Lab:[address] [phone] Notes/Report: Hemoglobin A1c % 7.3 <6.0 % [...] average glucose, using the formula of the O9Q-Wegdnuj Average Glucose study (ADAG), Diabetes Care, Vol.31,#8, May. 2007 UA ClnCatch+Micro w/rflx Cul t Reviewed date:04/07/2025 12:37:53 PM Interpretation: Performing Lab:[address] [phone] Notes/Report: [id number] Urine, Clean Catch Color Urine Yellow Appearance Urine Clear PH 7.0 5.0-9.0 Glucose Urine UA Negative Negative mg/dL Urine Blood Negative Negative Specific [place] - Urine 1.020 1.005-1.025 Urine Protein Negative Neg-Trace mg/dL Urine Ketones Negative Negative mg/dL Nitrite Urine Negative Negative Leukocyte Esterase Urine Negative Negative RBC Urine 0-2 0-2 /HPF WBC Urine 0-5 0-5 /HPF Squamous Epithelial Cell Urine 0-2 0-2 /HPF Bacteria Urine None Seen None Seen Hyaline Casts Urine 0-2 0-2 /LPF Prothrombin Time INR Reviewed date:04/21/2025 10:32:14 AM Interpretation: Performing Lab:[address] [phone] Notes/Report: Prothrombin Time 29.1 10.9-12.4 SEC INTERNATIONAL [...] date:05/05/2025 10:27:45 AM Interpretation: Performing Lab:[facility], [address] [place] [phone] Notes/Report: Prothrombin Time 26.4 10.9-12.4 SEC INTERNATIONAL [...] date:05/19/2025 12:41:51 PM Interpretation: Performing Lab:[facility], [address] [place] [phone] Notes/Report: Prothrombin Time 23.4 10.9-12.4 SEC INTERNATIONAL [...] date:06/02/2025 11:24:03 AM Interpretation: Performing Lab:[facility], [address] [place] [phone] Notes/Report: Prothrombin Time 25.7 10.9-12.4 SEC INTERNATIONAL [...] date:06/16/2025 12:35:41 PM Interpretation: Performing Lab:[facility], [address] [place] [phone] Notes/Report: Prothrombin Time 27.3 10.9-12.4 SEC INTERNATIONAL [...] date:06/30/2025 12:04:22 PM Interpretation: Performing Lab:[facility], [address] [place] [phone] Notes/Report: Prothrombin Time 25.8 10.9-12.4 SEC INTERNATIONAL [...] INR Reviewed date:07/14/2025 01:19:51 PM Interpretation: Performing Lab:[facility], [address] [place] [phone] Notes/Report: Prothrombin Time 29.5 10.9-12.4 SEC INTERNATIONAL [...] INR Reviewed date:08/04/2025 12:15:44 PM Interpretation: Performing Lab:[facility], [address] [place] [phone] Notes/Report: Prothrombin Time 24.3 10.9-12.4 SEC INTERNATIONAL [...] INR Reviewed date:08/18/2025 12:35:43 PM Interpretation: Performing Lab:[facility], [address] [place] [phone] Notes/Report: Prothrombin Time 31.3 10.9-12.4 SEC INTERNATIONAL [...] INR Reviewed date:09/01/2025 12:42:05 PM Interpretation: Performing Lab:[facility], [address] [place] [phone] Notes/Report: Prothrombin Time 22.8 11.2-13.5 SEC INTERNATIONAL [...] INR Reviewed date:09/17/2025 06:45:05 AM Interpretation: Performing Lab:[address] [phone] Notes/Report: Prothrombin Time 23.2 11.2-13.5 SEC INTERNATIONAL [...] INR Reviewed date:09/29/2025 11:43:34 AM Interpretation: Performing Lab:[facility], [address] [place] [phone] Notes/Report: Prothrombin Time 24.3 11.2-13.5 SEC INTERNATIONAL [...] heart valves: 2.5 - 3.5 Liver Panel (Not yet reviewe d by provider) Interpretation: Performing Lab:[address] [phone] Notes/Report: Bilirubin Total 1.4 0.0-1.0 mg/dL Bilirubin Direct 0.5 0.0-0.5 mg/dL Aspartate Amino Transferase 29 5-37 U/L Alanine Aminotransferase 33 0-40 U/L Total Protein 7.3 6.5-8.0 g/dL Albumin Level 4.3 3.5-5.0 g/dL Alkaline Phosphatase 78 39-117 U/L Glucose Fasting (Not yet rev iewed by provider) Interpretation: Performing Lab:[address] [address] Notes/Report: Glucose Fasting 156 60-99 mg/dL A fasting glucose of 126 mg/dl or greater on more than one occasion is considered diagnostic of diabetes. Lipid Panel with Reflex (Not yet reviewed by provider) Interpretation: Performing Lab:[address] [phone] Notes/Report: Triglycerides 137 <150 mg/dL Desirable Triglyceride: [...] INR Reviewed date:10/13/2025 11:12:57 AM Interpretation: Performing Lab:[facility], [address] [place] [phone] Notes/Report: Prothrombin Time 31.6 11.2-13.5 SEC INTERNATIONAL [...] A1c Reviewed date:10/13/2025 12:45:42 PM Interpretation: Performing Lab:[facility], [address] [place] [phone] Notes/Report: Hemoglobin A1c % 7.1 <6.0 % [...] average glucose, using the formula of the G8L-Zycsldd Average Glucose study (ADAG), Diabetes Care, Vol.31,#8, 2007 Prothrombin Time INR Reviewed date:10/16/2024 06:51:10 PM Interpretation: Performing Lab:[facility], [address] [place] [phone] Notes/Report: Prothrombin Time 28.4 10.9-12.4 SEC INTERNATIONAL [...] date:01/13/2025 10:36:58 AM Interpretation: Performing Lab:[facility], [address] [place] [phone] Notes/Report: Prothrombin Time 28.3 10.9-12.4 SEC INTERNATIONAL [...] mechanical prosthetic heart valves: 2.5 - 3.5 Abigail Young Reviewed date:10/13/2025 11:13:25 AM Interpretation: Performing Lab:[facility], [address] [place] [phone] Notes/Report: Abigail Young See Note Specimen held [...] Zamora 04/16/2025 08:45:30 AM >REFFERAL FAXED TO [facility] FOR SCHEDULING, Kavita Zamora 04/20/2025 02:11:29 PM >INSUR[facility] 05/14/2025 10:42:45 AM >PATIENT SCHEDULED [...] TABLETS TWICE A DAY for 90 Active amLODIPine Besylate 5 MG 1 tablet [...] W/U Status Risk Notes Problem Atrial fibrillation (92670937) Atrial fibrillation (I48.91) Active confirmed Problem 613654330 Tubular adenoma (D36.9) Active confirmed Problem Long-term current use of anticoagulant (810578997) extermination inspector (current) use of anticoagulants (Z79.01) Active confirmed Problem 802965585 Body mass index (BMI) 35.0-35.9, adult (Z68.35) Active confirmed Problem 47631075 Essential hypert ension (I10) Active confirmed Problem Rosacea (527936997) Rosacea (L71.9) Active confirmed Problem 75446436 Type 2 diabetes mellitus without complication (E11.9) Active confirmed Problem History of malignant melanoma of the skin (356127357798) History of melanoma (Z85.820) Active confirmed Problem Polyneuropathy due to type 2 diabetes mellitus (687446004) Diabetic polyneuropathy associated with type 2 diabetes mellitus (E11.42) Active confirmed Problem 785887664 Cervical disc di sease (M50.90) Active confirmed Problem 083059217 Doxycycline adve rse reaction, initial encounter (T36.4X5A) Active confirmed Problem Diabetic autonomic neuropathy due to type 2 diabetes mellitus (834434395) Diabetic autonomic neuropathy associated with type 2 diabetes mellitus (E11.43) Active confirmed Problem 28528692 Unsteady gait (R26.81) Active confirme d Problem 995104227 Pure hypercholesterolemia (E78.00) Active confirmed Problem 399513576 Body mass index (BMI) of 39.0-39.9 in adult (Z68.39) Active confirmed Problem 304383523 Confusion state (F44.89) Active confirmed Vital Signs [...] Liu Harris MD [address] [place] [id number] 10/28/2024 Liu Harris extermination inspector (current) use of anticoagulants Z79.01 and Atrial fibrillation I48.91 Liu Harris MD [address] [id number] 11/11/2024 Liu Harris residential (current) use of anticoagulants Z79.01 and Atrial fibrillation I48.91 Liu Harris MD [address] [place] [id number] 11/25/2024 Liu Bombardidavno extermination inspector (current) use of anticoagulants Z79.01 and Atrial fibrillation I48.91 Liu Harris MD [address] [id number] 12/09/2024 Liu Harris Atrial fibrillation I48.91 and extermination inspector (current) use of anticoagulants Z79.01 Liu Harris MD [address] [id number] 12/23/2024 Liu Lundbergardidavon extermination inspector (current) use of anticoagulants Z79.01 and Atrial fibrillation I48.91 Liu Harris MD [address] [place] [id number] 01/06/2025 Liu Bombardier extermination inspector (current) use of anticoagulants Z79.01 and Atrial fibrillation I48.91 Liu Harris MD [address] [id number] 01/27/2025 Liu Bombardier residential (current) use of anticoagulants Z79.01 and Atrial fibrillation I48.91 Liu Harris MD [address] [id number] 02/17/2025 Liu Bombardier residential (current) use of anticoagulants Z79.01 and Atrial fibrillation I48.91 Liu Harris MD [address] [place] [id number] 03/10/2025 Liu Bombardier extermination inspector (current) use of anticoagulants Z79.01 and Atrial fibrillation I48.91 Liu Harris MD [address] [id number] 03/24/2025 Liu Bombardier extermination inspector (current) use of anticoagulants Z79.01 and Atrial fibrillation I48.91 Liu Harris MD [address] [id number] 04/07/2025 Liu Bombardier residential (current) use of anticoagulants Z79.01 ; Atrial fibrillation I48.91 ; Essential hypertension I10 ; Type 2 diabetes mellitus without complication E11.9 ; Pure hypercholesterolemia E78.00 and Diabetic autonomic neuropathy associated with type 2 diabetes mellitus E11.43 Liu Harris MD [address] [place] [id number] 04/21/2025 Liu Bombardier extermination inspector (current) use of anticoagulants Z79.01 and Atrial fibrillation I48.91 Liu Harris MD [address] [id number] 05/05/2025 Liu Bombardier residential (current) use of anticoagulants Z79.01 and Atrial fibrillation I48.91 Liu Harris MD [address] [id number] 05/19/2025 Liu Bombardier extermination inspector (current) use of anticoagulants Z79.01 and Atrial fibrillation I48.91 Liu Harris MD [address] [place] [id number] 06/02/2025 Liu Bombardier residential (current) use of anticoagulants Z79.01 and Atrial fibrillation I48.91 Liu Harris MD [address] [id number] 06/16/2025 Liu Bombardier extermination inspector (current) use of anticoagulants Z79.01 and Atrial fibrillation I48.91 Liu Harris MD [address] [id number] 06/30/2025 Liu Harris residential (current) use of anticoagulants Z79.01 and Atrial fibrillation I48.91 Liu Harris MD [address] [place] [id number] 07/14/2025 Liu Harris Atrial fibrillation I48.91 ; Encounter for administration of vaccine Z23 and extermination inspector (current) use of anticoagulants Z79.01 Liu Harris MD [address] [id number] 08/04/2025 Liu Harris Atrial fibrillation I48.91 and residential (current) use of anticoagulants Z79.01 Liu Harris MD [address] [id number] 08/18/2025 Liu Harris residential (current) use of anticoagulants Z79.01 and Atrial fibrillation I48.91 Liu Harris MD [address] [id number] 09/01/2025 Liu Harris extermination inspector (current) use of anticoagulants Z79.01 and Atrial fibrillation I48.91 Liu Harris MD [address] [place] [id number] 09/15/2025 Liu Harris extermination inspector (current) use of anticoagulants Z79.01 and Atrial fibrillation I48.91 Liu Harris MD [address] [id number] 09/29/2025 Liu Harris extermination inspector (current) use of anticoagulants Z79.01 and Atrial fibrillation I48.91 Liu Harris MD [address] [id number] 10/13/2025 Liu Harris Type 2 diabetes opal itus without complication E11.9 ; Pure hypercholesterolemia E78.00 ; extermination inspector (current) use of anticoagulants Z79.01 and Atrial fibrillation I48.91 Liu Harris MD [address] [id number] 10/16/2024 Liu Harris extermination inspector (current) use of anticoagulants Z79.01 ; Atrial fibrillation I48.91 and Unsteady gait R26.81 Liu Harris MD [address] [id number] 01/13/2025 Liu Harris Type 2 diabetes opal itus without complication E11.9 ; Preop examination Z01.818 ; residential (current) use of anticoagulants Z79.01 ; Atrial fibrillation I48.91 and Essential hypertension I10 Liu Harris MD [address] [place], [place] [id number] 04/16/2025 Liu Harris Type 2 diabetes opal [...] Notes Treatment Clinical Notes Section Notes 10/28/2024 extermination inspector (current) use of anticoagulants (ICD-10 - Z79.01) 10/28/2024 Atrial fibrillation (ICD-10 - I48.91) 11/11/2024 residential (current) use of anticoagulants (ICD-10 - Z79.01) 11/25/2024 residential (current) use of anticoagulants (ICD-10 - Z79.01) 12/09/2024 Atrial fibrillation (ICD-10 - I48.91) 12/23/2024 extermination inspector (current) use of anticoagulants (ICD-10 - Z79.01) 01/06/2025 residential (current) use of anticoagulants (ICD-10 - Z79.01) 01/27/2025 residential (current) use of anticoagulants (ICD-10 - Z79.01) 02/17/2025 extermination inspector (current) use of anticoagulants (ICD-10 - Z79.01) 03/10/2025 extermination inspector (current) use of anticoagulants (ICD-10 - Z79.01) 03/24/2025 residential (current) use of anticoagulants (ICD-10 - Z79.01) 04/07/2025 extermination inspector (current) use of anticoagulants (ICD-10 - Z79.01) 04/21/2025 extermination inspector (current) use of anticoagulants (ICD-10 - Z79.01) 05/05/2025 extermination inspector (current) use of anticoagulants (ICD-10 - Z79.01) 05/19/2025 extermination inspector (current) use of anticoagulants (ICD-10 - Z79.01) 06/02/2025 residential (current) use of anticoagulants (ICD-10 - Z79.01) 06/16/2025 residential (current) use of anticoagulants (ICD-10 - Z79.01) 06/30/2025 residential (current) use of anticoagulants (ICD-10 - Z79.01) 07/14/2025 Atrial fibrillation (ICD-10 - I48.91) 07/14/2025 Encounter for administration of vaccine (ICD-10 - Z23) 08/04/2025 Atrial fibrillation (ICD-10 - I48.91) 08/18/2025 residential (current) use of anticoagulants (ICD-10 - Z79.01) 09/01/2025 residential (current) use of anticoagulants (ICD-10 - Z79.01) 09/15/2025 residential (current) use of anticoagulants (ICD-10 - Z79.01) 09/29/2025 extermination inspector (current) use of anticoagulants (ICD-10 - Z79.01) 10/13/2025 Type 2 diabetes mellitus without complication (ICD-10 - E11.9) 10/16/2024 residential (current) use of anticoagulants (ICD-10 - [...] 11/25/2024 Atrial fibrillation (ICD-10 - I48.91) 12/09/2024 residential (current) use of anticoagulants (ICD-10 - [...] 06/30/2025 Atrial fibrillation (ICD-10 - I48.91) 07/14/2025 extermination inspector (current) use of anticoagulants (ICD-10 - Z79.01) 08/04/2025 residential (current) use of anticoagulants (ICD-10 - Z79.01) 08/18/2025 Atrial fibrillation (ICD-10 - I48.91) 09/01/2025 Atrial fibrillation (ICD-10 - I48.91) 09/15/2025 Atrial fibrillation (ICD-10 - I48.91) 09/29/2025 Atrial fibrillation (ICD-10 - I48.91) 10/13/2025 Pure hypercholesterolemia (ICD-10 - E78.00) 10/16/2024 Unsteady gait (ICD-1 0 - R26.81) discussed findings of MRI with patient, is going to see trauma director for cataract surgery/ feels as though it is related to his vision as a problem 01/13/2025 extermination inspector (current) use of anticoagulants (ICD-10 - Z79.01) will hold for 3 days prior to the upcoming surgery, patient verbalized understanding of instruction to d'c medication 3 days prior to surgery 04/16/2025 Essential hypertensi on (ICD-10 - I10) well controlled, will cntinue current regiment 04/07/2025 Essential hypertensi on (ICD-10 - I10) 10/13/2025 residential (current) use of anticoagulants (ICD-10 - Z79.01) 01/13/2025 Atrial fibrillation (ICD-10 - I48.91) doing well 04/16/2025 History of melanoma (ICD-10 - Z85.820) was treated with moh's 04/07/2025 Type 2 diabetes mellitus without complication (ICD-10 - E11.9) 10/13/2025 Atrial fibrillation (ICD-10 - I48.91) 01/13/2025 Essential hypertensi on (ICD-10 - I10) [...] Test Test Name Order Date Electrocardiogram (EKG) 11/20/2019 Electrocardiogram (EKG) 11/07/2018 MRI BRAIN W&WO CONTRAST 09/19/2024 Liver Panel 10/13/2025 Glucose Fasting 10/13/2025 Lipid Panel with Reflex 10/13/2025 XR orbit min 4V 09/22/2024 Next Appt Details Provider Name:Liu hyde, 10/26/2025 09:00:00 AM, [address] [place] [address] Drive, [address], [place], [place], [phone], Provider Name:Liu hyde, 10/27/2025 08:45:00 AM, [address], [address], [place], [place], [phone], Provider Name:Liu hdye, 04/12/2026 07:00:00 AM, [address], [address], [place], [place], [phone], Provider Name:Liu Shafer ier, 04/19/2026 08:30:00 AM, [address], [address], [place], [place], [phone], Insurance Providers Payer Name Payer Address Payer Phone Subscriber Number Group Number Insured Name Patient Relationship to Insured Coverage Start Date Coverage End Date [facility] [address] [place], [place] [phone] [id number] Remington Eric Self - patient is the insured Medical (General) History Medical History History ICD Code Atrial fibrillation diabetes mellitus colonoscopy - 02/26/2013; colonoscopy 03/[address] Gifford - repeat 5 years Surgical History Surgery Date(Month/Year) pulmonarry artery ablation Partial Medial Menisectomy, rt knee (Dr. Perez) 10/2016
== END 2025-10-13 07:16 | disposition home or self-care (01) ==
LOC: HO.LNP 07:15
PROVIDERS: Visit Provider Internal Medicine
DX: E11.9 Type 2 diabetes mellitus without complications (principal); I48.91 Unspecified atrial fibrillation; E78.00 Pure hypercholesterolemia, unspecified; Z79.01 Long term (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 of 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
CPT/HCPCS: 80061; 80076; 82947; 83036; 85610